=== PATIENT | male | born 1970 | race Hispanic/Latino ===

== ENCOUNTER 2016-07-06 19:36 | Emergency (ER) | payer MEDICAID ==
[2016-07-06 19:37] VITALS: BMI 26.6
== END 2016-07-07 01:35 | disposition left against medical advice (07) ==
LOC: ED 19:36
DX: Z02.89 Encounter for other administrative examinations (principal); F10.129 Alcohol abuse with intoxication, unspecified

== ENCOUNTER 2016-07-19 17:27 | Inpatient (IN) | payer MEDICAID ==
[2016-07-19] MEDS ORDERED: Sodium Chloride 0.9% 1,000 ML IV STA (18:03)
[2016-07-19] MEDS ORDERED: Folic Acid 1 MG, Thiamine 100 MG, Multivitamin (MVI) 10 ML in Dextrose 5%/0.45% NS 1,00... IV ONE (18:03)
[2016-07-19 18:08] LABS: ADD MANUAL DIFF? NO
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
[2016-07-19 18:12] LABS: BASO # 0.01 K/mm3 (0.0-2.0); BASO % 0.2 % (0.0-3.0); EOS % 0.4 % (1.5-5.0); GRAN # 3.79 (1.4-6.5); GRAN % 70.3 % (50.0-68.0); HEMATOCRIT 37.3 % (42.0-52.0); LYMPH # 1.2 (1.2-3.4); LYMPH % 21.7 % (22.0-35.0); MEAN CELL VOLUME 80.9 fL (80.0-105.0); MEAN CORPUSCULAR HEMOGLOBIN 29.3 pg (25.0-35.0); MEAN CORPUSCULAR HGB CONC 36.2 g/dl (31.0-37.0); MEAN PLATELET VOLUME 10.3 fl (7.0-11.0); MONO # 0.4 (0.1-0.6); MONO % 7.4 % (1.0-6.0); PLATELET COUNT 77 10^3/uL (120.0-450.0); RED CELL DISTRIBUTION WIDTH 14.4 % (11.5-14.5); WHITE BLOOD COUNT 5.4 10^3/ul (4.5-11.0)
[2016-07-19] MEDS ORDERED: Thiamine 100 mg/ml Inj ONE (18:14)
[2016-07-19 18:23] LABS: PARTIAL THROMBOPLASTIN TIME 27.1 Seconds (23.7-30.8)
[2016-07-19 18:32] LABS: ALB/GLOB RATIO 1.4 (1.1-1.8); ALKALINE PHOSPHATASE 82 U/L (38-133); ALT/SGPT 69 U/L (7-56); AMYLASE 100 U/L (35-125); AST/SGOT 78 U/L (15-59); BILIRUBIN,DIRECT 0.6 mg/dL (0.0-0.4); BILIRUBIN,TOTAL 1.4 mg/dL (0.2-1.3); BLOOD UREA NITROGEN 12 mg/dL (7-21); CALCIUM 8.8 mg/dL (8.4-10.5); CARBON DIOXIDE 21 mmol/L (21-33); CHLORIDE 92 mmol/L (98-107); GFR AFRICAN-AMERICAN > 60; GLUCOSE,RANDOM 135 mg/dL (70-110); LIPASE 234 U/L (23-300); POTASSIUM 3.1 mmol/L (3.6-5.0); SODIUM 127 mmol/L (132-148); TOTAL PROTEIN 6.9 g/dL (5.8-8.3)
[2016-07-19] MEDS ORDERED: Potassium Chloride 40 mEq/30 ml LIQ UD PO STA (18:34)
[2016-07-19] MEDS ORDERED: Folic Acid 1 MG, Thiamine 100 MG, Multivitamin (MVI) 10 ML, Potassium Chloride 20 MEQ i... IV ONE (18:35)
[2016-07-19] MEDS ORDERED: THIAMINE IV ONE (18:36)
[2016-07-19] MEDS ORDERED: [UNRECOGNIZED DRUG - OTHER] IV ONE (18:36)
[2016-07-19] MEDS ORDERED: FOLIC ACID IV ONE (18:36)
[2016-07-19] MEDS ORDERED: POTASSIUM CHLORIDE IV ONE (18:36)
[2016-07-19] MEDS ORDERED: MULTIVITAMIN IV ONE (18:36)
[2016-07-19 18:39] LABS: URINE BILIRUBIN SMALL (NEGATIVE); URINE BLOOD NEGATIVE (NEGATIVE); URINE GLUCOSE (UA) NEGATIVE (NEGATIVE); URINE KETONE 15 mg/dL (NEGATIVE); URINE LEUKOCYTE ESTERASE NEGATIVE Leu/uL (NEGATIVE); URINE PROTEIN NEGATIVE mg/dL (<30 mg/dL); URINE UROBILINOGEN 0.2 E.U./dL (<1 E.U./dL)
[2016-07-19 18:40] LABS: URINE APPEARANCE CLEAR (CLEAR); URINE COLOR LIGHT YELLOW (YELLOW)
[2016-07-19 18:42] LABS: TROPONIN I < 0.01 ng/mL
[2016-07-19] MEDS ORDERED: diaZEpam 10 mg/2 ml Inj IVP ONE (21:44)
[2016-07-19] MEDS ORDERED: diaZEpam 10 mg/2 ml Inj IVP PRN (21:44)
[2016-07-19] MEDS: Sodium Chloride 0.9% 1,000 ML IV SCH (21:45)
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
[2016-07-20] MEDS: Sodium Chloride 0.9% 1,000 ML IV SCH (05:15)
[2016-07-20 05:46] LABS: ADD MANUAL DIFF? NO
[2016-07-20 05:52] LABS: BASO # 0.01 K/mm3 (0.0-2.0); BASO % 0.2 % (0.0-3.0); EOS # 0.1 (0.0-0.7); EOS % 1.4 % (1.5-5.0); GRAN # 2.95 (1.4-6.5); GRAN % 59.1 % (50.0-68.0); HEMATOCRIT 36.7 % (42.0-52.0); LYMPH # 1.4 (1.2-3.4); LYMPH % 28.7 % (22.0-35.0); MEAN CELL VOLUME 83.6 fL (80.0-105.0); MEAN CORPUSCULAR HEMOGLOBIN 28.5 pg (25.0-35.0); MEAN CORPUSCULAR HGB CONC 34.1 g/dl (31.0-37.0); MEAN PLATELET VOLUME 10.9 fl (7.0-11.0); MONO # 0.5 (0.1-0.6); MONO % 10.6 % (1.0-6.0); PLATELET COUNT 65 10^3/uL (120.0-450.0); RED CELL DISTRIBUTION WIDTH 14.7 % (11.5-14.5)
[2016-07-20 06:39] LABS: ALB/GLOB RATIO 1.3 (1.1-1.8); ALKALINE PHOSPHATASE 58 U/L (38-133); ALT/SGPT 63 U/L (7-56); AST/SGOT 62 U/L (15-59); BLOOD UREA NITROGEN 6 mg/dL (7-21); CALCIUM 8.5 mg/dL (8.4-10.5); CARBON DIOXIDE 25 mmol/L (21-33); CHLORIDE 103 mmol/L (95-110); GFR AFRICAN-AMERICAN > 60; GLUCOSE,RANDOM 78 mg/dL (70-110); MAGNESIUM 2.2 mg/dL (1.7-2.2); PHOSPHOROUS 3.5 mg/dL (2.5-4.5); POTASSIUM 3.9 mmol/L (3.6-5.0); SODIUM 136 mmol/L (132-148); TOTAL PROTEIN 6.1 g/dL (5.8-8.3)
--- NOTE | 2016-07-20 07:38 | CP.CCUPN ---
<Rin Suarez - Last Filed: 07/20/16 12:34> CCU Subjective - Physician Review Events Since Last Encounter (Free Text): 07/20/16 11:27 Patient seen and examined bedside. On 1:1 for hallucinations and hyperactive delirium at admission. Patient has not had any further episodes of agitation, currently denies visual or auditory hallucinations, denies CP, SOB, abd pain, n/ v, fevers, chills, rashes, anxiety, visual changes, syncope, anxiety, tremors, diaphoresis. Tolerating regular diet. Has needed 2 doses of PRN ativan and 2 doses Valium since admission, none overnight. Critical Care Time Spent (in minutes): 40 CCU Objective - Vital Signs / Intake & Output Vital Signs (Last 4 hours): Vital Signs Temp Pulse Resp BP Pulse Ox 07/20/16 05:00 65 12 135/66 99 07/20/16 04:00 98.6 F 78 17 128/68 93 L Intake and Output (Last 8hrs): Intake & Output 07/19/16 07/20/16 07/20/16 22:59 06:59 14:59 Weight 5 lb 9 oz - Physical Exam Head: Positive for: Atraumatic, Normocephalic Pupils: Positive for: PERRL Conjunctiva: Positive for: Normal Mouth: Positive for: Moist Mucous Membranes Pharnyx: Positive for: Normal. Negative for: ERYTHEMA Respiratory/Chest: Positive for: Clear to Auscultation, Good Air Exchange. Negative for: Respiratory Distress, Accessory Muscle Use Cardiovascular: Positive for: Normal S1, S2, Tachycardic. Negative for: Murmurs Abdomen: Positive for: Normal Bowel Sounds. Negative for: Tenderness, Distention, Peritoneal Signs Upper Extremity: Positive for: Normal Inspection. Negative for: Cyanosis, Edema Lower Extremity: Positive for: Normal Inspection. Negative for: Edema Neurological: Positive for: GCS=15, CN II-XII Intact, Speech Normal Skin: Positive for: Warm, Normal Color, Diaphoretic. Negative for: Rashes Psychiatric: Positive for: Alert, Oriented x 3, Anxious, Other (patient seems to be seeing things intermittently) - Medications Active Medications: Active Medications Generic Name Dose Route Start Last Admin Trade Name Freq PRN Reason Stop Dose Admin Chlordiazepoxide 50 mg 07/19/16 20:00 07/19/16 21:50 Librium PO Not Given BID [facility] Protocol Diazepam 5 mg 07/19/16 21:44 07/20/16 02:30 Valium IVP 5 mg Q6H PRN Administration Agitation Protocol Enoxaparin Sodium 40 mg 07/20/16 10:00 Lovenox SC DAILY [facility] Protocol Folic Acid 1 mg 07/20/16 10:00 Folic Acid PO DAILY [facility] Sodium Chloride 1,000 mls @ 125 mls/hr 07/19/16 21:00 07/20/16 05:15 Sodium Chloride 0.9% IV 125 mls/hr .Q8H [facility] Administration Lorazepam 2 mg 07/19/16 19:39 07/20/16 02:00 Ativan IVP 2 mg Q3H PRN Administration Symptoms of alcohol withdrawl Protocol Multivitamins/Minerals 1 tab 07/20/16 10:00 Therapeutic-M Tab PO DAILY [facility] Ondansetron HCl 4 mg 07/19/16 19:39 Zofran Inj IVP Q4H PRN Nausea/Vomiting Pantoprazole Sodium 40 mg 07/20/16 10:00 Protonix Inj IVP DAILY [facility] Thiamine HCl 100 mg 07/20/16 10:00 Vitamin B1 Tab PO DAILY [facility] - Patient Studies Lab Studies: Lab Studies 07/20/16 Range/Units 05:30 WBC 5.0 (4.5-11.0) 10^3/ul RBC 4.39 (3.5-6.1) 10^6/uL Hgb 12.5 L (14.0-18.0) gm/dL Hct 36.7 L (42.0-52.0) % MCV 83.6 (80.0-105.0) fL MCH 28.5 (25.0-35.0) pg MCHC 34.1 (31.0-37.0) g/dl RDW 14.7 H (11.5-14.5) % Plt Count 65 L (120.0-450.0) 10^3/uL MPV 10.9 (7.0-11.0) fl Gran % 59.1 (50.0-68.0) % Lymph % (Auto) 28.7 (22.0-35.0) % [place] % (Auto) 10.6 H (1.0-6.0) % Eos % (Auto) 1.4 L (1.5-5.0) % Baso % (Auto) 0.2 (0.0-3.0) % Gran # 2.95 (1.4-6.5) Lymph # 1.4 (1.2-3.4) [place] # 0.5 (0.1-0.6) Eos # 0.1 (0.0-0.7) Baso # 0.01 (0.0-2.0) K/mm3 Sodium 136 (132-148) mmol/L Potassium 3.9 (3.6-5.0) mmol/L Chloride 103 (95-110) mmol/L Carbon Dioxide 25 (21-33) mmol/L Anion Gap 12 (10-20) BUN 6 L (7-21) mg/dL Creatinine 0.6 (0.5-1.4) mg/dL Est GFR ( Amer) > 60 Est GFR (Non-Af Amer) > 60 Random Glucose 78 (70-110) mg/dL Calcium 8.5 (8.4-10.5) mg/dL Phosphorus 3.5 (2.5-4.5) mg/dL Magnesium 2.2 (1.7-2.2) mg/dL Total Bilirubin 1.0 (0.2-1.3) mg/dL AST 62 H (15-59) U/L ALT 63 H (7-56) U/L Alkaline Phosphatase 58 (38-133) U/L Total Protein 6.1 (5.8-8.3) g/dL Albumin 3.4 (3.0-4.8) g/dL Globulin 2.6 gm/dL Albumin/Globulin Ratio 1.3 (1.1-1.8) Laboratory Results - last 24 hr 07/20/16 05:30 WBC 5.0 RBC 4.39 Hgb 12.5 L Hct 36.7 L MCV 83.6 MCH 28.5 MCHC 34.1 RDW 14.7 H Plt Count 65 L MPV 10.9 Gran % 59.1 Lymph % (Auto) 28.7 [place] % (Auto) 10.6 H Eos % (Auto) 1.4 L Baso % (Auto) 0.2 Gran # 2.95 Lymph # 1.4 [place] # 0.5 Eos # 0.1 Baso # 0.01 Sodium 136 Potassium 3.9 Chloride 103 Carbon Dioxide 25 Anion Gap 12 BUN 6 L Creatinine 0.6 Est GFR ( Amer) > 60 Est GFR (Non-Af Amer) > 60 Random Glucose 78 Calcium 8.5 Phosphorus 3.5 Magnesium 2.2 Total Bilirubin 1.0 AST 62 H ALT 63 H Alkaline Phosphatase 58 Total Protein 6.1 Albumin 3.4 Globulin 2.6 Albumin/Globulin Ratio 1.3 Review of Systems - Constitutional Constitutional: absent: Fever, Chills, Sweats - EENT Eyes: absent: Blurred Vision, Change in Vision Ears: absent: Dizziness - Cardiovascular Cardiovascular: absent: Chest Pain, Diaphoresis (resolved), Dyspnea - Respiratory Respiratory: absent: Cough, Dyspnea, Pain on Inspiration - Gastrointestinal Gastrointestinal: absent: Abdominal Pain, Diarrhea, Nausea, Vomiting - Genitourinary Genitourinary: absent: Dysuria, Flank Pain - Musculoskeletal Musculoskeletal: absent: Muscle Cramps, Numbness - Integumentary Integumentary: absent: New Lesions, Rash - Neurological Neurological: absent: Dizziness, Focal Weakness, Headaches, Paresthesias, Tingling - Psychiatric Psychiatric: absent: Anxiety, Confusion, Hallucinations, Homicidal Ideation, Suicidal Ideation, Visual Hallucinations Critical Care Progress Note - Ventilator Checklist PUD Prophalyxis: Yes DVT Prophylaxis: Yes - Prophylaxis GI Prophylaxis GI: PPI - Prophylaxis DVT Prophylaxis DVT: Lovenox - Nutrition Nutrition: Nutrition Category Date Time Status NPO Diet [DIET] Diets 07/19/16 Breakfast Ordered Assessment/Plan - Assessment and Plan (Free Text) Assessment: 46 yo M w h/o EtOH abuse (last drink 4 days ago), HTN, depression admitted to ICU in Alcohol withdrawal vs DTs Plan: Neuro: AAOx3, NAD, no tremors no asterixis on exam CIWA protocol DC PRN valium. Continue BID librium and PRN ativan. Monitor BP, heart rate, signs of withdrawal. Monitor amount of ativan needed Seizure precautions CV: HD stable. Continue to monitor Pulm: Comfortable on room air. Maintain spo2>90 Renal: No acute issues. Continue to monitor renal function, I&Os Hyponatremia, hypokalemia, hypomagnesemia resolved s/p replacement. Recheck AM labs GI: GI ppx Amylase and lipase within normal limits Total bilirubin now normal, 1.0 from 1.4. LFT's trending down. ID: Afebrile, no leukocytosis, no signs of infection Heme: Thrombocytopenia likely 2/2 bone marrow suppression due to chronic EtOH abuse. Continue to monitor DVT/GI ppx: SQL, protonix, regular diet - Date & Time Date: 07/20/16 Time: 11:38 <Garima ROBERTSON,Jatin H - Last Filed: 07/20/16 14:21> CCU Objective - Vital Signs / Intake & Output Vital Signs (Last 4 hours): Vital Signs Temp Pulse Resp BP Pulse Ox 07/20/16 13:00 65 18 125/78 98 07/20/16 12:22 73 15 98 07/20/16 12:00 98.7 F 67 15 131/75 98 07/20/16 11:20 73 16 97 07/20/16 11:00 77 16 133/83 95 Intake and Output (Last 8hrs): Intake & Output 07/19/16 07/20/16 07/20/16 22:59 06:59 14:59 Weight 5 lb 9 oz 171 lb 6.4 oz Other: Voiding Method Urinal - Medications Active Medications: Active Medications Generic Name Dose Route Start Last Admin Trade Name Freq PRN Reason Stop Dose Admin Chlordiazepoxide 50 mg 07/19/16 20:00 07/20/16 09:03 Librium PO Not Given BID [facility] Protocol Enoxaparin Sodium 40 mg 07/20/16 10:00 07/20/16 09:03 Lovenox SC Not Given DAILY [facility] Protocol Folic Acid 1 mg 07/20/16 10:00 07/20/16 09:02 Folic Acid PO Not Given DAILY [facility] Lorazepam 2 mg 07/19/16 19:39 07/20/16 02:00 Ativan IVP 2 mg Q3H PRN Administration Symptoms of alcohol withdrawl Protocol Multivitamins/Minerals 1 tab 07/20/16 10:00 07/20/16 10:06 Therapeutic-M Tab PO Not Given DAILY [facility] Ondansetron HCl 4 mg 07/19/16 19:39 Zofran Inj IVP Q4H PRN Nausea/Vomiting Pantoprazole Sodium 40 mg 07/20/16 10:00 07/20/16 09:04 Protonix Inj IVP Not Given DAILY [facility] Thiamine HCl 100 mg 07/20/16 10:00 07/20/16 09:04 Vitamin B1 Tab PO Not Given DAILY [facility] - Patient Studies Lab Studies: Lab Studies 07/20/16 Range/Units 05:30 WBC 5.0 (4.5-11.0) 10^3/ul RBC 4.39 (3.5-6.1) 10^6/uL Hgb 12.5 L (14.0-18.0) gm/dL Hct 36.7 L (42.0-52.0) % MCV 83.6 (80.0-105.0) fL MCH 28.5 (25.0-35.0) pg MCHC 34.1 (31.0-37.0) g/dl RDW 14.7 H (11.5-14.5) % Plt Count 65 L (120.0-450.0) 10^3/uL MPV 10.9 (7.0-11.0) fl Gran % 59.1 (50.0-68.0) % Lymph % (Auto) 28.7 (22.0-35.0) % [place] % (Auto) 10.6 H (1.0-6.0) % Eos % (Auto) 1.4 L (1.5-5.0) % Baso % (Auto) 0.2 (0.0-3.0) % Gran # 2.95 (1.4-6.5) Lymph # 1.4 (1.2-3.4) [place] # 0.5 (0.1-0.6) Eos # 0.1 (0.0-0.7) Baso # 0.01 (0.0-2.0) K/mm3 Sodium 136 (132-148) mmol/L Potassium 3.9 (3.6-5.0) mmol/L Chloride 103 (95-110) mmol/L Carbon Dioxide 25 (21-33) mmol/L Anion Gap 12 (10-20) BUN 6 L (7-21) mg/dL Creatinine 0.6 (0.5-1.4) mg/dL Est GFR ( Amer) > 60 Est GFR (Non-Af Amer) > 60 Random Glucose 78 (70-110) mg/dL Calcium 8.5 (8.4-10.5) mg/dL Phosphorus 3.5 (2.5-4.5) mg/dL Magnesium 2.2 (1.7-2.2) mg/dL Total Bilirubin 1.0 (0.2-1.3) mg/dL AST 62 H (15-59) U/L ALT 63 H (7-56) U/L Alkaline Phosphatase 58 (38-133) U/L Total Protein 6.1 (5.8-8.3) g/dL Albumin 3.4 (3.0-4.8) g/dL Globulin 2.6 gm/dL Albumin/Globulin Ratio 1.3 (1.1-1.8) Laboratory Results - last 24 hr 07/20/16 05:30 WBC 5.0 RBC 4.39 Hgb 12.5 L Hct 36.7 L MCV 83.6 MCH 28.5 MCHC 34.1 RDW 14.7 H Plt Count 65 L MPV 10.9 Gran % 59.1 Lymph % (Auto) 28.7 [place] % (Auto) 10.6 H Eos % (Auto) 1.4 L Baso % (Auto) 0.2 Gran # 2.95 Lymph # 1.4 [place] # 0.5 Eos # 0.1 Baso # 0.01 Sodium 136 Potassium 3.9 Chloride 103 Carbon Dioxide 25 Anion Gap 12 BUN 6 L Creatinine 0.6 Est GFR ( Amer) > 60 Est GFR (Non-Af Amer) > 60 Random Glucose 78 Calcium 8.5 Phosphorus 3.5 Magnesium 2.2 Total Bilirubin 1.0 AST 62 H ALT 63 H Alkaline Phosphatase 58 Total Protein 6.1 Albumin 3.4 Globulin 2.6 Albumin/Globulin Ratio 1.3 Critical Care Progress Note - Nutrition Nutrition: Nutrition Category Date Time Status Regular Diet [DIET] Diets 07/20/16 Breakfast Ordered Attending/Attestation - Attestation I have personally seen and examined this patient.: Yes I have fully participated in the care of the patient.: Yes I have reviewed all pertinent clinical information: Yes Notes (Text): 07/20/16 14:17 46 y/o M admitted to the ICU secondary to DT and difficulty in controlling symptoms and preventing harm to the patient. DT- pt is a known alcoholic for many years and has tried to quit just like this instance. He has been 36 hrs free of alcohol and had symptoms of DT. After valium and Librium was given the patient is currently asymptomatic with normal vital signs. Of to mention the patient has tried many AA groups and self help organizations but request more help once discharged. Will continue to hydrate with Normal saline, MV, thimaine folate. Librium BID and Ativan prn q 3hrs. If the patient in the next 12 hrs can show less use of ativan , then he maybe safe for transfer to the telemetry floor . No signs of seizure or respiratory depression. dvt p, ppi cc time 55 min
[2016-07-20] MEDS: Multivitamin With Minerals Tab PO SCH ×2 (08:45→10:06)
[2016-07-20] MEDS: Enoxaparin 40 mg Syringe SC SCH ×2 (08:46→09:03)
--- NOTE | 2016-07-20 09:16 | RAD ---
HISTORY: alcohol withdrawal COMPARISON: 05/25/2016 FINDINGS: LUNGS: No active pulmonary disease. PLEURA: No significant pleural effusion identified, no pneumothorax apparent. CARDIOVASCULAR: Normal. OSSEOUS STRUCTURES: No significant abnormalities. VISUALIZED UPPER ABDOMEN: Normal. OTHER FINDINGS: None. IMPRESSION: No active disease.
--- NOTE | 2016-07-20 10:31 | CP.PCM.PN ---
<Brent Crow - Last Filed: 07/20/16 18:35> Subjective - Date & Time of Evaluation Date of Evaluation: 07/20/16 Time of Evaluation: 08:00 - Subjective Subjective: 46yo male with past medical history of chronic ETOH abuse, hypertension and depression that presented c/o tremors, visual and auditory hallucations and nausea/vomiting. He stopped drinking 4 days prior and since then has been having symptoms of alcohol withdrawal. Today, he is feeling better, tolerating a normal diet, and only complains of slight dizziness. He denied headache, fever , chills, chest pain, palpitations, SOB, fever, chills, cough, nausea, vomiting , diarrhea, focal weakness, numbness, or tingling. Objective - Vital Signs/Intake and Output Vital Signs (last 24 hours): Temp Pulse Resp BP Pulse Ox 98.8 F 73 18 148/89 100 07/20/16 08:00 07/20/16 08:01 07/20/16 08:01 07/20/16 08:01 07/20/16 08:01 - Medications Medications: Current Medications Chlordiazepoxide (Librium) 50 mg PO BID [facility] PRN Reason: Protocol Last Admin: 07/20/16 09:03 Dose: Not Given Diazepam (Valium) 5 mg IVP Q6H PRN; Protocol PRN Reason: Agitation Last Admin: 07/20/16 02:30 Dose: 5 mg Enoxaparin Sodium (Lovenox) 40 mg SC DAILY [facility] PRN Reason: Protocol Last Admin: 07/20/16 09:03 Dose: Not Given Folic Acid (Folic Acid) 1 mg PO DAILY [facility] Last Admin: 07/20/16 09:02 Dose: Not Given Sodium Chloride (Sodium Chloride 0.9%) 1,000 mls @ 125 mls/hr IV .Q8H [facility] Last Admin: 07/20/16 05:15 Dose: 125 mls/hr Lorazepam (Ativan) 2 mg IVP Q3H PRN; Protocol PRN Reason: Symptoms of alcohol withdrawl Last Admin: 07/20/16 02:00 Dose: 2 mg Multivitamins/Minerals (Therapeutic-M Tab) 1 tab PO DAILY [facility] Last Admin: 07/20/16 10:06 Dose: Not Given Ondansetron HCl (Zofran Inj) 4 mg IVP Q4H PRN PRN Reason: Nausea/Vomiting Pantoprazole Sodium (Protonix Inj) 40 mg IVP DAILY [facility] Last Admin: 07/20/16 09:04 Dose: Not Given Thiamine HCl (Vitamin B1 Tab) 100 mg PO DAILY [facility] Last Admin: 07/20/16 09:04 Dose: Not Given - Labs Labs: 07/20/16 05:30 07/20/16 05:30 PT 10.8 Seconds (9.9-11.8) 07/19/16 17:45 INR 1.00 (0.93-1.08) 07/19/16 17:45 APTT 27.1 Seconds (23.7-30.8) 07/19/16 17:45 - Constitutional Appears: Non-toxic, No Acute Distress - Head Exam Head Exam: ATRAUMATIC, NORMOCEPHALIC - Eye Exam Eye Exam: EOMI - ENT Exam ENT Exam: Mucous Membranes Moist - Neck Exam Neck Exam: Full ROM, Normal Inspection. absent: Lymphadenopathy - Respiratory Exam Respiratory Exam: Clear to Ausculation Bilateral, NORMAL BREATHING PATTERN. absent: Rhonchi, Wheezes - Cardiovascular Exam Cardiovascular Exam: REGULAR RHYTHM, RRR, +S1, +S2. absent: JVD - GI/Abdominal Exam GI & Abdominal Exam: Soft, Normal Bowel Sounds. absent: Tenderness - Extremities Exam Extremities Exam: absent: Joint Swelling, Pedal Edema, Tenderness - Back Exam Back Exam: Full ROM. absent: CVA tenderness (L), CVA tenderness (R), paraspinal tenderness, rash noted - Neurological Exam Neurological Exam: Alert, Awake - Psychiatric Exam Psychiatric exam: Normal Affect, Normal Mood - Skin Skin Exam: Dry, Intact, Normal Color, Warm Assessment and Plan - Assessment and Plan (Free Text) Assessment: 46yo male with history of chronic ETOH abuse, HTN, depression presents c/o tremors, auditory and visual hallucations as well as mild abdominal pain, nausea and vomiting. Plan: ETOH withdrawal -Possible ACS -EKG revealed sinus tachycardia at 123bpm with no acute ST-T wave changes -CXR No Active Disease -Troponin negative x1 -Urine toxicology negative -Alcohol level less than 10 -Ativan 2q3 PRN last taken today at 2:00am -Librium 50mg BID [facility] - will taper tomorrow -Valium has been d/c -Zofran 4mg q4 prn -Normal saline @ 125/hr -Thiamine/Folic acid/Multivitamin -CIWA protocol -Aspiration/Seizure precautions -Continue to monitor and replete electrolytes as needed -Na and K+ normalized today GI/DVT prophylaxis -protonix 40mg daily -lovenix 40mg sc <Agustin Corea - Last Filed: 07/21/16 17:28> Objective - Vital Signs/Intake and Output Vital Signs (last 24 hours): Temp Pulse Resp BP Pulse Ox 98.3 F 69 20 153/84 H 95 07/21/16 04:00 07/21/16 08:00 07/21/16 07:41 07/21/16 07:00 07/21/16 07:41 Intake and Output: 07/21/16 07/21/16 06:59 18:59 Intake Total 340 Output Total 1800 Balance -1460 - Medications Medications: Current Medications Chlordiazepoxide (Librium) 25 mg PO BID [facility] PRN Reason: Protocol Last Admin: 07/21/16 10:05 Dose: Not Given Enoxaparin Sodium (Lovenox) 40 mg SC DAILY [facility] PRN Reason: Protocol Last Admin: 07/21/16 09:32 Dose: 40 mg Folic Acid (Folic Acid) 1 mg PO DAILY [facility] Last Admin: 07/21/16 09:31 Dose: 1 mg Lorazepam (Ativan) 2 mg IVP Q3H PRN; Protocol PRN Reason: Symptoms of alcohol withdrawl Last Admin: 07/20/16 02:00 Dose: 2 mg Multivitamins/Minerals (Therapeutic-M Tab) 1 tab PO DAILY [facility] Last Admin: 07/21/16 09:31 Dose: 1 tab Ondansetron HCl (Zofran Inj) 4 mg IVP Q4H PRN PRN Reason: Nausea/Vomiting Pantoprazole Sodium (Protonix Inj) 40 mg IVP DAILY [facility] Last Admin: 07/21/16 09:31 Dose: 40 mg Thiamine HCl (Vitamin B1 Tab) 100 mg PO DAILY [facility] Last Admin: 07/21/16 09:31 Dose: 100 mg - Labs Labs: 07/21/16 06:00 07/21/16 06:00 PT 10.8 Seconds (9.9-11.8) 07/19/16 17:45 INR 1.00 (0.93-1.08) 07/19/16 17:45 APTT 27.1 Seconds (23.7-30.8) 04 17:45 Assessment and Plan - Assessment and Plan (Free Text) Assessment: attending note; Patient is a 86-year-old male admitted with alcohol abuse. Patient is well known to our service. getting treated with IV multivitamin, thiamine, folic acid. Continue Ativan and Librium. Denies any depression. Continue metoprolol for hypertension. complete alcohol cessation is strongly advised. Follow-up with AA meetings/AA rehabilitation. Follow-up with PMD Dr. Baez upon discharge. Attending/Attestation - Attestation I have personally seen and examined this patient.: Yes I have fully participated in the care of the patient.: Yes I have reviewed all pertinent clinical information, including history, physical exam and plan: Yes
--- NOTE | 2016-07-20 11:59 | CARD ---
APPROVED REPORT EKG Measurement Heart [id number] <Conclusion> Sinus tachycardia Otherwise normal ECG
[2016-07-21 05:19] VITALS: TEMP 98.3
[2016-07-21 06:29] LABS: ADD MANUAL DIFF? NO
[2016-07-21 06:48] LABS: BASO # 0.01 K/mm3 (0.0-2.0); BASO % 0.2 % (0.0-3.0); EOS # 0.1 (0.0-0.7); EOS % 1.2 % (1.5-5.0); GRAN # 2.41 (1.4-6.5); GRAN % 57.2 % (50.0-68.0); HEMATOCRIT 36.6 % (42.0-52.0); LYMPH # 1.4 (1.2-3.4); LYMPH % 34.1 % (22.0-35.0); MEAN CELL VOLUME 83.2 fL (80.0-105.0); MEAN CORPUSCULAR HEMOGLOBIN 28.9 pg (25.0-35.0); MEAN CORPUSCULAR HGB CONC 34.7 g/dl (31.0-37.0); MEAN PLATELET VOLUME 11.2 fl (7.0-11.0); MONO # 0.3 (0.1-0.6); MONO % 7.3 % (1.0-6.0); PLATELET COUNT 79 10^3/uL (120.0-450.0); RED CELL DISTRIBUTION WIDTH 14.8 % (11.5-14.5); WHITE BLOOD COUNT 4.2 10^3/ul (4.5-11.0)
[2016-07-21 07:11] LABS: ALB/GLOB RATIO 1.2 (1.1-1.8); ALKALINE PHOSPHATASE 90 U/L (38-133); ALT/SGPT 48 U/L (7-56); AST/SGOT 44 U/L (15-59); BILIRUBIN,TOTAL 0.6 mg/dL (0.2-1.3); BLOOD UREA NITROGEN 6 mg/dL (7-21); CALCIUM 8.4 mg/dL (8.4-10.5); CARBON DIOXIDE 26 mmol/L (21-33); CHLORIDE 102 mmol/L (98-107); GFR AFRICAN-AMERICAN > 60; GLUCOSE,RANDOM 92 mg/dL (70-110); MAGNESIUM 1.8 mg/dL (1.7-2.2); PHOSPHOROUS 3.2 mg/dL (2.5-4.5); POTASSIUM 3.4 mmol/L (3.6-5.0); SODIUM 134 mmol/L (132-148); TOTAL PROTEIN 6.1 g/dL (5.8-8.3)
[2016-07-21 07:44] VITALS: BP 153/84
[2016-07-21 07:45] VITALS: PULSE 69; RESP 20; O2SAT 95
[2016-07-21] MEDS ORDERED: Potassium Chloride 20 mEq ER Tab PO ONE (09:27)
[2016-07-21] MEDS: Multivitamin With Minerals Tab PO SCH (09:31)
[2016-07-21] MEDS: Enoxaparin 40 mg Syringe SC SCH (09:32)
--- NOTE | 2016-07-21 22:24 | CP.PCM.DIS ---
Provider - Provider Date of Admission: 07/19/16 19:26 Attending physician: Agustin Corea MD Primary care physician: Patric Baez MD Time Spent in preparation of Discharge (in minutes): 35 Diagnosis - Discharge Diagnosis (1) Alcohol withdrawal Status: Acute Hospital Course - Lab Results Lab Results: Micro Results 07/19/16 20:30 Nose MRSA Culture (Admit) - Final MRSA NOT DETECTED Most Recent Lab Values WBC 4.2 10^3/ul (4.5-11.0) L 07/21/16 06:00 RBC 4.40 10^6/uL (3.5-6.1) 07/21/16 06:00 Hgb 12.7 gm/dL (14.0-18.0) L 07/21/16 06:00 Hct 36.6 % (42.0-52.0) L 07/21/16 06:00 MCV 83.2 fL (80.0-105.0) 07/21/16 06:00 MCH 28.9 pg (25.0-35.0) 07/21/16 06:00 MCHC 34.7 g/dl (31.0-37.0) 07/21/16 06:00 RDW 14.8 % (11.5-14.5) H 07/21/16 06:00 Plt Count 79 10^3/uL (120.0-450.0) L 07/21/16 06:00 MPV 11.2 fl (7.0-11.0) H 07/21/16 06:00 Gran % 57.2 % (50.0-68.0) 07/21/16 06:00 Lymph % (Auto) 34.1 % (22.0-35.0) 07/21/16 06:00 [place] % (Auto) 7.3 % (1.0-6.0) H 07/21/16 06:00 Eos % (Auto) 1.2 % (1.5-5.0) L 07/21/16 06:00 Baso % (Auto) 0.2 % (0.0-3.0) 07/21/16 06:00 Gran # 2.41 (1.4-6.5) 07/21/16 06:00 Lymph # 1.4 (1.2-3.4) 07/21/16 06:00 [place] # 0.3 (0.1-0.6) 07/21/16 06:00 Eos # 0.1 (0.0-0.7) 07/21/16 06:00 Baso # 0.01 K/mm3 (0.0-2.0) 07/21/16 06:00 PT 10.8 Seconds (9.9-11.8) 07/19/16 17:45 INR 1.00 (0.93-1.08) 07/19/16 17:45 APTT 27.1 Seconds (23.7-30.8) 07/19/16 17:45 Sodium 134 mmol/L (132-148) 07/21/16 06:00 Potassium 3.4 mmol/L (3.6-5.0) L 07/21/16 06:00 Chloride 102 mmol/L (98-107) 07/21/16 06:00 Carbon Dioxide 26 mmol/L (21-33) 07/21/16 06:00 Anion Gap 9 (10-20) L 07/21/16 06:00 BUN 6 mg/dL (7-21) L 07/21/16 06:00 Creatinine 0.7 mg/dL (0.5-1.4) 07/21/16 06:00 Est GFR ( Amer) > 60 07/21/16 06:00 Est GFR (Non-Af Amer) > 60 07/21/16 06:00 Random Glucose 92 mg/dL (70-110) 07/21/16 06:00 Calcium 8.4 mg/dL (8.4-10.5) 07/21/16 06:00 Phosphorus 3.2 mg/dL (2.5-4.5) 07/21/16 06:00 Magnesium 1.8 mg/dL (1.7-2.2) 07/21/16 06:00 Total Bilirubin 0.6 mg/dL (0.2-1.3) 07/21/16 06:00 Direct Bilirubin 0.6 mg/dL (0.0-0.4) H 07/19/16 17:45 AST 44 U/L (15-59) 07/21/16 06:00 ALT 48 U/L (7-56) 07/21/16 06:00 Alkaline Phosphatase 90 U/L (38-133) 07/21/16 06:00 Lactate Dehydrogenase 461 U/L (333-699) 07/19/16 17:45 Total Creatine Kinase 188 U/L (35-230) 07/19/16 17:45 Troponin I < 0.01 ng/mL 07/19/16 17:45 Total Protein 6.1 g/dL (5.8-8.3) 07/21/16 06:00 Albumin 3.3 g/dL (3.0-4.8) 07/21/16 06:00 Globulin 2.8 gm/dL 07/21/16 06:00 Albumin/Globulin Ratio 1.2 (1.1-1.8) 07/21/16 06:00 Amylase 100 U/L (35-125) 07/19/16 17:45 Lipase 234 U/L (23-300) 07/19/16 17:45 Urine Color Light yellow (YELLOW) 07/19/16 18:00 Urine Appearance Clear (CLEAR) 07/19/16 18:00 Urine pH 6.0 (4.7-8.0) 07/19/16 18:00 Ur Specific [place] 1.010 (1.005-1.035) 07/19/16 18:00 Urine Protein Negative mg/dL (<30 mg/dL) 07/19/16 18:00 Urine Glucose (UA) Negative mg/dL (NEGATIVE) 07/19/16 18:00 Urine Ketones 15 mg/dL (NEGATIVE) H 07/19/16 18:00 Urine Blood Negative (NEGATIVE) 07/19/16 18:00 Urine Nitrate Negative (NEGATIVE) 07/19/16 18:00 Urine Bilirubin Small (NEGATIVE) H 07/19/16 18:00 Urine Urobilinogen 0.2 E.U./dL (<1 E.U./dL) 07/19/16 18:00 Ur Leukocyte Esterase Negative Kristen/uL (NEGATIVE) 07/19/16 18:00 Urine Opiates Screen Negative (NEGATIVE) 07/19/16 18:00 Urine Methadone Screen Negative (NEGATIVE) 07/19/16 18:00 Ur Barbiturates Screen Negative (NEGATIVE) 07/19/16 18:00 Ur Phencyclidine Scrn Negative (NEGATIVE) 07/19/16 18:00 Ur Amphetamines Screen Negative (NEGATIVE) 07/19/16 18:00 U Benzodiazepines Scrn Negative (NEGATIVE) 07/19/16 18:00 U Oth Cocaine Metabols Negative (NEGATIVE) 07/19/16 18:00 U Cannabinoids Screen Negative (NEGATIVE) 07/19/16 18:00 Alcohol, Quantitative < 10 mg/dL (0-10) 07/19/16 17:45 - Hospital Course Hospital Course: 46yo male with past medical history of chronic ETOH abuse, hypertension and depression that presented c/o tremors, visual and auditory hallucations and nausea/vomiting. He stopped drinking 4 days prior and since then has been having symptoms of alcohol withdrawal. Workup for ACS including EKG, chest xray and troponin was negative. He was monitored using CIWA protocol, given IV fluids with vitamins and started on Valium, Librium and Ativan as needed. Over his stay, his symptoms resolved and on day of discharge, he no longer had tremors and was ambulating. He was medically stable to be discharged home and sent with a prescription for Librium. He was also instructed to follow up with his primary doctor, go to AA, and stop drinking. This is a brief account of his hospital course, for more details please review his chart. - Date & Time of H&P Date of H&P: 07/21/16 Time of H&P: 08:00 Discharge Exam - Head Exam Head Exam: ATRAUMATIC, NORMOCEPHALIC - Eye Exam Eye Exam: EOMI, Normal appearance - Respiratory Exam Respiratory Exam: Clear to PA & Lateral, NORMAL BREATHING PATTERN, UNREMARKABLE. absent: Rhonchi, Wheezes - Cardiovascular Exam Cardiovascular Exam: REGULAR RHYTHM, RRR, +S1, +S2. absent: JVD - GI/Abdominal Exam GI & Abdominal Exam: Normal Bowel Sounds, Unremarkable - Extremities Exam Extremities exam: full ROM Additional comments: no tremulousness - Neurological Exam Neurological exam: Alert, Oriented x3 - Psychiatric Exam Psychiatric exam: Normal Affect, Normal Mood - Skin Skin Exam: Dry, Intact, Normal Color, Warm Discharge Plan - Discharge Medications Prescriptions: chlordiazePOXIDE [Librium] 10 mg PO BID #4 cap - Follow Up Plan Condition: SERIOUS Disposition: HOME/ ROUTINE Instructions: Bipolar Disorder (DC), Depression (DC), Abuse of Alcohol (DC), Hypertension (DC), Hypertension (GEN) Additional Instructions: 1. Follow up with PMD Dr. baez in 3 days. 2. stop alcohol abuse. 3. Follow up with AA meetings. Referrals: Patric Baez MD [Primary Care Provider] -
== END 2016-07-21 17:45 | disposition home or self-care (01) | DRG 751 ==
LOC: ED 17:27 → ERH 19:26 → CCU 20:29
PROVIDERS: ADMIT Hospitalist; ATTEND Internal Medicine
DX: F10.239 Alcohol dependence with withdrawal, unspecified (principal); I10 Essential (primary) hypertension; F32.9 Major depressive disorder, single episode, unspecified

== ENCOUNTER 2016-09-24 23:25 | Inpatient (IN) | payer MEDICAID ==
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
[2016-09-24] MEDS ORDERED: Thiamine 100 mg/ml Inj IV STA (23:48)
[2016-09-25 00:29] LABS: ADD MANUAL DIFF? NO
[2016-09-25 00:33] LABS: BASO # 0.01 K/mm3 (0.0-2.0); BASO % 0.2 % (0.0-3.0); EOS % 0.2 % (1.5-5.0); GRAN # 3.99 (1.4-6.5); GRAN % 66.2 % (50.0-68.0); HEMATOCRIT 39.7 % (42.0-52.0); LYMPH # 1.3 (1.2-3.4); LYMPH % 21.6 % (22.0-35.0); MEAN CORPUSCULAR HEMOGLOBIN 29.5 pg (25.0-35.0); MEAN PLATELET VOLUME 10.8 fl (7.0-11.0); MONO # 0.7 (0.1-0.6); MONO % 11.8 % (1.0-6.0); PLATELET COUNT 103 10^3/uL (120.0-450.0); RED CELL DISTRIBUTION WIDTH 14.3 % (11.5-14.5); VENOUS BLOOD GAS BASE EXCESS -0.5 mmol/L (0.0-2.0); VENOUS BLOOD PH 7.44 (7.32-7.43)
[2016-09-25 00:44] LABS: ALB/GLOB RATIO 1.6 (1.1-1.8); ALKALINE PHOSPHATASE 84 U/L (38-133); ALT/SGPT 74 U/L (7-56); AST/SGOT 71 U/L (15-59); BILIRUBIN,TOTAL 1.7 mg/dL (0.2-1.3); BLOOD UREA NITROGEN 9 mg/dL (7-21); CALCIUM 9.6 mg/dL (8.4-10.5); CARBON DIOXIDE 23 mmol/L (21-33); CHLORIDE 95 mmol/L (95-110); GFR AFRICAN-AMERICAN > 60; GLUCOSE,RANDOM 112 mg/dL (70-110); POTASSIUM 3.2 mmol/L (3.6-5.0); SODIUM 129 mmol/L (132-148); TOTAL PROTEIN 7.3 g/dL (5.8-8.3)
[2016-09-25 00:46] LABS: ALCOHOL SERUM < 10 mg/dL (0-10)
[2016-09-25 01:35] LABS: OSMOLALITY,SERUM 271 mosm/kg (271-296)
[2016-09-25 01:54] LABS: TROPONIN I < 0.01 ng/mL
--- NOTE | 2016-09-25 02:42 | CT ---
EXAM: CT Head Without Intravenous Contrast CLINICAL HISTORY: 46 years old, male; Signs and symptoms; Altered mental status/memory loss; Additional info: AMS TECHNIQUE: Axial computed tomography images of the head/brain without intravenous contrast. This CT exam was performed using one or more of the following dose reduction techniques: automated exposure control, adjustment of the mA and/or kV according to patient size, and/or use of iterative reconstruction technique. COMPARISON: CT - HEAD W/O CONTRAST 10/14/2015 6:22:56 PM FINDINGS: Brain: Mild atrophy. No intracranial hemorrhage. No mass. No definite edema. Ventricles: No hydrocephalus. Bones/joints: No acute fracture. Postsurgical changes of nasal bones. Soft tissues: RIGHT parietal soft tissue swelling. Sinuses: No acute sinusitis. Mastoid air cells: No mastoid effusion. Orbits: Unremarkable as visualized. IMPRESSION: 1. No acute intracranial abnormality. 2. Incidental/non-acute findings are described above.
[2016-09-25 03:41] LABS: URINE BILIRUBIN NEGATIVE (NEGATIVE); URINE BLOOD TRACE-LYSED (NEGATIVE); URINE GLUCOSE (UA) NEGATIVE (NEGATIVE); URINE KETONE 15 mg/dL (NEGATIVE); URINE LEUKOCYTE ESTERASE NEGATIVE Leu/uL (NEGATIVE); URINE PROTEIN NEGATIVE mg/dL (<30 mg/dL); URINE UROBILINOGEN 0.2 E.U./dL (<1 E.U./dL)
[2016-09-25 03:44] LABS: URINE APPEARANCE CLEAR (CLEAR); URINE COLOR YELLOW (YELLOW)
[2016-09-25 04:04] LABS: URINE EPITHELIAL CELLS 0 - 2 /hpf (0-5); URINE RBC 0 - 2 /hpf (0-2); URINE WBC 0 - 2 /hpf (0-6)
[2016-09-25 06:11] VITALS: O2SAT 97
[2016-09-25] MEDS ORDERED: Potassium Chloride 20 mEq ER Tab PO STA (06:39)
--- NOTE | 2016-09-25 10:49 | CARD ---
APPROVED REPORT EKG Measurement Heart [id number] [id number] <Conclusion> Sinus tachycardia Minimal voltage criteria for LVH, may be normal variant Prolonged QTc No change
[2016-09-25] MEDS: Multivitamin Therapeutic Tab PO SCH (13:27)
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
[2016-09-26 07:39] VITALS: RESP 20
[2016-09-26] MEDS: Multivitamin Therapeutic Tab PO SCH (08:27)
[2016-09-26] MEDS: Multivitamin With Minerals Tab PO SCH (08:28)
[2016-09-26 10:37] LABS: ALB/GLOB RATIO 1.4 (1.1-1.8); ALKALINE PHOSPHATASE 75 U/L (38-133); ALT/SGPT 53 U/L (7-56); AST/SGOT 35 U/L (15-59); BILIRUBIN,TOTAL 0.7 mg/dL (0.2-1.3); BLOOD UREA NITROGEN 11 mg/dL (7-21); CALCIUM 9.1 mg/dL (8.4-10.5); CARBON DIOXIDE 27 mmol/L (21-33); CHLORIDE 102 mmol/L (98-107); GFR AFRICAN-AMERICAN > 60; GLUCOSE,RANDOM 75 mg/dL (70-110); POTASSIUM 3.7 mmol/L (3.6-5.0); SODIUM 136 mmol/L (132-148); TOTAL PROTEIN 6.1 g/dL (5.8-8.3)
[2016-09-26 10:53] LABS: FREE T4 1.11 ng/dL (0.78-2.19)
[2016-09-26 11:07] LABS: THYROID STIMULATING HORMONE 0.67 mIU/mL (0.46-4.68)
--- NOTE | 2016-09-26 14:07 | PCM.PYCHPN ---
Psychiatric Progress Note - Psychiatric Progress Note Patient seen today, length of contact: 30 minutes Patient Chief Complaint: "I feel much better, thank you " Problems Identified/Issues Discussed: Suicide/ homicide prevention, past psychiatric h/o, current psychiatric symptoms , medical problems, risk/benefits and alternatives of medications, medications compliance, coping strategies, substance abuse h/o, relapse prevention, importance of follow up with psychiatrist and therapist, discharge plan. Medical Problems: h/o seizures most likely due to alcohol withdrawals Diagnostic Results: 09/25/16 00:20 09/26/16 10:23 Lab Results 09/26/16 10:23: Free T4 1.11, TSH 3rd Generation 0.67 09/26/16 10:23: Sodium 136, Chloride 102, Potassium 3.7, Carbon Dioxide 27, Anion Gap 11, BUN 11, Creatinine 0.7, Est GFR ( Amer) > 60, Est GFR (Non- Af Amer) > 60, Random Glucose 75, Calcium 9.1, Total Bilirubin 0.7, AST 35, ALT 53, Alkaline Phosphatase 75, Total Protein 6.1, Albumin 3.5, Globulin 2.5, Albumin/Globulin Ratio 1.4 09/25/16 03:05: Urine Opiates Screen Negative, Urine Methadone Screen Negative, Ur Barbiturates Screen Negative, Ur Phencyclidine Scrn Negative, Ur Amphetamines Screen Negative, U Benzodiazepines Scrn Negative, U Oth Cocaine Metabols Negative, U Cannabinoids Screen Negative 09/25/16 03:05: Urine Color Yellow, Urine Appearance Clear, Urine pH 6.0, Ur Specific [place] <= 1.005, Urine Protein Negative, Urine Glucose (UA) Negative, Urine Ketones 15 H, Urine Blood Trace-lysed H, Urine Nitrate Negative, Urine Bilirubin Negative, Urine Urobilinogen 0.2, Ur Leukocyte Esterase Negative, Urine RBC 0 - 2, Urine WBC 0 - 2, Ur Epithelial Cells 0 - 2 09/25/16 00:20: Serum Osmolality 271, Alcohol, Quantitative < 10 09/25/16 00:20: Sodium 129 L, Chloride 95, Potassium 3.2 L, Carbon Dioxide 23, Anion Gap 14, BUN 9, Creatinine 0.6, Est GFR ( Amer) > 60, Est GFR (Non- Af Amer) > 60, Random Glucose 112 H, Calcium 9.6, Total Bilirubin 1.7 H, AST 71 H, ALT 74 H, Alkaline Phosphatase 84, Troponin I < 0.01, Total Protein 7.3, Albumin 4.5, Globulin 2.8, Albumin/Globulin Ratio 1.6 09/25/16 00:20: pO2 178 H, VBG pH 7.44 H, VBG pCO2 34.0 L, VBG HCO3 23.1, VBG Total CO2 24.1, VBG O2 Sat (Calc) 100.0 H, VBG Base Excess -0.5 L, VBG Potassium 3.2 L, Sodium 129.0 L, Chloride 95.0 L, Glucose 119 H, Lactate 0.9, FiO2 21.0, Venous Blood Potassium 3.2 L 09/25/16 00:20: WBC 6.0 D, RBC 4.84, Hgb 14.3, Hct 39.7 L, MCV 82.0, MCH 29.5, MCHC 36.0, RDW 14.3, Plt Count 103 L, MPV 10.8, Gran % 66.2, Lymph % (Auto) 21.6 L, [place] % (Auto) 11.8 H, Eos % (Auto) 0.2 L, Baso % (Auto) 0.2, Gran # 3.99 , Lymph # 1.3, [place] # 0.7 H, Eos # 0.0, Baso # 0.01 Vital Signs Temp Pulse Resp BP Pulse Ox 09/26/16 07:38 97.2 F L 65 20 111/75 09/25/16 21:53 80 152/91 H 09/25/16 16:21 93 H 134/88 09/25/16 06:07 73 18 151/90 H 97 09/25/16 02:53 98.9 F 89 20 148/96 H 98 09/24/16 23:26 99 F 113 H 19 150/111 H 97 DSM 5 Symptoms Update: Shortly pt is 46yo male with long h/o alcohol abuse and dependence, h/ o mental illness, bipolar spectrum disorder, anxiety disorder, was discharged from this unit in June 2016, pt came to the ED presented to be confused, paranoid, responding to internal stimuli. pt also presented to be psychotic, was not able to contract for safety. pt needs further evaluation and stabilization, medications initiation and titration. Pt also was noncompliant with medications. Pt was seen history, pt presented to have acceptable personal hygiene, fine upper extremity tremor, good ADLs, pt was sleeping, but easily aroused. pt reported to feel "much better", was minimizing his symptoms, pt said now he has no withdrawal symptoms, has good appetite and sleep. pt reported to feel less depressed and and more hopeful. Patient reported that he feels anxious, but patient impression is related to alcohol withdrawal symptoms. Patient tolerates medication well, no side effects observed or reported, aims 0 , no EPS. Patient was seen by medical team consultation appreciated. Impression: DSM 5 Diagnosis: r/o bipolar spectrum disorder (family h/o and hypomanic episodes in the past), most recent episode is depression alcohol withdrawals with delusions/hallucinaitons r/o EDITH alcohol use disorder r/o substance induced mood disorder h/o seizures Medication Change: Yes (Librium decreased) Medical Record Reviewed: Yes Consults ordered or reviewed: medical consultation appreciated Mental Status Examination - Cognitive Function Orientation: Person, Place, Situation Memory: Intact Attention: Poor Concentration: Poor Association: WNL Fund of Knowledge: WNL - Mood Mood: Depressed, Anxious - Affect Affect: Constricted (but more reactive mood congruent) - Speech Speech: Appropriate - Formal Thought Process Formal Thought Process: Paranoia (denied today) - Suicidal Ideation Suicidal Ideation: No - Homicidal Ideation Homicidal Ideation: No Goal/Treatment Plan - Goal/Treatment Plan Need for Continued Stay: Remain at risks for inpatient hospitalization, Severe depression anxiety, Discharge may exacerbated symptoms, Severe functional impairment Progress Toward Problem(s) and Goals/Treatment Plan: Milieu/structure/supportive therapy will resume home meds Folic Acid 1 mg PO DAILY Multivitamin PO DAILY Naltrexone will be considered librium 50mgpo 3 times a day scheduled for alcohol withdrawals Seroquel 50mg hs for psychosis Thiamine 100 mg PO DAILY Wellbutrin 75mg bid will be considered traZODone 50 mg PO HS PRN for insomnia will monitor vitals closely SW evaluation for rehab medical consult appreciated will monitor closely' Estimated Date of D/C: 10/01/16 (we'll monitor closely) - Smoking Cessation Smoking Cessation Initiated: No Reason for not providing: patient does not smoke
[2016-09-27] MEDS: Multivitamin With Minerals Tab PO SCH (08:35)
--- NOTE | 2016-09-27 12:42 | PCM.PYCHPN ---
Psychiatric Progress Note - Psychiatric Progress Note Patient seen today, length of contact: 30 minutes Patient Chief Complaint: "I feel much better, thank you " Problems Identified/Issues Discussed: Suicide/ homicide prevention, past psychiatric h/o, current psychiatric symptoms , medical problems, risk/benefits and alternatives of medications, medications compliance, coping strategies, substance abuse h/o, relapse prevention, importance of follow up with psychiatrist and therapist, discharge plan. Medical Problems: h/o seizures most likely due to alcohol withdrawals Diagnostic Results: 09/25/16 00:20 09/26/16 10:23 Lab Results 09/26/16 10:23: Free T4 1.11, TSH 3rd Generation 0.67 09/26/16 10:23: Sodium 136, Chloride 102, Potassium 3.7, Carbon Dioxide 27, Anion Gap 11, BUN 11, Creatinine 0.7, Est GFR ( Amer) > 60, Est GFR (Non- Af Amer) > 60, Random Glucose 75, Calcium 9.1, Total Bilirubin 0.7, AST 35, ALT 53, Alkaline Phosphatase 75, Total Protein 6.1, Albumin 3.5, Globulin 2.5, Albumin/Globulin Ratio 1.4 09/25/16 03:05: Urine Opiates Screen Negative, Urine Methadone Screen Negative, Ur Barbiturates Screen Negative, Ur Phencyclidine Scrn Negative, Ur Amphetamines Screen Negative, U Benzodiazepines Scrn Negative, U Oth Cocaine Metabols Negative, U Cannabinoids Screen Negative 09/25/16 03:05: Urine Color Yellow, Urine Appearance Clear, Urine pH 6.0, Ur Specific [place] <= 1.005, Urine Protein Negative, Urine Glucose (UA) Negative, Urine Ketones 15 H, Urine Blood Trace-lysed H, Urine Nitrate Negative, Urine Bilirubin Negative, Urine Urobilinogen 0.2, Ur Leukocyte Esterase Negative, Urine RBC 0 - 2, Urine WBC 0 - 2, Ur Epithelial Cells 0 - 2 09/25/16 00:20: Serum Osmolality 271, Alcohol, Quantitative < 10 09/25/16 00:20: Sodium 129 L, Chloride 95, Potassium 3.2 L, Carbon Dioxide 23, Anion Gap 14, BUN 9, Creatinine 0.6, Est GFR ( Amer) > 60, Est GFR (Non- Af Amer) > 60, Random Glucose 112 H, Calcium 9.6, Total Bilirubin 1.7 H, AST 71 H, ALT 74 H, Alkaline Phosphatase 84, Troponin I < 0.01, Total Protein 7.3, Albumin 4.5, Globulin 2.8, Albumin/Globulin Ratio 1.6 09/25/16 00:20: pO2 178 H, VBG pH 7.44 H, VBG pCO2 34.0 L, VBG HCO3 23.1, VBG Total CO2 24.1, VBG O2 Sat (Calc) 100.0 H, VBG Base Excess -0.5 L, VBG Potassium 3.2 L, Sodium 129.0 L, Chloride 95.0 L, Glucose 119 H, Lactate 0.9, FiO2 21.0, Venous Blood Potassium 3.2 L 09/25/16 00:20: WBC 6.0 D, RBC 4.84, Hgb 14.3, Hct 39.7 L, MCV 82.0, MCH 29.5, MCHC 36.0, RDW 14.3, Plt Count 103 L, MPV 10.8, Gran % 66.2, Lymph % (Auto) 21.6 L, [place] % (Auto) 11.8 H, Eos % (Auto) 0.2 L, Baso % (Auto) 0.2, Gran # 3.99 , Lymph # 1.3, [place] # 0.7 H, Eos # 0.0, Baso # 0.01 Vital Signs Temp Pulse Resp BP Pulse Ox 09/26/16 07:38 97.2 F L 65 20 111/75 09/25/16 21:53 80 152/91 H 09/25/16 16:21 93 H 134/88 09/25/16 06:07 73 18 151/90 H 97 09/25/16 02:53 98.9 F 89 20 148/96 H 98 09/24/16 23:26 99 F 113 H 19 150/111 H 97 Temp Pulse Resp BP Pulse Ox 97.2 F L 71 20 116/74 97 09/26/16 07:38 09/26/16 16:00 09/26/16 07:38 09/26/16 16:00 09/25/16 06:07 DSM 5 Symptoms Update: Shortly pt is 46yo male with long h/o alcohol abuse and dependence, h/ o mental illness, bipolar spectrum disorder, anxiety disorder, was discharged from this unit in June 2016, pt came to the ED presented to be confused, paranoid, responding to internal stimuli. pt also presented to be psychotic, was not able to contract for safety. pt needs further evaluation and stabilization, medications initiation and titration. Pt also was noncompliant with medications. Pt was seen history, pt presented to have acceptable personal hygiene, fine upper extremity tremor, good ADLs, pt was sleeping, but easily aroused. pt reported to feel "much better", was minimizing his symptoms, pt said now he has no withdrawal symptoms, has good appetite and sleep. pt reported to feel less depressed and and more hopeful. Patient reported that he feels anxious, but patient impression is related to alcohol withdrawal symptoms. Patient tolerates medication well, no side effects observed or reported, aims 0 , no EPS. Patient was seen by medical team consultation appreciated. Impression: DSM 5 Diagnosis: r/o bipolar spectrum disorder (family h/o and hypomanic episodes in the past), most recent episode is depression alcohol withdrawals with delusions/hallucinaitons r/o EDITH alcohol use disorder r/o substance induced mood disorder h/o seizures Medication Change: Yes (Librium decreased) Medical Record Reviewed: Yes Consults ordered or reviewed: medical consultation appreciated Mental Status Examination - Cognitive Function Orientation: Person, Place, Situation Memory: Intact Attention: Poor Concentration: Poor Association: WNL Fund of Knowledge: WNL - Mood Mood: Depressed, Anxious - Affect Affect: Constricted (but more reactive mood congruent) - Speech Speech: Appropriate - Formal Thought Process Formal Thought Process: Paranoia (denied today) - Suicidal Ideation Suicidal Ideation: No - Homicidal Ideation Homicidal Ideation: No Goal/Treatment Plan - Goal/Treatment Plan Need for Continued Stay: Remain at risks for inpatient hospitalization, Severe depression anxiety, Discharge may exacerbated symptoms, Severe functional impairment Progress Toward Problem(s) and Goals/Treatment Plan: Milieu/structure/supportive therapy will resume home meds Folic Acid 1 mg PO DAILY Multivitamin PO DAILY Naltrexone will be considered librium 50mgpo 2 times a day scheduled for alcohol withdrawals Seroquel 50mg hs for psychosis Thiamine 100 mg PO DAILY Wellbutrin 75mg bid will be considered traZODone 50 mg PO HS PRN for insomnia will monitor vitals closely SW evaluation for rehab medical consult appreciated will monitor closely' Estimated Date of D/C: 10/01/16 (we'll monitor closely)
[2016-09-28] MEDS: Multivitamin With Minerals Tab PO SCH (10:01)
--- NOTE | 2016-09-28 16:23 | PCM.PYCHPN ---
Psychiatric Progress Note - Psychiatric Progress Note Patient seen today, length of contact: 30 minutes Patient Chief Complaint: "I feel much better, thank you " Problems Identified/Issues Discussed: Suicide/ homicide prevention, past psychiatric h/o, current psychiatric symptoms , medical problems, risk/benefits and alternatives of medications, medications compliance, coping strategies, substance abuse h/o, relapse prevention, importance of follow up with psychiatrist and therapist, discharge plan. Medical Problems: h/o seizures most likely due to alcohol withdrawals Diagnostic Results: 09/25/16 00:20 09/26/16 10:23 Lab Results 09/26/16 10:23: Free T4 1.11, TSH 3rd Generation 0.67 09/26/16 10:23: Sodium 136, Chloride 102, Potassium 3.7, Carbon Dioxide 27, Anion Gap 11, BUN 11, Creatinine 0.7, Est GFR ( Amer) > 60, Est GFR (Non- Af Amer) > 60, Random Glucose 75, Calcium 9.1, Total Bilirubin 0.7, AST 35, ALT 53, Alkaline Phosphatase 75, Total Protein 6.1, Albumin 3.5, Globulin 2.5, Albumin/Globulin Ratio 1.4 09/25/16 03:05: Urine Opiates Screen Negative, Urine Methadone Screen Negative, Ur Barbiturates Screen Negative, Ur Phencyclidine Scrn Negative, Ur Amphetamines Screen Negative, U Benzodiazepines Scrn Negative, U Oth Cocaine Metabols Negative, U Cannabinoids Screen Negative 09/25/16 03:05: Urine Color Yellow, Urine Appearance Clear, Urine pH 6.0, Ur Specific [place] <= 1.005, Urine Protein Negative, Urine Glucose (UA) Negative, Urine Ketones 15 H, Urine Blood Trace-lysed H, Urine Nitrate Negative, Urine Bilirubin Negative, Urine Urobilinogen 0.2, Ur Leukocyte Esterase Negative, Urine RBC 0 - 2, Urine WBC 0 - 2, Ur Epithelial Cells 0 - 2 09/25/16 00:20: Serum Osmolality 271, Alcohol, Quantitative < 10 09/25/16 00:20: Sodium 129 L, Chloride 95, Potassium 3.2 L, Carbon Dioxide 23, Anion Gap 14, BUN 9, Creatinine 0.6, Est GFR ( Amer) > 60, Est GFR (Non- Af Amer) > 60, Random Glucose 112 H, Calcium 9.6, Total Bilirubin 1.7 H, AST 71 H, ALT 74 H, Alkaline Phosphatase 84, Troponin I < 0.01, Total Protein 7.3, Albumin 4.5, Globulin 2.8, Albumin/Globulin Ratio 1.6 09/25/16 00:20: pO2 178 H, VBG pH 7.44 H, VBG pCO2 34.0 L, VBG HCO3 23.1, VBG Total CO2 24.1, VBG O2 Sat (Calc) 100.0 H, VBG Base Excess -0.5 L, VBG Potassium 3.2 L, Sodium 129.0 L, Chloride 95.0 L, Glucose 119 H, Lactate 0.9, FiO2 21.0, Venous Blood Potassium 3.2 L 09/25/16 00:20: WBC 6.0 D, RBC 4.84, Hgb 14.3, Hct 39.7 L, MCV 82.0, MCH 29.5, MCHC 36.0, RDW 14.3, Plt Count 103 L, MPV 10.8, Gran % 66.2, Lymph % (Auto) 21.6 L, [place] % (Auto) 11.8 H, Eos % (Auto) 0.2 L, Baso % (Auto) 0.2, Gran # 3.99 , Lymph # 1.3, [place] # 0.7 H, Eos # 0.0, Baso # 0.01 Vital Signs Temp Pulse Resp BP Pulse Ox 09/26/16 07:38 97.2 F L 65 20 111/75 09/25/16 21:53 80 152/91 H 09/25/16 16:21 93 H 134/88 09/25/16 06:07 73 18 151/90 H 97 09/25/16 02:53 98.9 F 89 20 148/96 H 98 09/24/16 23:26 99 F 113 H 19 150/111 H 97 Temp Pulse Resp BP Pulse Ox 97.2 F L 71 20 116/74 97 09/26/16 07:38 09/26/16 16:00 09/26/16 07:38 09/26/16 16:00 09/25/16 06:07 DSM 5 Symptoms Update: Shortly pt is 46yo male with long h/o alcohol abuse and dependence, h/ o mental illness, bipolar spectrum disorder, anxiety disorder, was discharged from this unit in June 2016, pt came to the ED presented to be confused, paranoid, responding to internal stimuli. pt also presented to be psychotic, was not able to contract for safety. pt needs further evaluation and stabilization, medications initiation and titration. Pt also was noncompliant with medications. Pt was seen history, pt presented to have acceptable personal hygiene, fine upper extremity tremor, good ADLs, less sleepy, more visible at the unit. pt reported to feel "much better", was minimizing his symptoms, pt said now he has no withdrawal symptoms, has good appetite and sleep. pt reported to feel less depressed and and more hopeful. Patient reported that he feels anxious, but patient impression is related to alcohol withdrawal symptoms Patient tolerates medication well, no side effects observed or reported, aims 0 , no EPS. Patient was seen by medical team consultation appreciated. Impression: DSM 5 Diagnosis: r/o bipolar spectrum disorder (family h/o and hypomanic episodes in the past), most recent episode is depression alcohol withdrawals with delusions/hallucinaitons r/o EDITH alcohol use disorder r/o substance induced mood disorder h/o seizures Medication Change: Yes (Librium decreased) Medical Record Reviewed: Yes Consults ordered or reviewed: medical consultation appreciated Mental Status Examination - Cognitive Function Orientation: Person, Place, Situation Memory: Intact Attention: Poor (some improvement) Concentration: Poor (some improvemenet) Association: WNL Fund of Knowledge: WNL - Mood Mood: Depressed (some improvement), Anxious (some improvement) - Affect Affect: Constricted (but more reactive mood congruent) - Speech Speech: Appropriate - Suicidal Ideation Suicidal Ideation: No - Homicidal Ideation Homicidal Ideation: No Goal/Treatment Plan - Goal/Treatment Plan Need for Continued Stay: Remain at risks for inpatient hospitalization, Severe depression anxiety, Discharge may exacerbated symptoms, Severe functional impairment Progress Toward Problem(s) and Goals/Treatment Plan: Milieu/structure/supportive therapy will resume home meds Folic Acid 1 mg PO DAILY Multivitamin PO DAILY Naltrexone will be considered [id number] three times a day scheduled for alcohol withdrawals Seroquel 50mg hs for psychosis Thiamine 100 mg PO DAILY Wellbutrin 75mg bid started for depression traZODone 50 mg PO HS PRN for insomnia will monitor vitals closely SW evaluation for rehab medical consult appreciated will monitor closely' Estimated Date of D/C: 10/01/16 (we'll monitor closely)
[2016-09-29 07:23] VITALS: TEMP 98.1
[2016-09-29] MEDS: Multivitamin With Minerals Tab PO SCH (09:43)
--- NOTE | 2016-09-29 16:04 | PCM.PYCHPN ---
Psychiatric Progress Note - Psychiatric Progress Note Patient seen today, length of contact: 30 minutes Patient Chief Complaint: "I feel much better, thank you " Problems Identified/Issues Discussed: Suicide/ homicide prevention, past psychiatric h/o, current psychiatric symptoms , medical problems, risk/benefits and alternatives of medications, medications compliance, coping strategies, substance abuse h/o, relapse prevention, importance of follow up with psychiatrist and therapist, discharge plan. Medical Problems: h/o seizures most likely due to alcohol withdrawals Diagnostic Results: 09/25/16 00:20 09/26/16 10:23 Lab Results 09/26/16 10:23: Free T4 1.11, TSH 3rd Generation 0.67 09/26/16 10:23: Sodium 136, Chloride 102, Potassium 3.7, Carbon Dioxide 27, Anion Gap 11, BUN 11, Creatinine 0.7, Est GFR ( Amer) > 60, Est GFR (Non- Af Amer) > 60, Random Glucose 75, Calcium 9.1, Total Bilirubin 0.7, AST 35, ALT 53, Alkaline Phosphatase 75, Total Protein 6.1, Albumin 3.5, Globulin 2.5, Albumin/Globulin Ratio 1.4 09/25/16 03:05: Urine Opiates Screen Negative, Urine Methadone Screen Negative, Ur Barbiturates Screen Negative, Ur Phencyclidine Scrn Negative, Ur Amphetamines Screen Negative, U Benzodiazepines Scrn Negative, U Oth Cocaine Metabols Negative, U Cannabinoids Screen Negative 09/25/16 03:05: Urine Color Yellow, Urine Appearance Clear, Urine pH 6.0, Ur Specific [place] <= 1.005, Urine Protein Negative, Urine Glucose (UA) Negative, Urine Ketones 15 H, Urine Blood Trace-lysed H, Urine Nitrate Negative, Urine Bilirubin Negative, Urine Urobilinogen 0.2, Ur Leukocyte Esterase Negative, Urine RBC 0 - 2, Urine WBC 0 - 2, Ur Epithelial Cells 0 - 2 09/25/16 00:20: Serum Osmolality 271, Alcohol, Quantitative < 10 09/25/16 00:20: Sodium 129 L, Chloride 95, Potassium 3.2 L, Carbon Dioxide 23, Anion Gap 14, BUN 9, Creatinine 0.6, Est GFR ( Amer) > 60, Est GFR (Non- Af Amer) > 60, Random Glucose 112 H, Calcium 9.6, Total Bilirubin 1.7 H, AST 71 H, ALT 74 H, Alkaline Phosphatase 84, Troponin I < 0.01, Total Protein 7.3, Albumin 4.5, Globulin 2.8, Albumin/Globulin Ratio 1.6 09/25/16 00:20: pO2 178 H, VBG pH 7.44 H, VBG pCO2 34.0 L, VBG HCO3 23.1, VBG Total CO2 24.1, VBG O2 Sat (Calc) 100.0 H, VBG Base Excess -0.5 L, VBG Potassium 3.2 L, Sodium 129.0 L, Chloride 95.0 L, Glucose 119 H, Lactate 0.9, FiO2 21.0, Venous Blood Potassium 3.2 L 09/25/16 00:20: WBC 6.0 D, RBC 4.84, Hgb 14.3, Hct 39.7 L, MCV 82.0, MCH 29.5, MCHC 36.0, RDW 14.3, Plt Count 103 L, MPV 10.8, Gran % 66.2, Lymph % (Auto) 21.6 L, [place] % (Auto) 11.8 H, Eos % (Auto) 0.2 L, Baso % (Auto) 0.2, Gran # 3.99 , Lymph # 1.3, Edwards # 0.7 H, Eos # 0.0, Baso # 0.01 Vital Signs Temp Pulse Resp BP Pulse Ox 09/26/16 07:38 97.2 F L 65 20 111/75 09/25/16 21:53 80 152/91 H 09/25/16 16:21 93 H 134/88 09/25/16 06:07 73 18 151/90 H 97 09/25/16 02:53 98.9 F 89 20 148/96 H 98 09/24/16 23:26 99 F 113 H 19 150/111 H 97 Temp Pulse Resp BP Pulse Ox 97.2 F L 71 20 116/74 97 09/26/16 07:38 09/26/16 16:00 09/26/16 07:38 09/26/16 16:00 09/25/16 06:07 DSM 5 Symptoms Update: Shortly pt is 46yo male with long h/o alcohol abuse and dependence, h/ o mental illness, bipolar spectrum disorder, anxiety disorder, was discharged from this unit in June 2016, pt came to the ED presented to be confused, paranoid, responding to internal stimuli. pt also presented to be psychotic, was not able to contract for safety. pt needs further evaluation and stabilization, medications initiation and titration. Pt also was noncompliant with medications. Pt was seen history, pt presented to have acceptable personal hygiene, fine upper extremity tremor, good ADLs, less sleepy, more visible at the unit. pt reported to feel "much better", reported to have good appetite and sleep, looking forward to be d/c tomorrow. Patient tolerates medication well, no side effects observed or reported, aims 0 , no EPS. Patient was seen by medical team consultation appreciated. Impression: DSM 5 Diagnosis: r/o bipolar spectrum disorder (family h/o and hypomanic episodes in the past), most recent episode is depression alcohol withdrawals with delusions/hallucinaitons r/o EDITH alcohol use disorder r/o substance induced mood disorder h/o seizures Medication Change: Yes (Librium decreased) Medical Record Reviewed: Yes Consults ordered or reviewed: medical consultation appreciated Mental Status Examination - Cognitive Function Orientation: Person, Place, Situation Memory: Intact Attention: Poor (much better) Concentration: Poor (much better) Association: WNL Fund of Knowledge: WNL - Mood Mood: Depressed (much better) - Affect Affect: Constricted (but more reactive mood congruent) - Speech Speech: Appropriate - Formal Thought Process Formal Thought Process: No Impairment - Suicidal Ideation Suicidal Ideation: No - Homicidal Ideation Homicidal Ideation: No Goal/Treatment Plan - Goal/Treatment Plan Need for Continued Stay: Remain at risks for inpatient hospitalization, Severe depression anxiety, Discharge may exacerbated symptoms, Severe functional impairment Progress Toward Problem(s) and Goals/Treatment Plan: Milieu/structure/supportive therapy will resume home meds Folic Acid 1 mg PO DAILY Multivitamin PO DAILY Naltrexone will be considered libriumtapering dose Seroquel 50mg hs for psychosis Thiamine 100 mg PO DAILY Wellbutrin 75mg bid started for depression traZODone 50 mg PO HS PRN for insomnia will monitor vitals closely SW evaluation for rehab medical consult appreciated will monitor closely' Estimated Date of D/C: 09/30/16 (we'll monitor closely)
[2016-09-30 07:37] VITALS: BP 127/92; PULSE 60
[2016-09-30] MEDS: Multivitamin With Minerals Tab PO SCH (08:45)
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
== END 2016-09-30 14:49 | disposition home or self-care (01) | DRG 751 ==
LOC: ED 23:25 → ERH 09-25 04:55 → PSYC 09-25 07:18
PROVIDERS: ADMIT Psychiatry & Neurology Psychiatry; ATTEND Psychiatry & Neurology Psychiatry
DX: F10.239 Alcohol dependence with withdrawal, unspecified (principal); F31.81 Bipolar II disorder; G40.89 Other seizures; I10 Essential (primary) hypertension; F29 Unspecified psychosis not due to a substance or known physiological condition; G47.00 Insomnia, unspecified; Z95.5 Presence of coronary angioplasty implant and graft; Z91.14 Patient's other noncompliance with medication regimen; Z83.3 Family history of diabetes mellitus; Z82.49 Family history of ischemic heart disease and other diseases of the circulatory system; F12.90 Cannabis use, unspecified, uncomplicated; Z91.013 Allergy to seafood; F19.94 Other psychoactive substance use, unspecified with psychoactive substance-induced mood disorder; F41.1 Generalized anxiety disorder

== ENCOUNTER 2016-11-13 13:23 | Inpatient (IN) | payer MEDICAID, OTHER ==
[2016-11-13] MEDS ORDERED: Multivitamin (MVI) 10 ML, Thiamine 100 MG, Folic Acid 1 MG in Sodium Chloride 0.9% 1,00... IV ONE (14:06)
[2016-11-13 14:15] LABS: ADD MANUAL DIFF? NO
[2016-11-13 14:18] LABS: BASO # 0.01 K/mm3 (0.0-2.0); BASO % 0.2 % (0.0-3.0); EOS % 0.4 % (1.5-5.0); GRAN # 3.75 (1.4-6.5); GRAN % 67.5 % (50.0-68.0); HEMATOCRIT 38.2 % (42.0-52.0); LYMPH # 1.2 (1.2-3.4); LYMPH % 22.2 % (22.0-35.0); MEAN CELL VOLUME 81.8 fL (80.0-105.0); MEAN CORPUSCULAR HEMOGLOBIN 29.1 pg (25.0-35.0); MEAN CORPUSCULAR HGB CONC 35.6 g/dl (31.0-37.0); MEAN PLATELET VOLUME 11.4 fl (7.0-11.0); MONO # 0.5 (0.1-0.6); MONO % 9.7 % (1.0-6.0); PLATELET COUNT 79 10^3/uL (120.0-450.0); RED CELL DISTRIBUTION WIDTH 14.1 % (11.5-14.5); WHITE BLOOD COUNT 5.6 10^3/ul (4.5-11.0)
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
--- NOTE | 2016-11-13 14:22 | RAD ---
HISTORY: sob COMPARISON: Comparison made with prior chest 07/19/2026 FINDINGS: LUNGS: No active pulmonary disease. PLEURA: No significant pleural effusion identified, no pneumothorax apparent. CARDIOVASCULAR: Normal. OSSEOUS STRUCTURES: No significant abnormalities. VISUALIZED UPPER ABDOMEN: Normal. OTHER FINDINGS: None. IMPRESSION: No active disease.
[2016-11-13 14:30] LABS: ALB/GLOB RATIO 1.4 (1.1-1.8); ALKALINE PHOSPHATASE 80 U/L (38-133); ALT/SGPT 91 U/L (7-56); AST/SGOT 80 U/L (15-59); BILIRUBIN,TOTAL 1.6 mg/dL (0.2-1.3); BLOOD UREA NITROGEN 9 mg/dL (7-21); CALCIUM 9.3 mg/dL (8.4-10.5); CARBON DIOXIDE 25 mmol/L (21-33); CHLORIDE 93 mmol/L (98-107); GFR AFRICAN-AMERICAN > 60; GLUCOSE,RANDOM 99 mg/dL (70-110); POTASSIUM 3.2 mmol/L (3.6-5.0); SODIUM 128 mmol/L (132-148)
[2016-11-13 14:43] LABS: TROPONIN I < 0.01 ng/mL
[2016-11-13] MEDS ORDERED: Potassium Chloride 20 mEq ER Tab PO STA (14:45)
[2016-11-13 15:32] LABS: PH,URINE 6.5 (4.7-8.0); URINE BILIRUBIN NEGATIVE (NEGATIVE); URINE BLOOD NEGATIVE (NEGATIVE); URINE GLUCOSE (UA) NEGATIVE (NEGATIVE); URINE KETONE NEGATIVE (NEGATIVE); URINE LEUKOCYTE ESTERASE NEGATIVE Leu/uL (NEGATIVE); URINE PROTEIN NEGATIVE mg/dL (<30 mg/dL); URINE UROBILINOGEN 0.2 E.U./dL (<1 E.U./dL)
[2016-11-13 15:33] LABS: URINE APPEARANCE CLEAR (CLEAR); URINE COLOR YELLOW (YELLOW)
[2016-11-13] MEDS ORDERED: Sodium Chloride 0.9% 1,000 ML IV SCH (19:30)
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
--- NOTE | 2016-11-13 22:46 | CARD ---
APPROVED REPORT EKG Measurement Heart [id number] <Conclusion> Sinus tachycardia Cannot rule out Anterior infarct, age undetermined Abnormal ECG
[2016-11-13 23:07] VITALS: BMI 23.6
[2016-11-13] MEDS ORDERED: Pneumococcal 23-Valent Vaccine IM ONE (23:07)
[2016-11-14] MEDS ORDERED: Multivitamin (MVI) 10 ML, Thiamine 100 MG, Folic Acid 1 MG in Sodium Chloride 0.9% 1,00... IV ONE ×2 (02:00→14:45)
[2016-11-14 06:49] LABS: ADD MANUAL DIFF? NO
[2016-11-14 07:07] LABS: BASO # 0.02 K/mm3 (0.0-2.0); BASO % 0.5 % (0.0-3.0); GRAN # 1.96 (1.4-6.5); GRAN % 46.8 % (50.0-68.0); HEMATOCRIT 37.2 % (42.0-52.0); LYMPH # 1.7 (1.2-3.4); LYMPH % 40.9 % (22.0-35.0); MEAN CELL VOLUME 84.4 fL (80.0-105.0); MEAN CORPUSCULAR HEMOGLOBIN 28.8 pg (25.0-35.0); MEAN CORPUSCULAR HGB CONC 34.1 g/dl (31.0-37.0); MONO # 0.5 (0.1-0.6); MONO % 10.8 % (1.0-6.0); PLATELET COUNT 67 10^3/uL (120.0-450.0); RED CELL DISTRIBUTION WIDTH 14.3 % (11.5-14.5); WHITE BLOOD COUNT 4.2 10^3/ul (4.5-11.0)
[2016-11-14 07:18] LABS: ALB/GLOB RATIO 1.3 (1.1-1.8); ALKALINE PHOSPHATASE 63 U/L (38-133); ALT/SGPT 68 U/L (7-56); AST/SGOT 58 U/L (15-59); BILIRUBIN,TOTAL 1.1 mg/dL (0.2-1.3); BLOOD UREA NITROGEN 6 mg/dL (7-21); CALCIUM 8.7 mg/dL (8.4-10.5); CARBON DIOXIDE 25 mmol/L (21-33); CHLORIDE 103 mmol/L (98-107); GFR AFRICAN-AMERICAN > 60; GLUCOSE,RANDOM 80 mg/dL (70-110); MAGNESIUM 1.9 mg/dL (1.7-2.2); PHOSPHOROUS 3.8 mg/dL (2.5-4.5); POTASSIUM 3.6 mmol/L (3.6-5.0); SODIUM 136 mmol/L (132-148); TOTAL PROTEIN 6.1 g/dL (5.8-8.3)
--- NOTE | 2016-11-14 13:20 | CP.PCM.PN ---
<Jeffrey Carmona - Last Filed: 11/14/16 13:17> Subjective - Date & Time of Evaluation Date of Evaluation: 11/14/16 Time of Evaluation: 13:17 - Subjective Subjective: Pt seen and examined at bedside. Pt agitated overnight and had chris along with b/l arm restraints placed. Pt doing better in AM and will have hand restraints taken off. Admits to hallucinations. Denies CP, SOB, N/V/D. Objective - Vital Signs/Intake and Output Vital Signs (last 24 hours): Temp Pulse Resp BP Pulse Ox 98.6 F 69 18 136/86 97 11/14/16 06:00 11/14/16 12:21 11/14/16 12:21 11/14/16 12:21 11/14/16 06:00 Intake and Output: 11/14/16 11/14/16 06:59 18:59 Intake Total 0 Output Total 500 Balance -500 - Medications Medications: Current Medications Chlordiazepoxide (Librium) 25 mg PO BID [facility] PRN Reason: Protocol Last Admin: 11/14/16 11:08 Dose: 25 mg Folic Acid (Folic Acid) 1 mg PO DAILY [facility] Lorazepam (Ativan) 2 mg IVP Q4H PRN; Protocol PRN Reason: Symptoms of alcohol withdrawl Last Admin: 11/14/16 11:08 Dose: 2 mg Multivitamins (Thera Tab) 1 tab PO 0800 [facility] Ondansetron HCl (Zofran Inj) 4 mg IVP Q4H PRN PRN Reason: Nausea/Vomiting Pantoprazole Sodium (Protonix Inj) 40 mg IVP DAILY [facility] Last Admin: 11/14/16 11:07 Dose: 40 mg Thiamine HCl (Vitamin B1 Tab) 100 mg PO DAILY [facility] - Labs Labs: 11/14/16 06:30 11/14/16 06:30 - Constitutional Appears: Toxic, No Acute Distress - Head Exam Head Exam: ATRAUMATIC, NORMAL INSPECTION - ENT Exam ENT Exam: Mucous Membranes Moist, Normal Exam - Respiratory Exam Respiratory Exam: Clear to Ausculation Bilateral, NORMAL BREATHING PATTERN - Cardiovascular Exam Cardiovascular Exam: Tachycardia, REGULAR RHYTHM, +S1, +S2 - GI/Abdominal Exam GI & Abdominal Exam: Soft, Normal Bowel Sounds. absent: Tenderness - Extremities Exam Extremities Exam: absent: Calf Tenderness, Pedal Edema - Neurological Exam Neurological Exam: Alert, Awake. absent: Oriented x3 - Psychiatric Exam Psychiatric exam: Normal Affect, Normal Mood - Skin Skin Exam: Intact, Normal Color, Warm Assessment and Plan - Assessment and Plan (Free Text) Plan: 46yo male with history of chronic ETOH abuse, HTN, and depression presents alcohol withdrawal. Will continue current medical management for alcohol withdrawal. Pt agitated overnight, will consider increasing Ativan if patient continues to have severe withdrawals. Pt will remain on chris at this time. 1. ETOH withdrawal Continue ativan Continue librium, will watch LFTs for elevation Continue banana bag CIWA protocol Aspiration and seizure precautions 2. Hx of HTN Hold Lopressor as BP is stable 3. PPX Protonix SCDs Seen, reviewed, and discussed with attending Mathew PGY-2 <Sean Shelby - Last Filed: 11/14/16 20:53> Objective - Vital Signs/Intake and Output Vital Signs (last 24 hours): Temp Pulse Resp BP Pulse Ox 98 F 67 18 131/86 97 11/14/16 17:26 11/14/16 17:39 11/14/16 17:26 11/14/16 17:26 11/14/16 06:00 Intake and Output: 11/14/16 11/15/16 18:59 06:59 Intake Total 420 Output Total 800 Balance -380 - Medications Medications: Current Medications Chlordiazepoxide (Librium) 25 mg PO Q6H [facility] PRN Reason: Protocol Last Admin: 11/14/16 16:03 Dose: 25 mg Folic Acid (Folic Acid) 1 mg PO DAILY [facility] Multivitamins/Vitamin C 10 ml/Thiamine HCl 100 mg/ Folic Acid 1 mg/ Sodium Chloride 1,011.2 mls @ 100 mls/hr IV .Q10H7M ONE Stop: 11/15/16 00:51 Last Admin: 11/14/16 16:04 Dose: 100 mls/hr Lorazepam (Ativan) 2 mg IVP Q4H PRN; Protocol PRN Reason: Symptoms of alcohol withdrawl Last Admin: 11/14/16 11:08 Dose: 2 mg Ondansetron HCl (Zofran Inj) 4 mg IVP Q4H PRN PRN Reason: Nausea/Vomiting Pantoprazole Sodium (Protonix Inj) 40 mg IVP DAILY [facility] Last Admin: 11/14/16 11:07 Dose: 40 mg - Labs Labs: 11/14/16 06:30 11/14/16 06:30 Attending/Attestation - Attestation I have personally seen and examined this patient.: Yes I have fully participated in the care of the patient.: Yes I have reviewed all pertinent clinical information, including history, physical exam and plan: Yes Notes (Text): 11/14/16 20:50 Patient seen and examined at bedside. Vitals, labs, orders and overnight issues reviewed. He is awake, arousable and follows simple commands. Occasional confusion noted but easy to re-orient. Overnight he was agitated and was reported to have some hallucination. CIWA remains very low and wrist restraints were discontinued, possey continued with Avasys system initiated. BM suppression due to chronic ETOH abuse noted. Continue regimen of librium and ativan prn. maintain seizure, aspirations, fall precautions. Agree with the plan as outlined by the resident.
[2016-11-15 07:14] LABS: ADD MANUAL DIFF? NO
[2016-11-15 07:20] LABS: BASO # 0.01 K/mm3 (0.0-2.0); BASO % 0.3 % (0.0-3.0); EOS % 1.1 % (1.5-5.0); GRAN % 45.2 % (50.0-68.0); HEMATOCRIT 36.7 % (42.0-52.0); LYMPH # 1.5 (1.2-3.4); LYMPH % 41.8 % (22.0-35.0); MEAN CORPUSCULAR HEMOGLOBIN 28.6 pg (25.0-35.0); MEAN CORPUSCULAR HGB CONC 34.1 g/dl (31.0-37.0); MEAN PLATELET VOLUME 10.6 fl (7.0-11.0); MONO # 0.4 (0.1-0.6); MONO % 11.6 % (1.0-6.0); PLATELET COUNT 62 10^3/uL (120.0-450.0); RED CELL DISTRIBUTION WIDTH 14.3 % (11.5-14.5); WHITE BLOOD COUNT 3.5 10^3/ul (4.5-11.0)
[2016-11-15 07:36] LABS: ALB/GLOB RATIO 1.4 (1.1-1.8); ALKALINE PHOSPHATASE 71 U/L (38-133); ALT/SGPT 69 U/L (7-56); AST/SGOT 42 U/L (15-59); BILIRUBIN,TOTAL 0.5 mg/dL (0.2-1.3); BLOOD UREA NITROGEN 6 mg/dL (7-21); CALCIUM 8.6 mg/dL (8.4-10.5); CARBON DIOXIDE 23 mmol/L (21-33); CHLORIDE 103 mmol/L (95-110); GFR AFRICAN-AMERICAN > 60; GLUCOSE,RANDOM 83 mg/dL (70-110); MAGNESIUM 1.7 mg/dL (1.7-2.2); POTASSIUM 3.3 mmol/L (3.6-5.0); SODIUM 135 mmol/L (132-148); TOTAL PROTEIN 5.8 g/dL (5.8-8.3)
[2016-11-15] MEDS ORDERED: Multivitamin Therapeutic Tab PO SCH (08:00)
[2016-11-15] MEDS ORDERED: Potassium Chloride 20 mEq ER Tab PO STA (08:46)
--- NOTE | 2016-11-15 11:58 | CP.PCM.PN ---
<TAYLOR ELLIOTT - Last Filed: 11/15/16 11:52> Subjective - Date & Time of Evaluation Date of Evaluation: 11/15/16 Time of Evaluation: 09:45 - Subjective Subjective: pt seen and examined bedside. pt stated that he had been drinking vodka and beer for two weeks, but couldn't remember how much. states last drink was wednesday. states that he has had auditory hallucinations a/w his withdrawals in the past but denied any today. also denies n/v/d, fevers, cp, abdominal pain, shakes/tremors or visual changes. pt cannot recall why he was in the vest and is unsure of how he was behaving earlier. Objective - Vital Signs/Intake and Output Vital Signs (last 24 hours): Temp Pulse Resp BP Pulse Ox 98.3 F 65 20 124/78 98 11/15/16 06:00 11/15/16 06:00 11/15/16 06:00 11/15/16 06:00 11/15/16 06:00 Intake and Output: 11/15/16 11/15/16 06:59 18:59 Intake Total 1900 Output Total 1000 Balance 900 - Medications Medications: Current Medications Chlordiazepoxide (Librium) 25 mg PO Q8 [facility] PRN Reason: Protocol Folic Acid (Folic Acid) 1 mg PO DAILY [facility] Last Admin: 11/15/16 11:06 Dose: 1 mg Lorazepam (Ativan) 2 mg IVP Q4H PRN; Protocol PRN Reason: Symptoms of alcohol withdrawl Last Admin: 11/14/16 11:08 Dose: 2 mg Multivitamins (Thera Tab) 1 tab PO 0800 [facility] Ondansetron HCl (Zofran Inj) 4 mg IVP Q4H PRN PRN Reason: Nausea/Vomiting Pantoprazole Sodium (Protonix Inj) 40 mg IVP DAILY [facility] Last Admin: 11/15/16 11:06 Dose: 40 mg Thiamine HCl (Vitamin B1 Tab) 100 mg PO DAILY [facility] - Labs Labs: 11/15/16 07:11 11/15/16 07:11 - Constitutional Appears: Well, Non-toxic, No Acute Distress, Other (pt is not combative, agitated, confused or in acute distress) - Head Exam Head Exam: ATRAUMATIC, NORMAL INSPECTION, NORMOCEPHALIC - Eye Exam Eye Exam: EOMI, Normal appearance, PERRL. absent: Conjunctival injection, Nystagmus, Periorbital swelling, Periorbital tenderness, Scleral icterus Pupil Exam: NORMAL ACCOMODATION - ENT Exam ENT Exam: Mucous Membranes Moist, Normal Exam - Neck Exam Neck Exam: Normal Inspection - Respiratory Exam Respiratory Exam: Clear to Ausculation Bilateral, NORMAL BREATHING PATTERN. absent: Accessory Muscle Use, Rales, Rhonchi, Wheezes, Stridor - Cardiovascular Exam Cardiovascular Exam: RRR, +S1, +S2. absent: Gallop, JVD, Rubs, Murmur - GI/Abdominal Exam GI & Abdominal Exam: Soft, Normal Bowel Sounds. absent: Distended, Guarding, Tenderness - Neurological Exam Neurological Exam: Alert, Awake, Oriented x3. absent: Motor Sensory Deficit - Psychiatric Exam Psychiatric exam: Normal Affect, Normal Mood. absent: Agitated, Anxious, Manic - Skin Skin Exam: Normal Color, Warm - Additional Findings Additional findings: pt in chris vest Assessment and Plan - Assessment and Plan (Free Text) Assessment: 46yo male with history of chronic ETOH abuse with multiple admissions, HTN, and depression presents with alcohol withdrawal. EKG showed sinus tachy, trop neg x1 , UDS negative. Plan: 1. ETOH withdrawal, currently no withdrawal symptoms - Librium 25mg q8 titrated down due to improvement in symptoms - Ativan 2mg q4PRN if withdrawal - WA protocol - c/w Avasys system for monitoring of withdrawal - seizure, fall and aspirations precautions - MV, thiamine, and folic acid - D/C tele and transfer pt to med-surg floor with close nurse monitoring (place by nurse's station) 2. Agitation, pt not agitated or combative today - d/c chris vest 3. Hx of HTN - holding home meds 4. Depression - holding home meds PPX: PTX/SCDs Patient was seen, discussed and evaluated with attending, Dr. Heron Elliott PGY1 <Sean Shelby - Last Filed: 11/15/16 17:09> Objective - Vital Signs/Intake and Output Vital Signs (last 24 hours): Temp Pulse Resp BP Pulse Ox 97.9 F 88 18 139/87 98 11/15/16 12:00 11/15/16 12:00 11/15/16 12:00 11/15/16 12:00 11/15/16 06:00 Intake and Output: 11/15/16 11/15/16 06:59 18:59 Intake Total 1900 1900 Output Total 1000 1000 Balance 900 900 - Medications Medications: Current Medications Chlordiazepoxide (Librium) 25 mg PO Q8 [facility] PRN Reason: Protocol Last Admin: 11/15/16 15:03 Dose: 25 mg Folic Acid (Folic Acid) 1 mg PO DAILY [facility] Last Admin: 11/15/16 11:06 Dose: 1 mg Lorazepam (Ativan) 2 mg IVP Q4H PRN; Protocol PRN Reason: Symptoms of alcohol withdrawl Last Admin: 11/14/16 11:08 Dose: 2 mg Multivitamins (Thera Tab) 1 tab PO 0800 [facility] Ondansetron HCl (Zofran Inj) 4 mg IVP Q4H PRN PRN Reason: Nausea/Vomiting Pantoprazole Sodium (Protonix Inj) 40 mg IVP DAILY [facility] Last Admin: 11/15/16 11:06 Dose: 40 mg Thiamine HCl (Vitamin B1 Tab) 100 mg PO DAILY [facility] - Labs Labs: 11/15/16 07:11 11/15/16 07:11 Attending/Attestation - Attestation I have personally seen and examined this patient.: Yes I have fully participated in the care of the patient.: Yes I have reviewed all pertinent clinical information, including history, physical exam and plan: Yes Notes (Text): 11/15/16 17:06 Patient seen and examined at bedside. Labs, vitals, notes reviewed. No overnight issues. He is much more awake and alert and denies any new complaints. He feels much better and is aware of his surroundings and reason for admission. Continue tapering his librium and his ativan regimen. Possey vest discontinued. Discontinue telemetry and Avasys system today. OOB to chair with assistance today. PT evaluation in AM.
[2016-11-16] MEDS: Pantoprazole 40 mg EC Tab PO SCH (05:28)
[2016-11-16 08:32] LABS: ADD MANUAL DIFF? NO
[2016-11-16 08:36] LABS: BASO # 0.01 K/mm3 (0.0-2.0); BASO % 0.3 % (0.0-3.0); EOS % 1.1 % (1.5-5.0); GRAN % 42.6 % (50.0-68.0); HEMATOCRIT 37.8 % (42.0-52.0); LYMPH # 1.7 (1.2-3.4); LYMPH % 48.4 % (22.0-35.0); MEAN CELL VOLUME 83.3 fL (80.0-105.0); MEAN CORPUSCULAR HEMOGLOBIN 29.1 pg (25.0-35.0); MEAN CORPUSCULAR HGB CONC 34.9 g/dl (31.0-37.0); MEAN PLATELET VOLUME 11.2 fl (7.0-11.0); MONO # 0.3 (0.1-0.6); MONO % 7.6 % (1.0-6.0); PLATELET COUNT 94 10^3/uL (120.0-450.0); RED CELL DISTRIBUTION WIDTH 14.3 % (11.5-14.5); WHITE BLOOD COUNT 3.5 10^3/ul (4.5-11.0)
[2016-11-16 08:50] LABS: ALB/GLOB RATIO 1.5 (1.1-1.8); ALKALINE PHOSPHATASE 72 U/L (38-133); ALT/SGPT 59 U/L (7-56); AST/SGOT 37 U/L (15-59); BILIRUBIN,TOTAL 0.4 mg/dL (0.2-1.3); BLOOD UREA NITROGEN 7 mg/dL (7-21); CALCIUM 9.1 mg/dL (8.4-10.5); CARBON DIOXIDE 23 mmol/L (21-33); CHLORIDE 101 mmol/L (95-110); GFR AFRICAN-AMERICAN > 60; GLUCOSE,RANDOM 141 mg/dL (70-110); MAGNESIUM 1.6 mg/dL (1.7-2.2); PHOSPHOROUS 3.5 mg/dL (2.5-4.5); POTASSIUM 3.9 mmol/L (3.6-5.0); SODIUM 133 mmol/L (132-148); TOTAL PROTEIN 6.3 g/dL (5.8-8.3)
[2016-11-16] MEDS ORDERED: Magnesium Sulfate 2 GM in Sodium Chloride 0.9% 100 ML IVPB ONE (09:03)
[2016-11-16] MEDS: Multivitamin Therapeutic Tab PO SCH (09:18)
[2016-11-16 09:26] VITALS: RESP 20
--- NOTE | 2016-11-16 11:51 | CP.PCM.PN ---
<Hailee Hopkins - Last Filed: 11/16/16 12:36> Subjective - Date & Time of Evaluation Date of Evaluation: 11/16/16 Time of Evaluation: 07:30 - Subjective Subjective: Patient seen and examined at bedside. Per nursing no acute events overnight. Patient is doing well, no complaints at this time. Ambulating and Tolerating diet. Patient currently denying any withdrawal symptoms. Denies sweats, shakes/ tremors, visual/auditory hallucinations. Denies headaches, dizziness, CP, SOB, abd pain, urinary symptoms. Objective - Vital Signs/Intake and Output Vital Signs (last 24 hours): Temp Pulse Resp BP Pulse Ox 98.3 F 64 20 142/80 96 11/16/16 08:00 11/16/16 08:00 11/16/16 08:00 11/16/16 08:00 11/16/16 08:00 Intake and Output: 11/16/16 11/16/16 06:59 18:59 Intake Total 120 360 Balance 120 360 - Medications Medications: Current Medications Chlordiazepoxide (Librium) 25 mg PO Q8 [facility] PRN Reason: Protocol Last Admin: 11/16/16 05:36 Dose: 25 mg Chlordiazepoxide (Librium) 25 mg PO Q12 [facility] PRN Reason: Protocol Folic Acid (Folic Acid) 1 mg PO DAILY [facility] Last Admin: 11/16/16 09:18 Dose: 1 mg Lorazepam (Ativan) 2 mg IVP Q4H PRN; Protocol PRN Reason: Symptoms of alcohol withdrawl Last Admin: 11/14/16 11:08 Dose: 2 mg Multivitamins (Thera Tab) 1 tab PO 0800 [facility] Last Admin: 11/16/16 09:18 Dose: 1 tab Ondansetron HCl (Zofran Inj) 4 mg IVP Q4H PRN PRN Reason: Nausea/Vomiting Pantoprazole Sodium (Protonix Ec Tab) 40 mg PO 0600 [facility] Last Admin: 11/16/16 05:28 Dose: 40 mg Thiamine HCl (Vitamin B1 Tab) 100 mg PO DAILY [facility] Last Admin: 11/16/16 09:18 Dose: 100 mg - Labs Labs: 11/16/16 08:00 11/16/16 08:00 - Constitutional Appears: Well, Non-toxic - Head Exam Head Exam: ATRAUMATIC, NORMAL INSPECTION - Eye Exam Eye Exam: EOMI, Normal appearance Pupil Exam: NORMAL ACCOMODATION - ENT Exam ENT Exam: Mucous Membranes Moist - Neck Exam Neck Exam: Full ROM - Respiratory Exam Respiratory Exam: Clear to Ausculation Bilateral, NORMAL BREATHING PATTERN - Cardiovascular Exam Cardiovascular Exam: REGULAR RHYTHM, +S1, +S2 - GI/Abdominal Exam GI & Abdominal Exam: Soft, Normal Bowel Sounds. absent: Guarding, Tenderness, Rebound - Back Exam Back Exam: NORMAL INSPECTION - Neurological Exam Neurological Exam: Alert, Awake, Oriented x3 Additional comments: No resting tremor on physical exam - Psychiatric Exam Psychiatric exam: Normal Affect, Normal Mood - Skin Skin Exam: Dry, Normal Color, Warm Assessment and Plan - Assessment and Plan (Free Text) Assessment: 46 yo male with history of chronic ETOH abuse with multiple admissions, HTN, and depression presents with alcohol withdrawal. Plan: 1. ETOH withdrawal, currently no withdrawal symptoms - Will titrate Librium down to 25mg BID - Ativan 2mg q4PRN if withdrawal - Contiue CIWA protocoll - Seizure, fall and aspirations precautions - Contiue Multivitamins, thiamine, and folic acid - F/U PT recommendations 2. Agitation, pt not agitated or combative today - Vest discontinued yesterday - Continue to monitor 3. Hypomagnesemia - Mg 1.6 - Will replete with Mg 2gm/100ml NS - F/U labs tomorrow 3. Hx of HTN - Holding home meds 4. Depression - Holding home meds PPX: PTX/SCDs Hailee Hopkins PGY-1 <Elif Brower - Last Filed: 11/16/16 13:37> Objective - Vital Signs/Intake and Output Vital Signs (last 24 hours): Temp Pulse Resp BP Pulse Ox 98.3 F 64 20 142/80 96 11/16/16 08:00 11/16/16 08:00 11/16/16 08:00 11/16/16 08:00 11/16/16 08:00 Intake and Output: 11/16/16 11/16/16 06:59 18:59 Intake Total 120 360 Balance 120 360 - Medications Medications: Current Medications Chlordiazepoxide (Librium) 25 mg PO Q12 [facility] PRN Reason: Protocol Folic Acid (Folic Acid) 1 mg PO DAILY [facility] Last Admin: 11/16/16 09:18 Dose: 1 mg Lorazepam (Ativan) 2 mg IVP Q4H PRN; Protocol PRN Reason: Symptoms of alcohol withdrawl Last Admin: 11/14/16 11:08 Dose: 2 mg Multivitamins (Thera Tab) 1 tab PO 0800 [facility] Last Admin: 11/16/16 09:18 Dose: 1 tab Ondansetron HCl (Zofran Inj) 4 mg IVP Q4H PRN PRN Reason: Nausea/Vomiting Pantoprazole Sodium (Protonix Ec Tab) 40 mg PO 0600 [facility] Last Admin: 11/16/16 05:28 Dose: 40 mg Thiamine HCl (Vitamin B1 Tab) 100 mg PO DAILY [facility] Last Admin: 11/16/16 09:18 Dose: 100 mg - Labs Labs: 11/16/16 08:00 11/16/16 08:00 Attending/Attestation - Attestation I have personally seen and examined this patient.: Yes I have fully participated in the care of the patient.: Yes I have reviewed all pertinent clinical information, including history, physical exam and plan: Yes Notes (Text): 11/16/16 13:31 46 year old male with past medical history of depression and chronic ETOH abuse who presented with alcohol withdrawal and agitation. His withdrawal symptoms have improved. He is on ativan prn and tapering librium. He is on multivitamin , folic acid and thiamine. He was counselled on alcohol abstinence. He complains of gait unsteadiness for which he was seen by PT earlier this morning. Will follow up with PT recommendations. Will replete and repeat magnesium. Elevated LFTs are likely secondary to ETOH abuse which is trending down. Elif Brower MD Hospitalist.
[2016-11-17] MEDS: Pantoprazole 40 mg EC Tab PO SCH (05:26)
[2016-11-17 08:07] LABS: PHOSPHOROUS 3.8 mg/dL (2.5-4.5)
[2016-11-17 08:19] VITALS: BP 126/80; PULSE 57; TEMP 98; O2SAT 100
[2016-11-17 08:24] LABS: ADD MANUAL DIFF? NO
[2016-11-17 08:35] LABS: BASO # 0.01 K/mm3 (0.0-2.0); BASO % 0.3 % (0.0-3.0); EOS % 0.6 % (1.5-5.0); GRAN # 1.12 (1.4-6.5); GRAN % 34.5 % (50.0-68.0); HEMATOCRIT 37.9 % (42.0-52.0); LYMPH # 1.6 (1.2-3.4); LYMPH % 49.8 % (22.0-35.0); MEAN CELL VOLUME 84.4 fL (80.0-105.0); MEAN CORPUSCULAR HGB CONC 34.3 g/dl (31.0-37.0); MEAN PLATELET VOLUME 11.1 fl (7.0-11.0); MONO # 0.5 (0.1-0.6); MONO % 14.8 % (1.0-6.0); PLATELET COUNT 111 10^3/uL (120.0-450.0); RED CELL DISTRIBUTION WIDTH 14.7 % (11.5-14.5); WHITE BLOOD COUNT 3.3 10^3/ul (4.5-11.0)
[2016-11-17 08:52] LABS: ALB/GLOB RATIO 1.4 (1.1-1.8); ALKALINE PHOSPHATASE 72 U/L (38-133); ALT/SGPT 57 U/L (7-56); AST/SGOT 32 U/L (15-59); BILIRUBIN,TOTAL 0.4 mg/dL (0.2-1.3); BLOOD UREA NITROGEN 7 mg/dL (7-21); CALCIUM 8.9 mg/dL (8.4-10.5); CARBON DIOXIDE 24 mmol/L (21-33); CHLORIDE 103 mmol/L (95-110); GFR AFRICAN-AMERICAN > 60; GLUCOSE,RANDOM 86 mg/dL (70-110); POTASSIUM 3.9 mmol/L (3.6-5.0); SODIUM 135 mmol/L (132-148); TOTAL PROTEIN 6.1 g/dL (5.8-8.3)
[2016-11-17] MEDS: Multivitamin Therapeutic Tab PO SCH (09:00)
--- NOTE | 2016-11-17 16:35 | CP.PCM.DIS ---
<Hailee Hopkins - Last Filed: 11/17/16 16:50> Provider - Provider Date of Admission: 11/13/16 19:24 Attending physician: Elif Brower MD Primary care physician: Patric Baez MD Time Spent in preparation of Discharge (in minutes): 45 Diagnosis - Discharge Diagnosis (1) Alcohol abuse Status: Acute (2) Alcohol intoxication Status: Acute (3) Alcohol use disorder Status: Acute (4) Alcohol withdrawal delirium Status: Acute Hospital Course - Lab Results Lab Results: Most Recent Lab Values WBC 3.3 10^3/ul (4.5-11.0) L 11/17/16 08:00 RBC 4.49 10^6/uL (3.5-6.1) 11/17/16 08:00 Hgb 13.0 gm/dL (14.0-18.0) L 11/17/16 08:00 Hct 37.9 % (42.0-52.0) L 11/17/16 08:00 MCV 84.4 fL (80.0-105.0) 11/17/16 08:00 MCH 29.0 pg (25.0-35.0) 11/17/16 08:00 MCHC 34.3 g/dl (31.0-37.0) 11/17/16 08:00 RDW 14.7 % (11.5-14.5) H 11/17/16 08:00 Plt Count 111 10^3/uL (120.0-450.0) L 11/17/16 08:00 MPV 11.1 fl (7.0-11.0) H 11/17/16 08:00 Gran % 34.5 % (50.0-68.0) L 11/17/16 08:00 Lymph % (Auto) 49.8 % (22.0-35.0) H 11/17/16 08:00 [place] % (Auto) 14.8 % (1.0-6.0) H 11/17/16 08:00 Eos % (Auto) 0.6 % (1.5-5.0) L 11/17/16 08:00 Baso % (Auto) 0.3 % (0.0-3.0) 11/17/16 08:00 Gran # 1.12 (1.4-6.5) L 11/17/16 08:00 Lymph # 1.6 (1.2-3.4) 11/17/16 08:00 [place] # 0.5 (0.1-0.6) 11/17/16 08:00 Eos # 0.0 (0.0-0.7) 11/17/16 08:00 Baso # 0.01 K/mm3 (0.0-2.0) 11/17/16 08:00 Sodium 135 mmol/L (132-148) 11/17/16 08:00 Potassium 3.9 mmol/L (3.6-5.0) 11/17/16 08:00 Chloride 103 mmol/L (95-110) 11/17/16 08:00 Carbon Dioxide 24 mmol/L (21-33) 11/17/16 08:00 Anion Gap 12 (10-20) 11/17/16 08:00 BUN 7 mg/dL (7-21) 11/17/16 08:00 Creatinine 0.7 mg/dL (0.5-1.4) 11/17/16 08:00 Est GFR ( Amer) > 60 11/17/16 08:00 Est GFR (Non-Af Amer) > 60 11/17/16 08:00 POC Glucose (mg/dL) 154 mg/dL (65-110) H 11/14/16 11:01 Random Glucose 86 mg/dL (70-110) 11/17/16 08:00 Serum Osmolality 267 mosm/kg (271-296) L 11/13/16 13:57 Calcium 8.9 mg/dL (8.4-10.5) 11/17/16 08:00 Phosphorus 3.8 mg/dL (2.5-4.5) 11/17/16 07:10 Magnesium 2.0 mg/dL (1.7-2.2) 11/17/16 07:10 Total Bilirubin 0.4 mg/dL (0.2-1.3) 11/17/16 08:00 AST 32 U/L (15-59) 11/17/16 08:00 ALT 57 U/L (7-56) H 11/17/16 08:00 Alkaline Phosphatase 72 U/L (38-133) 11/17/16 08:00 Lactate Dehydrogenase 544 U/L (333-699) 11/13/16 13:57 Total Creatine Kinase 171 U/L (35-230) 11/13/16 13:57 Troponin I < 0.01 ng/mL 11/13/16 13:57 Total Protein 6.1 g/dL (5.8-8.3) 11/17/16 08:00 Albumin 3.6 g/dL (3.0-4.8) 11/17/16 08:00 Globulin 2.5 gm/dL 11/17/16 08:00 Albumin/Globulin Ratio 1.4 (1.1-1.8) 11/17/16 08:00 Urine Color Yellow (YELLOW) 11/13/16 14:55 Urine Appearance Clear (CLEAR) 11/13/16 14:55 Urine pH 6.5 (4.7-8.0) 11/13/16 14:55 Ur Specific Wallace <= 1.005 (1.005-1.035) 11/13/16 14:55 Urine Protein Negative mg/dL (<30 mg/dL) 11/13/16 14:55 Urine Glucose (UA) Negative mg/dL (NEGATIVE) 11/13/16 14:55 Urine Ketones Negative mg/dL (NEGATIVE) 11/13/16 14:55 Urine Blood Negative (NEGATIVE) 11/13/16 14:55 Urine Nitrate Negative (NEGATIVE) 11/13/16 14:55 Urine Bilirubin Negative (NEGATIVE) 11/13/16 14:55 Urine Urobilinogen 0.2 E.U./dL (<1 E.U./dL) 11/13/16 14:55 Ur Leukocyte Esterase Negative Kristen/uL (NEGATIVE) 11/13/16 14:55 Urine Osmolality 200 mosm/kg (50-645) 11/13/16 23:03 Ur Random Sodium 11 meq/L 11/13/16 23:03 Salicylates < 1 mg/dL (2.0-20.0) L 11/13/16 13:57 Urine Opiates Screen Negative (NEGATIVE) 11/13/16 15:45 Urine Methadone Screen Negative (NEGATIVE) 11/13/16 15:45 Acetaminophen < 10.0 ug/ml (10.0-20.0) L 11/13/16 13:57 Ur Barbiturates Screen Negative (NEGATIVE) 11/13/16 15:45 Ur Phencyclidine Scrn Negative (NEGATIVE) 11/13/16 15:45 Ur Amphetamines Screen Negative (NEGATIVE) 11/13/16 15:45 U Benzodiazepines Scrn Negative (NEGATIVE) 11/13/16 15:45 U Oth Cocaine Metabols Negative (NEGATIVE) 11/13/16 15:45 U Cannabinoids Screen Negative (NEGATIVE) 11/13/16 15:45 Alcohol, Quantitative < 10 mg/dL (0-10) 11/13/16 13:57 - Hospital Course Hospital Course: 46 yo M with pmhx of chronic ETOH abuse, HTN, and depression presented with symptoms of tremors, tachycardia, palpitations, and nausea/vomiting. Patient reported that he was drinking about 8 beers and 2 pints of vodka daily for about 3 weeks due to recently losing his job. He abruptly stopped 3 days prior and since then has been having symptoms of alcohol withdrawal. His UDS was negative and his serum alcohol was less that 10. Patient was admitted for alcohol withdrawal. During admission patient admitted to [facility] and was agitated. Had chris vest along with b/l arm restraints placed. Patient was started on Librium taper and was given Ativan prn for agitation. Patient was also started on banana bag, multivitamins, thiamine/folic acid and was monitored using [facility] protocol. Patient was monitored and electrolytes were repleted as needed. Diet was advanced as tolerated. Restraints were subsequently discontinued as patient was no longer agitated. PT was consulted and evaluated the patient during this admission. On day of discharge patient was stable and was not experiencing signs of withdrawal. Patient denied any tremors, auditory/visual hallucinations. Patient was counseled on the importance of alcohol cessation and he states that he understands and will not drink anymore. Patient was discharged on Librium 10mg Q12H x 1 day. Patient to continue home medications. Instructed to follow up with PMD within 1 week of discharge. All questions and concerns were addressed. Discharge Exam - Head Exam Head Exam: ATRAUMATIC, NORMAL INSPECTION Discharge Plan - Discharge Medications Prescriptions: chlordiazePOXIDE [Chlordiazepoxide HCl] 10 mg PO Q12 #2 cap Metoprolol Tartrate [Lopressor] 12.5 mg PO BID #14 - Follow Up Plan Condition: SERIOUS Disposition: HOME/ ROUTINE Instructions: Chlordiazepoxide (By mouth), Heart Healthy Diet (DC), Abuse of Alcohol (DC), Alcohol Withdrawal (DC) Additional Instructions: Patient is cleared for discharge home, Patient to continue librium 10mg PO BID x 1 day, to follow up with PMD within 1 week Referrals: Patric Baez MD [Primary Care Provider] - <Elif Brower - Last Filed: 11/17/16 18:00> Provider - Provider Date of Admission: 11/13/16 19:24 Attending physician: Elif Brower MD Primary care physician: Patric Baez MD Hospital Course - Lab Results Lab Results: Most Recent Lab Values WBC 3.3 10^3/ul (4.5-11.0) L 11/17/16 08:00 RBC 4.49 10^6/uL (3.5-6.1) 11/17/16 08:00 Hgb 13.0 gm/dL (14.0-18.0) L 11/17/16 08:00 Hct 37.9 % (42.0-52.0) L 11/17/16 08:00 MCV 84.4 fL (80.0-105.0) 11/17/16 08:00 MCH 29.0 pg (25.0-35.0) 11/17/16 08:00 MCHC 34.3 g/dl (31.0-37.0) 11/17/16 08:00 RDW 14.7 % (11.5-14.5) H 11/17/16 08:00 Plt Count 111 10^3/uL (120.0-450.0) L 11/17/16 08:00 MPV 11.1 fl (7.0-11.0) H 11/17/16 08:00 Gran % 34.5 % (50.0-68.0) L 11/17/16 08:00 Lymph % (Auto) 49.8 % (22.0-35.0) H 11/17/16 08:00 [place] % (Auto) 14.8 % (1.0-6.0) H 11/17/16 08:00 Eos % (Auto) 0.6 % (1.5-5.0) L 11/17/16 08:00 Baso % (Auto) 0.3 % (0.0-3.0) 11/17/16 08:00 Gran # 1.12 (1.4-6.5) L 11/17/16 08:00 Lymph # 1.6 (1.2-3.4) 11/17/16 08:00 [place] # 0.5 (0.1-0.6) 11/17/16 08:00 Eos # 0.0 (0.0-0.7) 11/17/16 08:00 Baso # 0.01 K/mm3 (0.0-2.0) 11/17/16 08:00 Sodium 135 mmol/L (132-148) 11/17/16 08:00 Potassium 3.9 mmol/L (3.6-5.0) 11/17/16 08:00 Chloride 103 mmol/L (95-110) 11/17/16 08:00 Carbon Dioxide 24 mmol/L (21-33) 11/17/16 08:00 Anion Gap 12 (10-20) 11/17/16 08:00 BUN 7 mg/dL (7-21) 11/17/16 08:00 Creatinine 0.7 mg/dL (0.5-1.4) 11/17/16 08:00 Est GFR ( Amer) > 60 11/17/16 08:00 Est GFR (Non-Af Amer) > 60 11/17/16 08:00 POC Glucose (mg/dL) 154 mg/dL (65-110) H 11/14/16 11:01 Random Glucose 86 mg/dL (70-110) 11/17/16 08:00 Serum Osmolality 267 mosm/kg (271-296) L 11/13/16 13:57 Calcium 8.9 mg/dL (8.4-10.5) 11/17/16 08:00 Phosphorus 3.8 mg/dL (2.5-4.5) 11/17/16 07:10 Magnesium 2.0 mg/dL (1.7-2.2) 11/17/16 07:10 Total Bilirubin 0.4 mg/dL (0.2-1.3) 11/17/16 08:00 AST 32 U/L (15-59) 11/17/16 08:00 ALT 57 U/L (7-56) H 11/17/16 08:00 Alkaline Phosphatase 72 U/L (38-133) 11/17/16 08:00 Lactate Dehydrogenase 544 U/L (333-699) 11/13/16 13:57 Total Creatine Kinase 171 U/L (35-230) 11/13/16 13:57 Troponin I < 0.01 ng/mL 11/13/16 13:57 Total Protein 6.1 g/dL (5.8-8.3) 11/17/16 08:00 Albumin 3.6 g/dL (3.0-4.8) 11/17/16 08:00 Globulin 2.5 gm/dL 11/17/16 08:00 Albumin/Globulin Ratio 1.4 (1.1-1.8) 11/17/16 08:00 Urine Color Yellow (YELLOW) 11/13/16 14:55 Urine Appearance Clear (CLEAR) 11/13/16 14:55 Urine pH 6.5 (4.7-8.0) 11/13/16 14:55 Ur Specific Wallace <= 1.005 (1.005-1.035) 11/13/16 14:55 Urine Protein Negative mg/dL (<30 mg/dL) 11/13/16 14:55 Urine Glucose (UA) Negative mg/dL (NEGATIVE) 11/13/16 14:55 Urine Ketones Negative mg/dL (NEGATIVE) 11/13/16 14:55 Urine Blood Negative (NEGATIVE) 11/13/16 14:55 Urine Nitrate Negative (NEGATIVE) 11/13/16 14:55 Urine Bilirubin Negative (NEGATIVE) 11/13/16 14:55 Urine Urobilinogen 0.2 E.U./dL (<1 E.U./dL) 11/13/16 14:55 Ur Leukocyte Esterase Negative Kristen/uL (NEGATIVE) 11/13/16 14:55 Urine Osmolality 200 mosm/kg (50-645) 11/13/16 23:03 Ur Random Sodium 11 meq/L 11/13/16 23:03 Salicylates < 1 mg/dL (2.0-20.0) L 11/13/16 13:57 Urine Opiates Screen Negative (NEGATIVE) 11/13/16 15:45 Urine Methadone Screen Negative (NEGATIVE) 11/13/16 15:45 Acetaminophen < 10.0 ug/ml (10.0-20.0) L 11/13/16 13:57 Ur Barbiturates Screen Negative (NEGATIVE) 11/13/16 15:45 Ur Phencyclidine Scrn Negative (NEGATIVE) 11/13/16 15:45 Ur Amphetamines Screen Negative (NEGATIVE) 11/13/16 15:45 U Benzodiazepines Scrn Negative (NEGATIVE) 11/13/16 15:45 U Oth Cocaine Metabols Negative (NEGATIVE) 11/13/16 15:45 U Cannabinoids Screen Negative (NEGATIVE) 11/13/16 15:45 Alcohol, Quantitative < 10 mg/dL (0-10) 11/13/16 13:57 Attending/Attestation - Attestation I have personally seen and examined this patient.: Yes I have fully participated in the care of the patient.: Yes I have reviewed all pertinent clinical information, including history, physical exam and plan: Yes Notes (Text): 11/17/16 17:57 46 year old male with past medical history of depression and chronic ETOH abuse who presented with alcohol withdrawal and agitation. His symptoms improved with ativan prn and librium which was tapered. He is on multivitamin, folic acid and thiamine. He was counselled on alcohol abstinence. Elevated LFTs were likely secondary to ETOH abuse which have trended down. Magnesium was repleted to normal. Overall his symptoms improved. He is discharged home to follow up with his pmd. Follow up with psychiatrist or with [facility]. Counselled on alcohol abstinence. Elif Brower MD Hospitalist.
== END 2016-11-17 16:29 | disposition home or self-care (01) | DRG 750 ==
LOC: ED 13:23 → ERH 19:24 → 2RSO 22:47 → 5RSO 11-15 23:37
PROVIDERS: ADMIT Internal Medicine; ATTEND Internal Medicine
DX: F10.231 Alcohol dependence with withdrawal delirium (principal); E87.1 Hypo-osmolality and hyponatremia; E83.42 Hypomagnesemia; I10 Essential (primary) hypertension; E87.6 Hypokalemia; F32.9 Major depressive disorder, single episode, unspecified; Z78.1 Physical restraint status; Z95.5 Presence of coronary angioplasty implant and graft

== ENCOUNTER 2016-11-29 01:22 | Emergency (ER) | payer MEDICAID ==
[2016-11-29 01:23] VITALS: BMI 23.6
== END 2016-11-29 02:45 | disposition left against medical advice (07) ==
LOC: ED 01:22
DX: Z02.89 Encounter for other administrative examinations (principal); F10.10 Alcohol abuse, uncomplicated

== ENCOUNTER 2017-01-18 17:36 | Inpatient (IN) | payer MEDICAID, OTHER ==
[2017-01-18 17:55] VITALS: BMI 25.1
[2017-01-18] MEDS ORDERED: Multivitamin (MVI) 10 ML, Thiamine 100 MG, Folic Acid 1 MG in Sodium Chloride 0.9% 1,00... IV ONE (18:45)
[2017-01-18 19:24] LABS: ALB/GLOB RATIO 1.8 (1.1-1.8); ALKALINE PHOSPHATASE 85 U/L (38-126); ALT/SGPT 81 U/L (7-56); AST/SGOT 96 U/L (17-59); BILIRUBIN,TOTAL 1.7 mg/dL (0.2-1.3); BLOOD UREA NITROGEN 14 mg/dL (7-21); CALCIUM 9.2 mg/dL (8.4-10.5); CARBON DIOXIDE 23 mmol/L (21-33); CHLORIDE 96 mmol/L (98-107); GFR AFRICAN-AMERICAN > 60; GLUCOSE,RANDOM 127 mg/dL (70-110); POTASSIUM 3.6 mmol/L (3.6-5.0); SODIUM 135 mmol/L (132-148); TOTAL PROTEIN 6.9 g/dL (5.8-8.3)
[2017-01-18 19:26] LABS: GRAN # 5.07 (1.4-6.5); GRAN % 84.9 % (50.0-68.0); HEMATOCRIT 39.2 % (42.0-52.0); LYMPH # 0.6 (1.2-3.4); LYMPH % 10.4 % (22.0-35.0); MEAN CELL VOLUME 84.3 fl (80.0-105.0); MEAN CORPUSCULAR HEMOGLOBIN 29.5 pg (25.0-35.0); MEAN CORPUSCULAR HGB CONC 34.9 g/dl (31.0-37.0); MEAN PLATELET VOLUME 10.6 fl (7.0-11.0); MONO # 0.3 (0.1-0.6); MONO % 4.7 % (1.0-6.0)
[2017-01-18 19:35] LABS: URINE BILIRUBIN MODERATE (NEGATIVE); URINE BLOOD TRACE-INTACT (NEGATIVE); URINE GLUCOSE (UA) NEGATIVE (NEGATIVE); URINE KETONE >=80 mg/dL (NEGATIVE); URINE LEUKOCYTE ESTERASE NEGATIVE Leu/uL (NEGATIVE); URINE PROTEIN 100 mg/dL (<30 mg/dL)
[2017-01-18 19:37] LABS: URINE APPEARANCE CLEAR (CLEAR)
[2017-01-18 19:38] LABS: URINE COLOR DARK YELLOW (YELLOW)
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
[2017-01-18 20:52] LABS: URINE BACTERIA MOD (NEG); URINE RBC 0 - 2 /hpf (0-2); URINE WBC 0 - 2 /hpf (0-6)
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
[2017-01-19 06:21] LABS: BASO # 0.01 K/mm3 (0.0-2.0); BASO % 0.2 % (0.0-3.0); EOS # 0.1 (0.0-0.7); EOS % 1.8 % (1.5-5.0); GRAN # 3.13 (1.4-6.5); GRAN % 64.1 % (50.0-68.0); HEMATOCRIT 36.8 % (42.0-52.0); LYMPH # 1.3 (1.2-3.4); LYMPH % 27.2 % (22.0-35.0); MEAN CORPUSCULAR HEMOGLOBIN 29.1 pg (25.0-35.0); MEAN CORPUSCULAR HGB CONC 34.2 g/dl (31.0-37.0); MONO # 0.3 (0.1-0.6); MONO % 6.7 % (1.0-6.0); RED CELL DISTRIBUTION WIDTH 15.1 % (11.5-14.5); WHITE BLOOD COUNT 4.9 10^3/ul (4.5-11.0)
[2017-01-19] MEDS: Sodium Chloride 0.9% 1,000 ML IV SCH ×2 (06:23→06:25)
[2017-01-19 06:37] LABS: INR 0.94 (0.93-1.08); PARTIAL THROMBOPLASTIN TIME 28.2 Seconds (23.7-30.8)
[2017-01-19] MEDS ORDERED: Multivitamin (MVI) 10 ML, Thiamine 100 MG, Folic Acid 1 MG in Sodium Chloride 0.9% 1,00... IV ONE (07:41)
[2017-01-19 07:43] LABS: ALB/GLOB RATIO 1.6 (1.1-1.8); ALKALINE PHOSPHATASE 77 U/L (38-126); ALT/SGPT 66 U/L (7-56); AMYLASE 67 U/L (35-125); AST/SGOT 78 U/L (17-59); BILIRUBIN,TOTAL 1.9 mg/dL (0.2-1.3); BLOOD UREA NITROGEN 12 mg/dL (7-21); CALCIUM 8.9 mg/dL (8.4-10.5); CARBON DIOXIDE 23 mmol/L (21-33); CHLORIDE 101 mmol/L (98-107); GFR AFRICAN-AMERICAN > 60; GLUCOSE,RANDOM 89 mg/dL (70-110); LIPASE 191 U/L (23-300); POTASSIUM 3.4 mmol/L (3.6-5.0); SODIUM 136 mmol/L (132-148); TOTAL PROTEIN 6.3 g/dL (5.8-8.3)
[2017-01-19] MEDS ORDERED: Potassium Chloride 20 mEq ER Tab PO ONE (08:01)
--- NOTE | 2017-01-19 08:07 | CP.PCM.PN ---
<Hailee Hopkins - Last Filed: 01/19/17 11:09> Subjective - Date & Time of Evaluation Date of Evaluation: 01/19/17 Time of Evaluation: 07:20 - Subjective Subjective: Hospitalist Service Progress Note: Patient seen and examined at bedside. Patient currently is confused, wanting to get out of bed. Currenlty in restraints. When asked why patient came to the hospital, patient was unable to answer. Denies any visual/auditory hallucinations. Denies SI/HI. Denies headaches, dizziness, cp, palpitations, sob , abdominal pain, N/V, urinary symptoms, diarrhea. Objective - Vital Signs/Intake and Output Vital Signs (last 24 hours): Temp Pulse Resp BP Pulse Ox 98.3 F 105 H 22 157/93 H 97 01/19/17 00:01 01/19/17 05:19 01/19/17 05:19 01/19/17 05:19 01/19/17 05:19 Intake and Output: 01/19/17 01/19/17 06:59 18:59 Intake Total 0 Output Total 0 Balance 0 - Medications Medications: Current Medications Chlordiazepoxide (Librium) 50 mg PO Q6 PRN; Protocol PRN Reason: Symptoms of alcohol withdrawl Last Admin: 01/19/17 02:32 Dose: 50 mg Famotidine (Pepcid) 20 mg IVP DAILY [facility] Multivitamins/Vitamin C 10 ml/Thiamine HCl 100 mg/ Folic Acid 1 mg/ Sodium Chloride 1,011.2 mls @ 100 mls/hr IV .Q10H7M ONE Stop: 01/19/17 17:47 Lorazepam (Ativan) 2 mg IVP Q4 LESLY PRN Reason: Protocol Last Admin: 01/19/17 07:14 Dose: 2 mg Lorazepam (Ativan) 1 mg IVP Q3 PRN; Protocol PRN Reason: Symptoms of alcohol withdrawl Metoprolol Tartrate (Lopressor) 12.5 mg PO BID [facility] - Labs Labs: 01/19/17 06:00 01/19/17 06:00 PT 10.1 Seconds (9.9-11.8) 01/19/17 06:00 INR 0.94 (0.93-1.08) 01/19/17 06:00 APTT 28.2 Seconds (23.7-30.8) 01/19/17 06:00 - Constitutional Appears: Non-toxic, No Acute Distress - Head Exam Head Exam: ATRAUMATIC, NORMAL INSPECTION - Eye Exam Eye Exam: EOMI, Normal appearance Pupil Exam: NORMAL ACCOMODATION - ENT Exam ENT Exam: Mucous Membranes Moist - Neck Exam Neck Exam: Full ROM - Respiratory Exam Respiratory Exam: Clear to Ausculation Bilateral, NORMAL BREATHING PATTERN. absent: Rales, Rhonchi, Wheezes - Cardiovascular Exam Cardiovascular Exam: REGULAR RHYTHM, +S1, +S2 - GI/Abdominal Exam GI & Abdominal Exam: Soft. absent: Guarding, Rigid, Tenderness - Extremities Exam Extremities Exam: Full ROM, Normal Inspection. absent: Calf Tenderness - Back Exam Back Exam: NORMAL INSPECTION - Neurological Exam Neurological Exam: Altered - Psychiatric Exam Psychiatric exam: Anxious, Normal Affect, Normal Mood - Skin Skin Exam: Dry, Normal Color, Warm Assessment and Plan - Assessment and Plan (Free Text) Assessment: 47 year old male with past medical history of alcohol abuse, HTN, and depression presenting with alcohol withdrawals Plan: 1. Alcohol withdrawal, Hx of alcohol abuse - Alcohol level <10 on admission - UTOX negative - Cotinue Banana bag - Continue Librium 50 mg q6 PRN - Continue Ativan 2 mg IVP q4 - Vest restraints - CIWA - Aspiration precuations - Seizure precuations - Vitals q4 - Diet NPO - Continue to monitor electrolytes - Psych consulted, f/u recommendations 2. HTN - Metoprolol tartrate 12.5 BID 3. Transaminitis - LFTs trending down - AST/ALT today 78/66; T bili up 1.7 --> 1.9 - Hep panel from 02/2016 negative - Continue to monitor DVT/GI prophylaxis - SCD/Pepcid <Agustin Corea - Last Filed: 01/19/17 13:59> Objective - Vital Signs/Intake and Output Vital Signs (last 24 hours): Temp Pulse Resp BP Pulse Ox 98.3 F 66 18 132/88 97 01/19/17 12:00 01/19/17 12:00 01/19/17 12:00 01/19/17 12:00 01/19/17 05:19 Intake and Output: 01/19/17 01/19/17 06:59 18:59 Intake Total 0 Output Total 0 Balance 0 - Medications Medications: Current Medications Famotidine (Pepcid) 20 mg IVP DAILY [facility] Last Admin: 01/19/17 10:55 Dose: 20 mg Multivitamins/Vitamin C 10 ml/Thiamine HCl 100 mg/ Folic Acid 1 mg/ Sodium Chloride 1,011.2 mls @ 100 mls/hr IV .Q10H7M ONE Stop: 01/19/17 17:47 Last Admin: 01/19/17 08:36 Dose: 100 mls/hr Lorazepam (Ativan) 2 mg IVP Q4 LESLY PRN Reason: Protocol Last Admin: 01/19/17 11:30 Dose: 2 mg Lorazepam (Ativan) 2 mg IVP Q4H PRN; Protocol PRN Reason: Symptoms of alcohol withdrawl Metoprolol Tartrate (Lopressor) 12.5 mg PO BID [facility] Last Admin: 01/19/17 10:54 Dose: 12.5 mg Quetiapine Fumarate (Seroquel) 50 mg PO BID [facility] PRN Reason: Protocol Last Admin: 01/19/17 10:53 Dose: 50 mg Quetiapine Fumarate (Seroquel) 50 mg PO HS [facility] PRN Reason: Protocol Ziprasidone (Geodon Inj) 20 mg IM Q12H PRN; Protocol PRN Reason: agitation/psychosis - Labs Labs: 01/19/17 06:00 01/19/17 06:00 PT 10.1 Seconds (9.9-11.8) 01/19/17 06:00 INR 0.94 (0.93-1.08) 01/19/17 06:00 APTT 28.2 Seconds (23.7-30.8) 01/19/17 06:00 Attending/Attestation - Attestation I have personally seen and examined this patient.: Yes I have fully participated in the care of the patient.: Yes I have reviewed all pertinent clinical information, including history, physical exam and plan: Yes Notes (Text): 01/19/17 13:55 attending note; Patient seen and examined with resident. patient is a 47-year-old male with a history of chronic alcohol abuse, depression is admitted with acute alcohol withdrawal. Patient is currently confused. On wrist restraints for safety. One-to-one observation ordered. Psychiatric evaluation Appreciated. Started on Seroquel. Elevated LFTs; secondary to alcohol abuse. Trending down slowly. Continue IV Ativan and banana bag. continue Geodon when necessary. monitor closely in telemetry. upon discharge the patient will follow-up with PMD . 01/19/17 13:59
--- NOTE | 2017-01-19 19:54 | CON ---
DATE: HISTORY OF PRESENT ILLNESS: The patient is a 47-year-old male with long and debilitating history of alcohol use disorder, history of multiple rehabs and detoxes in the past. The patient also has history of bipolar type 2. The patient also has history of delirium tremens, history of noncompliance with medication and followup appointments. At this time, the patient came to the hospital looking for help for his withdrawal symptoms. Psych consult was called for evaluation of mood symptoms as well as alcohol withdrawal symptoms and the patient has history of mental illness. The patient was seen and examined today. There is no option to have meaningful conversation. The patient got 9 mg of Ativan and finally fell asleep. As per nursing staff, the patient was agitated, pulling IV line, was very confused and hallucinating, presenting in danger to self waist Christian was started and medications were given to him. This blog writer reviewed previous history. The patient was doing well on Seroquel as well as Ativan. This is what this blog writer recommended as well as Geodon will be started in case of acute agitation and acute psychosis. PHYSICAL EXAMINATION: VITAL SIGNS: Needs to be checked every 4 hours and medical team was educated about that. Temperature 98.3, pulse is 90, before it was 103, blood pressure 148/94, respirations 22 and oxygen saturation is 97. MEDICATIONS: Reviewed. The patient is on Librium, Pepcid, Ativan scheduled as well as p.r.n., Lopressor and banana bag. LABORATORY DATA: Labs reviewed. Potassium 3.4. AST and ALT trending down 78 and 66. Urinalysis showed bilirubin moderate, blood trace, protein trace. Toxicology: Alcohol level was less than 10 at the time of admission and last alcohol consumption was 24 hours before coming to the hospital. MENTAL STATUS EXAMINATION: The patient presented to be sleepy. This blog writer was not able to assess mental status. As per report, the patient was agitated, hallucinating, restless. IMPRESSION: Most likely the patient has delirium tremens and alcohol withdrawal delirium, alcohol use disorder, history of bipolar type 2, electrolyte imbalance. PLAN: IV hydration, waist Serg was started. Seroquel 50 mg three times a day will be scheduled. Geodon will be given in case of agitation. This blog writer increased the dose of Ativan to Ativan 2 mg IV push q. 4 hours scheduled as well as 2 mg q. 6 hours p.r.n. in case of alcohol withdrawal symptoms. Multivitamin, thiamine, folic acid started by medical team. We will get back to advise accordingly. Thank you very much for letting me participate in the care of your patient. Bella Hussein MD
--- NOTE | 2017-01-20 01:21 | CARD ---
APPROVED REPORT EKG Measurement Heart [id number] <Conclusion> Sinus tachycardia Possible Left atrial enlargement Cannot rule out Anterior infarct, age undetermined Abnormal ECG
[2017-01-20 06:38] LABS: BASO # 0.01 K/mm3 (0.0-2.0); BASO % 0.3 % (0.0-3.0); EOS # 0.1 (0.0-0.7); EOS % 2.7 % (1.5-5.0); GRAN # 1.78 (1.4-6.5); GRAN % 53.7 % (50.0-68.0); HEMATOCRIT 36.7 % (42.0-52.0); LYMPH # 1.2 (1.2-3.4); MEAN CELL VOLUME 85.5 fl (80.0-105.0); MEAN CORPUSCULAR HEMOGLOBIN 29.1 pg (25.0-35.0); MEAN CORPUSCULAR HGB CONC 34.1 g/dl (31.0-37.0); MEAN PLATELET VOLUME 10.9 fl (7.0-11.0); MONO # 0.2 (0.1-0.6); MONO % 7.3 % (1.0-6.0); RED CELL DISTRIBUTION WIDTH 15.2 % (11.5-14.5); WHITE BLOOD COUNT 3.3 10^3/ul (4.5-11.0)
[2017-01-20 06:44] LABS: ALB/GLOB RATIO 1.4 (1.1-1.8); ALKALINE PHOSPHATASE 62 U/L (38-126); ALT/SGPT 72 U/L (7-56); AST/SGOT 62 U/L (17-59); BILIRUBIN,TOTAL 1.3 mg/dL (0.2-1.3); BLOOD UREA NITROGEN 9 mg/dL (7-21); CALCIUM 8.9 mg/dL (8.4-10.5); CARBON DIOXIDE 21 mmol/L (21-33); CHLORIDE 104 mmol/L (95-110); GFR AFRICAN-AMERICAN > 60; GLUCOSE,RANDOM 70 mg/dL (70-110); MAGNESIUM 1.8 mg/dL (1.7-2.2); PHOSPHOROUS 3.1 mg/dL (2.5-4.5); POTASSIUM 3.5 mmol/L (3.6-5.0); SODIUM 139 mmol/L (132-148); TOTAL PROTEIN 6.1 g/dL (5.8-8.3)
[2017-01-20] MEDS ORDERED: Potassium Chloride 20 mEq ER Tab PO ONE (07:22)
[2017-01-20] MEDS: Multivitamin With Minerals Tab PO SCH (07:57)
--- NOTE | 2017-01-20 08:35 | CP.PCM.PN ---
<Hailee Hopkins - Last Filed: 01/20/17 11:32> Subjective - Date & Time of Evaluation Date of Evaluation: 01/20/17 Time of Evaluation: 08:32 - Subjective Subjective: Hospitalist Service Progress Note: Patient seen and examined at bedside. Per nursing, no acute events overnight. Patient is more awake and alert this morning. Patient aware of why he came to the hospital. Offers no complaints at this time, states that he is hungry. Admits to feeling anxious/depressed, palpitations. Denies headaches, dizziness, cp, sob, abdominal pain, nausea, vomiting, diarrhea. Denies auditory/visual hallucinations, denies SI/HI. Objective - Vital Signs/Intake and Output Vital Signs (last 24 hours): Temp Pulse Resp BP Pulse Ox 98.8 F 71 20 164/106 H 96 01/20/17 06:00 01/20/17 06:00 01/20/17 06:00 01/20/17 06:00 01/20/17 06:00 Intake and Output: 01/20/17 01/20/17 06:59 18:59 Output Total 700 Balance -700 - Medications Medications: Current Medications Famotidine (Pepcid) 20 mg IVP DAILY [facility] Last Admin: 01/19/17 10:55 Dose: 20 mg Folic Acid (Folic Acid) 1 mg PO DAILY [facility] Lorazepam (Ativan) 2 mg IVP Q4 [facility] PRN Reason: Protocol Last Admin: 01/20/17 07:56 Dose: 2 mg Lorazepam (Ativan) 2 mg IVP Q4H PRN; Protocol PRN Reason: Symptoms of alcohol withdrawl Metoprolol Tartrate (Lopressor) 12.5 mg PO BID [facility] Last Admin: 01/19/17 17:13 Dose: 12.5 mg Multivitamins/Minerals (Therapeutic-M Tab) 1 tab PO 0800 [facility] Last Admin: 01/20/17 07:57 Dose: 1 tab Quetiapine Fumarate (Seroquel) 50 mg PO BID [facility] PRN Reason: Protocol Last Admin: 01/19/17 17:12 Dose: 50 mg Quetiapine Fumarate (Seroquel) 50 mg PO HS [facility] PRN Reason: Protocol Last Admin: 01/19/17 21:01 Dose: 50 mg Thiamine HCl (Vitamin B1 Tab) 100 mg PO DAILY [facility] Ziprasidone (Geodon Inj) 20 mg IM Q12H PRN; Protocol PRN Reason: agitation/psychosis Last Admin: 01/19/17 15:10 Dose: 20 mg - Labs Labs: 01/20/17 06:15 01/20/17 06:15 PT 10.1 Seconds (9.9-11.8) 01/19/17 06:00 INR 0.94 (0.93-1.08) 01/19/17 06:00 APTT 28.2 Seconds (23.7-30.8) 01/19/17 06:00 - Constitutional Appears: Non-toxic, No Acute Distress - Head Exam Head Exam: ATRAUMATIC, NORMAL INSPECTION - Eye Exam Eye Exam: EOMI, Normal appearance Pupil Exam: NORMAL ACCOMODATION - ENT Exam ENT Exam: Mucous Membranes Moist - Neck Exam Neck Exam: Full ROM - Respiratory Exam Respiratory Exam: Clear to Ausculation Bilateral, NORMAL BREATHING PATTERN. absent: Rales, Rhonchi, Wheezes - Cardiovascular Exam Cardiovascular Exam: REGULAR RHYTHM, +S1, +S2 - GI/Abdominal Exam GI & Abdominal Exam: Soft. absent: Guarding, Rigid, Tenderness, Rebound - Extremities Exam Extremities Exam: Full ROM, Normal Inspection. absent: Calf Tenderness - Back Exam Back Exam: NORMAL INSPECTION - Neurological Exam Neurological Exam: Alert, Awake. absent: Oriented x3 (Orientated to time and person) - Psychiatric Exam Psychiatric exam: Anxious, Depressed, Normal Affect - Skin Skin Exam: Dry, Normal Color, Warm Assessment and Plan - Assessment and Plan (Free Text) Assessment: 47 year old male with past medical history of alcohol abuse, HTN, and depression presenting with alcohol withdrawals Plan: 1. Alcohol withdrawal, Hx of alcohol abuse - Alcohol level <10 on admission, UTOX negative - Continue Ativan 2mg Q4H LESLY; Ativan 2mg Q4H prn - Continue Geodon prn and Seroquel TID per psych recommendations - Continue multivitamins, folic acid, thiamine daily - CIWA protocol, Aspiration precautions, Seizure precautions - Diet: Heart Healthy - Continue to monitor electrolytes - Psych consulted, f/u recommendations - PT evaluation ordered 2. Hypertension - Received Hydralazine 10mg IVP this am for elevated BPs - Metoprolol tartrate 12.5 BID - Continue to monitor 3. Alcoholic hepatitis/Transaminitis - LFTs trending down - AST/ALT today 62/72 - Hep panel from 02/2016 negative - Continue to monitor DVT/GI prophylaxis - SCD/Pepcid <Agustin Corea - Last Filed: 01/20/17 17:21> Objective - Vital Signs/Intake and Output Vital Signs (last 24 hours): Temp Pulse Resp BP Pulse Ox 98.5 F 93 H 20 145/99 H 96 01/20/17 16:56 01/20/17 16:56 01/20/17 16:56 01/20/17 16:56 01/20/17 08:00 Intake and Output: 01/20/17 01/20/17 06:59 18:59 Output Total 700 Balance -700 - Medications Medications: Current Medications Famotidine (Pepcid) 20 mg IVP DAILY [facility] Last Admin: 01/20/17 09:29 Dose: 20 mg Folic Acid (Folic Acid) 1 mg PO DAILY [facility] Last Admin: 01/20/17 09:29 Dose: 1 mg Lorazepam (Ativan) 2 mg IVP Q4H PRN; Protocol PRN Reason: Symptoms of alcohol withdrawl Metoprolol Tartrate (Lopressor) 12.5 mg PO BID [facility] Last Admin: 01/20/17 09:29 Dose: 12.5 mg Multivitamins/Minerals (Therapeutic-M Tab) 1 tab PO 0800 [facility] Last Admin: 01/20/17 07:57 Dose: 1 tab Quetiapine Fumarate (Seroquel) 50 mg PO BID [facility] PRN Reason: Protocol Last Admin: 01/20/17 09:28 Dose: 50 mg Quetiapine Fumarate (Seroquel) 50 mg PO HS [facility] PRN Reason: Protocol Last Admin: 01/19/17 21:01 Dose: 50 mg Thiamine HCl (Vitamin B1 Tab) 100 mg PO DAILY [facility] Last Admin: 01/20/17 09:29 Dose: 100 mg Ziprasidone (Geodon Inj) 20 mg IM Q12H PRN; Protocol PRN Reason: agitation/psychosis Last Admin: 01/19/17 15:10 Dose: 20 mg - Labs Labs: 01/20/17 06:15 01/20/17 06:15 PT 10.1 Seconds (9.9-11.8) 01/19/17 06:00 INR 0.94 (0.93-1.08) 01/19/17 06:00 APTT 28.2 Seconds (23.7-30.8) 01/19/17 06:00 Attending/Attestation - Attestation I have personally seen and examined this patient.: Yes I have fully participated in the care of the patient.: Yes I have reviewed all pertinent clinical information, including history, physical exam and plan: Yes Notes (Text): 01/20/17 17:19 attending note; Patient seen and examined with resident. patient is a 47-year-old male with a history of chronic alcohol abuse, depression is admitted with acute alcohol withdrawal. Patient is currently alert, awake and oriented. OFF restraint. Psychiatric evaluation Appreciated. Started on Seroquel. Elevated LFTs; secondary to alcohol abuse. Trending down slowly. tolerating diet well. monitor closely in telemetry. possible discharge home within 24-48 hours. upon discharge the patient will follow-up with PMD . 01/20/17 17:21
--- NOTE | 2017-01-20 11:22 | PN ---
DATE: SUBJECTIVE: The patient was followed up today. The patient presented with improved presentation. The patient off restraint. The patient is on 1:1. The patient was observed eating, seems to be in good appetite. The patient is more alert, remember this scientific technical writer by her name. The patient said after he was discharged from the hospital he relapsed on alcohol within 3 days. The patient said last alcohol consumption was on Wednesday. The patient stopped drinking and became "very sick." The patient said that he started to hallucinate. He was seeing devil. He was seeing heaven and how the patient was fighting with imaginary monsters. The patient reported that he feels depressed. The patient statement is "if I would be hit by car, I do not mind." The patient denied any intents or plan to kill himself, but reported that he feel ashamed and hopeless in regards to his situation. The patient said that he relapsed on alcohol and had been drinking for past 2 weeks. The patient reported that he was stressed out because he lost his job for 2 days of binge drinking. Obviously, alcohol is affecting the patient's functionality and the patient lost the job because of the alcohol addiction. The patient was in restraint yesterday, but today the patient seems to be little better. This scientific technical writer will discontinue 1:1. PHYSICAL EXAMINATION: VITAL SIGNS: Seems to be stable. Temperature 98.8, pulse is 71, blood pressure 164/106, respirations 20, oxygen saturation is 96. NEUROLOGIC: The patient has fine tremor in the upper extremity, still withdrawing from the alcohol, but with much improvement. LABORATORY DATA: Labs reviewed. The patient has WBC 3.3, hemoglobin and hematocrit 12.5 and 36.6, platelet count 46. Coagulation reviewed. Chemistry reviewed. Potassium 3.5. AST and ALT trending down 62 and 72 respectively. Urinalysis showed urine bilirubin moderate on toxicology. Alcohol less than 10. MENTAL STATUS EXAMINATION: The patient presents to be better, more alert, intermittent eye contact. The patient was under productive, yes or no answer. Mood described, I am not doing well. Affect was constricted. Mood congruent. Thought process tangential. At times the patient appears to be confused. Thought content, the patient denied visual, auditory or tactile hallucinations at the moment of the interview while the patient was hallucinating earlier, was fighting with monsters. The patient was on 1:1. The patient has hopelessness and expressed passive wish to be . The patient said, "if I would be hit by a car, I do not mind." Insight and judgment fair and limited. Impulses are better predictable. MEDICATIONS: Reviewed. Pepcid, Folic acid, Ativan 2 gm IV push q. 4 hours p.r.n., was not given to the patient. The patient still has Lopressor, multivitamin, Seroquel was started 50 mg 3 times a day, thiamine 100 mg daily, as well as Geodon as needed for agitation. The patient got 1 dose at 3:10 yesterday. IMPRESSION: As per history, the patient has alcohol use disorder. Rule out mood disorder. Substance induced mood disorder. Alcohol withdrawal symptoms. Alcohol withdrawal delirium. The patient also has history of bipolar type 2 most likely. The patient has multiple medical problems. Please see medical team notes for more detailed information. PLAN: Continue current management. Continue multivitamins, thiamine and folic acid. Ativan should be continued 2 mg 4 hours IV push scheduled or it can be switched to p.o. medication. The patient should be continued with Seroquel and Geodon as needed. The patient expressed his interest to go the psychiatric inpatient unit after medical stabilization, we will consider that. Decided to discontinue 1:1. Physical therapy evaluation is recommended in order to assess gait. Should you have any questions, give me a call back. Thank you very much for letting me to participate in care of your patient. Bella Hussein MD
[2017-01-21] MEDS: Multivitamin With Minerals Tab PO SCH (09:10)
--- NOTE | 2017-01-21 09:12 | CP.PCM.PN ---
<Hailee Hopkins - Last Filed: 01/21/17 10:20> Subjective - Date & Time of Evaluation Date of Evaluation: 01/21/17 Time of Evaluation: 09:09 - Subjective Subjective: Hospitalist Service Progress Note: Patient seen and examined at bedside. Per nursing no acute events overnight. Patient was evaluated by PT yesterday. Patient states that he is unsteady on his feet. Offers no other complaints at this time. Denies visual/auditory hallucinations, SI/HI ideation. Denies headaches, dizziness, cp, palpitations, sob, abdominal pain, urinary symptoms, changes in bowel habits. Objective - Vital Signs/Intake and Output Vital Signs (last 24 hours): Temp Pulse Resp BP Pulse Ox 98.5 F 69 20 138/87 98 01/21/17 06:00 01/21/17 06:00 01/21/17 06:00 01/21/17 06:00 01/21/17 06:00 Intake and Output: 01/21/17 01/21/17 06:59 18:59 Intake Total 360 Output Total 700 Balance -340 - Medications Medications: Current Medications Chlordiazepoxide (Librium) 25 mg PO Q8 PRN; Protocol PRN Reason: Anxiety Famotidine (Pepcid) 20 mg IVP DAILY [facility] Last Admin: 01/20/17 09:29 Dose: 20 mg Folic Acid (Folic Acid) 1 mg PO DAILY [facility] Last Admin: 01/20/17 09:29 Dose: 1 mg Lorazepam (Ativan) 2 mg IVP Q4H PRN; Protocol PRN Reason: Symptoms of alcohol withdrawl Metoprolol Tartrate (Lopressor) 12.5 mg PO BID [facility] Last Admin: 01/20/17 17:25 Dose: 12.5 mg Multivitamins/Minerals (Therapeutic-M Tab) 1 tab PO 0800 [facility] Last Admin: 01/20/17 07:57 Dose: 1 tab Quetiapine Fumarate (Seroquel) 50 mg PO BID [facility] PRN Reason: Protocol Last Admin: 01/20/17 17:25 Dose: 50 mg Quetiapine Fumarate (Seroquel) 50 mg PO HS [facility] PRN Reason: Protocol Last Admin: 01/20/17 21:59 Dose: 50 mg Thiamine HCl (Vitamin B1 Tab) 100 mg PO DAILY [facility] Last Admin: 01/20/17 09:29 Dose: 100 mg Ziprasidone (Geodon Inj) 20 mg IM Q12H PRN; Protocol PRN Reason: agitation/psychosis Last Admin: 01/19/17 15:10 Dose: 20 mg - Labs Labs: 01/20/17 06:15 01/20/17 06:15 PT 10.1 Seconds (9.9-11.8) 01/19/17 06:00 INR 0.94 (0.93-1.08) 01/19/17 06:00 APTT 28.2 Seconds (23.7-30.8) 01/19/17 06:00 - Constitutional Appears: Non-toxic, No Acute Distress - Head Exam Head Exam: ATRAUMATIC, NORMAL INSPECTION - Eye Exam Eye Exam: EOMI, Normal appearance Pupil Exam: NORMAL ACCOMODATION - ENT Exam ENT Exam: Mucous Membranes Moist - Neck Exam Neck Exam: Full ROM - Respiratory Exam Respiratory Exam: Clear to Ausculation Bilateral, NORMAL BREATHING PATTERN. absent: Rales, Rhonchi, Wheezes - Cardiovascular Exam Cardiovascular Exam: REGULAR RHYTHM, +S1, +S2 - GI/Abdominal Exam GI & Abdominal Exam: Soft, Normal Bowel Sounds. absent: Guarding, Rigid, Tenderness - Extremities Exam Extremities Exam: Full ROM, Normal Inspection. absent: Calf Tenderness - Back Exam Back Exam: NORMAL INSPECTION - Neurological Exam Neurological Exam: Alert, Awake, Oriented x3 - Psychiatric Exam Psychiatric exam: Anxious, Normal Affect, Normal Mood - Skin Skin Exam: Normal Color, Warm Assessment and Plan - Assessment and Plan (Free Text) Assessment: 47 year old male with past medical history of alcohol abuse, HTN, and depression presenting with alcohol withdrawals Plan: 1. Alcohol withdrawal, Hx of alcohol abuse - Stable, afebrile - Will discontinue telemetry - Continue Ativan 2mg Q4H LESLY; Ativan 2mg Q4H prn - Continue Geodon prn and Seroquel TID per psych recommendations - Continue multivitamins, folic acid, thiamine daily - CIWA protocol, Aspiration precautions, Seizure precautions - Diet: Heart Healthy - Continue to monitor electrolytes - Psych consulted, f/u recommendations 2. Hypertension - Currently normatensive - Metoprolol tartrate 12.5 BID - Continue to monitor 3. Thrombocytopenia (alcohol induced) -Platelet count improved -Will continue to monitor for bleeding -Fall precautions 4. Alcoholic hepatitis/Transaminitis - LFTs trending down - AST/ALT today 41/60 - Hep panel from 02/2016 negative - Continue to monitor 5. Hypokalemia - Kcl 20meq given - Will continue to monitor DVT/GI prophylaxis - SCD/Pepcid <Agustin Corea - Last Filed: 01/21/17 14:41> Objective - Vital Signs/Intake and Output Vital Signs (last 24 hours): Temp Pulse Resp BP Pulse Ox 98.4 F 71 20 130/79 98 01/21/17 11:48 01/21/17 11:48 01/21/17 11:48 01/21/17 11:48 01/21/17 06:00 Intake and Output: 01/21/17 01/21/17 06:59 18:59 Intake Total 360 Output Total 700 Balance -340 - Medications Medications: Current Medications Chlordiazepoxide (Librium) 25 mg PO Q8 PRN; Protocol PRN Reason: Anxiety Last Admin: 01/21/17 14:05 Dose: 25 mg Famotidine (Pepcid) 20 mg IVP DAILY [facility] Last Admin: 01/21/17 09:10 Dose: 20 mg Folic Acid (Folic Acid) 1 mg PO DAILY [facility] Last Admin: 01/21/17 09:12 Dose: 1 mg Magnesium Sulfate 2 gm/ Sodium (Chloride) 104 mls @ 102 mls/hr IVPB ONCE ONE Stop: 01/21/17 15:39 Lorazepam (Ativan) 2 mg IVP Q4H PRN; Protocol PRN Reason: Symptoms of alcohol withdrawl Metoprolol Tartrate (Lopressor) 12.5 mg PO BID [facility] Last Admin: 01/21/17 09:10 Dose: 12.5 mg Multivitamins/Minerals (Therapeutic-M Tab) 1 tab PO 0800 [facility] Last Admin: 01/21/17 09:10 Dose: 1 tab Potassium Chloride (K-Dur 20 Meq Er Tab) 40 meq PO STAT STA Stop: 01/21/17 14:39 Quetiapine Fumarate (Seroquel) 50 mg PO BID [facility] PRN Reason: Protocol Last Admin: 01/21/17 09:11 Dose: 50 mg Quetiapine Fumarate (Seroquel) 50 mg PO HS [facility] PRN Reason: Protocol Last Admin: 01/20/17 21:59 Dose: 50 mg Thiamine HCl (Vitamin B1 Tab) 100 mg PO DAILY [facility] Last Admin: 01/21/17 09:12 Dose: 100 mg Ziprasidone (Geodon Inj) 20 mg IM Q12H PRN; Protocol PRN Reason: agitation/psychosis Last Admin: 01/19/17 15:10 Dose: 20 mg - Labs Labs: 01/21/17 09:09 01/21/17 09:09 PT 10.1 Seconds (9.9-11.8) 01/19/17 06:00 INR 0.94 (0.93-1.08) 01/19/17 06:00 APTT 28.2 Seconds (23.7-30.8) 01/19/17 06:00 Attending/Attestation - Attestation I have personally seen and examined this patient.: Yes I have fully participated in the care of the patient.: Yes I have reviewed all pertinent clinical information, including history, physical exam and plan: Yes Notes (Text): 01/21/17 14:39 attending note; Patient seen and examined with resident. patient is a 47-year-old male with a history of chronic alcohol abuse, depression is admitted with acute alcohol withdrawal. Patient is currently alert, awake and oriented. Psychiatric evaluation Appreciated. on Seroquel. Elevated LFTs; secondary to alcohol abuse. Trending down slowly. Thrombocytopenia; secondary to alcohol -induced bone marrow suppression. Improving slowly. tolerating diet well. monitor closely in telemetry. possible discharge home tomorrow if stable. upon discharge the patient will follow-up with PMD .
[2017-01-21 09:26] LABS: BASO # 0.01 K/mm3 (0.0-2.0); BASO % 0.4 % (0.0-3.0); EOS # 0.1 (0.0-0.7); EOS % 2.5 % (1.5-5.0); GRAN # 1.47 (1.4-6.5); GRAN % 51.5 % (50.0-68.0); LYMPH % 34.7 % (22.0-35.0); MEAN CELL VOLUME 84.1 fl (80.0-105.0); MEAN CORPUSCULAR HEMOGLOBIN 29.3 pg (25.0-35.0); MEAN CORPUSCULAR HGB CONC 34.9 g/dl (31.0-37.0); MEAN PLATELET VOLUME 9.7 fl (7.0-11.0); MONO # 0.3 (0.1-0.6); MONO % 10.9 % (1.0-6.0); RED CELL DISTRIBUTION WIDTH 14.8 % (11.5-14.5)
[2017-01-21 09:31] LABS: WHITE BLOOD COUNT 2.9 10^3/ul (4.5-11.0)
[2017-01-21 09:39] LABS: ALB/GLOB RATIO 1.4 (1.1-1.8); ALKALINE PHOSPHATASE 91 U/L (38-126); ALT/SGPT 60 U/L (7-56); AST/SGOT 41 U/L (17-59); BILIRUBIN,TOTAL 0.7 mg/dL (0.2-1.3); BLOOD UREA NITROGEN 8 mg/dL (7-21); CALCIUM 9.1 mg/dL (8.4-10.5); CARBON DIOXIDE 24 mmol/L (21-33); CHLORIDE 103 mmol/L (95-110); GFR AFRICAN-AMERICAN > 60; GLUCOSE,RANDOM 125 mg/dL (70-110); MAGNESIUM 1.7 mg/dL (1.7-2.2); PHOSPHOROUS 4.3 mg/dL (2.5-4.5); POTASSIUM 3.5 mmol/L (3.6-5.0); SODIUM 136 mmol/L (132-148); TOTAL PROTEIN 5.8 g/dL (5.8-8.3)
[2017-01-21] MEDS ORDERED: Potassium Chloride 20 mEq ER Tab PO ONE (10:19)
[2017-01-21] MEDS ORDERED: Magnesium Sulfate 2 GM in Sodium Chloride 0.9% 100 ML IVPB ONE (14:38)
[2017-01-21] MEDS ORDERED: Potassium Chloride 20 mEq ER Tab PO STA (14:38)
--- NOTE | 2017-01-21 17:12 | PN ---
SUBJECTIVE: The patient is 47-year-old male, long history of alcohol use disorder. The patient has multiple medical issues and multiple medical and psychiatric admissions for alcohol withdrawal symptoms as well as bipolar disorder. The patient has chronic noncompliance with the medications and followup appointments. This time, the patient came to the hospital for the same reason for alcohol withdrawal delirium. The patient was followed up today. The patient presented better to compare with the initial evaluation where the patient was very psychotic and fighting with devil. The patient reported that he feels better. His withdrawal symptoms are under control, has fine tremor in upper extremities. The patient reported that he has no psychotic symptoms. Denied thoughts of harming himself or others. OBJECTIVE: VITAL SIGNS: Stable. Temperature 98.4, pulse 71, blood pressure 130/79, respiration 20 and oxygen saturation is 98%. MEDICATIONS: Reviewed. The patient is on Librium 25 mg q. 8 hours p.r.n., Pepcid, folic acid, Ativan, Lopressor, multivitamin, Seroquel 50 mg three times a day, vitamin D1 of 100 mg daily and Geodon 20 mg q. 12 hours as needed IM for agitation, last dose was on . LABORATORY DATA: Labs reviewed. WBC cells low at 2.9. Chemistry reviewed. AST and ALT are trending down. Urinalysis showed moderate bilirubin. Toxicology: Alcohol less than 10 was at the time of admission. MENTAL STATUS EXAMINATION: The patient presented to be alert and oriented, pleasant, cooperative, intermittent eye contact. Speech was tremulous. Withdrawal symptoms are much better. Mood described "I feel much better." Affect was reactive. Mood congruent. Thought process was more coherent and goal directed. Thought content, the patient denied visual, auditory or tactile hallucinations. Denied paranoid ideation. Last hallucinations were 2 days ago. The patient was seeing heaven and hell as well as was fighting with a devil. Insight and judgment limited. Impulses are well controlled. IMPRESSION: Alcohol use disorder, alcohol withdrawal delirium, which is improving. The patient has history of bipolar disorder, posttraumatic stress disorder. PLAN: Continue current management. Continue current medication. This sba underwriter will follow up on this patient in order to make decision about admission or discharge back home. Case was discussed with Dr. Corea today. Should you have any questions give me a call back. Thank you very much for letting me participate in care of your patient. Bella Hussein MD
[2017-01-22 07:13] LABS: BASO # 0.01 K/mm3 (0.0-2.0); BASO % 0.3 % (0.0-3.0); EOS # 0.1 (0.0-0.7); EOS % 1.9 % (1.5-5.0); GRAN # 1.29 (1.4-6.5); GRAN % 35.5 % (50.0-68.0); LYMPH # 1.8 (1.2-3.4); LYMPH % 49.6 % (22.0-35.0); MEAN CELL VOLUME 85.1 fl (80.0-105.0); MEAN CORPUSCULAR HGB CONC 34.1 g/dl (31.0-37.0); MEAN PLATELET VOLUME 10.2 fl (7.0-11.0); MONO # 0.5 (0.1-0.6); MONO % 12.7 % (1.0-6.0); RED CELL DISTRIBUTION WIDTH 15.1 % (11.5-14.5); WHITE BLOOD COUNT 3.6 10^3/ul (4.5-11.0)
[2017-01-22 07:29] LABS: ALB/GLOB RATIO 1.5 (1.1-1.8); ALKALINE PHOSPHATASE 76 U/L (38-126); ALT/SGPT 51 U/L (7-56); AST/SGOT 35 U/L (17-59); BILIRUBIN,TOTAL 0.4 mg/dL (0.2-1.3); BLOOD UREA NITROGEN 7 mg/dL (7-21); CALCIUM 8.9 mg/dL (8.4-10.5); CARBON DIOXIDE 26 mmol/L (21-33); CHLORIDE 104 mmol/L (98-107); GFR AFRICAN-AMERICAN > 60; GLUCOSE,RANDOM 94 mg/dL (70-110); MAGNESIUM 1.9 mg/dL (1.7-2.2); PHOSPHOROUS 4.2 mg/dL (2.5-4.5); POTASSIUM 3.9 mmol/L (3.6-5.0); SODIUM 137 mmol/L (132-148); TOTAL PROTEIN 5.9 g/dL (5.8-8.3)
[2017-01-22 08:17] VITALS: BP 138/93; RESP 18; TEMP 98; O2SAT 97
--- NOTE | 2017-01-22 08:51 | CP.PCM.DIS ---
<Hailee Hopkins - Last Filed: 01/22/17 11:20> Provider - Provider Date of Admission: 01/18/17 21:16 Attending physician: Agustin Corea MD Primary care physician: Patric Baez MD Consults: Psych: Dr Blanco Time Spent in preparation of Discharge (in minutes): 30 Hospital Course - Lab Results Lab Results: Most Recent Lab Values WBC 3.6 10^3/ul (4.5-11.0) L D 01/22/17 06:50 RBC 4.35 10^6/uL (3.5-6.1) 01/22/17 06:50 Hgb 12.6 g/dL (14.0-18.0) L 01/22/17 06:50 Hct 37.0 % (42.0-52.0) L 01/22/17 06:50 MCV 85.1 fl (80.0-105.0) 01/22/17 06:50 MCH 29.0 pg (25.0-35.0) 01/22/17 06:50 MCHC 34.1 g/dl (31.0-37.0) 01/22/17 06:50 RDW 15.1 % (11.5-14.5) H 01/22/17 06:50 Plt Count 83 10^3/uL (120.0-450.0) L 01/22/17 06:50 MPV 10.2 fl (7.0-11.0) 01/22/17 06:50 Gran % 35.5 % (50.0-68.0) L 01/22/17 06:50 Lymph % (Auto) 49.6 % (22.0-35.0) H 01/22/17 06:50 [place] % (Auto) 12.7 % (1.0-6.0) H 01/22/17 06:50 Eos % (Auto) 1.9 % (1.5-5.0) 01/22/17 06:50 Baso % (Auto) 0.3 % (0.0-3.0) 01/22/17 06:50 Gran # 1.29 (1.4-6.5) L 01/22/17 06:50 Lymph # 1.8 (1.2-3.4) 01/22/17 06:50 [place] # 0.5 (0.1-0.6) 01/22/17 06:50 Eos # 0.1 (0.0-0.7) 01/22/17 06:50 Baso # 0.01 K/mm3 (0.0-2.0) 01/22/17 06:50 PT 10.1 Seconds (9.9-11.8) 01/19/17 06:00 INR 0.94 (0.93-1.08) 01/19/17 06:00 APTT 28.2 Seconds (23.7-30.8) 01/19/17 06:00 Sodium 137 mmol/L (132-148) 01/22/17 06:50 Potassium 3.9 mmol/L (3.6-5.0) 01/22/17 06:50 Chloride 104 mmol/L (98-107) 01/22/17 06:50 Carbon Dioxide 26 mmol/L (21-33) 01/22/17 06:50 Anion Gap 11 (10-20) 01/22/17 06:50 BUN 7 mg/dL (7-21) 01/22/17 06:50 Creatinine 0.7 mg/dL (0.8-1.5) L 01/22/17 06:50 Est GFR ( Amer) > 60 01/22/17 06:50 Est GFR (Non-Af Amer) > 60 01/22/17 06:50 POC Glucose (mg/dL) 121 mg/dL (65-110) H 01/18/17 18:31 Random Glucose 94 mg/dL (70-110) 01/22/17 06:50 Calcium 8.9 mg/dL (8.4-10.5) 01/22/17 06:50 Phosphorus 4.2 mg/dL (2.5-4.5) 01/22/17 06:50 Magnesium 1.9 mg/dL (1.7-2.2) 01/22/17 06:50 Total Bilirubin 0.4 mg/dL (0.2-1.3) 01/22/17 06:50 AST 35 U/L (17-59) 01/22/17 06:50 ALT 51 U/L (7-56) 01/22/17 06:50 Alkaline Phosphatase 76 U/L (38-126) 01/22/17 06:50 Total Protein 5.9 g/dL (5.8-8.3) 01/22/17 06:50 Albumin 3.5 g/dL (3.0-4.8) 01/22/17 06:50 Globulin 2.4 gm/dL 01/22/17 06:50 Albumin/Globulin Ratio 1.5 (1.1-1.8) 01/22/17 06:50 Amylase 67 U/L (35-125) 01/19/17 06:00 Lipase 191 U/L (23-300) 01/19/17 06:00 Urine Color Dark yellow (YELLOW) 01/18/17 19:15 Urine Appearance Clear (CLEAR) 01/18/17 19:15 Urine pH 6.0 (4.7-8.0) 01/18/17 19:15 Ur Specific [place] >= 1.030 (1.005-1.035) 01/18/17 19:15 Urine Protein 100 mg/dL (<30 mg/dL) H 01/18/17 19:15 Urine Glucose (UA) Negative mg/dL (NEGATIVE) 01/18/17 19:15 Urine Ketones >=80 mg/dL (NEGATIVE) 01/18/17 19:15 Urine Blood Trace-intact (NEGATIVE) H 01/18/17 19:15 Urine Nitrate Negative (NEGATIVE) 01/18/17 19:15 Urine Bilirubin Moderate (NEGATIVE) H 01/18/17 19:15 Urine Urobilinogen 1.0 E.U./dL (<1 E.U./dL) H 01/18/17 19:15 Ur Leukocyte Esterase Negative Kristen/uL (NEGATIVE) 01/18/17 19:15 Urine RBC 0 - 2 /hpf (0-2) 01/18/17 19:15 Urine WBC 0 - 2 /hpf (0-6) 01/18/17 19:15 Ur Epithelial Cells 1 - 3 /hpf (0-5) 01/18/17 19:15 Urine Bacteria Mod (NEG) 01/18/17 19:15 Hyaline Casts 0 - 2 /hpf 01/18/17 19:15 Urine Opiates Screen Negative (NEGATIVE) 01/18/17 19:15 Urine Methadone Screen Negative (NEGATIVE) 01/18/17 19:15 Ur Barbiturates Screen Negative (NEGATIVE) 01/18/17 19:15 Ur Phencyclidine Scrn Negative (NEGATIVE) 01/18/17 19:15 Ur Amphetamines Screen Negative (NEGATIVE) 01/18/17 19:15 U Benzodiazepines Scrn Negative (NEGATIVE) 01/18/17 19:15 U Oth Cocaine Metabols Negative (NEGATIVE) 01/18/17 19:15 U Cannabinoids Screen Negative (NEGATIVE) 01/18/17 19:15 Alcohol, Quantitative < 10 mg/dL (0-10) 01/18/17 18:30 - Hospital Course Hospital Course: Patient is a 47 year old male with past medical history of alcohol abuse, depression who presents with complaints of withdrawals. Patient states he has not consumed alcohol since Wednesday. On Wednesday patient consumed 5 half pints of vodka and 16 beers. He states he normally drinks 10-12 beers per day and switches it with vodka from time to time. He states that an argument with his friend is what drove him to drink, but also states that his friends are trying to help him and he acknowledges their efforts. Patient was admitted for alcohol withdrawal. Patient was treated with IV banana bag, ativan. Made NPO, Fall/ seizure/aspiration precautions were in place. Patient was placed in restraints due to confusion and agitation. Psych was consulted and on the case. Psych medications were adjusted. Confusion resolved, patient because more awake and alert. Was able to answer questions appropriately. Restraints were discontinued. Patient was started on a diet and monitored for withdrawal symptoms. Patient continued to do well, PT was ordered to evaluate gait stability. Electrolytes were monitored and repleted as needed. Was started on folic acid, thiamine, and multivitamins. During admission, patient was thrombocytopenic likely 2/2 alcoholic induced bone marrow suppression. Thrombocytopenia is improving. For hypertension, patient was started on home medication, metoprolol. LFTs were elevated, however now normal. Hep panel last year was negative. Strongly Advised the patient on importance of alcohol cessation. Patient verbalized understanding. Desires to go back to AA meetings. Patient states that the meetings have helped him in the past. Patient also has gone to rehab in the past twice. Last rehab was ten years ago. Patient is interested in Rehab program in [facility]. Patient was medically stable and transferred to psych for further management. Medications were reconciled. All questions and concerns were addressed. Patient to follow up with Dr Baez. Discharge Exam - Head Exam Head Exam: ATRAUMATIC, NORMAL INSPECTION - Eye Exam Eye Exam: EOMI, Normal appearance Pupil Exam: NORMAL ACCOMODATION, PERRL - ENT Exam ENT Exam: Mucous Membranes Moist - Neck Exam Neck exam: Full Rom - Respiratory Exam Respiratory Exam: Clear to PA & Lateral, NORMAL BREATHING PATTERN, UNREMARKABLE. absent: Rales, Rhonchi, Wheezes - Cardiovascular Exam Cardiovascular Exam: REGULAR RHYTHM, +S1, +S2 - GI/Abdominal Exam GI & Abdominal Exam: Normal Bowel Sounds, Soft. absent: Firm, Rebound, Rigid, Tenderness - Extremities Exam Extremities exam: normal inspection, pedal pulses present - Back Exam Back exam: NORMAL INSPECTION - Neurological Exam Neurological exam: Alert, CN II-XII Intact, Oriented x3 - Psychiatric Exam Psychiatric exam: Normal Affect, Normal Mood - Skin Skin Exam: Dry, Normal Color, Warm Discharge Plan - Discharge Medications Prescriptions: Folic Acid 1 mg PO DAILY #14 tab Multimineral/Multivitamin [Therapeutic-M Tab] 1 tab PO 0800 #14 tab QUEtiapine [Seroquel] 50 mg PO HS #14 tab QUEtiapine [Seroquel] 50 mg PO BID #28 tab Thiamine [Vitamin B1 Tab] 100 mg PO DAILY #14 tab - Follow Up Plan Condition: STABLE Disposition: HOME/ ROUTINE Instructions: Alcohol Withdrawal (GEN), Suicide Prevention for Adults (DC), Fall Prevention (DC) Additional Instructions: 1. Follow up with Dr Baez within 1 week of discharge, 2. Will need repeat CBC to monitor platelets 3. Continue medications as prescribed 4. Alcohol cessation strongly advised 5. Encourage continuing AA meetings, possible rehab 6. Clear for discharge to Psych floor Referrals: Patric Baez MD [Primary Care Provider] - <Agustin Corea - Last Filed: 01/22/17 13:25> Provider - Provider Date of Admission: 01/18/17 21:16 Attending physician: Agustin Corea MD Primary care physician: Patric Baez MD Hospital Course - Lab Results Lab Results: Most Recent Lab Values WBC 3.6 10^3/ul (4.5-11.0) L D 01/22/17 06:50 RBC 4.35 10^6/uL (3.5-6.1) 01/22/17 06:50 Hgb 12.6 g/dL (14.0-18.0) L 01/22/17 06:50 Hct 37.0 % (42.0-52.0) L 01/22/17 06:50 MCV 85.1 fl (80.0-105.0) 01/22/17 06:50 MCH 29.0 pg (25.0-35.0) 01/22/17 06:50 MCHC 34.1 g/dl (31.0-37.0) 01/22/17 06:50 RDW 15.1 % (11.5-14.5) H 01/22/17 06:50 Plt Count 83 10^3/uL (120.0-450.0) L 01/22/17 06:50 MPV 10.2 fl (7.0-11.0) 01/22/17 06:50 Gran % 35.5 % (50.0-68.0) L 01/22/17 06:50 Lymph % (Auto) 49.6 % (22.0-35.0) H 01/22/17 06:50 [place] % (Auto) 12.7 % (1.0-6.0) H 01/22/17 06:50 Eos % (Auto) 1.9 % (1.5-5.0) 01/22/17 06:50 Baso % (Auto) 0.3 % (0.0-3.0) 01/22/17 06:50 Gran # 1.29 (1.4-6.5) L 01/22/17 06:50 Lymph # 1.8 (1.2-3.4) 01/22/17 06:50 [place] # 0.5 (0.1-0.6) 01/22/17 06:50 Eos # 0.1 (0.0-0.7) 01/22/17 06:50 Baso # 0.01 K/mm3 (0.0-2.0) 01/22/17 06:50 PT 10.1 Seconds (9.9-11.8) 01/19/17 06:00 INR 0.94 (0.93-1.08) 01/19/17 06:00 APTT 28.2 Seconds (23.7-30.8) 01/19/17 06:00 Sodium 137 mmol/L (132-148) 01/22/17 06:50 Potassium 3.9 mmol/L (3.6-5.0) 01/22/17 06:50 Chloride 104 mmol/L (98-107) 01/22/17 06:50 Carbon Dioxide 26 mmol/L (21-33) 01/22/17 06:50 Anion Gap 11 (10-20) 01/22/17 06:50 BUN 7 mg/dL (7-21) 01/22/17 06:50 Creatinine 0.7 mg/dL (0.8-1.5) L 01/22/17 06:50 Est GFR ( Amer) > 60 01/22/17 06:50 Est GFR (Non-Af Amer) > 60 01/22/17 06:50 POC Glucose (mg/dL) 121 mg/dL (65-110) H 01/18/17 18:31 Random Glucose 94 mg/dL (70-110) 01/22/17 06:50 Calcium 8.9 mg/dL (8.4-10.5) 01/22/17 06:50 Phosphorus 4.2 mg/dL (2.5-4.5) 01/22/17 06:50 Magnesium 1.9 mg/dL (1.7-2.2) 01/22/17 06:50 Total Bilirubin 0.4 mg/dL (0.2-1.3) 01/22/17 06:50 AST 35 U/L (17-59) 01/22/17 06:50 ALT 51 U/L (7-56) 01/22/17 06:50 Alkaline Phosphatase 76 U/L (38-126) 01/22/17 06:50 Total Protein 5.9 g/dL (5.8-8.3) 01/22/17 06:50 Albumin 3.5 g/dL (3.0-4.8) 01/22/17 06:50 Globulin 2.4 gm/dL 01/22/17 06:50 Albumin/Globulin Ratio 1.5 (1.1-1.8) 01/22/17 06:50 Amylase 67 U/L (35-125) 01/19/17 06:00 Lipase 191 U/L (23-300) 01/19/17 06:00 Urine Color Dark yellow (YELLOW) 01/18/17 19:15 Urine Appearance Clear (CLEAR) 01/18/17 19:15 Urine pH 6.0 (4.7-8.0) 01/18/17 19:15 Ur Specific [place] >= 1.030 (1.005-1.035) 01/18/17 19:15 Urine Protein 100 mg/dL (<30 mg/dL) H 01/18/17 19:15 Urine Glucose (UA) Negative mg/dL (NEGATIVE) 01/18/17 19:15 Urine Ketones >=80 mg/dL (NEGATIVE) 01/18/17 19:15 Urine Blood Trace-intact (NEGATIVE) H 01/18/17 19:15 Urine Nitrate Negative (NEGATIVE) 01/18/17 19:15 Urine Bilirubin Moderate (NEGATIVE) H 01/18/17 19:15 Urine Urobilinogen 1.0 E.U./dL (<1 E.U./dL) H 01/18/17 19:15 Ur Leukocyte Esterase Negative Kristen/uL (NEGATIVE) 01/18/17 19:15 Urine RBC 0 - 2 /hpf (0-2) 01/18/17 19:15 Urine WBC 0 - 2 /hpf (0-6) 01/18/17 19:15 Ur Epithelial Cells 1 - 3 /hpf (0-5) 01/18/17 19:15 Urine Bacteria Mod (NEG) 01/18/17 19:15 Hyaline Casts 0 - 2 /hpf 01/18/17 19:15 Urine Opiates Screen Negative (NEGATIVE) 01/18/17 19:15 Urine Methadone Screen Negative (NEGATIVE) 01/18/17 19:15 Ur Barbiturates Screen Negative (NEGATIVE) 01/18/17 19:15 Ur Phencyclidine Scrn Negative (NEGATIVE) 01/18/17 19:15 Ur Amphetamines Screen Negative (NEGATIVE) 01/18/17 19:15 U Benzodiazepines Scrn Negative (NEGATIVE) 01/18/17 19:15 U Oth Cocaine Metabols Negative (NEGATIVE) 01/18/17 19:15 U Cannabinoids Screen Negative (NEGATIVE) 01/18/17 19:15 Alcohol, Quantitative < 10 mg/dL (0-10) 01/18/17 18:30 Attending/Attestation - Attestation I have personally seen and examined this patient.: Yes I have fully participated in the care of the patient.: Yes I have reviewed all pertinent clinical information, including history, physical exam and plan: Yes Notes (Text): 01/22/17 13:23 attending note; Patient seen and examined with resident. patient is a 47-year-old male with a history of chronic alcohol abuse, depression is admitted with acute alcohol withdrawal. treated with IV Ativan and Librium. Continue multiitamin, thiamine, folic acid. advised to follow-up with AA meetings and AA rehabilitation. Psychiatric evaluation Appreciated. on Seroquel. Elevated LFTs; improved. secondary to alcohol abuse. Thrombocytopenia; secondary to alcohol -induced bone marrow suppression. Improving slowly. tolerating diet well. patient will be transferred to psychiatric floor today. upon discharge the patient will follow-up with PMD . diagnosis; Alcohol abuse Depression Thrombocytopenia Noncompliance with follow-up 01/22/17 13:25
[2017-01-22] MEDS: Multivitamin With Minerals Tab PO SCH (09:46)
[2017-01-22 09:52] VITALS: PULSE 72
--- NOTE | 2017-01-22 12:02 | PN ---
DATE: FOLLOWUP NOTE SUBJECTIVE: The patient is a 47-year-old male with long and debilitating history of alcohol use disorder, bipolar disorder. The patient was admitted on the medical side for alcohol withdrawal delirium. Psych consult was called for evaluation of psychotic symptoms, mood symptoms and medication management. Please see initial consultation note for more detailed information. The patient was followed up today. The patient presented better in regards of alcohol withdrawal symptoms, but mood symptoms are prominent at present moment. The patient is blaming himself for relapse. The patient reported that he feels hopeless and helpless. The patient wants to get better; at the same time, the patient said that "I don't care if I will be hit by a car. I don't mind to ." At the same time, the patient denied any intent or plan to kill himself. The patient asked for psychiatric admission in order to alter medication resumption as well as possible inpatient rehab for alcohol use disorder. OBJECTIVE: VITAL SIGNS: This play writer reviewed vital signs seems to be stable but blood pressure is elevated at 138/93, temperature 98, pulse is 68, oxygen saturation is 97. MEDICATIONS: Reviewed. The patient is on Librium 25 mg p.o. q. 8 hours p.r.n.; Pepcid; folic acid; Ativan IV push, but the patient did not need to have p.r.n. medication of Ativan; Lopressor 12.5 mg twice a day; multivitamin; Seroquel 50 mg twice a day; vitamin B1 and Geodon. Geodon last dose was on 01/19/2017. LABORATORY DATA: Reviewed. Patient's WBC was 3.6, hemoglobin and hematocrit 12.6/37.0. Coagulation reviewed. Chemistry reviewed. Urinalysis reviewed. Toxicology reviewed. MENTAL STATUS EXAMINATION: The patient presented to be alert and oriented, constricted affect, intermittent eye contact. Speech was under productive, low volume. Mood described as depressed and "I do not mind if I will be killed by a car." Mood congruent. Thought process concrete. Thought content, the patient denied visual, auditory or tactile hallucinations. Denied paranoid ideations. Last time hallucinations were 3 days ago. The patient had passive wish to be . Insight and judgment is limited. Impulses are unpredictable. IMPRESSION: The patient has history of bipolar disorder type 2, alcohol use disorder, alcohol withdrawal, delirium, which is improving. PLAN: The patient wants to stay into the psychiatric inpatient unit in order to adjust medication for depression as well as for anxiety. On top of that, the patient has history of severe alcohol withdrawal delirium with hallucinations as well as bipolar disorder depressed with psychotic symptoms. This play writer will transfer the patient to the psychiatric inpatient unit for further evaluation and stabilization. The patient was doing well on naltrexone. We will consider to resume that. Should you have any questions, give me a call back. Case was discussed with Dr. Corea. Thank you very much. Bella Hussein MD
== END 2017-01-22 13:58 | DRG 750 ==
LOC: ED 17:36 → ERH 21:16 → 2RSO 23:20 → 5RNO 01-21 13:09
PROVIDERS: ADMIT Internal Medicine; ATTEND Internal Medicine
DX: F10.231 Alcohol dependence with withdrawal delirium (principal); D69.59 Other secondary thrombocytopenia; K70.10 Alcoholic hepatitis without ascites; E87.6 Hypokalemia; F31.81 Bipolar II disorder; I10 Essential (primary) hypertension; R79.89 Other specified abnormal findings of blood chemistry; F43.10 Post-traumatic stress disorder, unspecified; Z91.14 Patient's other noncompliance with medication regimen; Z91.19 Patient's noncompliance with other medical treatment and regimen; Z78.1 Physical restraint status; Z95.5 Presence of coronary angioplasty implant and graft

== ENCOUNTER 2017-01-22 14:03 | Inpatient (IN) | payer MEDICAID ==
--- NOTE | 2017-01-22 19:09 | PCM.BM ---
<Sunil Tapia - Last Filed: 01/22/17 19:06> Treatment Plan Problems - Problems identified on initial assessmt depression Date Initiated: 01/22/17 Time Initiated: 15:00 Assessment reference: NA Status: Active Priority: 1 alcohol abuse Date Initiated: 01/22/17 Time Initiated: 15:00 Assessment reference: NA Status: Active Priority: 2 medication noncompliance Date Initiated: 01/22/17 Time Initiated: 15:00 Assessment reference: NA Status: Active Priority: 3 Treatment assets and liabiliti Patient Assests: cooperative, insightful, motivated, ADL independent, negotiates basic needs, good past tx response Patient Liabilities: live alone - Milieu Protocol Maintain good personal hygiene: daily Encourage regular showers, daily Assist patient to perform ADL's, every shift Remind patient to perform daily oral care Conduct patient checks and document Observation sheet: Q15 minutes Maintain personal safety: every shift Educate patient to report safety concerns to staff, every shift Monitor environment for contraband/sharps Medication safety: Monitor for expected outcome, potential side effects: every shift, Assess barriers to learning: every shift, Assess readiness for medication education: every shift Discharge/Continuing Care - Education Needs Education Needs: Patient Medication, Patient Diagnosis/Disease Process, Patient Coping Skills, Patient Placement options, Patient Community resources, Patient Activities of Daily Living, Patient Nutrition, Patient Health Practices/Safety, Patient Personal Hygiene/Grooming <Bella Hussein - Last Filed: 01/23/17 08:01> - Diagnosis (1) Alcohol use disorder Status: Acute Interventions: 01/23/17 08:01 Monitoring withdrawal symptoms Medical detoxification Pharmacotherapy for alcohol/benzos/opioid dependence Maintaining sobriety Relapse prevention Possible rehabilitation Motivational interviewing 12-step programs: AA meetings (2) Alcohol withdrawal delirium Status: Acute Interventions: 01/23/17 08:01 Monitoring withdrawal symptoms Medical detoxification Pharmacotherapy for alcohol/benzos/opioid dependence Maintaining sobriety Relapse prevention Possible rehabilitation Motivational interviewing 12-step programs: AA meetings pt will be seen by medical team delirium improving (3) Bipolar 2 disorder Status: Chronic Interventions: 01/23/17 08:02 Psychoeducation Psychopharmacology/adjustment of medications as needed/ monitoring possible side effects Monitor blood level of mood stabilizers Evaluate pt on daily basis Compliance with medications and follow up appointments Suicide and homicide risk assessment and prevention, coping strategies, safety plan Relapse prevention Reduction of symptoms Improve functional status Family involvement As outpatient: cognitive behavioral therapy <Cynthia Jackson - Last Filed: 01/26/17 17:07> Family Contact Family involvement: Famliy/SO not involved
[2017-01-22] MEDS ORDERED: Magnesium Hydroxide Susp 30 ml UD PO PRN (23:07)
[2017-01-22] MEDS ORDERED: Alum-Mag Hydrox-Simethicone Susp (30 mL) PO PRN (23:07)
[2017-01-23 07:07] LABS: CHOLESTEROL 138 mg/dL (130-200); GLUCOSE,FASTING 96 mg/dL (65-110)
[2017-01-23 07:23] LABS: FREE T4 0.84 ng/dL (0.78-2.19)
[2017-01-23 07:37] LABS: THYROID STIMULATING HORMONE 0.85 mIU/mL (0.46-4.68)
[2017-01-23] MEDS: Multivitamin Therapeutic Tab PO SCH (10:00)
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
[2017-01-23 10:48] LABS: HEMATOCRIT 37.7 % (42.0-52.0); MEAN CELL VOLUME 86.5 fl (80.0-105.0); MEAN CORPUSCULAR HEMOGLOBIN 29.6 pg (25.0-35.0); MEAN CORPUSCULAR HGB CONC 34.2 g/dl (31.0-37.0); MEAN PLATELET VOLUME 10.7 fl (7.0-11.0); RED CELL DISTRIBUTION WIDTH 15.3 % (11.5-14.5); WHITE BLOOD COUNT 5.2 10^3/ul (4.5-11.0)
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
--- NOTE | 2017-01-24 08:58 | PCM.PYCHPN ---
Psychiatric Progress Note - Psychiatric Progress Note Patient seen today, length of contact: 30min Patient Chief Complaint: "I'm doing little bit better, thank you" Medical Problems: alsohol withdrawal delirium is better h/o withdrawal seizures, now under control Diagnostic Results: 01/23/17 10:30 Lab Results 01/23/17 10:30: WBC 5.2 D, RBC 4.36, Hgb 12.9 L, Hct 37.7 L, MCV 86.5, MCH 29.6 , MCHC 34.2, RDW 15.3 H, Plt Count 98 L, MPV 10.7 01/23/17 06:00: RPR Nonreactive 01/23/17 06:00: Free T4 0.84, TSH 3rd Generation 0.85 01/23/17 06:00: Fasting Glucose 96, Triglycerides 66, Cholesterol 138, LDL Cholesterol Direct 55, HDL Cholesterol 69 H Vital Signs Temp Pulse Pulse Resp BP 01/24/17 06:52 97.6 F 59 L 18 86/66 L 01/23/17 17:58 80 130/84 01/23/17 16:31 60 116/72 01/23/17 10:00 60 115/72 01/23/17 07:02 98.3 F 56 L 20 115/72 01/22/17 17:24 77 130/85 01/22/17 16:52 76 130/90 01/22/17 14:39 74 18 DSM 5 Symptoms Update: shortly patient is 47 year old male long debilitating history of alcohol use disorder, history of bipolar type II, history of multiple psychiatric admissions for bipolar disorder and alcohol use disorder, patient currently lives in [place], initially was admitted on the medical side for evaluation of alcohol withdrawal delirium, psych consult was called for evaluation of mood symptoms, psychosis, possible medication management. Patient was noncompliant with the medications, follow-up appointments, patient also found to be psychotic and depressed, pt made statement "If I would be hit by a car, I would be careless". pt was seen today at the TV area, pt presented with improved personal hygiene, good ADLs. pt said that he feels "little better", pt still has UE tremor, VS are stable, will start tapering librium. pt was seen by medical team yesterday, discussed with . pt said that he feels "more hopeful", pt denied thoughts of harming self or others, pt reported his mood to be "depressed, just hanging in there", pt said that he feels better in regards of anxiety, pt denied v/a/t hallucinations (but on the medical floor, pt needed to be in restraint, pt was agitated, psychotic, was fighting with imaginary people and devil, pt also had visual hallucinations , was seeing "hell and heaven"). Review of Systems: see Medical consult. discussed with . 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 Pt looks stated age, good personal hygiene, good ADLs, there is no psychomotor agitation/ retardation, speech was: underproductive, eye contact: intermittent, mood described: "just hanging in there", affect: constricted, but more reactive, thought process: better organized, thought content: pt denied SI/ HI, pt denied v/a/t hallucinations, denied paranoid ideation, (pt was psychotic on the medical side) insight/judgment:poor, impulses better controlled. Impression: bipolar II (as per h/o) alcohol use disorder r/o substance induced mood disorder Treatment plan: Milieu/structure/supportive therapy Medical consult appreciated, see medical team note for more detailed info consultation for discharge plan and social issues Med management MVI, Folic acid and thiamine Librium 25 mg twice a day with a plan to taper down for alcohol withdrawal symptoms Seroquel will be given as 150 mg at the nighttime scheduled for psychotic symptoms and mood stabilization Wellbutrin was resumed 75 mg twice a day for depressive symptoms, patient was doing very well on that medication We'll consider to start naltrexone We'll monitor vital signs closely Family involvement Follow up on labs Will monitor closely SW evaluation for d/c planning and possible inpatient rehabilitation Pt was educated about risk/benefits and alternatives of medications, coping strategies (safety plan, suicide prevention), relapse prevention, importance of follow up with psychiatrist and therapist, stay away from drugs/alcohol/smoking Medication Change: Yes (librium decreased) Medical Record Reviewed: Yes Consults ordered or reviewed: medical consult appreciated
[2017-01-24] MEDS: Multivitamin Therapeutic Tab PO SCH (09:28)
[2017-01-25 06:52] VITALS: O2SAT 98
[2017-01-25] MEDS: Multivitamin Therapeutic Tab PO SCH (08:43)
--- NOTE | 2017-01-25 16:38 | PCM.PYCHPN ---
Psychiatric Progress Note - Psychiatric Progress Note Patient seen today, length of contact: 30min Patient Chief Complaint: "I'm doing little bit better, I want to stay positive" Medical Problems: alsohol withdrawal delirium is better h/o withdrawal seizures, now under control Diagnostic Results: 01/23/17 10:30 Lab Results 01/23/17 10:30: WBC 5.2 D, RBC 4.36, Hgb 12.9 L, Hct 37.7 L, MCV 86.5, MCH 29.6 , MCHC 34.2, RDW 15.3 H, Plt Count 98 L, MPV 10.7 01/23/17 06:00: RPR Nonreactive 01/23/17 06:00: Free T4 0.84, TSH 3rd Generation 0.85 01/23/17 06:00: Fasting Glucose 96, Triglycerides 66, Cholesterol 138, LDL Cholesterol Direct 55, HDL Cholesterol 69 H Vital Signs Temp Pulse Pulse Resp BP 01/24/17 06:52 97.6 F 59 L 18 86/66 L 01/23/17 17:58 80 130/84 01/23/17 16:31 60 116/72 01/23/17 10:00 60 115/72 01/23/17 07:02 98.3 F 56 L 20 115/72 01/22/17 17:24 77 130/85 01/22/17 16:52 76 130/90 01/22/17 14:39 74 18 Temp Pulse Resp BP Pulse Ox 98.3 F 51 L 16 125/80 98 01/25/17 06:51 01/25/17 06:51 01/25/17 06:51 01/25/17 06:51 01/25/17 06:51 DSM 5 Symptoms Update: shortly patient is 47 year old male long debilitating history of alcohol use disorder, history of bipolar type II, history of multiple psychiatric admissions for bipolar disorder and alcohol use disorder, patient currently lives in [place], initially was admitted on the medical side for evaluation of alcohol withdrawal delirium, psych consult was called for evaluation of mood symptoms, psychosis, possible medication management. Patient was noncompliant with the medications, follow-up appointments, patient also found to be psychotic and depressed, pt made statement "If I would be hit by a car, I would be careless". pt was seen today at the tx team meetign, pt presented with improved personal hygiene, good ADLs. pt said that he feels "more positive", UE tremor improving, VS are stable, tapering librium. pt said that he feels "more hopeful", pt denied thoughts of harming self or others, pt reported his mood to be "more positive", pt said that he feels better in regards of anxiety, pt denied v/a/t hallucinations (but on the medical floor, pt needed to be in restraint, pt was agitated, psychotic, was fighting with imaginary people and devil, pt also had visual hallucinations, was seeing "hell and heaven"). Review of Systems: see Medical consult. discussed with . 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 Pt looks stated age, good personal hygiene, good ADLs, there is no psychomotor agitation/ retardation, speech was: underproductive, eye contact: intermittent, mood described: "I feel positive", affect: constricted, but more reactive, thought process: better organized, thought content: pt denied SI/ HI, pt denied v/a/t hallucinations, denied paranoid ideation, (pt was psychotic on the medical side ) insight/judgment:poor, impulses better controlled. Impression: bipolar II (as per h/o) alcohol use disorder r/o substance induced mood disorder Treatment plan: Milieu/structure/supportive therapy Medical consult appreciated, see medical team note for more detailed info consultation for discharge plan and social issues Med management MVI, Folic acid and thiamine Librium 10mg twice a day with a plan to taper down for alcohol withdrawal symptoms Seroquel 150 mg at the nighttime scheduled for psychotic symptoms and mood stabilization Wellbutrin 75 mg twice a day for depressive symptoms, patient was doing very well on that medication will resume naltrexone 50mg po daily We'll monitor vital signs closely Family involvement Follow up on labs Will monitor closely evaluation for d/c planning and possible inpatient rehabilitation Pt was educated about risk/benefits and alternatives of medications, coping strategies (safety plan, suicide prevention), relapse prevention, importance of follow up with psychiatrist and therapist, stay away from drugs/alcohol/smoking Medication Change: Yes (librium decreased) Medical Record Reviewed: Yes Goal/Treatment Plan - Goal/Treatment Plan Need for Continued Stay: Remain at risks for inpatient hospitalization, Severe depression anxiety, Discharge may exacerbated symptoms, Severe functional impairment Estimated Date of D/C: 01/27/17
[2017-01-26 06:58] VITALS: PULSE 56; RESP 20; TEMP 98.2
[2017-01-26] MEDS: Multivitamin Therapeutic Tab PO SCH (09:16)
[2017-01-26 09:19] VITALS: BP 120/75
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
== END 2017-01-26 16:28 | disposition home or self-care (01) | DRG 430 ==
LOC: PSYC 14:03
PROVIDERS: ADMIT Psychiatry & Neurology Psychiatry; ATTEND Psychiatry & Neurology Psychiatry
PROC: GZ3ZZZZ Medication Management (ICD-10-PCS; principal; 2017-01-22)
PROC: HZ2ZZZZ Detoxification Services for Substance Abuse Treatment (ICD-10-PCS; 2017-01-22)
DX: F31.81 Bipolar II disorder (principal); F10.231 Alcohol dependence with withdrawal delirium; D69.59 Other secondary thrombocytopenia; F11.20 Opioid dependence, uncomplicated; Z91.14 Patient's other noncompliance with medication regimen; R56.9 Unspecified convulsions; I10 Essential (primary) hypertension; Z91.19 Patient's noncompliance with other medical treatment and regimen; Z95.5 Presence of coronary angioplasty implant and graft

== ENCOUNTER 2017-03-24 19:52 | Emergency (ER) | payer MEDICAID ==
[2017-03-24 20:00] VITALS: TEMP 98.6
[2017-03-24 20:06] VITALS: BMI 26.6
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
[2017-03-24 22:37] VITALS: O2SAT 98
[2017-03-25 05:34] VITALS: BP 130/85; PULSE 90; RESP 20
== END 2017-03-25 04:34 | disposition home or self-care (01) ==
LOC: ED 19:52
DX: F10.129 Alcohol abuse with intoxication, unspecified (principal); Y90.9 Presence of alcohol in blood, level not specified

== ENCOUNTER 2017-04-15 00:04 | Inpatient (IN) | payer MEDICAID ==
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
[2017-04-15 00:59] LABS: MEAN CELL VOLUME 84.8 fl (80.0-105.0); MEAN CORPUSCULAR HEMOGLOBIN 29.5 pg (25.0-35.0); MEAN CORPUSCULAR HGB CONC 34.8 g/dl (31.0-37.0); MEAN PLATELET VOLUME 10.8 fl (7.0-11.0); PLATELET COUNT 136 10^3/uL (120.0-450.0); RBC 5.19 10^6/uL (3.5-6.1); RED CELL DISTRIBUTION WIDTH 14.3 % (11.5-14.5); WHITE BLOOD COUNT 7.9 10^3/ul (4.5-11.0)
[2017-04-15 01:12] LABS: TROPONIN I < 0.01 ng/mL
[2017-04-15 01:14] LABS: INR 0.98 (0.93-1.08); PARTIAL THROMBOPLASTIN TIME 28.4 Seconds (25.1-36.5); PROTHROMBIN TIME 10.7 SECONDS (9.4-12.5)
[2017-04-15 01:15] LABS: HEMOGLOBIN 15.3 g/dL (14.0-18.0)
[2017-04-15] MEDS ORDERED: Folic Acid 1 MG, Thiamine 100 MG, Multivitamin (MVI) 10 ML in Dextrose 5% In Water 1,00... IV SCH (01:15)
[2017-04-15 01:24] LABS: BARBITURATES, UR NEGATIVE (NEGATIVE); BENZODIAZEPINES, UR NEGATIVE (NEGATIVE); OPIATES, UR NEGATIVE (NEGATIVE); PHENCYCLIDINE, UR NEGATIVE (NEGATIVE)
[2017-04-15 01:52] LABS: ALB/GLOB RATIO 1.4 (1.1-1.8); ALBUMIN 4.6 g/dL (3.0-4.8); ALT/SGPT 77 U/L (7-56); AST/SGOT 77 U/L (17-59); BLOOD UREA NITROGEN 12 mg/dL (7-21); CALCIUM 9.8 mg/dL (8.4-10.5); GFR AFRICAN-AMERICAN > 60; GFR NON-AFRICAN AMERICAN > 60
[2017-04-15 01:55] LABS: CK-MB 4.8 ng/mL (0.0-3.6)
[2017-04-15] MEDS ORDERED: Sodium Chloride 0.9% 1,000 ML IV STA (03:30)
[2017-04-15] MEDS ORDERED: Multivitamin (MVI) 10 ML, Thiamine 100 MG, Folic Acid 1 MG in Sodium Chloride 0.9% 1,00... IV ONE (03:30)
[2017-04-15 03:53] LABS: URINE BILIRUBIN MODERATE (NEGATIVE); URINE BLOOD NEGATIVE (NEGATIVE); URINE GLUCOSE (UA) NEGATIVE (NEGATIVE); URINE LEUKOCYTE ESTERASE NEGATIVE Leu/uL (NEGATIVE); URINE NITRATE NEGATIVE (NEGATIVE); URINE PROTEIN 100 mg/dL (<30 mg/dL)
[2017-04-15 04:00] LABS: URINE APPEARANCE CLEAR (CLEAR); URINE COLOR YELLOW (YELLOW)
[2017-04-15 04:05] LABS: MAGNESIUM 1.6 mg/dL (1.7-2.2)
[2017-04-15] MEDS ORDERED: Potassium Chloride 20 mEq ER Tab PO ONE (04:07)
[2017-04-15] MEDS ORDERED: Magnesium Sulfate 2 GM in Sodium Chloride 0.9% 100 ML IVPB ONE ×2 (04:07→09:04)
[2017-04-15 04:12] LABS: URINE EPITHELIAL CELLS 0 - 2 /hpf (0-5); URINE RBC 0 - 2 /hpf (0-2); URINE WBC 0 - 2 /hpf (0-6)
[2017-04-15 04:13] LABS: URINE BACTERIA RARE (NEG)
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
[2017-04-15 04:29] LABS: BAND 4 % (0-2); LYMPHOCYTE 23 % (22.0-35.0); MONOCYTE 5 % (1.0-6.0); NEUTROPHIL 68 % (50.0-70.0); PLATELET ESTIMATE NORMAL (NORMAL)
[2017-04-15 04:38] LABS: VENOUS BLOOD GAS BASE EXCESS -1.1 mmol/L (0.0-2.0); VENOUS BLOOD GAS PO2 155 mm/Hg (30-55); VENOUS BLOOD PH 7.44 (7.32-7.43)
[2017-04-15 04:48] VITALS: BMI 22.8
[2017-04-15 04:52] LABS: ALB/GLOB RATIO 1.4 (1.1-1.8); ALBUMIN 3.9 g/dL (3.0-4.8); ALT/SGPT 68 U/L (7-56); AST/SGOT 63 U/L (17-59); BLOOD UREA NITROGEN 11 mg/dL (7-21); CALCIUM 8.6 mg/dL (8.4-10.5); GFR AFRICAN-AMERICAN > 60; GFR NON-AFRICAN AMERICAN > 60; MAGNESIUM 1.6 mg/dL (1.7-2.2)
[2017-04-15 04:56] LABS: BASO # 0.02 K/mm3 (0.0-2.0); BASO % 0.3 % (0.0-3.0); EOS # 0.1 (0.0-0.7); EOS % 0.8 % (1.5-5.0); GRAN # 4.09 (1.4-6.5); GRAN % 62.1 % (50.0-68.0); LYMPH # 1.8 (1.2-3.4); LYMPH % 27.2 % (22.0-35.0); MEAN CELL VOLUME 84.3 fl (80.0-105.0); MEAN CORPUSCULAR HEMOGLOBIN 29.8 pg (25.0-35.0); MEAN CORPUSCULAR HGB CONC 35.4 g/dl (31.0-37.0); MEAN PLATELET VOLUME 10.5 fl (7.0-11.0); MONO # 0.6 (0.1-0.6); MONO % 9.6 % (1.0-6.0); RBC 4.7 10^6/uL (3.5-6.1); RED CELL DISTRIBUTION WIDTH 14.2 % (11.5-14.5); WHITE BLOOD COUNT 6.6 10^3/ul (4.5-11.0)
[2017-04-15] MEDS: Pantoprazole 40 mg EC Tab PO SCH (05:28)
--- NOTE | 2017-04-15 08:37 | RAD ---
HISTORY: medical clearance COMPARISON: Portable chest 02/16/2017. FINDINGS: LUNGS: No active pulmonary disease. PLEURA: No significant pleural effusion identified, no pneumothorax apparent. CARDIOVASCULAR: Normal. OSSEOUS STRUCTURES: No significant abnormalities. VISUALIZED UPPER ABDOMEN: Normal. OTHER FINDINGS: None. IMPRESSION: No acute cardiopulmonary disease appreciated.
[2017-04-15] MEDS ORDERED: Potassium Chloride 20 mEq ER Tab PO STA (09:07)
[2017-04-15 17:09] LABS: HEPATITIS B SURFACE AG NEGATIVE (NEGATIVE)
[2017-04-15 17:14] LABS: HEPATITIS A IGM NEGATIVE (NEGATIVE); HEPATITIS B CORE AB Negative (NEGATIVE)
[2017-04-15 17:26] LABS: HEPATITIS C ANTIBODY Negative (NEGATIVE)
--- NOTE | 2017-04-15 17:56 | CARD ---
APPROVED REPORT EKG Measurement Heart [id number] <Conclusion> Sinus tachycardia Possible Left atrial enlargement Borderline ECG
[2017-04-16] MEDS: Pantoprazole 40 mg EC Tab PO SCH (05:17)
[2017-04-16 06:22] LABS: BASO # 0.02 K/mm3 (0.0-2.0); BASO % 0.5 % (0.0-3.0); EOS # 0.1 (0.0-0.7); EOS % 1.4 % (1.5-5.0); GRAN # 2.04 (1.4-6.5); GRAN % 46.4 % (50.0-68.0); HEMOGLOBIN 12.6 g/dL (14.0-18.0); LYMPH # 1.9 (1.2-3.4); LYMPH % 43.7 % (22.0-35.0); MEAN CORPUSCULAR HEMOGLOBIN 29.3 pg (25.0-35.0); MEAN CORPUSCULAR HGB CONC 34.1 g/dl (31.0-37.0); MEAN PLATELET VOLUME 11.1 fl (7.0-11.0); MONO # 0.4 (0.1-0.6); RBC 4.3 10^6/uL (3.5-6.1); RED CELL DISTRIBUTION WIDTH 14.7 % (11.5-14.5); WHITE BLOOD COUNT 4.4 10^3/ul (4.5-11.0)
[2017-04-16 06:40] LABS: ALB/GLOB RATIO 1.3 (1.1-1.8); ALBUMIN 3.3 g/dL (3.0-4.8); ALT/SGPT 55 U/L (7-56); AST/SGOT 55 U/L (17-59); BLOOD UREA NITROGEN 11 mg/dL (7-21); CALCIUM 8.7 mg/dL (8.4-10.5); GFR AFRICAN-AMERICAN > 60; GFR NON-AFRICAN AMERICAN > 60; MAGNESIUM 1.7 mg/dL (1.7-2.2)
[2017-04-16] MEDS: Multivitamin With Minerals Tab PO SCH (08:43)
--- NOTE | 2017-04-16 12:25 | CP.PCM.PN ---
<Clarke Cifuentes - Last Filed: 04/16/17 12:18> Subjective - Date & Time of Evaluation Date of Evaluation: 04/16/17 Time of Evaluation: 12:19 - Subjective Subjective: Medicine Progress Note Pt seen and examined overnight. Pt states that felt somewhat anxious overnight, but overall feels better. Pt states he's been out of bed to restroom without difficulty. Pt denied CP, SOB, nausea, vomiting, diarrhea, abdominal pain, fever , chills, LAU, or dizziness. Objective - Vital Signs/Intake and Output Vital Signs (last 24 hours): Temp Pulse Resp BP Pulse Ox 98.2 F 72 20 131/93 H 98 04/16/17 12:00 04/16/17 12:00 04/16/17 12:00 04/16/17 12:00 04/16/17 06:00 Intake and Output: 04/16/17 04/16/17 06:59 18:59 Intake Total 1140 Output Total 2000 Balance -860 - Medications Medications: Current Medications Chlordiazepoxide (Librium) 10 mg PO Q8 [facility] Folic Acid (Folic Acid) 1 mg PO DAILY [facility] Last Admin: 04/16/17 10:39 Dose: 1 mg Heparin Sodium (Porcine) (Heparin) 5,000 units SC Q8 [facility] PRN Reason: Protocol Last Admin: 04/16/17 05:16 Dose: 5,000 units Lorazepam (Ativan) 2 mg IVP Q4H PRN; Protocol PRN Reason: Withdrawal Metoprolol Tartrate (Lopressor) 25 mg PO BRKDIN [facility] Last Admin: 04/16/17 08:42 Dose: 25 mg Multivitamins/Minerals (Therapeutic-M Tab) 1 tab PO 0800 [facility] Last Admin: 04/16/17 08:43 Dose: 1 tab Pantoprazole Sodium (Protonix Ec Tab) 40 mg PO 0600 [facility] Last Admin: 04/16/17 05:17 Dose: 40 mg Thiamine HCl (Vitamin B1 Tab) 50 mg PO DAILY [facility] Last Admin: 04/16/17 10:39 Dose: 50 mg - Labs Labs: 04/16/17 05:15 04/16/17 05:15 PT 10.7 SECONDS (9.4-12.5) 04/15/17 00:29 INR 0.98 (0.93-1.08) 04/15/17 00:29 APTT 28.4 Seconds (25.1-36.5) 04/15/17 00:29 - Constitutional Appears: No Acute Distress - Head Exam Head Exam: NORMAL INSPECTION - Eye Exam Eye Exam: Normal appearance Pupil Exam: NORMAL ACCOMODATION - ENT Exam ENT Exam: Normal Exam - Respiratory Exam Respiratory Exam: Clear to Ausculation Bilateral. absent: Accessory Muscle Use , Rales, Rhonchi, Wheezes, Respiratory Distress - Cardiovascular Exam Cardiovascular Exam: RRR, +S1, +S2. absent: Gallop, Rubs, Murmur - GI/Abdominal Exam GI & Abdominal Exam: Soft. absent: Distended, Guarding, Tenderness, Rebound - Extremities Exam Additional comments: no UE tremors - Neurological Exam Neurological Exam: Alert, Awake, Oriented x3 - Psychiatric Exam Psychiatric exam: Normal Affect, Normal Mood - Skin Skin Exam: Dry, Intact, Normal Color, Warm Assessment and Plan - Assessment and Plan (Free Text) Assessment: 47 yo M with PMH of HTN, alcohol abuse, bipolar disorder, and alcohol withdrawal delirium presents complaining of auditory and visual hallucinations for the past 4 days. Patient is being evaluated and treated for alcohol withdrawal. Plan: 1. Alcohol Withdrawal - CIWA 0 this AM - Tapered Librium 10 Q8 lorenzo - Tapered Ativan 2mg IV Q4 PRN for withdrawal - Folate, Thiamine, MV PO - Seizure precautions; Fall precautions - PT eval and treat - DC telemetry 2. Hallucinations, resolved - Likely 2/2 alcohol withdrawal psychosis/delirium - Psych consulted 3. Anion gap, resolved - AG 19 on admission, closed now - Will cont to monitor 4. Transaminitis, resolved - LFT WNL - Hep panel negative - Cont to monitor 5. HTN - Cont lopressor 25mg PO BID - Continue to monitor 6. Prolonged QT - On initial EKG, QTc 509; likely 2/2 alcohol withdrawal - Avoid medications that cause QT prolongation - Repeat EKG and reassess 7. Hypokalemia, resolved - Potassium WNL - Cont to monitor, replete as needed 8. Hypomagnesmia, resolved - Mag WNL - Cont to monitor, replete as needed GI/DVT PPx - Protonix - Heparin Pt seen and discussed in detail with Dr. Painting. Kaiden Cifuentes, PGY1 <Anna Painting - Last Filed: 04/16/17 14:45> Objective - Vital Signs/Intake and Output Vital Signs (last 24 hours): Temp Pulse Resp BP Pulse Ox 98.2 F 72 20 131/93 H 98 04/16/17 12:00 04/16/17 12:00 04/16/17 12:00 04/16/17 12:00 04/16/17 06:00 Intake and Output: 04/16/17 04/16/17 06:59 18:59 Intake Total 1140 Output Total 2000 Balance -860 - Medications Medications: Current Medications Chlordiazepoxide (Librium) 10 mg PO Q8 [facility] Folic Acid (Folic Acid) 1 mg PO DAILY [facility] Last Admin: 04/16/17 10:39 Dose: 1 mg Heparin Sodium (Porcine) (Heparin) 5,000 units SC Q8 [facility] PRN Reason: Protocol Last Admin: 04/16/17 05:16 Dose: 5,000 units Lorazepam (Ativan) 2 mg IVP Q4H PRN; Protocol PRN Reason: Withdrawal Metoprolol Tartrate (Lopressor) 25 mg PO BRKDIN [facility] Last Admin: 04/16/17 08:42 Dose: 25 mg Multivitamins/Minerals (Therapeutic-M Tab) 1 tab PO 0800 [facility] Last Admin: 04/16/17 08:43 Dose: 1 tab Pantoprazole Sodium (Protonix Ec Tab) 40 mg PO 0600 [facility] Last Admin: 04/16/17 05:17 Dose: 40 mg Thiamine HCl (Vitamin B1 Tab) 50 mg PO DAILY [facility] Last Admin: 04/16/17 10:39 Dose: 50 mg - Labs Labs: 04/16/17 05:15 04/16/17 05:15 PT 10.7 SECONDS (9.4-12.5) 04/15/17 00:29 INR 0.98 (0.93-1.08) 04/15/17 00:29 APTT 28.4 Seconds (25.1-36.5) 04/15/17 00:29 Attending/Attestation - Attestation I have personally seen and examined this patient.: Yes I have fully participated in the care of the patient.: Yes I have reviewed all pertinent clinical information, including history, physical exam and plan: Yes Notes (Text): I have seen and examined the patient at bedside. Agree with the above note with the following additions/ exceptions: Briefly this is 47 year old male with history of HTN, alcohol abuse/ alcohol withdrawal, bipolar disorder, who was admitted for evaluation of bizzre behavior. He has been having auditory and visual hallucinations for the past 4 days. Today he is alert, oriented to time, place and person. Last night he was depressed and agitated and required extra doses of ativan. This morning he denies headache, diaphoresis, nausea, vomiting , abdominal pain or any other complaints. Will taper his librium. Awaiting psych consult. DC telemetry. PT eval pending. Upon discharge patient will follow up with Dr Baez. Dr Anna Painting
--- NOTE | 2017-04-16 18:16 | CARD ---
APPROVED REPORT EKG Measurement Heart [id number] <Conclusion> Sinus rhythm with occasional premature ventricular complexes Prolonged QT Abnormal ECG
[2017-04-17] MEDS: Pantoprazole 40 mg EC Tab PO SCH (06:05)
[2017-04-17 07:23] LABS: BASO # 0.01 K/mm3 (0.0-2.0); BASO % 0.3 % (0.0-3.0); GRAN # 1.77 (1.4-6.5); HEMOGLOBIN 12.6 g/dL (14.0-18.0); LYMPH # 1.6 (1.2-3.4); LYMPH % 40.5 % (22.0-35.0); MEAN CORPUSCULAR HEMOGLOBIN 29.1 pg (25.0-35.0); MEAN CORPUSCULAR HGB CONC 34.2 g/dl (31.0-37.0); MEAN PLATELET VOLUME 11.5 fl (7.0-11.0); MONO # 0.5 (0.1-0.6); MONO % 12.2 % (1.0-6.0); RBC 4.33 10^6/uL (3.5-6.1); RED CELL DISTRIBUTION WIDTH 14.5 % (11.5-14.5); WHITE BLOOD COUNT 3.9 10^3/ul (4.5-11.0)
[2017-04-17 07:45] LABS: ALB/GLOB RATIO 1.3 (1.1-1.8); ALBUMIN 3.3 g/dL (3.0-4.8); ALT/SGPT 64 U/L (7-56); AST/SGOT 50 U/L (17-59); BLOOD UREA NITROGEN 6 mg/dL (7-21); CALCIUM 8.9 mg/dL (8.4-10.5); GFR AFRICAN-AMERICAN > 60; GFR NON-AFRICAN AMERICAN > 60; MAGNESIUM 1.6 mg/dL (1.7-2.2)
--- NOTE | 2017-04-17 08:10 | CON ---
DATE: 04/16/2017 He is being seen today for a consultation. HISTORY OF PRESENT ILLNESS: The patient is a 47-year-old white male seen at his bedside. Consult was ordered for psychosis secondary to alcohol intoxication. The patient was admitted to the medical unit. The patient came to the Emergency Room complaining of auditory and visual hallucinations, was admitted medically because he continued to have hallucinations during his hospital stay. He indicates that he thought there had been some sort of shoot out and [employer] land [employer] had , he thought that may be his mother was , he thought possibly he had sold the house without telling his family, and he really believed these things up until today. Today, he is clear and feeling like he has again a hold on reality. He indicates that he was drinking very heavily before admission and he also had not eaten for three days. The patient has a long history of alcohol abuse. He has been on the Psychiatric Unit in the past and also carries a diagnosis of bipolar disorder. He gets his medications from [facility]. His current medications are trazodone, Wellbutrin, and Seroquel, he was unsure of the dosages, but he has been off of these for at least 10 days of his binge, they have not been resumed yet while in the hospital or wait until his detox to resume. Currently while in hospital, he is on Librium 10 mg q.8 hours, folic acid, heparin, and lorazepam 2 mg IV push as needed, which he has not been using, Lopressor for hypertension, multivitamin, Protonix, and thiamine. The patient indicates that alcoholism has been a long-term problem for him that he has been drinking since he was a teenager. He has always drank in excess. He has been a blackout drinker and a binge drinker as well. He indicates he is not , has no children, and lives alone. He is involved with his nieces and nephews. His father is and his mother is still alive and she is starting to need his help. He has not been working regularly, so he had some financial issues. Medically, he has hypotension. He grew up in [place]. His parents stay together for his lifetime. He has one brother and one sister both older than he is. 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 He get jobs. He does not drink on the job, but he lose his jobs due to last days from drinking. FAMILY HISTORY: Positive for his father being a heavy drinker or a functional alcoholic. He is in dilemma in regards to whether or not he wants to get treatment for his alcoholism, he does not, but he has been rather frightened by the withdrawal and hallucinations that he had upon admission. The patient is not at this time experiencing overt symptoms of withdrawal in terms of tremors; however, he is sweating. He does not feel as clear as he normally does. He does not feel fully detox at this point in time. He has been discontinued from telemetry and being transferred to the fifth floor. PHYSICAL EXAMINATION: VITAL SIGNS: His current vital signs are 98.2 temperature, pulse rate of 72, blood pressure of 131/93, and respiratory rate of 20. MENTAL STATUS EXAMINATION: The patient is alert and oriented x3. His eye contact is good. His behavior is cooperative. Speech rate and volume are within normal limits. Mood is euthymic. Thoughts are goal directed. He denies being suicidal or homicidal. Denies the presence of hallucinations, delusions or paranoia. His concentration and his focus he reports are returning to normal. His memory both short term and senior living is good. His appetite is normal and he is sleeping well at night, this is the first night he slept well in many nights. DIAGNOSTIC IMPRESSION: Alcohol dependence, history of bipolar disorder, hypertension, alcohol withdrawal, and delirium resolving. PLAN: The patient is agreeable to inpatient admission on voluntary Psychiatric Unit when medically cleared. He would like to at this time going to some sort of a rehabilitation program for the alcohol. He is feeling like he cannot continue to go on the way he has with his alcoholism and he does feel that he cannot control it on his own. He has gone to AA in the past and it has not been helpful to him. He will be followed by Dr. Nunn. Ester Penny APN Doyle Martinez MD ABELARDO
[2017-04-17] MEDS ORDERED: Potassium Chloride 20 mEq ER Tab PO ONE (08:20)
[2017-04-17] MEDS ORDERED: Magnesium Sulfate 2 GM in Sodium Chloride 0.9% 100 ML IVPB ONE (08:20)
[2017-04-17] MEDS: Multivitamin With Minerals Tab PO SCH (10:51)
--- NOTE | 2017-04-17 12:10 | CP.PCM.PN ---
<Clarke Cifuentes - Last Filed: 04/17/17 12:02> Subjective - Date & Time of Evaluation Date of Evaluation: 04/17/17 Time of Evaluation: 12:03 - Subjective Subjective: Medicine Progress Note Pt seen and examined at bedside. No acute overnight events. Pt states he's feeling better and has been out of bed to bathroom without difficulty. Pt denied CP, SOB, nausea, vomiting, diarrhea, abdominal pain, fever, chills, LAU, tremors, or dizziness. Objective - Vital Signs/Intake and Output Vital Signs (last 24 hours): Temp Pulse Resp BP Pulse Ox 98.5 F 67 18 146/90 97 04/17/17 08:16 04/17/17 10:51 04/17/17 08:16 04/17/17 10:51 04/17/17 08:16 Intake and Output: 04/17/17 04/17/17 06:59 18:59 Intake Total 600 Output Total 1200 Balance -600 - Medications Medications: Current Medications Chlordiazepoxide (Librium) 5 mg PO Q8 [facility] Folic Acid (Folic Acid) 1 mg PO DAILY [facility] Last Admin: 04/17/17 10:51 Dose: 1 mg Heparin Sodium (Porcine) (Heparin) 5,000 units SC Q8 LORENZO PRN Reason: Protocol Last Admin: 04/17/17 06:04 Dose: 5,000 units Lorazepam (Ativan) 2 mg IVP Q4H PRN; Protocol PRN Reason: Withdrawal Metoprolol Tartrate (Lopressor) 25 mg PO BRKDIN [facility] Last Admin: 04/17/17 10:51 Dose: 25 mg Multivitamins/Minerals (Therapeutic-M Tab) 1 tab PO 0800 [facility] Last Admin: 04/17/17 10:51 Dose: 1 tab Pantoprazole Sodium (Protonix Ec Tab) 40 mg PO 0600 [facility] Last Admin: 04/17/17 06:05 Dose: 40 mg Quetiapine Fumarate (Seroquel) 25 mg PO HS LORENZO PRN Reason: Protocol Thiamine HCl (Vitamin B1 Tab) 100 mg PO DAILY LORENZO Trazodone HCl (Desyrel) 50 mg PO HS PRN PRN Reason: Insomnia - Labs Labs: 04/17/17 06:45 04/17/17 06:45 PT 10.7 SECONDS (9.4-12.5) 04/15/17 00:29 INR 0.98 (0.93-1.08) 04/15/17 00:29 APTT 28.4 Seconds (25.1-36.5) 04/15/17 00:29 - Constitutional Appears: No Acute Distress - Head Exam Head Exam: NORMAL INSPECTION - Eye Exam Eye Exam: Normal appearance - ENT Exam ENT Exam: Normal Exam - Neck Exam Neck Exam: Normal Inspection - Respiratory Exam Respiratory Exam: Clear to Ausculation Bilateral. absent: Accessory Muscle Use , Rales, Rhonchi, Wheezes, Respiratory Distress - Cardiovascular Exam Cardiovascular Exam: RRR, +S1, +S2. absent: Diastolic murmur, Gallop, Rubs, Murmur - GI/Abdominal Exam GI & Abdominal Exam: Soft. absent: Distended, Guarding, Tenderness, Rebound - Extremities Exam Extremities Exam: Normal Inspection - Neurological Exam Neurological Exam: Alert, Awake, Oriented x3 - Psychiatric Exam Psychiatric exam: Normal Affect, Normal Mood - Skin Skin Exam: Dry, Intact, Normal Color, Warm Assessment and Plan - Assessment and Plan (Free Text) Assessment: 47 yo M with PMH of HTN, alcohol abuse, bipolar disorder, and alcohol withdrawal delirium presents complaining of auditory and visual hallucinations for 4 days prior to admission. Patient is being evaluated and treated for alcohol withdrawal. Plan: 1. Alcohol Withdrawal - CIWA 0 this AM - Tapered Librium 5 Q8 lorenzo - Did not require prn Ativan over last 24 hrs - Folate, Thiamine, MV PO - Seizure precautions; Fall precautions - PT eval and treat DC home when medically cleared 2. Hallucinations, resolved - Likely 2/2 alcohol withdrawal psychosis/delirium - Psych consulted No psych admission at this time Wellbutrin discontinued as it lowers seizure threshold Seroquel 25 mg PO HS Trazodone 50 mg PO HS prn for insomnia 3. Anion gap, resolved - AG 19 on admission, closed now - Will cont to monitor 4. Transaminitis, resolved - LFT WNL - Hep panel negative - Cont to monitor 5. HTN - Cont lopressor 25mg PO BID - Continue to monitor 6. Prolonged QT - Prolonged QTc on EKG x2 - Avoid medications that cause QT prolongation 7. Hypokalemia - K 3.5 - Repleted - Cont to monitor, replete as needed 8. Hypomagnesmia, resolved - Mag 1.6 - Repleted - Cont to monitor, replete as needed GI/DVT PPx - Protonix - Heparin Pt seen and discussed in detail with Dr. Painting. Kaiden Cifuentes, PGY1 <Anna Painting - Last Filed: 04/18/17 12:52> Objective - Vital Signs/Intake and Output Vital Signs (last 24 hours): Temp Pulse Resp BP Pulse Ox 98.3 F 72 20 131/84 98 04/18/17 07:40 04/18/17 09:37 04/18/17 07:40 04/18/17 09:37 04/18/17 07:40 Intake and Output: 04/18/17 04/18/17 06:59 18:59 Intake Total 1140 1000 Output Total 1300 850 Balance -160 150 - Labs Labs: 04/18/17 07:50 04/18/17 07:50 PT 10.7 SECONDS (9.4-12.5) 04/15/17 00:29 INR 0.98 (0.93-1.08) 04/15/17 00:29 APTT 28.4 Seconds (25.1-36.5) 04/15/17 00:29 Attending/Attestation - Attestation I have personally seen and examined this patient.: Yes I have fully participated in the care of the patient.: Yes I have reviewed all pertinent clinical information, including history, physical exam and plan: Yes Notes (Text): I have seen and examined the patient at bedside. Agree with the above note with the following additions/ exceptions: Briefly this is 47 year old male with history of HTN, alcohol abuse/ alcohol withdrawal, bipolar disorder, who was admitted for evaluation of bizarre behavior. Today he is alert, oriented to time , place and person. This morning he denies headache, diaphoresis, nausea, vomiting, abdominal pain or any other complaints. Will continue to taper his librium. Psych consult appreciated. His medications were adjusted. Psych advised to observe the patient overnight in the hospital. PT miguel angelal cleared the patient. Upon discharge patient will follow up with Dr Baez. Dr Anna Painting
--- NOTE | 2017-04-17 12:14 | CON ---
DATE: HISTORY OF PRESENT ILLNESS: The patient is a 47-year-old male with a psychiatric history of bipolar disorder as well as severe alcohol use disorder, multiple psychiatric hospitalizations, most recently in [facility] in 01/2017, who is being followed on the medical floor due to presentation of alcohol withdrawal delirium. I reviewed recent notes and met with the patient at bedside and the patient is well known to me from prior admissions. The patient is well related and oriented to month, year, location, and circumstances. He is not actively hallucinating and reports that hallucinations have remitted today, though did have some yesterday and most of the hallucinations that he had occurred over the period of this week from Wednesday to , as he had stopped drinking earlier this week. The patient reports that he is feeling okay. He is not hopeless. He is not suicidal. He has not been taking his medications of Wellbutrin, Seroquel, and trazodone for the last 10 days. He indicates that he never takes the psychiatric medications when he relapses. He is coherent and he is logical. Regarding the appropriateness of psychiatric inpatient stabilization, the patient is more interested in transit to an Alcohol Rehab. He indicates his main interest in transferring to Psychiatric Unit for help with ultimate transfer to [facility]. It is unclear if Inpatient Psychiatric Unit is appropriate in terms of these social regards. The patient would benefit from additional time on the medical floor as he was hallucinating just yesterday and would also benefit from social work evaluation for transfer for rehab services. OBJECTIVE: Vitals and labs reviewed by this provider. MEDICATIONS: Include Librium 10 mg q. 8 hours. and Ativan 2 mg IV q. 4 hours. p.r.n. IMPRESSION: Severe alcohol use disorder, alcohol withdrawal delirium, bipolar disorder by history as well as contribution of substance induced mood disorder. RECOMMENDATIONS: Ultimately, the most appropriate treatment for the patient at this time is rehab and he is quite willing to follow up on this type of transfer. The patient has self reported that was his ultimate goal regarding transfer to the psychiatric unit and in this regard, this is not an appropriate psychiatric admission. The patient has had suicidal thoughts in the past, hopelessness in the past in which case he was transferred to the Psychiatric Unit, however, at this time he is well related, reactive, hopeful, has no suicidal thoughts, and hallucinations have resolved. There are no acute severe psychiatric issues that need to be addressed. Of course the patient would benefit from restarting his psychiatric medications, however, he does not need a psychiatric admission for this. I will restart Seroquel at 50 mg at bedtime and trazodone 50 mg at bedtime p.r.n. I will not restart Wellbutrin as the patient has already had an additional risk for seizures and Wellbutrin lower the seizures threshold. The patient should follow up with rehab services or be referred for outpatient psychiatric services for medication adjustment. However, the potential benefit of psychiatric medication adjustment for depressive symptoms remains unclear, if he continues to drink on a regular basis. All of this was explained to the patient. At this time, Psychiatric will sign off on the patient and he is psychiatrically cleared. Gely Nunn MD
[2017-04-17 21:15] VITALS: RESP 20; O2SAT 98
[2017-04-18] MEDS: Pantoprazole 40 mg EC Tab PO SCH (05:54)
[2017-04-18 07:41] VITALS: BP 131/84; PULSE 72; TEMP 98.3
[2017-04-18 08:09] LABS: BASO # 0.02 K/mm3 (0.0-2.0); BASO % 0.4 % (0.0-3.0); EOS % 0.8 % (1.5-5.0); GRAN # 2.73 (1.4-6.5); GRAN % 54.5 % (50.0-68.0); HEMOGLOBIN 12.9 g/dL (14.0-18.0); LYMPH # 1.8 (1.2-3.4); LYMPH % 35.3 % (22.0-35.0); MEAN CELL VOLUME 86.3 fl (80.0-105.0); MEAN CORPUSCULAR HEMOGLOBIN 29.5 pg (25.0-35.0); MEAN CORPUSCULAR HGB CONC 34.2 g/dl (31.0-37.0); MEAN PLATELET VOLUME 11.1 fl (7.0-11.0); MONO # 0.5 (0.1-0.6); RBC 4.37 10^6/uL (3.5-6.1); RED CELL DISTRIBUTION WIDTH 14.9 % (11.5-14.5)
[2017-04-18 08:14] LABS: ALB/GLOB RATIO 1.3 (1.1-1.8); ALBUMIN 3.4 g/dL (3.0-4.8); ALT/SGPT 63 U/L (7-56); AST/SGOT 44 U/L (17-59); BLOOD UREA NITROGEN 8 mg/dL (7-21); CALCIUM 8.7 mg/dL (8.4-10.5); GFR AFRICAN-AMERICAN > 60; GFR NON-AFRICAN AMERICAN > 60; MAGNESIUM 1.8 mg/dL (1.7-2.2)
[2017-04-18] MEDS: Multivitamin With Minerals Tab PO SCH (09:37)
--- NOTE | 2017-04-18 12:11 | CP.PCM.DIS ---
<Clarke Cifuentes - Last Filed: 04/18/17 12:01> Provider - Provider Date of Admission: 04/15/17 02:35 Attending physician: Anna Painting MD Consults: Psych: Nunn Time Spent in preparation of Discharge (in minutes): 45 Hospital Course - Lab Results Lab Results: Most Recent Lab Values WBC 5.0 10^3/ul (4.5-11.0) D 04/18/17 07:50 RBC 4.37 10^6/uL (3.5-6.1) 04/18/17 07:50 Hgb 12.9 g/dL (14.0-18.0) L 04/18/17 07:50 Hct 37.7 % (42.0-52.0) L 04/18/17 07:50 MCV 86.3 fl (80.0-105.0) 04/18/17 07:50 MCH 29.5 pg (25.0-35.0) 04/18/17 07:50 MCHC 34.2 g/dl (31.0-37.0) 04/18/17 07:50 RDW 14.9 % (11.5-14.5) H 04/18/17 07:50 Plt Count 86 10^3/uL (120.0-450.0) L 04/18/17 07:50 MPV 11.1 fl (7.0-11.0) H 04/18/17 07:50 Gran % 54.5 % (50.0-68.0) 04/18/17 07:50 Lymph % (Auto) 35.3 % (22.0-35.0) H 04/18/17 07:50 Fulton % (Auto) 9.0 % (1.0-6.0) H 04/18/17 07:50 Eos % (Auto) 0.8 % (1.5-5.0) L 04/18/17 07:50 Baso % (Auto) 0.4 % (0.0-3.0) 04/18/17 07:50 Gran # 2.73 (1.4-6.5) 04/18/17 07:50 Lymph # 1.8 (1.2-3.4) 04/18/17 07:50 Fulton # 0.5 (0.1-0.6) 04/18/17 07:50 Eos # 0.0 (0.0-0.7) 04/18/17 07:50 Baso # 0.02 K/mm3 (0.0-2.0) 04/18/17 07:50 Neutrophils % (Manual) 68 % (50.0-70.0) 04/15/17 00:29 Band Neutrophils % 4 % (0-2) H 04/15/17 00:29 Lymphocytes % (Manual) 23 % (22.0-35.0) 04/15/17 00:29 Monocytes % (Manual) 5 % (1.0-6.0) 04/15/17 00:29 Platelet Evaluation Normal (NORMAL) 04/15/17 00:29 PT 10.7 SECONDS (9.4-12.5) 04/15/17 00:29 INR 0.98 (0.93-1.08) 04/15/17 00:29 APTT 28.4 Seconds (25.1-36.5) 04/15/17 00:29 pO2 155 mm/Hg (30-55) H 04/15/17 04:25 VBG pH 7.44 (7.32-7.43) H 04/15/17 04:25 VBG pCO2 33.0 (40-60) L 04/15/17 04:25 VBG HCO3 22.4 mmol/l (21-28) 04/15/17 04:25 VBG Total CO2 23.4 mmol.L (22-28) 04/15/17 04:25 VBG O2 Sat (Calc) 99.6 % (40-65) H 04/15/17 04:25 VBG Base Excess -1.1 mmol/L (0.0-2.0) L 04/15/17 04:25 VBG Potassium 3.1 mmol/L (3.6-5.2) L 04/15/17 04:25 Sodium 131.0 mmol/L (132-148) L 04/15/17 04:25 Chloride 99.0 mmol/L (98-107) 04/15/17 04:25 Glucose 104 mg/dl (75-110) 04/15/17 04:25 Lactate 0.9 mmol/L (0.7-2.1) 04/15/17 04:25 FiO2 21.0 % 04/15/17 04:25 Sodium 136 mmol/L (132-148) 04/18/17 07:50 Potassium 3.6 mmol/L (3.6-5.0) 04/18/17 07:50 Chloride 106 mmol/L (98-107) 04/18/17 07:50 Carbon Dioxide 25 mmol/L (21-33) 04/18/17 07:50 Anion Gap 9 (10-20) L 04/18/17 07:50 BUN 8 mg/dL (7-21) 04/18/17 07:50 Creatinine 0.7 mg/dl (0.8-1.5) L 04/18/17 07:50 Est GFR ( Amer) > 60 04/18/17 07:50 Est GFR (Non-Af Amer) > 60 04/18/17 07:50 Random Glucose 95 mg/dL (70-110) 04/18/17 07:50 Calcium 8.7 mg/dL (8.4-10.5) 04/18/17 07:50 Phosphorus 3.1 mg/dL (2.5-4.5) 04/16/17 05:15 Magnesium 1.8 mg/dL (1.7-2.2) 04/18/17 07:50 Total Bilirubin 0.3 mg/dL (0.2-1.3) 04/18/17 07:50 AST 44 U/L (17-59) 04/18/17 07:50 ALT 63 U/L (7-56) H 04/18/17 07:50 Alkaline Phosphatase 81 U/L (38-126) 04/18/17 07:50 Lactate Dehydrogenase 549 U/L (333-699) 04/15/17 00:29 Total Creatine Kinase 511 U/L (35-230) H 04/15/17 00:29 CK-MB (CK-2) 4.8 ng/mL (0.0-3.6) H 04/15/17 00:29 CK-MB (CK-2) % Cancelled 04/15/17 00:29 Troponin I < 0.01 ng/mL 04/15/17 00:29 Total Protein 5.9 g/dL (5.8-8.3) 04/18/17 07:50 Albumin 3.4 g/dL (3.0-4.8) 04/18/17 07:50 Globulin 2.5 gm/dL 04/18/17 07:50 Albumin/Globulin Ratio 1.3 (1.1-1.8) 04/18/17 07:50 Venous Blood Potassium 3.1 mmol/L (3.6-5.2) L 04/15/17 04:25 Urine Color Yellow (YELLOW) 04/15/17 00:55 Urine Appearance Clear (CLEAR) 04/15/17 00:55 Urine pH 6.0 (4.7-8.0) 04/15/17 00:55 Ur Specific Silt >= 1.030 (1.005-1.035) 04/15/17 00:55 Urine Protein 100 mg/dL (<30 mg/dL) H 04/15/17 00:55 Urine Glucose (UA) Negative mg/dL (NEGATIVE) 04/15/17 00:55 Urine Ketones >=80 mg/dL (NEGATIVE) 04/15/17 00:55 Urine Blood Negative (NEGATIVE) 04/15/17 00:55 Urine Nitrate Negative (NEGATIVE) 04/15/17 00:55 Urine Bilirubin Moderate (NEGATIVE) H 04/15/17 00:55 Urine Urobilinogen 1.0 E.U./dL (<1 E.U./dL) H 04/15/17 00:55 Ur Leukocyte Esterase Negative Kristen/uL (NEGATIVE) 04/15/17 00:55 Urine RBC 0 - 2 /hpf (0-2) 04/15/17 00:55 Urine WBC 0 - 2 /hpf (0-6) 04/15/17 00:55 Ur Epithelial Cells 0 - 2 /hpf (0-5) 04/15/17 00:55 Urine Bacteria Rare (NEG) 04/15/17 00:55 Urine Opiates Screen Negative (NEGATIVE) 04/15/17 00:55 Urine Methadone Screen Negative (NEGATIVE) 04/15/17 00:55 Ur Barbiturates Screen Negative (NEGATIVE) 04/15/17 00:55 Ur Phencyclidine Scrn Negative (NEGATIVE) 04/15/17 00:55 Ur Amphetamines Screen Negative (NEGATIVE) 04/15/17 00:55 U Benzodiazepines Scrn Negative (NEGATIVE) 04/15/17 00:55 U Oth Cocaine Metabols Negative (NEGATIVE) 04/15/17 00:55 U Cannabinoids Screen Negative (NEGATIVE) 04/15/17 00:55 Alcohol, Quantitative < 10 mg/dL (0-10) 04/15/17 00:29 Hepatitis A IgM Ab Negative (NEGATIVE) 04/15/17 05:00 Hep Bs Antigen Negative (NEGATIVE) 04/15/17 05:00 Hep B Core IgM Ab Negative (NEGATIVE) 04/15/17 05:00 Hepatitis C Antibody Negative (NEGATIVE) 04/15/17 05:00 - Hospital Course Hospital Course: 47 yo M with PMH of chronic etoh abuse, hypertension, bipolar disorder, alcohol withdrawal delirium who presented to the ER complaining of auditory and visual hallucination. Symptoms started approximately 4 days prior to admission. He also reported regular alcohol abuse. Initially, patient presented in a psychotic state, in which he frequently looked past the interviewer at things that others cannot see; he could not provide answers to questions that were not yes/no. When asked about what he was seeing he said "everything". Patient was admitted for evaluation and treatment for possible alcohol withdrawal and hallucinations likely 2/2 to alcohol abuse. During hospital course, patient was placed on CIWA protocol with tapering doses of Librium and Ativan as needed. Patient tolerated treatment well with no signs of withdrawal. Pt co-morbidities were managed. Electrolytes were monitored and repleted as needed. LFT's were mildy elevated. Hep panel was ordered and was negative. Psych was consulted, who recommended outpatient follow up, but inpatient psychiatric admission was not necessary. Psych medications were adjusted. Today, patient was seen and examined at bedside. Pt denied any acute overnight events. As the patient was medically stable, he was discharged. Pt was counselled on the risks of alcohol use and cessation was strongly recommended. Pt was advised to call social work on 04/20/17 for alcohol rehabilitation referrals. Pt was also advised to stop Wellbutrin as it can lower his seizure threshold and to continue Seroquel and Trazodone. Pt was given prescriptions for folate, thiamine, and multivitamin. Discharge Diagnosis 1. Alcohol Abuse/Withdrawal 2. Hallucinations likely 2/2 alcohol abuse 3. Anion gap, resolved 4. Transaminitis, resolved 5. H/o HTN 6. Prolonged QT Discharge Medications - Folate once daily - Thiamine once daily - Multivitamin once daily Discharge Exam - Head Exam Head Exam: NORMAL INSPECTION - Eye Exam Eye Exam: Normal appearance - ENT Exam ENT Exam: Normal Exam - Neck Exam Neck exam: Normal Inspection - Respiratory Exam Respiratory Exam: Clear to PA & Lateral. absent: Accessory Muscle Use, Rales, Rhonchi, Wheezes, Respiratory Distress - GI/Abdominal Exam GI & Abdominal Exam: Soft. absent: Distended, Guarding, Rebound, Tenderness - Extremities Exam Extremities exam: normal inspection - Neurological Exam Neurological exam: Alert, Oriented x3 - Psychiatric Exam Psychiatric exam: Normal Affect, Normal Mood - Skin Skin Exam: Dry, Intact, Normal Color, Warm Discharge Plan - Discharge Medications Prescriptions: Folic Acid 1 mg PO DAILY #30 tab Multimineral/Multivitamin [Therapeutic-M Tab] 1 tab PO 0800 #30 tab Thiamine [Vitamin B1 Tab] 100 mg PO DAILY #30 tab - Follow Up Plan Condition: STABLE Disposition: HOME/ ROUTINE Instructions: Alcohol Withdrawal (DC), Suicide Prevention for Adults (DC), Hallucinations (DC) Additional Instructions: 1. Please follow up with your primary care physician in one week 2. Follow up with psych as outpatient 3. Call [facility] main line at [phone] and ask for social work. Speak to social work regarding alcohol rehab placement and facilities. 4. Discontinue Wellbutrin due to risk of seizures 5. Cont Trazodone and Seroquel as prescribed 6. Take daily Thiamine, Folate, and multivitamin 7. Resume other home medications as prescribed 8. If your symptoms worsen, please return to the Emergency Room. Referrals: Gely Nunn MD [Staff Provider] - <Anna Painting - Last Filed: 04/18/17 12:57> Provider - Provider Date of Admission: 04/15/17 02:35 Attending physician: Anna Painting MD Hospital Course - Lab Results Lab Results: Most Recent Lab Values WBC 5.0 10^3/ul (4.5-11.0) D 04/18/17 07:50 RBC 4.37 10^6/uL (3.5-6.1) 04/18/17 07:50 Hgb 12.9 g/dL (14.0-18.0) L 04/18/17 07:50 Hct 37.7 % (42.0-52.0) L 04/18/17 07:50 MCV 86.3 fl (80.0-105.0) 04/18/17 07:50 MCH 29.5 pg (25.0-35.0) 04/18/17 07:50 MCHC 34.2 g/dl (31.0-37.0) 04/18/17 07:50 RDW 14.9 % (11.5-14.5) H 04/18/17 07:50 Plt Count 86 10^3/uL (120.0-450.0) L 04/18/17 07:50 MPV 11.1 fl (7.0-11.0) H 04/18/17 07:50 Gran % 54.5 % (50.0-68.0) 04/18/17 07:50 Lymph % (Auto) 35.3 % (22.0-35.0) H 04/18/17 07:50 Fulton % (Auto) 9.0 % (1.0-6.0) H 04/18/17 07:50 Eos % (Auto) 0.8 % (1.5-5.0) L 04/18/17 07:50 Baso % (Auto) 0.4 % (0.0-3.0) 04/18/17 07:50 Gran # 2.73 (1.4-6.5) 04/18/17 07:50 Lymph # 1.8 (1.2-3.4) 04/18/17 07:50 Fulton # 0.5 (0.1-0.6) 04/18/17 07:50 Eos # 0.0 (0.0-0.7) 04/18/17 07:50 Baso # 0.02 K/mm3 (0.0-2.0) 04/18/17 07:50 Neutrophils % (Manual) 68 % (50.0-70.0) 04/15/17 00:29 Band Neutrophils % 4 % (0-2) H 04/15/17 00:29 Lymphocytes % (Manual) 23 % (22.0-35.0) 04/15/17 00:29 Monocytes % (Manual) 5 % (1.0-6.0) 04/15/17 00:29 Platelet Evaluation Normal (NORMAL) 04/15/17 00:29 PT 10.7 SECONDS (9.4-12.5) 04/15/17 00:29 INR 0.98 (0.93-1.08) 04/15/17 00:29 APTT 28.4 Seconds (25.1-36.5) 04/15/17 00:29 pO2 155 mm/Hg (30-55) H 04/15/17 04:25 VBG pH 7.44 (7.32-7.43) H 04/15/17 04:25 VBG pCO2 33.0 (40-60) L 04/15/17 04:25 VBG HCO3 22.4 mmol/l (21-28) 04/15/17 04:25 VBG Total CO2 23.4 mmol.L (22-28) 04/15/17 04:25 VBG O2 Sat (Calc) 99.6 % (40-65) H 04/15/17 04:25 VBG Base Excess -1.1 mmol/L (0.0-2.0) L 04/15/17 04:25 VBG Potassium 3.1 mmol/L (3.6-5.2) L 04/15/17 04:25 Sodium 131.0 mmol/L (132-148) L 04/15/17 04:25 Chloride 99.0 mmol/L (98-107) 04/15/17 04:25 Glucose 104 mg/dl (75-110) 04/15/17 04:25 Lactate 0.9 mmol/L (0.7-2.1) 04/15/17 04:25 FiO2 21.0 % 04/15/17 04:25 Sodium 136 mmol/L (132-148) 04/18/17 07:50 Potassium 3.6 mmol/L (3.6-5.0) 04/18/17 07:50 Chloride 106 mmol/L (98-107) 04/18/17 07:50 Carbon Dioxide 25 mmol/L (21-33) 04/18/17 07:50 Anion Gap 9 (10-20) L 04/18/17 07:50 BUN 8 mg/dL (7-21) 04/18/17 07:50 Creatinine 0.7 mg/dl (0.8-1.5) L 04/18/17 07:50 Est GFR ( Amer) > 60 04/18/17 07:50 Est GFR (Non-Af Amer) > 60 04/18/17 07:50 Random Glucose 95 mg/dL (70-110) 04/18/17 07:50 Calcium 8.7 mg/dL (8.4-10.5) 04/18/17 07:50 Phosphorus 3.1 mg/dL (2.5-4.5) 04/16/17 05:15 Magnesium 1.8 mg/dL (1.7-2.2) 04/18/17 07:50 Total Bilirubin 0.3 mg/dL (0.2-1.3) 04/18/17 07:50 AST 44 U/L (17-59) 04/18/17 07:50 ALT 63 U/L (7-56) H 04/18/17 07:50 Alkaline Phosphatase 81 U/L (38-126) 04/18/17 07:50 Lactate Dehydrogenase 549 U/L (333-699) 04/15/17 00:29 Total Creatine Kinase 511 U/L (35-230) H 04/15/17 00:29 CK-MB (CK-2) 4.8 ng/mL (0.0-3.6) H 04/15/17 00:29 CK-MB (CK-2) % Cancelled 04/15/17 00:29 Troponin I < 0.01 ng/mL 04/15/17 00:29 Total Protein 5.9 g/dL (5.8-8.3) 04/18/17 07:50 Albumin 3.4 g/dL (3.0-4.8) 04/18/17 07:50 Globulin 2.5 gm/dL 04/18/17 07:50 Albumin/Globulin Ratio 1.3 (1.1-1.8) 04/18/17 07:50 Venous Blood Potassium 3.1 mmol/L (3.6-5.2) L 04/15/17 04:25 Urine Color Yellow (YELLOW) 04/15/17 00:55 Urine Appearance Clear (CLEAR) 04/15/17 00:55 Urine pH 6.0 (4.7-8.0) 04/15/17 00:55 Ur Specific Silt >= 1.030 (1.005-1.035) 04/15/17 00:55 Urine Protein 100 mg/dL (<30 mg/dL) H 04/15/17 00:55 Urine Glucose (UA) Negative mg/dL (NEGATIVE) 04/15/17 00:55 Urine Ketones >=80 mg/dL (NEGATIVE) 04/15/17 00:55 Urine Blood Negative (NEGATIVE) 04/15/17 00:55 Urine Nitrate Negative (NEGATIVE) 04/15/17 00:55 Urine Bilirubin Moderate (NEGATIVE) H 04/15/17 00:55 Urine Urobilinogen 1.0 E.U./dL (<1 E.U./dL) H 04/15/17 00:55 Ur Leukocyte Esterase Negative Kristen/uL (NEGATIVE) 04/15/17 00:55 Urine RBC 0 - 2 /hpf (0-2) 04/15/17 00:55 Urine WBC 0 - 2 /hpf (0-6) 04/15/17 00:55 Ur Epithelial Cells 0 - 2 /hpf (0-5) 04/15/17 00:55 Urine Bacteria Rare (NEG) 04/15/17 00:55 Urine Opiates Screen Negative (NEGATIVE) 04/15/17 00:55 Urine Methadone Screen Negative (NEGATIVE) 04/15/17 00:55 Ur Barbiturates Screen Negative (NEGATIVE) 04/15/17 00:55 Ur Phencyclidine Scrn Negative (NEGATIVE) 04/15/17 00:55 Ur Amphetamines Screen Negative (NEGATIVE) 04/15/17 00:55 U Benzodiazepines Scrn Negative (NEGATIVE) 04/15/17 00:55 U Oth Cocaine Metabols Negative (NEGATIVE) 04/15/17 00:55 U Cannabinoids Screen Negative (NEGATIVE) 04/15/17 00:55 Alcohol, Quantitative < 10 mg/dL (0-10) 04/15/17 00:29 Hepatitis A IgM Ab Negative (NEGATIVE) 04/15/17 05:00 Hep Bs Antigen Negative (NEGATIVE) 04/15/17 05:00 Hep B Core IgM Ab Negative (NEGATIVE) 04/15/17 05:00 Hepatitis C Antibody Negative (NEGATIVE) 04/15/17 05:00 Attending/Attestation - Attestation I have personally seen and examined this patient.: Yes I have fully participated in the care of the patient.: Yes I have reviewed all pertinent clinical information, including history, physical exam and plan: Yes Notes (Text): I have seen and examined the patient at bedside. Agree with the above note with the following additions/ exceptions: Briefly this is 47 year old male with history of HTN, alcohol abuse/ alcohol withdrawal, bipolar disorder, who was admitted for evaluation of bizarre behavior. Today he is alert, oriented to time , place and person. This morning he denies headache, diaphoresis, nausea, vomiting, abdominal pain or any other complaints. His librium was tapered slowly. His medications were adjusted by psychiatrist. Counselling provided regarding alcohol abuse. Patient reports that he stops taking his medications whenever he relapses. Patient already has information for however he would like to receive more information about [facility]. Patient states that he has a business card of director social service who works in [facility] and he is planning to call him/ her on after long weekend. We also gave hospital number and advised to call director social service on Wednesday. Psych consult appreciated. His medications were adjusted. PT cleared the patient. Upon discharge patient will follow up with Dr Baez. Dr Anna Painting
== END 2017-04-18 12:20 | disposition home or self-care (01) | DRG 750 ==
LOC: ED 00:04 → ERH 02:35 → 2RSO 04:11 → 5RNO 04-16 16:37
PROVIDERS: ADMIT Internal Medicine; ATTEND Hospitalist
DX: F10.231 Alcohol dependence with withdrawal delirium (principal); E86.0 Dehydration; F10.251 Alcohol dependence with alcohol-induced psychotic disorder with hallucinations; E87.6 Hypokalemia; F31.9 Bipolar disorder, unspecified; I10 Essential (primary) hypertension; Y90.0 Blood alcohol level of less than 20 mg/100 ml; I45.81 Long QT syndrome; R74.0 Nonspecific elevation of levels of transaminase and lactic acid dehydrogenase [LDH]

== ENCOUNTER 2017-05-12 18:00 | Inpatient (IN) | payer MEDICAID ==
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
[2017-05-12 19:34] LABS: BASO # 0.01 K/mm3 (0.0-2.0); BASO % 0.2 % (0.0-3.0); EOS % 0.3 % (1.5-5.0); GRAN # 4.56 (1.4-6.5); GRAN % 74.8 % (50.0-68.0); HEMOGLOBIN 13.6 g/dL (14.0-18.0); LYMPH % 15.7 % (22.0-35.0); MEAN CELL VOLUME 84.6 fl (80.0-105.0); MEAN CORPUSCULAR HGB CONC 34.3 g/dl (31.0-37.0); MEAN PLATELET VOLUME 11.3 fl (7.0-11.0); MONO # 0.6 (0.1-0.6); RBC 4.69 10^6/uL (3.5-6.1); RED CELL DISTRIBUTION WIDTH 14.3 % (11.5-14.5); WHITE BLOOD COUNT 6.1 10^3/ul (4.5-11.0)
[2017-05-12 19:44] LABS: ACETAMINOPHEN < 10.0 ug/ml (10.0-20.0); SALICYLATE < 1 mg/dL (2.0-20.0)
[2017-05-12 19:51] LABS: ALB/GLOB RATIO 1.4 (1.1-1.8); ALBUMIN 3.9 g/dL (3.0-4.8); ALT/SGPT 70 U/L (7-56); AST/SGOT 59 U/L (17-59); BLOOD UREA NITROGEN 8 mg/dL (7-21); CALCIUM 9.4 mg/dL (8.4-10.5); GFR AFRICAN-AMERICAN > 60; GFR NON-AFRICAN AMERICAN > 60
[2017-05-12] MEDS ORDERED: Pedialyte 1000 ml PO ONE (20:10)
[2017-05-12 20:19] LABS: PH,URINE 6.5 (4.7-8.0); URINE BILIRUBIN NEGATIVE (NEGATIVE); URINE BLOOD NEGATIVE (NEGATIVE); URINE GLUCOSE (UA) NEGATIVE (NEGATIVE); URINE LEUKOCYTE ESTERASE NEGATIVE Leu/uL (NEGATIVE); URINE NITRATE NEGATIVE (NEGATIVE); URINE PROTEIN NEGATIVE mg/dL (<30 mg/dL); URINE UROBILINOGEN 0.2 E.U./dL (<1 E.U./dL)
[2017-05-12 20:21] LABS: URINE APPEARANCE CLEAR (CLEAR); URINE COLOR YELLOW (YELLOW)
[2017-05-12 20:37] LABS: BARBITURATES, UR NEGATIVE (NEGATIVE); BENZODIAZEPINES, UR NEGATIVE (NEGATIVE); OPIATES, UR NEGATIVE (NEGATIVE); PHENCYCLIDINE, UR NEGATIVE (NEGATIVE)
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
[2017-05-12] MEDS ORDERED: Multivitamin (MVI) 10 ML, Thiamine 100 MG, Folic Acid 1 MG in Sodium Chloride 0.9% 1,00... IV ONE (22:37)
[2017-05-12] MEDS: Lactated Ringer's 1,000 ML IV SCH (23:11)
[2017-05-13 00:55] VITALS: BMI 25.7
[2017-05-13 07:10] LABS: BASO # 0.01 K/mm3 (0.0-2.0); BASO % 0.2 % (0.0-3.0); EOS # 0.1 (0.0-0.7); EOS % 1.2 % (1.5-5.0); GRAN # 2.39 (1.4-6.5); GRAN % 58.8 % (50.0-68.0); HEMOGLOBIN 12.5 g/dL (14.0-18.0); LYMPH # 1.2 (1.2-3.4); MEAN CELL VOLUME 85.9 fl (80.0-105.0); MEAN CORPUSCULAR HEMOGLOBIN 28.9 pg (25.0-35.0); MEAN CORPUSCULAR HGB CONC 33.7 g/dl (31.0-37.0); MEAN PLATELET VOLUME 11.5 fl (7.0-11.0); MONO # 0.4 (0.1-0.6); MONO % 10.8 % (1.0-6.0); RBC 4.32 10^6/uL (3.5-6.1); RED CELL DISTRIBUTION WIDTH 14.6 % (11.5-14.5); WHITE BLOOD COUNT 4.1 10^3/ul (4.5-11.0)
[2017-05-13 07:35] LABS: ALB/GLOB RATIO 1.3 (1.1-1.8); ALBUMIN 3.5 g/dL (3.0-4.8); ALT/SGPT 64 U/L (7-56); AST/SGOT 48 U/L (17-59); BLOOD UREA NITROGEN 7 mg/dL (7-21); CALCIUM 9.3 mg/dL (8.4-10.5); GFR AFRICAN-AMERICAN > 60; GFR NON-AFRICAN AMERICAN > 60; MAGNESIUM 1.6 mg/dL (1.7-2.2)
[2017-05-13] MEDS: Multivitamin Therapeutic Tab PO SCH (09:12)
[2017-05-13] MEDS ORDERED: Potassium Chloride 20 mEq ER Tab PO ONE (09:33)
[2017-05-13] MEDS ORDERED: Magnesium Sulfate 2 GM in Sodium Chloride 0.9% 100 ML IVPB ONE (09:34)
--- NOTE | 2017-05-13 09:38 | RAD ---
HISTORY: PES eval COMPARISON: 04/15/2017. FINDINGS: LUNGS: The lungs are well inflated and clear. PLEURA: No significant pleural effusion identified, no pneumothorax apparent. CARDIOVASCULAR: Normal. OSSEOUS STRUCTURES: No significant abnormalities. VISUALIZED UPPER ABDOMEN: Normal. OTHER FINDINGS: None. IMPRESSION: No active pulmonary disease.
--- NOTE | 2017-05-13 11:00 | CP.PCM.PN ---
<Trixie Singletary - Last Filed: 05/13/17 10:56> Subjective - Date & Time of Evaluation Date of Evaluation: 05/13/17 Time of Evaluation: 07:30 - Subjective Subjective: Trixie Singletary DO PGY1 - IM Progress Note patient seen and examined at bedside. Nurse reports that patient has been very agitated, though is adequately sedated with current ativan regimen. Nurse also reports that patient did eat and drink a small amount of his breakfast. Patient is very confused, and ROS is limited by his current mental status, as patient is awake and alert, but not oriented to person, place, or time. Despite this, he has no particular complaints, and denies any chest pain, shortness of breath , or headache. Objective - Vital Signs/Intake and Output Vital Signs (last 24 hours): Temp Pulse Resp BP Pulse Ox 98.4 F 120 H 22 154/92 H 99 05/13/17 06:00 05/13/17 06:00 05/13/17 06:00 05/13/17 06:00 05/13/17 06:00 Intake and Output: 05/13/17 05/13/17 06:59 18:59 Intake Total 1230 Balance 1230 - Medications Medications: Current Medications Famotidine (Pepcid) 40 mg PO HS [facility] Folic Acid (Folic Acid) 1 mg PO DAILY [facility] Last Admin: 05/13/17 09:12 Dose: 1 mg Lactated Ringer's (Lactated Ringer's) 1,000 mls @ 75 mls/hr IV .[id number] [facility] Last Admin: 05/12/17 23:11 Dose: 75 mls/hr Lorazepam (Ativan) 2 mg IVP Q6H [facility] PRN Reason: Protocol Last Admin: 05/13/17 04:48 Dose: 2 mg Lorazepam (Ativan) 1 mg IVP Q2H PRN; Protocol PRN Reason: Symptoms of alcohol withdrawl Last Admin: 05/13/17 09:12 Dose: 1 mg Multivitamins (Thera Tab) 1 tab PO 0800 [facility] Last Admin: 05/13/17 09:12 Dose: 1 tab Thiamine HCl (Vitamin B1 Tab) 100 mg PO DAILY [facility] Last Admin: 05/13/17 09:12 Dose: 100 mg - Labs Labs: 05/13/17 06:00 05/13/17 06:00 - Constitutional Appears: No Acute Distress, Combative, Agitated, Confused - Head Exam Head Exam: ATRAUMATIC, NORMOCEPHALIC - Eye Exam Eye Exam: EOMI, Normal appearance, PERRL - ENT Exam ENT Exam: Mucous Membranes Moist - Neck Exam Neck Exam: Normal Inspection - Respiratory Exam Respiratory Exam: Clear to Ausculation Bilateral, NORMAL BREATHING PATTERN - Cardiovascular Exam Cardiovascular Exam: RRR, +S1, +S2 - GI/Abdominal Exam GI & Abdominal Exam: Soft, Normal Bowel Sounds. absent: Tenderness - Extremities Exam Extremities Exam: Full ROM, Normal Inspection. absent: Calf Tenderness, Pedal Edema - Neurological Exam Neurological Exam: Alert, Awake. absent: Oriented x3 Additional comments: Patient is restrained, but actively trying to break restraints. Moving all four extremities spontaneously. Opening eyes and speaking spontaneously. Answering questions, but inappropriately. - Psychiatric Exam Psychiatric exam: Agitated, Manic - Skin Skin Exam: Dry, Intact, Normal Color Assessment and Plan - Assessment and Plan (Free Text) Assessment: Patient is a 47 year old male with past medical history of HTN, Chronic ETOH abuse, bipolar disorder who was admitted for evaluation and treatment of auditory and visual hallucinations. Ethanol Abuse, Potential Withdrawal - CIWA - high risk fall precautions - seizure precautions - ativan 2mg q6 scheduled - ativan 1mg q2 prn withdrawl symptoms - consider adding librium or geodon if sxs are not controlled - Continue multivitamin, thiamine, and folate supplement Auditory and Visual Hallucinations; Hx of Bipolar Disorder - confirm home dosage of wellbutrin and seroquel prior to starting and pending psych recs - patient unable to provide any answers regarding home medications or pharmacy where he gets his medications - psychiatry consulted- appreciate recommendations - safe tray Elevated LFTs - Downtrending - hepatits panel pending - HIV rapid screen pending Anemia - Chronic; on admission, patient was likely slightly hemoconcentrated; after IVF , H&H now at baseline - Continue to monitor Hyponatremia - Resolved - Urine studies pending Abnormal EKG - Repeat EKG again shows sinus rhythm with PVCs and prolonged QT - Possibly 2/2 hypokalemia; corrected - Avoid QT prolonging medications - Continue to monitor on telemetry Hx of Htn - confirm home dosage of lopressor prior to starting - hydralazine 5mg IV q6 prn SBP > 180, holding parameters- do not administer if HR is > 100 bpm - PRN lopressor added for tachycardia >120 - hold if SBP<110 Prophylaxis - DVT ppx- scds - GI ppx- famotidine Patient case discussed with and plan approved by attending Dr. Corea. <Agustin Corea - Last Filed: 05/13/17 15:32> Objective - Vital Signs/Intake and Output Vital Signs (last 24 hours): Temp Pulse Resp BP Pulse Ox 97.9 F 60 20 147/91 H 99 05/13/17 12:00 05/13/17 12:00 05/13/17 12:00 05/13/17 12:00 05/13/17 06:00 Intake and Output: 05/13/17 05/13/17 06:59 18:59 Intake Total 1230 Balance 1230 - Medications Medications: Current Medications Famotidine (Pepcid) 40 mg PO HS [facility] Folic Acid (Folic Acid) 1 mg PO DAILY [facility] Last Admin: 05/13/17 09:12 Dose: 1 mg Hydralazine HCl (Apresoline) 5 mg IVP Q6 PRN PRN Reason: SBP>180, hold if HR>100 Folic Acid 1 mg/ Thiamine HCl 100 mg/ Multivitamins/Vitamin C 10 ml/ Potassium Chloride 40 meq/ Magnesium Sulfate 1 gm/Dextrose 1,033.2 mls @ 100 mls/hr IV .[id number] [facility] Lorazepam (Ativan) 2 mg IVP Q6H [facility] PRN Reason: Protocol Last Admin: 05/13/17 11:18 Dose: 2 mg Lorazepam (Ativan) 1 mg IVP Q2H PRN; Protocol PRN Reason: Symptoms of alcohol withdrawl Last Admin: 05/13/17 09:12 Dose: 1 mg Metoprolol Tartrate (Lopressor) 5 mg IVP Q6H PRN PRN Reason: HR>120, hold if SBP<110 Multivitamins (Thera Tab) 1 tab PO 0800 [facility] Last Admin: 05/13/17 09:12 Dose: 1 tab Thiamine HCl (Vitamin B1 Tab) 100 mg PO DAILY [facility] Last Admin: 05/13/17 09:12 Dose: 100 mg - Labs Labs: 05/13/17 06:00 05/13/17 06:00 Attending/Attestation - Attestation I have personally seen and examined this patient.: Yes I have fully participated in the care of the patient.: Yes I have reviewed all pertinent clinical information, including history, physical exam and plan: Yes Notes (Text): 05/13/17 15:27 Attending note; Patient seen and examined with resident. Patient is currently sedated with Ativan. One-to-one by the bedside. Patient was apparently alert and ate breakfast. Patient is a 47-year-old male well-known to our service secondary to chronic alcohol abuse and depression is admitted with alcohol withdrawal symptoms. Patient was given IV Ativan. Continue seizure protocol. Continue Ativan. Continue CIWA protocol. Hallucinations; secondary to alcohol withdrawal. Psychiatric evaluation requested. Hypokalemia/hypomagnesemia; continue IV fluids with IV magnesium and IV potassium.thrombocytopenia; secondary to alcohol-induced bone marrow suppression. Continue to monitor closely. History of depression; psychiatric evaluation requested. Prognosis is poor secondary to continuous alcohol use and noncompliance with follow-up.
[2017-05-13] MEDS ORDERED: Metoprolol 1 mg/ml Inj IVP PRN (11:08)
[2017-05-13] MEDS: Lactated Ringer's 1,000 ML IV SCH (12:05)
[2017-05-13] MEDS: POTASSIUM CHLORIDE IV SCH (17:41)
[2017-05-13] MEDS: [UNRECOGNIZED DRUG - OTHER] IV SCH (17:41)
[2017-05-13] MEDS: MULTIVITAMIN IV SCH (17:41)
[2017-05-13] MEDS: THIAMINE IV SCH (17:41)
[2017-05-13] MEDS: FOLIC ACID IV SCH (17:41)
--- NOTE | 2017-05-13 18:05 | CARD ---
APPROVED REPORT EKG Measurement Heart [id number] <Conclusion> Sinus rhythm with occasional premature ventricular complexes Prolonged QT Abnormal ECG
--- NOTE | 2017-05-13 18:15 | CARD ---
APPROVED REPORT EKG Measurement Heart [id number] [place] [id number] <Conclusion> Sinus rhythm with fusion complexes Prolonged QT Abnormal ECG
--- NOTE | 2017-05-13 18:16 | CARD ---
APPROVED REPORT EKG Measurement Heart [id number] <Conclusion> Sinus rhythm with frequent premature ventricular complexes Prolonged QT Abnormal ECG
[2017-05-14] MEDS: MULTIVITAMIN IV SCH (03:59)
[2017-05-14] MEDS: THIAMINE IV SCH (03:59)
[2017-05-14] MEDS: POTASSIUM CHLORIDE IV SCH (03:59)
[2017-05-14] MEDS: [UNRECOGNIZED DRUG - OTHER] IV SCH (03:59)
[2017-05-14] MEDS: FOLIC ACID IV SCH (03:59)
[2017-05-14 06:25] LABS: BASO # 0.01 K/mm3 (0.0-2.0); BASO % 0.2 % (0.0-3.0); EOS # 0.1 (0.0-0.7); GRAN # 2.5 (1.4-6.5); GRAN % 55.8 % (50.0-68.0); HEMOGLOBIN 12.5 g/dL (14.0-18.0); LYMPH # 1.4 (1.2-3.4); LYMPH % 31.5 % (22.0-35.0); MEAN CELL VOLUME 88.1 fl (80.0-105.0); MEAN CORPUSCULAR HEMOGLOBIN 29.2 pg (25.0-35.0); MEAN CORPUSCULAR HGB CONC 33.2 g/dl (31.0-37.0); MEAN PLATELET VOLUME 11.5 fl (7.0-11.0); MONO # 0.5 (0.1-0.6); MONO % 10.5 % (1.0-6.0); RBC 4.28 10^6/uL (3.5-6.1); RED CELL DISTRIBUTION WIDTH 14.8 % (11.5-14.5); WHITE BLOOD COUNT 4.5 10^3/ul (4.5-11.0)
[2017-05-14 07:04] LABS: ALB/GLOB RATIO 1.3 (1.1-1.8); ALBUMIN 3.3 g/dL (3.0-4.8); ALT/SGPT 63 U/L (7-56); AST/SGOT 47 U/L (17-59); BLOOD UREA NITROGEN 5 mg/dL (7-21); CALCIUM 8.7 mg/dL (8.4-10.5); GFR AFRICAN-AMERICAN > 60; GFR NON-AFRICAN AMERICAN > 60
[2017-05-14] MEDS: Multivitamin Therapeutic Tab PO SCH (08:04)
[2017-05-14 14:09] VITALS: RESP 18; TEMP 97.5; O2SAT 98
[2017-05-14 17:41] VITALS: BP 131/95; PULSE 61
--- NOTE | 2017-05-14 17:41 | CP.PCM.DIS ---
<Trixie Singletary - Last Filed: 05/14/17 17:37> Provider - Provider Date of Admission: 05/12/17 22:09 Attending physician: Agustin Corea MD Consults: Psych: Bella Time Spent in preparation of Discharge (in minutes): 45 Diagnosis - Discharge Diagnosis (1) Alcohol withdrawal Status: Acute (2) Auditory hallucination Status: Acute (3) Visual hallucinations Status: Acute Hospital Course - Lab Results Lab Results: Most Recent Lab Values WBC 4.5 10^3/ul (4.5-11.0) 05/14/17 05:20 RBC 4.28 10^6/uL (3.5-6.1) 05/14/17 05:20 Hgb 12.5 g/dL (14.0-18.0) L 05/14/17 05:20 Hct 37.7 % (42.0-52.0) L 05/14/17 05:20 MCV 88.1 fl (80.0-105.0) 05/14/17 05:20 MCH 29.2 pg (25.0-35.0) 05/14/17 05:20 MCHC 33.2 g/dl (31.0-37.0) 05/14/17 05:20 RDW 14.8 % (11.5-14.5) H 05/14/17 05:20 Plt Count 73 10^3/uL (120.0-450.0) L 05/14/17 05:20 MPV 11.5 fl (7.0-11.0) H 05/14/17 05:20 Gran % 55.8 % (50.0-68.0) 05/14/17 05:20 Lymph % (Auto) 31.5 % (22.0-35.0) 05/14/17 05:20 [place] % (Auto) 10.5 % (1.0-6.0) H 05/14/17 05:20 Eos % (Auto) 2.0 % (1.5-5.0) 05/14/17 05:20 Baso % (Auto) 0.2 % (0.0-3.0) 05/14/17 05:20 Gran # 2.50 (1.4-6.5) 05/14/17 05:20 Lymph # 1.4 (1.2-3.4) 05/14/17 05:20 [place] # 0.5 (0.1-0.6) 05/14/17 05:20 Eos # 0.1 (0.0-0.7) 05/14/17 05:20 Baso # 0.01 K/mm3 (0.0-2.0) 05/14/17 05:20 Sodium 136 mmol/L (132-148) 05/14/17 05:20 Potassium 3.9 mmol/L (3.6-5.0) 05/14/17 05:20 Chloride 104 mmol/L (98-107) 05/14/17 05:20 Carbon Dioxide 25 mmol/L (21-33) 05/14/17 05:20 Anion Gap 11 (10-20) 05/14/17 05:20 BUN 5 mg/dL (7-21) L 05/14/17 05:20 Creatinine 0.7 mg/dl (0.8-1.5) L 05/14/17 05:20 Est GFR ( Amer) > 60 05/14/17 05:20 Est GFR (Non-Af Amer) > 60 05/14/17 05:20 Random Glucose 94 mg/dL (70-110) 05/14/17 05:20 Serum Osmolality 281 mosm/kg (272-300) 05/12/17 23:10 Calcium 8.7 mg/dL (8.4-10.5) 05/14/17 05:20 Phosphorus 2.5 mg/dL (2.5-4.5) 05/13/17 06:00 Magnesium 1.6 mg/dL (1.7-2.2) L 05/13/17 06:00 Total Bilirubin 0.6 mg/dL (0.2-1.3) 05/14/17 05:20 AST 47 U/L (17-59) 05/14/17 05:20 ALT 63 U/L (7-56) H 05/14/17 05:20 Alkaline Phosphatase 76 U/L (38-126) 05/14/17 05:20 Total Protein 5.8 g/dL (5.8-8.3) 05/14/17 05:20 Albumin 3.3 g/dL (3.0-4.8) 05/14/17 05:20 Globulin 2.5 gm/dL 05/14/17 05:20 Albumin/Globulin Ratio 1.3 (1.1-1.8) 05/14/17 05:20 Urine Color Yellow (YELLOW) 05/12/17 20:00 Urine Appearance Clear (CLEAR) 05/12/17 20:00 Urine pH 6.5 (4.7-8.0) 05/12/17 20:00 Ur Specific [place] <= 1.005 (1.005-1.035) 05/12/17 20:00 Urine Protein Negative mg/dL (<30 mg/dL) 05/12/17 20:00 Urine Glucose (UA) Negative mg/dL (NEGATIVE) 05/12/17 20:00 Urine Ketones Trace mg/dL (NEGATIVE) H 05/12/17 20:00 Urine Blood Negative (NEGATIVE) 05/12/17 20:00 Urine Nitrate Negative (NEGATIVE) 05/12/17 20:00 Urine Bilirubin Negative (NEGATIVE) 05/12/17 20:00 Urine Urobilinogen 0.2 E.U./dL (<1 E.U./dL) 05/12/17 20:00 Ur Leukocyte Esterase Negative Kristen/uL (NEGATIVE) 05/12/17 20:00 Salicylates < 1 mg/dL (2.0-20.0) L 05/12/17 19:27 Urine Opiates Screen Negative (NEGATIVE) 05/12/17 20:00 Urine Methadone Screen Negative (NEGATIVE) 05/12/17 20:00 Acetaminophen < 10.0 ug/ml (10.0-20.0) L 05/12/17 19:27 Ur Barbiturates Screen Negative (NEGATIVE) 05/12/17 20:00 Ur Phencyclidine Scrn Negative (NEGATIVE) 05/12/17 20:00 Ur Amphetamines Screen Negative (NEGATIVE) 05/12/17 20:00 U Benzodiazepines Scrn Negative (NEGATIVE) 05/12/17 20:00 U Oth Cocaine Metabols Negative (NEGATIVE) 05/12/17 20:00 U Cannabinoids Screen Negative (NEGATIVE) 05/12/17 20:00 Alcohol, Quantitative < 10 mg/dL (0-10) 05/12/17 19:27 - Hospital Course Hospital Course: Patient is a 47 year old male with past medical history of HTN, Chronic ETOH abuse, bipolar disorder who was admitted for evaluation and treatment of auditory and visual hallucinations. Patient was noted to be in alcohol withdrawal with very high CIWA scores, and was treated with benzodiazepines and supportive care. patient was also hypertensive, secondary to medication noncompliance and alcohol withdrawal. Today, patient was much more coherent, awake, and alert; no longer confused. CIWA scores had improved significantly and patient was no longer requiring the as-needed benzodiazepines. Blood pressure also improved with resumption of his home medications, though still somewhat elevated secondary to alcohol withdrawal. Patient was seen by the psychiatrist and will be discharged to their service. Patient agrees with the transfer. Discussed abstinence from alcohol at length, and patient verbalized understanding and agreement. Patient was then discharged from the medical service to the psychiatric floor. Discharge Exam - Head Exam Head Exam: ATRAUMATIC, NORMOCEPHALIC - Eye Exam Eye Exam: EOMI, Normal appearance, PERRL Pupil Exam: absent: Miosis, Mydriatic - ENT Exam ENT Exam: Mucous Membranes Moist - Neck Exam Neck exam: Normal Inspection - Respiratory Exam Respiratory Exam: Clear to PA & Lateral, NORMAL BREATHING PATTERN - Cardiovascular Exam Cardiovascular Exam: RRR, +S1, +S2 - GI/Abdominal Exam GI & Abdominal Exam: Normal Bowel Sounds, Soft. absent: Tenderness - Extremities Exam Extremities exam: normal inspection - Neurological Exam Neurological exam: Alert, CN II-XII Intact, Oriented x3 Additional comments: No tremor, no asterixis - Psychiatric Exam Psychiatric exam: Normal Affect, Normal Mood - Skin Skin Exam: Dry, Intact, Normal Color Discharge Plan - Follow Up Plan Condition: GOOD Disposition: DISCHARGE TO PSYCH HOSPITAL Instructions: Metoprolol (By mouth), Clonidine (By mouth), Heart Healthy Diet ( GEN), Abuse of Alcohol (GEN), At-Risk Alcohol Use (GEN), Alcohol Dependence (GEN ) Additional Instructions: Transfer to psych. Continue all medications as currently prescribed Patient instructed to please call for assistance while on 5B, Psych unit. After being d/c from 5B, please follow up with primary physician and outpatient substance abuse rehabilitation to prevent the Substance abuse/Alcohol withdrawal. Heart Healthy diet, 2g sodium due to elevated blood pressure. <Agustin Corea - Last Filed: 05/15/17 13:43> Provider - Provider Date of Admission: 05/12/17 22:09 Attending physician: Agustin Corea MD Hospital Course - Lab Results Lab Results: Most Recent Lab Values WBC 4.5 10^3/ul (4.5-11.0) 05/14/17 05:20 RBC 4.28 10^6/uL (3.5-6.1) 05/14/17 05:20 Hgb 12.5 g/dL (14.0-18.0) L 05/14/17 05:20 Hct 37.7 % (42.0-52.0) L 05/14/17 05:20 MCV 88.1 fl (80.0-105.0) 05/14/17 05:20 MCH 29.2 pg (25.0-35.0) 05/14/17 05:20 MCHC 33.2 g/dl (31.0-37.0) 05/14/17 05:20 RDW 14.8 % (11.5-14.5) H 05/14/17 05:20 Plt Count 73 10^3/uL (120.0-450.0) L 05/14/17 05:20 MPV 11.5 fl (7.0-11.0) H 05/14/17 05:20 Gran % 55.8 % (50.0-68.0) 05/14/17 05:20 Lymph % (Auto) 31.5 % (22.0-35.0) 05/14/17 05:20 [place] % (Auto) 10.5 % (1.0-6.0) H 05/14/17 05:20 Eos % (Auto) 2.0 % (1.5-5.0) 05/14/17 05:20 Baso % (Auto) 0.2 % (0.0-3.0) 05/14/17 05:20 Gran # 2.50 (1.4-6.5) 05/14/17 05:20 Lymph # 1.4 (1.2-3.4) 05/14/17 05:20 [place] # 0.5 (0.1-0.6) 05/14/17 05:20 Eos # 0.1 (0.0-0.7) 05/14/17 05:20 Baso # 0.01 K/mm3 (0.0-2.0) 05/14/17 05:20 Sodium 136 mmol/L (132-148) 05/14/17 05:20 Potassium 3.9 mmol/L (3.6-5.0) 05/14/17 05:20 Chloride 104 mmol/L (98-107) 05/14/17 05:20 Carbon Dioxide 25 mmol/L (21-33) 05/14/17 05:20 Anion Gap 11 (10-20) 05/14/17 05:20 BUN 5 mg/dL (7-21) L 05/14/17 05:20 Creatinine 0.7 mg/dl (0.8-1.5) L 05/14/17 05:20 Est GFR ( Amer) > 60 05/14/17 05:20 Est GFR (Non-Af Amer) > 60 05/14/17 05:20 Random Glucose 94 mg/dL (70-110) 05/14/17 05:20 Serum Osmolality 281 mosm/kg (272-300) 05/12/17 23:10 Calcium 8.7 mg/dL (8.4-10.5) 05/14/17 05:20 Phosphorus 2.5 mg/dL (2.5-4.5) 05/13/17 06:00 Magnesium 1.6 mg/dL (1.7-2.2) L 05/13/17 06:00 Total Bilirubin 0.6 mg/dL (0.2-1.3) 05/14/17 05:20 AST 47 U/L (17-59) 05/14/17 05:20 ALT 63 U/L (7-56) H 05/14/17 05:20 Alkaline Phosphatase 76 U/L (38-126) 05/14/17 05:20 Total Protein 5.8 g/dL (5.8-8.3) 05/14/17 05:20 Albumin 3.3 g/dL (3.0-4.8) 05/14/17 05:20 Globulin 2.5 gm/dL 05/14/17 05:20 Albumin/Globulin Ratio 1.3 (1.1-1.8) 05/14/17 05:20 Urine Color Yellow (YELLOW) 05/12/17 20:00 Urine Appearance Clear (CLEAR) 05/12/17 20:00 Urine pH 6.5 (4.7-8.0) 05/12/17 20:00 Ur Specific [place] <= 1.005 (1.005-1.035) 05/12/17 20:00 Urine Protein Negative mg/dL (<30 mg/dL) 05/12/17 20:00 Urine Glucose (UA) Negative mg/dL (NEGATIVE) 05/12/17 20:00 Urine Ketones Trace mg/dL (NEGATIVE) H 05/12/17 20:00 Urine Blood Negative (NEGATIVE) 05/12/17 20:00 Urine Nitrate Negative (NEGATIVE) 05/12/17 20:00 Urine Bilirubin Negative (NEGATIVE) 05/12/17 20:00 Urine Urobilinogen 0.2 E.U./dL (<1 E.U./dL) 05/12/17 20:00 Ur Leukocyte Esterase Negative Kristen/uL (NEGATIVE) 05/12/17 20:00 Salicylates < 1 mg/dL (2.0-20.0) L 05/12/17 19:27 Urine Opiates Screen Negative (NEGATIVE) 05/12/17 20:00 Urine Methadone Screen Negative (NEGATIVE) 05/12/17 20:00 Acetaminophen < 10.0 ug/ml (10.0-20.0) L 05/12/17 19:27 Ur Barbiturates Screen Negative (NEGATIVE) 05/12/17 20:00 Ur Phencyclidine Scrn Negative (NEGATIVE) 05/12/17 20:00 Ur Amphetamines Screen Negative (NEGATIVE) 05/12/17 20:00 U Benzodiazepines Scrn Negative (NEGATIVE) 05/12/17 20:00 U Oth Cocaine Metabols Negative (NEGATIVE) 05/12/17 20:00 U Cannabinoids Screen Negative (NEGATIVE) 05/12/17 20:00 Alcohol, Quantitative < 10 mg/dL (0-10) 05/12/17 19:27 Attending/Attestation - Attestation I have personally seen and examined this patient.: Yes I have fully participated in the care of the patient.: Yes I have reviewed all pertinent clinical information, including history, physical exam and plan: Yes Notes (Text): 05/15/17 13:42 Attending note; Patient seen and examined with resident. patient is completely alert, awake and oriented. Denies any hallucinations. Patient is a 47-year-old male well-known to our service secondary to chronic alcohol abuse and depression is admitted with alcohol withdrawal symptoms. Currently stable. Psychiatric evaluation appreciated. Transfer to psychiatric floor today. continue antidepressant per psychiatrist. Follow-up with PMD Dr. toribio upon discharge. Prognosis is poor secondary to continuous alcohol use and noncompliance with follow-up.
--- NOTE | 2017-05-15 22:27 | CON ---
DATE: 05/15/2017 HISTORY OF PRESENT ILLNESS: The patient is a 47-year-old male admitted for hallucinations. The patient is a chronic alcoholic. The patient has no previous cardiac history. No chest pain, no shortness of breath. PAST MEDICAL HISTORY: He denies chest pain, denies shortness of breath. REVIEW OF SYSTEMS: A 14-point review of systems was reviewed in detail. No cardiac symptomatology noted. PHYSICAL EXAMINATION: VITAL SIGNS: Stable. NECK: Negative JVD. LUNGS: Without rales. HEART: S1, S2. EXTREMITIES: Without edema. DIAGNOSTIC DATA: EKG is unremarkable. LABORATORY DATA: Hemoglobin is 12.5. Chemistries revealed a troponin that is negative. IMPRESSION: 1. Hypertension. 2. Alcoholism. 3. Alcoholic withdrawal. 4. Auditory hallucinations. 5. No evidence for acute cardiac issues at this time. Given these findings, would need to watch for the patient's alcohol withdrawal symptoms. We will transfer the care back to Dr. Rizo in the morning. Toan Salas MD
--- NOTE | 2017-05-17 08:47 | CON ---
DATE: 05/14/2017 He is being seen today for a consultation. HISTORY OF PRESENT ILLNESS: The patient is a 47-year-old male, seen at bedside. Consult was called due to concerns about the patient's hallucinations. The patient was admitted from the emergency room. On 05/12/2017, he told the emergency room staff that he was hearing voices from people who came from a wall. He was telling voices were telling someone to . He had stopped drinking alcohol three or four days prior and was in withdrawal. He was admitted medically to the unit, and when I saw him today, he was willing to sign into the psychiatric unit and be transferred there so we are awaiting medical clearance. This patient is known to me. I have seen him in the past on the floor on the medical side, the patient's sensorium has cleared. His thought is sluggish, but he is feeling more normal, and he is not having any delusional or hallucinatory experiences that he had been having for the last few days. He has been on the psychiatric unit in the past and has a past diagnosis of bipolar disorder. He gets his [facility] from [facility]. He has not taken them on a while. Whenever he starts drinking, he stops taking his psychiatric medications; they are trazodone, Wellbutrin, and Seroquel, but he is unable to tell me the dosages. The patient has a long history of alcoholism. It started when he was a teenager, and he has always been a blackout drinker, drinking to excess whenever he drinks. He has never , has no children, and he lives alone. He is very involved with his family, but has a feeling that they are little fed up with him and keeping their distance because they are facing with the fact that he has not gotten sober. 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 He grew up in [place], and he is number three of three siblings. His parents stays together, and he has contact with both his brother and sister. 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 VITAL SIGNS: Current vital signs include a pulse rate of 61 and a blood pressure of 131/95, prior it has been running high. He now has been on clonidine p.r.n. which is bringing it back down. LABORATORY DATA: His blood work is normalizing. MEDICATIONS: His current medications are Librium 10 mg p.o. t.i.d. p.r.n., Clonidine 0.1 mg p.o. b.i.d. scheduled, Pepcid, folic acid, Ativan 2 mg p.o. q.6 hours p.r.n., on alcohol withdrawal and Ativan 2 mg 1 p.o. t.i.d scheduled. He is also on Lopressor, , Seroquel 50 mg at bedtime, and thiamine 100 mg p.o. daily. MENTAL STATUS EXAM: The patient is alert and oriented x3. His eye contact is good. His behavior is cooperative. His speech, rate, and volume are within normal limits. Mood is euthymic. Affect is full. Thoughts are goal directed. He denies being suicidal or homicidal. Denies the presence of hallucinations, delusions, or paranoia. His concentration and his focus have still not fully normalized, and he feels very sluggish. His memory both short and penitentiary had been deficits, always does because of his blackout drinking. His appetite and his sleep are normalizing. DIAGNOSTIC IMPRESSION: Alcohol use disorder, severe chronic ongoing alcohol withdrawal, schizoaffective disorder. PLAN: The patient is not suicidal or homicidal at this time and appears in no imminent danger of hurting himself or others. Once medically clear, he is willing to sign into this psychiatric unit, and work on discharge plan in terms of rehab or in terms of outpatient for his alcoholism and depression. We will await medical clearance, there is a bed available for him, so he can be transferred as soon as he has cleared. We will follow the patient on Psychiatry. Thank you for the consult. Sabra Penny APN
== END 2017-05-14 18:55 | DRG 750 ==
LOC: ED 18:00 → ERH 22:09 → 3RSO 05-13 00:21
PROVIDERS: ADMIT Internal Medicine; ATTEND Internal Medicine
DX: F10.239 Alcohol dependence with withdrawal, unspecified (principal); E87.1 Hypo-osmolality and hyponatremia; D69.59 Other secondary thrombocytopenia; F25.9 Schizoaffective disorder, unspecified; E87.6 Hypokalemia; E83.42 Hypomagnesemia; D64.9 Anemia, unspecified; I10 Essential (primary) hypertension; Z91.19 Patient's noncompliance with other medical treatment and regimen; Z91.14 Patient's other noncompliance with medication regimen

== ENCOUNTER 2017-08-12 09:26 | Inpatient (IN) | payer MEDICAID ==
[2017-08-12] MEDS ORDERED: Multivitamin (MVI) 10 ML, Thiamine 100 MG, Folic Acid 1 MG in Sodium Chloride 0.9% 1,00... IV ONE (09:40)
[2017-08-12 09:49] VITALS: BMI 25.8
[2017-08-12 09:56] LABS: BASO # 0.01 K/mm3 (0.0-2.0); BASO % 0.1 % (0.0-3.0); EOS % 0.3 % (1.5-5.0); GRAN # 5.01 (1.4-6.5); GRAN % 72.6 % (50.0-68.0); HEMOGLOBIN 14.3 g/dL (14.0-18.0); LYMPH # 1.4 (1.2-3.4); LYMPH % 20.3 % (22.0-35.0); MEAN CELL VOLUME 82.8 fl (80.0-105.0); MEAN CORPUSCULAR HEMOGLOBIN 29.2 pg (25.0-35.0); MEAN CORPUSCULAR HGB CONC 35.3 g/dl (31.0-37.0); MEAN PLATELET VOLUME 10.4 fl (7.0-11.0); MONO # 0.5 (0.1-0.6); MONO % 6.7 % (1.0-6.0); RBC 4.89 10^6/uL (3.5-6.1); RED CELL DISTRIBUTION WIDTH 13.6 % (11.5-14.5); WHITE BLOOD COUNT 6.9 10^3/ul (4.5-11.0)
[2017-08-12 10:04] LABS: BLOOD UREA NITROGEN 6 mg/dL (7-21); GFR AFRICAN-AMERICAN > 60; GFR NON-AFRICAN AMERICAN > 60; INR 0.99 (0.93-1.08); PARTIAL THROMBOPLASTIN TIME 27.8 Seconds (25.1-36.5); PROTHROMBIN TIME 11.4 SECONDS (9.4-12.5)
[2017-08-12 10:05] LABS: ACETAMINOPHEN < 10.0 ug/ml (10.0-20.0); ALB/GLOB RATIO 1.8 (1.1-1.8); ALBUMIN 4.7 g/dL (3.0-4.8); ALT/SGPT 72 U/L (7-56); AST/SGOT 68 U/L (17-59); CALCIUM 9.5 mg/dL (8.4-10.5); SALICYLATE < 1 mg/dL (2.0-20.0)
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
--- NOTE | 2017-08-12 10:12 | RAD ---
HISTORY: admission COMPARISON: Comparison made with prior study 05/12/2017 FINDINGS: LUNGS: There appears to be some mild localized irregular nodular scarring changes in the left lower lung field. Lung dumont are otherwise clear. No focal consolidation. PLEURA: No significant pleural effusion identified, no pneumothorax apparent. CARDIOVASCULAR: Heart size within range of normal. OSSEOUS STRUCTURES: No significant abnormalities. VISUALIZED UPPER ABDOMEN: Normal. OTHER FINDINGS: None. IMPRESSION: No acute infiltrates. Probable nodular scarring left left lower lung field.
[2017-08-12 10:15] LABS: TROPONIN I < 0.01 ng/mL
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
[2017-08-12] MEDS: Multivitamin Therapeutic Tab PO SCH (14:19)
[2017-08-12] MEDS ORDERED: Pneumococcal 23-Valent Vaccine IM ONE (16:32)
[2017-08-13 06:31] LABS: BASO # 0.01 K/mm3 (0.0-2.0); BASO % 0.3 % (0.0-3.0); EOS # 0.1 (0.0-0.7); EOS % 1.8 % (1.5-5.0); GRAN # 2.03 (1.4-6.5); GRAN % 53.4 % (50.0-68.0); HEMOGLOBIN 12.4 g/dL (14.0-18.0); LYMPH # 1.4 (1.2-3.4); LYMPH % 37.9 % (22.0-35.0); MEAN CELL VOLUME 84.3 fl (80.0-105.0); MEAN CORPUSCULAR HEMOGLOBIN 28.6 pg (25.0-35.0); MEAN CORPUSCULAR HGB CONC 33.9 g/dl (31.0-37.0); MEAN PLATELET VOLUME 10.5 fl (7.0-11.0); MONO # 0.3 (0.1-0.6); MONO % 6.6 % (1.0-6.0); RBC 4.34 10^6/uL (3.5-6.1); RED CELL DISTRIBUTION WIDTH 13.8 % (11.5-14.5); WHITE BLOOD COUNT 3.8 10^3/ul (4.5-11.0)
--- NOTE | 2017-08-13 07:00 | CP.PCM.PN ---
<Carlos A Perez - Last Filed: 08/13/17 11:41> Subjective - Date & Time of Evaluation Date of Evaluation: 08/13/17 Time of Evaluation: 07:45 - Subjective Subjective: Subjective: Patient seen and examined. No acute events overnight. More awake, alert. Now orientated x 3. States he recalls binge drinking over the weekend and stopping ETOH intake on 08/11/2017. Denies SI and HI. Denies auditory and visual hallucinations. Denies fever, chills, chest pain, shortness of breath, abdominal pain, nausea, vomiting, diarrhea, constipation, and urinary symptoms. 12-point review of systems negative except as indicated in the HPI Physical Examination: - Constitutional Appears: Non-toxic, No Acute Distress - Head Exam Head Exam: atraumatic, normocephalic - Eye Exam Eye Exam: Normal appearance - ENT Exam ENT Exam: Mucous Membranes Moist - Neck Exam Neck exam: Normal Inspection - Respiratory Exam Respiratory Exam: Normal Breathing Pattern - Cardiovascular Exam Cardiovascular Exam: +S1, +S2. absent: Gallop, JVD - GI/Abdominal Exam GI & Abdominal Exam: Normal Bowel Sounds, absent: Distended, Guarding, Pulsatile Mass, Rebound, Rigid - Extremities Exam Extremities exam: Negative for: calf tenderness - Neurological Exam Neurological exam: Patient is awake, alert, AAO x3, responds to verbal stimuli, answer questions appropriately, follows commands, moves extremities past midline - Skin Skin Exam: warm and dry Assessment and Plan: Patient is a 47 year old male with past medical history of HTN, Chronic ETOH abuse, bipolar disorder who was admitted for evaluation and treatment of auditory hallucinations and paranoia. Ethanol Abuse, Potential Withdrawal - CIWA - high risk fall precautions - seizure precautions - ativan 2mg q6 scheduled - ativan 1mg q2 prn withdrawl symptoms - consider adding geodon if sxs are not controlled - multivitamin, thiamine, and folate supplement Hx of Auditory and Visual Hallucinations; Hx of Bipolar Disorder - psychiatry consult once patient is medically optimized- appreciate recommendations - safe tray - continue seroquel and citalopram Elevated LFTs, Total Bilirubin Elevated - resolved - monitor closely via CMP Hx of Htn - continue home clonidine and lopressor Prophylaxis - DVT ppx- scds - GI ppx- famotidine Patient seen, case discussed with, and plan approved by attending physician, Dr. Painting. Objective - Vital Signs/Intake and Output Vital Signs (last 24 hours): Temp Pulse Resp BP Pulse Ox 98.6 F 55 L 18 122/79 97 08/12/17 14:20 08/13/17 06:00 08/12/17 16:00 08/12/17 17:42 08/12/17 14:22 Intake and Output: 08/13/17 08/13/17 06:59 18:59 Output Total 1400 Balance -1400 - Medications Medications: Current Medications Citalopram Hydrobromide (Celexa) 10 mg PO DAILY [facility] Clonidine HCl (Catapres) 0.1 mg PO BID [facility] Last Admin: 08/12/17 17:42 Dose: 0.1 mg Folic Acid (Folic Acid) 1 mg PO DAILY [facility] Last Admin: 08/12/17 14:45 Dose: 1 mg Lorazepam (Ativan) 2 mg IVP Q6H [facility] PRN Reason: Protocol Last Admin: 08/13/17 01:35 Dose: 2 mg Lorazepam (Ativan) 1 mg IVP Q1 PRN; Protocol PRN Reason: Symptoms of alcohol withdrawl Metoprolol Tartrate (Lopressor) 50 mg PO BID [facility] Last Admin: 08/12/17 17:42 Dose: 50 mg Multivitamins (Thera Tab) 1 tab PO 0800 [facility] Last Admin: 08/12/17 14:19 Dose: 1 tab Quetiapine Fumarate (Seroquel) 50 mg PO HS [facility] PRN Reason: Protocol Thiamine HCl (Vitamin B1 Tab) 100 mg PO DAILY [facility] Last Admin: 08/12/17 14:45 Dose: 100 mg - Labs Labs: PT 11.4 SECONDS (9.4-12.5) 08/12/17 09:49 INR 0.99 (0.93-1.08) 08/12/17 09:49 APTT 27.8 Seconds (25.1-36.5) 08/12/17 09:49 <Anna Painting - Last Filed: 08/13/17 16:32> Objective - Vital Signs/Intake and Output Vital Signs (last 24 hours): Temp Pulse Resp BP Pulse Ox 97.9 F 58 L 20 148/95 H 90 L 08/13/17 08:49 08/13/17 08:49 08/13/17 08:49 08/13/17 08:49 08/13/17 08:49 Intake and Output: 08/13/17 08/13/17 06:59 18:59 Intake Total 960 Output Total 1400 300 Balance -1400 660 - Medications Medications: Current Medications Citalopram Hydrobromide (Celexa) 10 mg PO DAILY [facility] Last Admin: 08/13/17 10:26 Dose: 10 mg Clonidine HCl (Catapres) 0.1 mg PO BID [facility] Last Admin: 08/13/17 10:26 Dose: 0.1 mg Folic Acid (Folic Acid) 1 mg PO DAILY [facility] Last Admin: 08/13/17 09:18 Dose: 1 mg Lorazepam (Ativan) 2 mg IVP Q6H [facility] PRN Reason: Protocol Last Admin: 08/13/17 15:06 Dose: 2 mg Lorazepam (Ativan) 1 mg IVP Q1 PRN; Protocol PRN Reason: Symptoms of alcohol withdrawl Metoprolol Tartrate (Lopressor) 50 mg PO BID [facility] Last Admin: 08/13/17 09:18 Dose: 50 mg Multivitamins (Thera Tab) 1 tab PO 0800 [facility] Last Admin: 08/13/17 08:23 Dose: 1 tab Quetiapine Fumarate (Seroquel) 50 mg PO HS [facility] PRN Reason: Protocol Thiamine HCl (Vitamin B1 Tab) 100 mg PO DAILY [facility] Last Admin: 08/13/17 10:26 Dose: 100 mg - Labs Labs: 08/13/17 05:30 08/13/17 05:30 PT 11.4 SECONDS (9.4-12.5) 08/12/17 09:49 INR 0.99 (0.93-1.08) 08/12/17 09:49 APTT 27.8 Seconds (25.1-36.5) 08/12/17 09:49 Attending/Attestation - Attestation I have personally seen and examined this patient.: Yes I have fully participated in the care of the patient.: Yes I have reviewed all pertinent clinical information, including history, physical exam and plan: Yes Notes (Text): I have seen and examined the patient at bedside. Agree with the above note with the following additions/ exceptions: Briefly this is 47 year old male with history of HTN, alcohol abuse/ alcohol withdrawal, bipolar disorder, who was admitted for evaluation of bizarre behavior, confusion, delerium secondary to alcohol withdrawal syndrome. Today he is alert, oriented to time, place and person. This morning he denies headache, diaphoresis, nausea, vomiting, abdominal pain or any other complaints. Will continue ativan. Will consult psych once medically optimized. PT eval pending. Upon discharge patient will follow up with Dr Baez. Dr Anna Painting
[2017-08-13 07:14] LABS: ALB/GLOB RATIO 1.4 (1.1-1.8); ALBUMIN 3.3 g/dL (3.0-4.8); ALT/SGPT 56 U/L (7-56); AST/SGOT 49 U/L (17-59); BLOOD UREA NITROGEN 6 mg/dL (7-21); CALCIUM 8.7 mg/dL (8.4-10.5); GFR AFRICAN-AMERICAN > 60; GFR NON-AFRICAN AMERICAN > 60
[2017-08-13] MEDS: Multivitamin Therapeutic Tab PO SCH (08:23)
--- NOTE | 2017-08-13 08:45 | CARD ---
APPROVED REPORT EKG Measurement Heart [id number] <Conclusion> Sinus tachycardia Otherwise normal ECG
[2017-08-14] MEDS: Multivitamin Therapeutic Tab PO SCH (08:15)
[2017-08-14 08:56] LABS: ALB/GLOB RATIO 1.5 (1.1-1.8); ALBUMIN 3.8 g/dL (3.0-4.8); ALT/SGPT 62 U/L (7-56); AST/SGOT 47 U/L (17-59); BLOOD UREA NITROGEN 8 mg/dL (7-21); GFR AFRICAN-AMERICAN > 60; GFR NON-AFRICAN AMERICAN > 60
[2017-08-14 08:59] LABS: BASO # 0.01 K/mm3 (0.0-2.0); BASO % 0.2 % (0.0-3.0); EOS # 0.1 (0.0-0.7); EOS % 1.4 % (1.5-5.0); GRAN # 2.33 (1.4-6.5); GRAN % 54.5 % (50.0-68.0); HEMOGLOBIN 13.4 g/dL (14.0-18.0); LYMPH # 1.6 (1.2-3.4); LYMPH % 37.4 % (22.0-35.0); MEAN CELL VOLUME 84.2 fl (80.0-105.0); MEAN CORPUSCULAR HEMOGLOBIN 28.6 pg (25.0-35.0); MEAN PLATELET VOLUME 10.9 fl (7.0-11.0); MONO # 0.3 (0.1-0.6); MONO % 6.5 % (1.0-6.0); RBC 4.68 10^6/uL (3.5-6.1); RED CELL DISTRIBUTION WIDTH 13.9 % (11.5-14.5); WHITE BLOOD COUNT 4.3 10^3/ul (4.5-11.0)
--- NOTE | 2017-08-14 11:45 | CP.PCM.PN ---
<Carlos A Perez - Last Filed: 08/14/17 11:42> Subjective - Date & Time of Evaluation Date of Evaluation: 08/14/17 Time of Evaluation: 08:55 - Subjective Subjective: Subjective: Patient seen and examined. No acute events overnight. States tremor is better controlled compared to baseline. Denies SI and HI. Denies auditory and visual hallucinations. Denies fever, chills, chest pain, shortness of breath, abdominal pain, nausea, vomiting, diarrhea, constipation, and urinary symptoms. 12-point review of systems negative except as indicated in the HPI Physical Examination: - Constitutional Appears: Non-toxic, No Acute Distress - Head Exam Head Exam: atraumatic, normocephalic - Eye Exam Eye Exam: Normal appearance - ENT Exam ENT Exam: Mucous Membranes Moist - Neck Exam Neck exam: Normal Inspection - Respiratory Exam Respiratory Exam: Normal Breathing Pattern - Cardiovascular Exam Cardiovascular Exam: +S1, +S2. absent: Gallop, JVD - GI/Abdominal Exam GI & Abdominal Exam: Normal Bowel Sounds, absent: Distended, Guarding, Pulsatile Mass, Rebound, Rigid - Extremities Exam Extremities exam: Negative for: calf tenderness - Neurological Exam Neurological exam: Patient is awake, alert, AAO x3, responds to verbal stimuli, answer questions appropriately, follows commands, moves extremities past midline - Skin Skin Exam: warm and dry Assessment and Plan: Patient is a 47 year old male with past medical history of HTN, Chronic ETOH abuse, bipolar disorder who was admitted for evaluation and treatment of auditory hallucinations and paranoia. Ethanol Abuse, Potential Withdrawal - CIWA - high risk fall precautions - seizure precautions - ativan 2mg q6 scheduled changed to ativan 1mg PO lorenzo - ativan 1mg q2 prn withdrawl symptoms - consider adding geodon if sxs are not controlled - multivitamin, thiamine, and folate supplement Hx of Auditory and Visual Hallucinations; Hx of Bipolar Disorder - psychiatry consult once patient is medically optimized- appreciate recommendations - safe tray - continue seroquel and citalopram Elevated LFTs, Total Bilirubin Elevated - resolved - monitor closely via CMP Hx of Htn - continue home clonidine and lopressor Prophylaxis - DVT ppx- scds - GI ppx- famotidine Patient seen, case discussed with, and plan approved by attending physician. Objective - Vital Signs/Intake and Output Vital Signs (last 24 hours): Temp Pulse Resp BP Pulse Ox 98 F 65 20 125/73 97 08/13/17 16:00 08/14/17 10:21 08/13/17 16:00 08/14/17 10:21 08/13/17 16:00 Intake and Output: 08/14/17 08/14/17 06:59 18:59 Intake Total 200 Output Total 3950 Balance -3750 - Medications Medications: Current Medications Citalopram Hydrobromide (Celexa) 10 mg PO DAILY [facility] Last Admin: 08/14/17 10:21 Dose: 10 mg Clonidine HCl (Catapres) 0.1 mg PO BID [facility] Last Admin: 08/14/17 10:21 Dose: 0.1 mg Folic Acid (Folic Acid) 1 mg PO DAILY [facility] Last Admin: 08/14/17 10:21 Dose: 1 mg Lorazepam (Ativan) 1 mg IVP Q1 PRN; Protocol PRN Reason: Symptoms of alcohol withdrawl Lorazepam (Ativan) 1 mg PO Q6H LORENZO PRN Reason: Protocol Last Admin: 08/14/17 10:13 Dose: Not Given Metoprolol Tartrate (Lopressor) 50 mg PO BID [facility] Last Admin: 08/14/17 10:20 Dose: 50 mg Multivitamins (Thera Tab) 1 tab PO 0800 [facility] Last Admin: 08/14/17 08:15 Dose: 1 tab Quetiapine Fumarate (Seroquel) 50 mg PO HS [facility] PRN Reason: Protocol Last Admin: 08/13/17 23:24 Dose: 50 mg Thiamine HCl (Vitamin B1 Tab) 100 mg PO DAILY [facility] Last Admin: 08/14/17 10:20 Dose: 100 mg - Labs Labs: 08/14/17 08:00 08/14/17 08:00 PT 11.4 SECONDS (9.4-12.5) 08/12/17 09:49 INR 0.99 (0.93-1.08) 08/12/17 09:49 APTT 27.8 Seconds (25.1-36.5) 08/12/17 09:49 <Agustin Corea - Last Filed: 08/14/17 13:02> Objective - Vital Signs/Intake and Output Vital Signs (last 24 hours): Temp Pulse Resp BP Pulse Ox 98 F 65 20 125/73 97 08/13/17 16:00 08/14/17 10:21 08/13/17 16:00 08/14/17 10:21 08/13/17 16:00 Intake and Output: 08/14/17 08/14/17 06:59 18:59 Intake Total 200 Output Total 3950 Balance -3750 - Medications Medications: Current Medications Citalopram Hydrobromide (Celexa) 10 mg PO DAILY [facility] Last Admin: 08/14/17 10:21 Dose: 10 mg Clonidine HCl (Catapres) 0.1 mg PO BID [facility] Last Admin: 08/14/17 10:21 Dose: 0.1 mg Folic Acid (Folic Acid) 1 mg PO DAILY [facility] Last Admin: 08/14/17 10:21 Dose: 1 mg Lorazepam (Ativan) 1 mg IVP Q1 PRN; Protocol PRN Reason: Symptoms of alcohol withdrawl Lorazepam (Ativan) 1 mg PO Q6H LORENZO PRN Reason: Protocol Last Admin: 08/14/17 10:13 Dose: Not Given Metoprolol Tartrate (Lopressor) 50 mg PO BID [facility] Last Admin: 08/14/17 10:20 Dose: 50 mg Multivitamins (Thera Tab) 1 tab PO 0800 [facility] Last Admin: 08/14/17 08:15 Dose: 1 tab Quetiapine Fumarate (Seroquel) 50 mg PO HS [facility] PRN Reason: Protocol Last Admin: 08/13/17 23:24 Dose: 50 mg Thiamine HCl (Vitamin B1 Tab) 100 mg PO DAILY [facility] Last Admin: 08/14/17 10:20 Dose: 100 mg - Labs Labs: 08/14/17 08:00 08/14/17 08:00 PT 11.4 SECONDS (9.4-12.5) 08/12/17 09:49 INR 0.99 (0.93-1.08) 08/12/17 09:49 APTT 27.8 Seconds (25.1-36.5) 08/12/17 09:49 Attending/Attestation - Attestation I have personally seen and examined this patient.: Yes I have fully participated in the care of the patient.: Yes I have reviewed all pertinent clinical information, including history, physical exam and plan: Yes Notes (Text): 08/14/17 12:57 Attending note; Patient seen and examined with resident. Patient is a 47 year old male with history of hypertension, alcohol abuse/ alcohol withdrawal, bipolar disorder, who was admitted with confusion, delerium secondary to alcohol withdrawal syndrome. Today he is alert, oriented to time, place and person. This morning he denies headache, diaphoresis, nausea , vomiting, abdominal pain or any other complaints. Patient is tolerating diet . Mild tremors .but ambulating with assistance . On tapering dose of Ativan . Possible discharge home tomorrow. Will continue ativan. PT evaluation appreciated. Patient is stable. Psychiatric evaluation requested. Possible transfer to psych floor on discharge home tomorrow. Upon discharge patient will follow up with Dr Baez.
[2017-08-15] MEDS: Multivitamin Therapeutic Tab PO SCH (07:59)
[2017-08-15 08:13] LABS: BASO # 0.02 K/mm3 (0.0-2.0); BASO % 0.5 % (0.0-3.0); EOS # 0.1 (0.0-0.7); EOS % 1.6 % (1.5-5.0); GRAN # 1.93 (1.4-6.5); GRAN % 44.6 % (50.0-68.0); HEMOGLOBIN 13.8 g/dL (14.0-18.0); LYMPH # 1.9 (1.2-3.4); LYMPH % 43.4 % (22.0-35.0); MEAN CELL VOLUME 84.1 fl (80.0-105.0); MEAN CORPUSCULAR HEMOGLOBIN 29.2 pg (25.0-35.0); MEAN CORPUSCULAR HGB CONC 34.8 g/dl (31.0-37.0); MEAN PLATELET VOLUME 11.2 fl (7.0-11.0); MONO # 0.4 (0.1-0.6); MONO % 9.9 % (1.0-6.0); RBC 4.72 10^6/uL (3.5-6.1); RED CELL DISTRIBUTION WIDTH 13.9 % (11.5-14.5); WHITE BLOOD COUNT 4.3 10^3/ul (4.5-11.0)
[2017-08-15 08:43] LABS: ALB/GLOB RATIO 1.5 (1.1-1.8); ALBUMIN 3.7 g/dL (3.0-4.8); ALT/SGPT 62 U/L (7-56); AST/SGOT 39 U/L (17-59); BLOOD UREA NITROGEN 11 mg/dL (7-21); CALCIUM 9.1 mg/dL (8.4-10.5); GFR AFRICAN-AMERICAN > 60; GFR NON-AFRICAN AMERICAN > 60
[2017-08-15 08:55] VITALS: RESP 20; TEMP 98; O2SAT 98
[2017-08-15 09:10] VITALS: BP 115/75; PULSE 73
--- NOTE | 2017-08-15 11:34 | CP.PCM.DIS ---
<Carlos A Perez - Last Filed: 08/15/17 11:35> Provider - Provider Date of Admission: 08/12/17 10:52 Attending physician: Anna Painting MD Time Spent in preparation of Discharge (in minutes): 45 Diagnosis - Discharge Diagnosis (1) Alcohol withdrawal Status: Resolved Priority: Medium (2) Bipolar disorder Status: Chronic Priority: Medium (3) Alcohol abuse Status: Chronic Priority: High (4) HTN (hypertension) Status: Chronic Priority: Medium Hospital Course - Lab Results Lab Results: Most Recent Lab Values WBC 4.3 10^3/ul (4.5-11.0) L 08/15/17 07:30 RBC 4.72 10^6/uL (3.5-6.1) 08/15/17 07:30 Hgb 13.8 g/dL (14.0-18.0) L 08/15/17 07:30 Hct 39.7 % (42.0-52.0) L 08/15/17 07:30 MCV 84.1 fl (80.0-105.0) 08/15/17 07:30 MCH 29.2 pg (25.0-35.0) 08/15/17 07:30 MCHC 34.8 g/dl (31.0-37.0) 08/15/17 07:30 RDW 13.9 % (11.5-14.5) 08/15/17 07:30 Plt Count 94 10^3/uL (120.0-450.0) L 08/15/17 07:30 MPV 11.2 fl (7.0-11.0) H 08/15/17 07:30 Gran % 44.6 % (50.0-68.0) L 08/15/17 07:30 Lymph % (Auto) 43.4 % (22.0-35.0) H 08/15/17 07:30 Reynolds % (Auto) 9.9 % (1.0-6.0) H 08/15/17 07:30 Eos % (Auto) 1.6 % (1.5-5.0) 08/15/17 07:30 Baso % (Auto) 0.5 % (0.0-3.0) 08/15/17 07:30 Gran # 1.93 (1.4-6.5) 08/15/17 07:30 Lymph # (Auto) 1.9 (1.2-3.4) 08/15/17 07:30 Reynolds # (Auto) 0.4 (0.1-0.6) 08/15/17 07:30 Eos # (Auto) 0.1 (0.0-0.7) 08/15/17 07:30 Baso # (Auto) 0.02 K/mm3 (0.0-2.0) 08/15/17 07:30 PT 11.4 SECONDS (9.4-12.5) 08/12/17 09:49 INR 0.99 (0.93-1.08) 08/12/17 09:49 APTT 27.8 Seconds (25.1-36.5) 08/12/17 09:49 Sodium 139 mmol/L (132-148) 08/15/17 07:30 Potassium 3.7 mmol/L (3.6-5.0) 08/15/17 07:30 Chloride 103 mmol/L (98-107) 08/15/17 07:30 Carbon Dioxide 25 mmol/L (21-33) 08/15/17 07:30 Anion Gap 14 (10-20) 08/15/17 07:30 BUN 11 mg/dL (7-21) 08/15/17 07:30 Creatinine 0.7 mg/dl (0.8-1.5) L 08/15/17 07:30 Est GFR ( Amer) > 60 08/15/17 07:30 Est GFR (Non-Af Amer) > 60 08/15/17 07:30 POC Glucose (mg/dL) 133 mg/dL (65-110) H 08/12/17 09:54 Random Glucose 91 mg/dL (70-110) 08/15/17 07:30 Calcium 9.1 mg/dL (8.4-10.5) 08/15/17 07:30 Total Bilirubin 0.3 mg/dL (0.2-1.3) 08/15/17 07:30 AST 39 U/L (17-59) 08/15/17 07:30 ALT 62 U/L (7-56) H 08/15/17 07:30 Alkaline Phosphatase 63 U/L (38-126) 08/15/17 07:30 Lactate Dehydrogenase 499 U/L (333-699) 08/12/17 09:49 Total Creatine Kinase 145 U/L (35-230) 08/12/17 09:49 Troponin I < 0.01 ng/mL 08/12/17 09:49 Total Protein 6.2 g/dL (5.8-8.3) 08/15/17 07:30 Albumin 3.7 g/dL (3.0-4.8) 08/15/17 07:30 Globulin 2.5 gm/dL 08/15/17 07:30 Albumin/Globulin Ratio 1.5 (1.1-1.8) 08/15/17 07:30 Salicylates < 1 mg/dL (2.0-20.0) L 08/12/17 09:49 Acetaminophen < 10.0 ug/ml (10.0-20.0) L 08/12/17 09:49 Alcohol, Quantitative < 10 mg/dL (0-10) 08/12/17 09:49 - Hospital Course Hospital Course: Patient is a 47 year old male with past medical history of HTN, Chronic ETOH abuse, bipolar disorder who was admitted for evaluation and treatment of auditory hallucinations and paranoia. With the use of physical examinations, lab work, and imaging the patient was diagnosed with and treated for ETOH withdrawal along with the patients chronic medical conditions. During their hospital stay the patient was seen by psychiatry and their recommendations were both appreciated and utilized in the care for this patient. Inpatient psychiatry was deemed not mandatory during this hospital stay. During their hospital stay the patient underwent a chest xray and ekg which were reviewed, appreciated, and utilized in the management of the patients clinical course. The chest xray revealed no acute infiltrates and probable nodular scarring left left lower lung field. EKG revealed sinus tachycardia HR 102, QTc 485, no definitive ST[facility] changes. Patient was treated with ativan, citalopram, seroquel, antihypertensive medications amongst other empiric/therapeutic medications. At this time the patient is medically stable for discharge. Patient understands and appreciates discharge plan. Patient instructed to follow up with primary care physicians and referrals within three to five days from discharge. Furthermore, the patient is instructed to take medications as prescribed and to return to emergency room for evaluation of intractable headache, fever, chills, dizziness , chest pain, shortness of breath, abdominal pain, nausea, vomiting, diarrhea, constipation, and urinary symptoms. This is a brief summary of the patients hospital course. Please see patient chart for full details. Discharge Exam - Additional Findings Additional findings: - Constitutional Appears: Non-toxic, No Acute Distress - Head Exam Head Exam: atraumatic, normocephalic - Eye Exam Eye Exam: Normal appearance - ENT Exam ENT Exam: Mucous Membranes Moist - Neck Exam Neck exam: Normal Inspection - Respiratory Exam Respiratory Exam: Normal Breathing Pattern - Cardiovascular Exam Cardiovascular Exam: +S1, +S2. absent: Gallop, JVD - GI/Abdominal Exam GI & Abdominal Exam: Normal Bowel Sounds, absent: Distended, Guarding, Pulsatile Mass, Rebound, Rigid - Extremities Exam Extremities exam: Negative for: calf tenderness - Neurological Exam Neurological exam: Patient is awake, alert, AAO x3, responds to verbal stimuli, answer questions appropriately, follows commands, moves extremities past midline - Skin Skin Exam: warm and dry Discharge Plan - Discharge Medications Prescriptions: Citalopram [celeXA] 20 mg PO DAILY 12 Days tab cloNIDine [Catapres] 0.1 mg PO BID 12 Days tab Folic Acid 1 mg PO DAILY 7 Days tab Metoprolol Tartrate [Lopressor] 50 mg PO BID #24 tab Multivitamin Therapeutic Tab [Thera Tab] 1 tab PO 0800 #7 tab QUEtiapine [Seroquel] 50 mg PO HS 12 Days tab Thiamine [Vitamin B1 Tab] 100 mg PO DAILY #7 tab - Follow Up Plan Condition: GOOD Disposition: HOME/ ROUTINE Patient education suggested?: Yes Instructions: Alcohol Abuse and Alcoholism (DC) Additional Instructions: Patient Instructions: Take medications as prescribed. Follow up with PMD and referrals within three to five days from discharge. Return to the emergency room for evaluation of intractable headache, fever, chills, dizziness, chest pain, shortness of breath, abdominal pain, nausea, vomiting, diarrhea, constipation, and urinary symptoms. Referrals: Shan Collazo MD [Staff Provider] - <Anna Painting - Last Filed: 08/15/17 12:15> Provider - Provider Date of Admission: 08/12/17 10:52 Attending physician: Anna Painting MD Hospital Course - Lab Results Lab Results: Most Recent Lab Values WBC 4.3 10^3/ul (4.5-11.0) L 08/15/17 07:30 RBC 4.72 10^6/uL (3.5-6.1) 08/15/17 07:30 Hgb 13.8 g/dL (14.0-18.0) L 08/15/17 07:30 Hct 39.7 % (42.0-52.0) L 08/15/17 07:30 MCV 84.1 fl (80.0-105.0) 08/15/17 07: MCH 29.2 pg (25.0-35.0) 08/15/17 07: MCHC 34.8 g/dl (31.0-37.0) 08/15/17 07: RDW 13.9 % (11.5-14.5) 08/15/17 07: Plt Count 94 10^3/uL (120.0-450.0) L 08/15/17 07:30 MPV 11.2 fl (7.0-11.0) H 08/15/17 07: Gran % 44.6 % (50.0-68.0) L 08/15/17 07: Lymph % (Auto) 43.4 % (22.0-35.0) H 08/15/17 07:30 Reynolds % (Auto) 9.9 % (1.0-6.0) H 08/15/17 07:30 Eos % (Auto) 1.6 % (1.5-5.0) 08/15/17 07:30 Baso % (Auto) 0.5 % (0.0-3.0) 08/15/17 07: Gran # 1.93 (1.4-6.5) 08/15/17 07:30 Lymph # (Auto) 1.9 (1.2-3.4) 08/15/17 07:30 Reynolds # (Auto) 0.4 (0.1-0.6) 08/15/17 07:30 Eos # (Auto) 0.1 (0.0-0.7) 08/15/17 07:30 Baso # (Auto) 0.02 K/mm3 (0.0-2.0) 08/15/17 07: PT 11.4 SECONDS (9.4-12.5) 08/12/17 09:49 INR 0.99 (0.93-1.08) 08/12/17 09:49 APTT 27.8 Seconds (25.1-36.5) 08/12/17 09:49 Sodium 139 mmol/L (132-148) 08/15/17 07:30 Potassium 3.7 mmol/L (3.6-5.0) 08/15/17 07:30 Chloride 103 mmol/L (98-107) 08/15/17 07:30 Carbon Dioxide 25 mmol/L (21-33) 08/15/17 07:30 Anion Gap 14 (10-20) 08/15/17 07:30 BUN 11 mg/dL (7-21) 08/15/17 07:30 Creatinine 0.7 mg/dl (0.8-1.5) L 08/15/17 07:30 Est GFR ( Amer) > 60 08/15/17 07:30 Est GFR (Non-Af Amer) > 60 08/15/17 07:30 POC Glucose (mg/dL) 133 mg/dL (65-110) H 08/12/17 09:54 Random Glucose 91 mg/dL (70-110) 08/15/17 07:30 Calcium 9.1 mg/dL (8.4-10.5) 08/15/17 07:30 Total Bilirubin 0.3 mg/dL (0.2-1.3) 08/15/17 07:30 AST 39 U/L (17-59) 08/15/17 07:30 ALT 62 U/L (7-56) H 08/15/17 07:30 Alkaline Phosphatase 63 U/L (38-126) 08/15/17 07:30 Lactate Dehydrogenase 499 U/L (333-699) 08/12/17 09:49 Total Creatine Kinase 145 U/L (35-230) 08/12/17 09:49 Troponin I < 0.01 ng/mL 08/12/17 09:49 Total Protein 6.2 g/dL (5.8-8.3) 08/15/17 07:30 Albumin 3.7 g/dL (3.0-4.8) 08/15/17 07:30 Globulin 2.5 gm/dL 08/15/17 07:30 Albumin/Globulin Ratio 1.5 (1.1-1.8) 08/15/17 07:30 Salicylates < 1 mg/dL (2.0-20.0) L 08/12/17 09:49 Acetaminophen < 10.0 ug/ml (10.0-20.0) L 08/12/17 09:49 Alcohol, Quantitative < 10 mg/dL (0-10) 08/12/17 09:49 Attending/Attestation - Attestation I have personally seen and examined this patient.: Yes I have fully participated in the care of the patient.: Yes I have reviewed all pertinent clinical information, including history, physical exam and plan: Yes Notes (Text): I have seen and examined the patient at bedside. Agree with the above note with the following additions/ exceptions: Briefly this is 47 year old male with history of HTN, alcohol abuse/ alcohol withdrawal, bipolar disorder, who was admitted for evaluation of bizarre behavior, confusion, delerium secondary to alcohol withdrawal syndrome. Today he is alert, oriented to time, place and person. This morning he denies headache, diaphoresis, nausea, vomiting, abdominal pain or any other complaints. Psych consult appreciated. Patient is not a candidate for inpatient psych admission. PT cleared the patient to go home. Upon discharge patient will follow up with Dr Baez. Dr Anna Painting
--- NOTE | 2017-08-16 08:37 | CON ---
DATE: 08/15/2017 HISTORY OF PRESENT ILLNESS: Patient is a single 47-year-old white male who has a long history of severe alcohol use disorder associated with numerous medical admissions for withdrawal DTs, history of bipolar type 2, and multiple psychiatric admissions for bipolar and alcohol use disorder, inconsistent adherence to the outpatient treatment medications, who was admitted to the medical floor after he presented complaining about hallucinations and paranoia, likely in the context of alcohol withdrawal delirium. Psychiatry was consulted because patient has history of bipolar disorder. I met the patient at the bedside and patient is from multiple prior admissions and patient is quite friendly, coherent, and well oriented to month and year, and circumstances. Patient having hallucination and paranoia prior to admission, however, reports that they have limited at this time. Tremors have also improved. He admits to drinking prior to admission and admits that he has been drinking about 2 to 6 packs daily, about half a pint of liquor. He indicates that he relapsed about 9 days ago and he has been drinking 6 days straight prior to admission. Patient generally feels comfortable at this time. He is depressed and feels that this is mostly secondary to alcohol withdrawal and continued alcohol use. Nonetheless, he is open to increase his any improvement in his functioning and mood. He is not suicidal. He is not homicidal. He is hopeful about future. Affect is well related and mildly anxious, demonstrating good range and reactivity. Delusions were not elicited from patient during the course of my interview and he was not responding to internal stimuli and has been in control on the unit. PSYCHIATRIC HISTORY: The patient with multiple psychiatric admissions, most recently in [facility] after he is medically stabilized for alcohol withdrawal from 05/12 to 05/13. He was admitted to psychiatric unit from 05/14/2017 to 05/21/2017. He was discharged on Celexa 10 mg and Seroquel 50. Patient reports that he follows up with outpatient provider at [facility] approximately a month ago and was compliant with aforementioned medications, until he relapsed 9 days ago. Patient felt like the medications were beneficial prior to relapse. SOCIAL HISTORY: Patient currently lives with his mother. He has long history of alcoholic disorder. He states he is binge drinking . He has history of detox [facility] rehabs. Most recently, as noted above, patient has been drinking about half pint of vodka and 2 to 6 packs of beer daily. Patient's longest period of sobriety is 9 months . Patient denies any drug use and he denies any legal issues. Vital signs and labs were reviewed by this provider. MEDICATIONS: Relevant psychiatric medications include Celexa 10 mg daily, Seroquel 50 mg at bedtime, and Ativan 1 mg IV every 1 p.r.n. and 1 mg p.o. every 12 scheduled. IMPRESSION: Severe alcohol use disorder,substance-induced mood disorder, rule out major depressive disorder. Resolving alcohol withdrawal associated with hallucination. RECOMMENDATIONS: We will continue with Seroquel 50 mg at bedtime and increase Celexa to 20 mg daily to target patient's continued depression. Medical team should continue with alcohol withdrawal precautions and treatment with Ativan. Ativan should be tapered as tolerated as patient recovers from alcohol withdrawal. Recommend vitamins obviously. Presently patient is not suicidal, homicidal or acutely disorganized, has been in control. Does not require psychiatric hospital stabilization and Psychiatry will sign off at this time. Please reconsult as necessary if there are any acute changes in the patient's symptoms. Gely Nunn MD
== END 2017-08-15 13:44 | disposition home or self-care (01) | DRG 751 ==
LOC: ED 09:26 → ERH 10:52 → 3RSO 16:03
PROVIDERS: ADMIT Hospitalist; ATTEND Hospitalist
DX: F10.231 Alcohol dependence with withdrawal delirium (principal); F31.81 Bipolar II disorder; F19.94 Other psychoactive substance use, unspecified with psychoactive substance-induced mood disorder; F22 Delusional disorders; I10 Essential (primary) hypertension; I49.3 Ventricular premature depolarization; Z95.5 Presence of coronary angioplasty implant and graft; S40.022A Contusion of left upper arm, initial encounter; Z91.013 Allergy to seafood; R40.2412 Glasgow coma scale score 13-15, at arrival to emergency department

== ENCOUNTER 2017-09-18 00:12 | Observation (INO) | payer MEDICAID ==
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
[2017-09-18 01:42] LABS: BASO # 0.01 K/mm3 (0.0-2.0); BASO % 0.2 % (0.0-3.0); EOS # 0.1 (0.0-0.7); EOS % 0.9 % (1.5-5.0); GRAN # 3.05 (1.4-6.5); GRAN % 56.9 % (50.0-68.0); HEMOGLOBIN 14.8 g/dL (14.0-18.0); LYMPH # 1.6 (1.2-3.4); LYMPH % 29.9 % (22.0-35.0); MEAN CELL VOLUME 83.4 fl (80.0-105.0); MEAN PLATELET VOLUME 10.9 fl (7.0-11.0); MONO # 0.7 (0.1-0.6); MONO % 12.1 % (1.0-6.0); RBC 4.93 10^6/uL (3.5-6.1); RED CELL DISTRIBUTION WIDTH 13.9 % (11.5-14.5); WHITE BLOOD COUNT 5.4 10^3/ul (4.5-11.0)
[2017-09-18 01:56] LABS: ALB/GLOB RATIO 1.7 (1.1-1.8); ALBUMIN 4.6 g/dL (3.0-4.8); ALT/SGPT 100 U/L (7-56); AST/SGOT 94 U/L (17-59); BLOOD UREA NITROGEN 5 mg/dL (7-21); CALCIUM 9.2 mg/dL (8.4-10.5); GFR AFRICAN-AMERICAN > 60; GFR NON-AFRICAN AMERICAN > 60; PH,URINE 6.5 (4.7-8.0); URINE BILIRUBIN NEGATIVE (NEGATIVE); URINE BLOOD NEGATIVE (NEGATIVE); URINE GLUCOSE (UA) NEGATIVE (NEGATIVE); URINE LEUKOCYTE ESTERASE NEGATIVE Leu/uL (NEGATIVE); URINE PROTEIN NEGATIVE mg/dL (<30 mg/dL); URINE UROBILINOGEN 0.2 E.U./dL (<1 E.U./dL)
[2017-09-18 01:57] LABS: ACETAMINOPHEN < 10.0 ug/ml (10.0-20.0); SALICYLATE < 1 mg/dL (2.0-20.0)
[2017-09-18 02:01] LABS: URINE APPEARANCE CLEAR (CLEAR); URINE COLOR STRAW (YELLOW)
[2017-09-18 02:03] LABS: OPIATES, UR NEGATIVE (NEGATIVE)
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
[2017-09-18 02:09] LABS: BARBITURATES, UR NEGATIVE (NEGATIVE); BENZODIAZEPINES, UR NEGATIVE (NEGATIVE); PHENCYCLIDINE, UR NEGATIVE (NEGATIVE)
[2017-09-18] MEDS ORDERED: Sodium Chloride 0.9% 1,000 ML IV STA (03:00)
[2017-09-18] MEDS ORDERED: Multivitamin (MVI) 10 ML, Thiamine 100 MG, Folic Acid 1 MG in Sodium Chloride 0.9% 1,00... IV ONE (03:31)
[2017-09-18 05:17] VITALS: BMI 25.1
[2017-09-18] MEDS: Multivitamin Therapeutic Tab PO SCH (08:20)
--- NOTE | 2017-09-18 17:01 | CARD ---
APPROVED REPORT EKG Measurement Heart [id number] <Conclusion> Normal sinus rhythm Early repolarization pattern Normal ECG
[2017-09-19 06:48] LABS: BASO # 0.01 K/mm3 (0.0-2.0); BASO % 0.2 % (0.0-3.0); EOS # 0.1 (0.0-0.7); EOS % 1.1 % (1.5-5.0); GRAN # 2.42 (1.4-6.5); GRAN % 54.1 % (50.0-68.0); HEMOGLOBIN 14.1 g/dL (14.0-18.0); LYMPH # 1.5 (1.2-3.4); LYMPH % 33.9 % (22.0-35.0); MEAN CELL VOLUME 85.5 fl (80.0-105.0); MEAN CORPUSCULAR HEMOGLOBIN 29.2 pg (25.0-35.0); MEAN CORPUSCULAR HGB CONC 34.1 g/dl (31.0-37.0); MEAN PLATELET VOLUME 11.2 fl (7.0-11.0); MONO # 0.5 (0.1-0.6); MONO % 10.7 % (1.0-6.0); RBC 4.83 10^6/uL (3.5-6.1); RED CELL DISTRIBUTION WIDTH 14.4 % (11.5-14.5); WHITE BLOOD COUNT 4.5 10^3/ul (4.5-11.0)
[2017-09-19 07:33] LABS: ALB/GLOB RATIO 1.4 (1.1-1.8); ALBUMIN 3.9 g/dL (3.0-4.8); ALT/SGPT 76 U/L (7-56); AST/SGOT 72 U/L (17-59); BLOOD UREA NITROGEN 9 mg/dL (7-21); CALCIUM 8.9 mg/dL (8.4-10.5); GFR AFRICAN-AMERICAN > 60; GFR NON-AFRICAN AMERICAN > 60
[2017-09-19 07:45] VITALS: RESP 19
[2017-09-19] MEDS: Multivitamin Therapeutic Tab PO SCH (09:40)
--- NOTE | 2017-09-19 13:35 | CP.PCM.PN ---
<Casey Tavarez - Last Filed: 09/19/17 13:32> Subjective - Date & Time of Evaluation Date of Evaluation: 09/19/17 Time of Evaluation: 13:32 - Subjective Subjective: PGY1 Medicine Note for Dr. Corea Patient seen and examined at bedside this afternoon. No acute events overnight. Patient is resting comfortably in his bed watching TV. He is feeling well reporting that his tremors have improved. He says he was able to walk to the bathroom on his own today without incident. Patient has no pain, is tolerating his diet and has no complaints at this time. Denies fevers, chills, nausea, vomiting, diarrhea, constipation, chest pain, shortness of breath, palpitations , abdominal pain, headaches, numbness or tingling. Objective - Vital Signs/Intake and Output Vital Signs (last 24 hours): Temp Pulse Resp BP Pulse Ox 98.2 F 62 19 132/93 H 96 09/19/17 07:44 09/19/17 09:40 09/19/17 07:44 09/19/17 09:40 09/19/17 07:44 Intake and Output: 09/19/17 09/19/17 06:59 18:59 Intake Total 60 Output Total 3175 Balance -3115 - Medications Medications: Current Medications Citalopram Hydrobromide (Celexa) 20 mg PO DAILY [facility] Last Admin: 09/19/17 09:41 Dose: 20 mg Clonidine HCl (Catapres) 0.1 mg PO BID [facility] Last Admin: 09/19/17 09:40 Dose: 0.1 mg Famotidine (Pepcid) 40 mg PO HS [facility] Last Admin: 09/18/17 21:46 Dose: 40 mg Folic Acid (Folic Acid) 1 mg PO DAILY [facility] Last Admin: 09/19/17 09:40 Dose: 1 mg Lorazepam (Ativan) 2 mg IVP Q1H PRN; Protocol PRN Reason: Symptoms of alcohol withdrawl Lorazepam (Ativan) 1 mg PO Q8H [facility] PRN Reason: Protocol Last Admin: 09/19/17 09:42 Dose: 1 mg Metoprolol Tartrate (Lopressor) 50 mg PO BID [facility] Last Admin: 09/19/17 09:40 Dose: 50 mg Multivitamins (Thera Tab) 1 tab PO 0800 [facility] Last Admin: 09/19/17 09:40 Dose: 1 tab Quetiapine Fumarate (Seroquel) 50 mg PO HS [facility] PRN Reason: Protocol Last Admin: 09/18/17 21:45 Dose: 50 mg Thiamine HCl (Vitamin B1 Tab) 100 mg PO DAILY [facility] Last Admin: 09/19/17 09:40 Dose: 100 mg Ziprasidone (Geodon Inj) 20 mg IM Q12H PRN; Protocol PRN Reason: Agitation - Labs Labs: 09/19/17 06:30 09/19/17 06:30 - Constitutional Appears: Non-toxic, No Acute Distress - Head Exam Head Exam: NORMAL INSPECTION - Eye Exam Eye Exam: Normal appearance - ENT Exam ENT Exam: Mucous Membranes Moist - Respiratory Exam Respiratory Exam: Clear to Ausculation Bilateral, NORMAL BREATHING PATTERN. absent: Accessory Muscle Use, Rales, Rhonchi, Wheezes, Respiratory Distress - Cardiovascular Exam Cardiovascular Exam: REGULAR RHYTHM, +S1, +S2 - GI/Abdominal Exam GI & Abdominal Exam: Soft, Normal Bowel Sounds. absent: Distended, Firm, Guarding, Rigid, Tenderness - Extremities Exam Extremities Exam: absent: Calf Tenderness, Pedal Edema - Neurological Exam Neurological Exam: Alert, Awake, CN II-XII Intact, Oriented x3. absent: Normal Gait Additional comments: improving mild hand tremors noted. Patient walked with Resident Corby. The patient stated that he felt "off kilter" and stumbled a couple of times during his walk. He was able to walk without assistance and did not fall, but did not appear completely steady throughout walk. - Psychiatric Exam Psychiatric exam: Normal Affect, Normal Mood - Skin Skin Exam: Dry, Warm Assessment and Plan - Assessment and Plan (Free Text) Assessment: 47 year old male with past medical history of hypertension, Chronic ETOH abuse, bipolar disorder who was admitted for evaluation and treatment of alcohol withdrawal. Plan: 1) Alcohol Withdrawal - CIWA protocol - moderate risk fall precautions - seizure precautions - ativan 1 mg q8h PO scheduled - ativan 2 mg q1H prn withdrawl symptoms - geodon 20 mg IM q12h PRN - multivitamin, thiamine, and folate supplement 2) Affective disorder, unspecified - continue seroquel and citalopram 3) Elevated LFTs - avoid hepatotoxins - monitor closely via CMP 4) Hypertension - continue home clonidine and lopressor 5) Prophylaxis - DVT ppx- scds - GI ppx- famotidine DISPO: Patient still has mild hand tremors and is not completely stable on his feet. Will continue to monitor and re-evaluate tomorrow for possible discharge. Case discussed with Dr. Anmol Padronn PGY1 <Agustin Corea - Last Filed: 09/19/17 15:15> Objective - Vital Signs/Intake and Output Vital Signs (last 24 hours): Temp Pulse Resp BP Pulse Ox 98.2 F 55 L 19 132/93 H 96 09/19/17 07:44 09/19/17 10:00 09/19/17 07:44 09/19/17 09:40 09/19/17 07:44 Intake and Output: 09/19/17 09/19/17 06:59 18:59 Intake Total 60 840 Output Total 3175 600 Balance -3115 240 - Medications Medications: Current Medications Citalopram Hydrobromide (Celexa) 20 mg PO DAILY [facility] Last Admin: 09/19/17 09:41 Dose: 20 mg Clonidine HCl (Catapres) 0.1 mg PO BID [facility] Last Admin: 09/19/17 09:40 Dose: 0.1 mg Famotidine (Pepcid) 40 mg PO HS [facility] Last Admin: 09/18/17 21:46 Dose: 40 mg Folic Acid (Folic Acid) 1 mg PO DAILY [facility] Last Admin: 09/19/17 09:40 Dose: 1 mg Lorazepam (Ativan) 2 mg IVP Q1H PRN; Protocol PRN Reason: Symptoms of alcohol withdrawl Lorazepam (Ativan) 1 mg PO Q8H [facility] PRN Reason: Protocol Last Admin: 09/19/17 09:42 Dose: 1 mg Metoprolol Tartrate (Lopressor) 50 mg PO BID [facility] Last Admin: 09/19/17 09:40 Dose: 50 mg Multivitamins (Thera Tab) 1 tab PO 0800 [facility] Last Admin: 09/19/17 09:40 Dose: 1 tab Quetiapine Fumarate (Seroquel) 50 mg PO HS [facility] PRN Reason: Protocol Last Admin: 09/18/17 21:45 Dose: 50 mg Thiamine HCl (Vitamin B1 Tab) 100 mg PO DAILY [facility] Last Admin: 09/19/17 09:40 Dose: 100 mg Ziprasidone (Geodon Inj) 20 mg IM Q12H PRN; Protocol PRN Reason: Agitation - Labs Labs: 09/19/17 06:30 09/19/17 06:30 Attending/Attestation - Attestation I have personally seen and examined this patient.: Yes I have fully participated in the care of the patient.: Yes I have reviewed all pertinent clinical information, including history, physical exam and plan: Yes Notes (Text): 09/19/17 15:13 Attending note; Patient seen and examined with resident. Patient is a 47-year-old male with a history of alcohol abuse, depression, hypertension is admitted with alcohol withdrawal. Currently on IV Ativan. Continue multivitamin, thiamine, folic acid. Withdrawal symptoms are improving. Monitor closely. PT evaluation requested. Possible discharge home tomorrow. Elevated LFTs; secondary to alcohol abuse. Improving slowly. Complete alcohol cessation is strongly advised. Patient follows up with AA meetings sometimes. Upon discharge the patient will follow-up with PMD . 09/19/17 15:15
[2017-09-20 06:33] LABS: BASO # 0.01 K/mm3 (0.0-2.0); BASO % 0.3 % (0.0-3.0); GRAN # 1.85 (1.4-6.5); GRAN % 46.2 % (50.0-68.0); HEMOGLOBIN 14.3 g/dL (14.0-18.0); LYMPH # 1.6 (1.2-3.4); LYMPH % 39.5 % (22.0-35.0); MEAN CELL VOLUME 85.8 fl (80.0-105.0); MEAN CORPUSCULAR HEMOGLOBIN 29.4 pg (25.0-35.0); MEAN CORPUSCULAR HGB CONC 34.3 g/dl (31.0-37.0); MEAN PLATELET VOLUME 11.3 fl (7.0-11.0); MONO # 0.5 (0.1-0.6); RBC 4.86 10^6/uL (3.5-6.1); RED CELL DISTRIBUTION WIDTH 14.4 % (11.5-14.5)
[2017-09-20 07:37] LABS: ALB/GLOB RATIO 1.5 (1.1-1.8); ALBUMIN 3.9 g/dL (3.0-4.8); ALT/SGPT 71 U/L (7-56); AST/SGOT 46 U/L (17-59); BLOOD UREA NITROGEN 8 mg/dL (7-21); CALCIUM 8.9 mg/dL (8.4-10.5); GFR AFRICAN-AMERICAN > 60; GFR NON-AFRICAN AMERICAN > 60
[2017-09-20 07:51] VITALS: BP 139/88; TEMP 98.1; O2SAT 98
[2017-09-20] MEDS: Multivitamin Therapeutic Tab PO SCH (08:30)
[2017-09-20 12:09] VITALS: PULSE 66
--- NOTE | 2017-09-20 12:19 | CP.PCM.DIS ---
<Brenda Montano - Last Filed: 09/20/17 15:02> Provider - Provider Date of Admission: 09/18/17 02:07 Attending physician: Agustin Corea MD Primary care physician: Patric Baez MD Time Spent in preparation of Discharge (in minutes): 35 Diagnosis - Discharge Diagnosis (1) Elevated LFTs Status: Chronic (2) Alcohol withdrawal syndrome Status: Acute Hospital Course - Lab Results Lab Results: Most Recent Lab Values WBC 4.0 10^3/ul (4.5-11.0) L 09/20/17 05:30 RBC 4.86 10^6/uL (3.5-6.1) 09/20/17 05:30 Hgb 14.3 g/dL (14.0-18.0) 09/20/17 05:30 Hct 41.7 % (42.0-52.0) L 09/20/17 05:30 MCV 85.8 fl (80.0-105.0) 09/20/17 05:30 MCH 29.4 pg (25.0-35.0) 09/20/17 05:30 MCHC 34.3 g/dl (31.0-37.0) 09/20/17 05:30 RDW 14.4 % (11.5-14.5) 09/20/17 05:30 Plt Count 100 10^3/uL (120.0-450.0) L 09/20/17 05:30 MPV 11.3 fl (7.0-11.0) H 09/20/17 05:30 Gran % 46.2 % (50.0-68.0) L 09/20/17 05:30 Lymph % (Auto) 39.5 % (22.0-35.0) H 09/20/17 05:30 [place] % (Auto) 13.0 % (1.0-6.0) H 09/20/17 05:30 Eos % (Auto) 1.0 % (1.5-5.0) L 09/20/17 05:30 Baso % (Auto) 0.3 % (0.0-3.0) 09/20/17 05:30 Gran # 1.85 (1.4-6.5) 09/20/17 05:30 Lymph # (Auto) 1.6 (1.2-3.4) 09/20/17 05:30 [place] # (Auto) 0.5 (0.1-0.6) 09/20/17 05:30 Eos # (Auto) 0.0 (0.0-0.7) 09/20/17 05:30 Baso # (Auto) 0.01 K/mm3 (0.0-2.0) 09/20/17 05:30 Sodium 138 mmol/L (132-148) 09/20/17 05:30 Potassium 4.2 mmol/L (3.6-5.0) 09/20/17 05:30 Chloride 103 mmol/L (98-107) 09/20/17 05:30 Carbon Dioxide 26 mmol/L (21-33) 09/20/17 05:30 Anion Gap 13 (10-20) 09/20/17 05:30 BUN 8 mg/dL (7-21) 09/20/17 05:30 Creatinine 0.7 mg/dl (0.8-1.5) L 09/20/17 05:30 Est GFR ( Amer) > 60 09/20/17 05:30 Est GFR (Non-Af Amer) > 60 09/20/17 05:30 Random Glucose 87 mg/dL (70-110) 09/20/17 05:30 Calcium 8.9 mg/dL (8.4-10.5) 09/20/17 05:30 Phosphorus 4.0 mg/dL (2.5-4.5) 09/20/17 05:30 Magnesium 1.9 mg/dL (1.7-2.2) 09/20/17 05:30 Total Bilirubin 0.4 mg/dL (0.2-1.3) 09/20/17 05:30 AST 46 U/L (17-59) 09/20/17 05:30 ALT 71 U/L (7-56) H 09/20/17 05:30 Alkaline Phosphatase 66 U/L (38-126) 09/20/17 05:30 Total Protein 6.5 g/dL (5.8-8.3) 09/20/17 05:30 Albumin 3.9 g/dL (3.0-4.8) 09/20/17 05:30 Globulin 2.6 gm/dL 09/20/17 05:30 Albumin/Globulin Ratio 1.5 (1.1-1.8) 09/20/17 05:30 Urine Color Straw (YELLOW) 09/18/17 01:31 Urine Appearance Clear (CLEAR) 09/18/17 01:31 Urine pH 6.5 (4.7-8.0) 09/18/17 01:31 Ur Specific [place] <= 1.005 (1.005-1.035) 09/18/17 01:31 Urine Protein Negative mg/dL (<30 mg/dL) 09/18/17 01:31 Urine Glucose (UA) Negative mg/dL (NEGATIVE) 09/18/17 01:31 Urine Ketones Negative mg/dL (NEGATIVE) 09/18/17 01:31 Urine Blood Negative (NEGATIVE) 09/18/17 01:31 Urine Nitrate Negative (NEGATIVE) 09/18/17 01:31 Urine Bilirubin Negative (NEGATIVE) 09/18/17 01:31 Urine Urobilinogen 0.2 E.U./dL (<1 E.U./dL) 09/18/17 01:31 Ur Leukocyte Esterase Negative Kristen/uL (NEGATIVE) 09/18/17 01:31 Salicylates < 1 mg/dL (2.0-20.0) L 09/18/17 01:31 Urine Opiates Screen Negative (NEGATIVE) 09/18/17 01:31 Urine Methadone Screen Negative (NEGATIVE) 09/18/17 01:31 Acetaminophen < 10.0 ug/ml (10.0-20.0) L 09/18/17 01:31 Ur Barbiturates Screen Negative (NEGATIVE) 09/18/17 01:31 Ur Phencyclidine Scrn Negative (NEGATIVE) 09/18/17 01:31 Ur Amphetamines Screen Negative (NEGATIVE) 09/18/17 01:31 U Benzodiazepines Scrn Negative (NEGATIVE) 09/18/17 01:31 U Oth Cocaine Metabols Negative (NEGATIVE) 09/18/17 01:31 U Cannabinoids Screen Negative (NEGATIVE) 09/18/17 01:31 Alcohol, Quantitative 106 mg/dL (0-10) H 09/18/17 01:31 - Hospital Course Hospital Course: 47 year old male, with past medical history includes hypertension, Chronic alcohol abuse, and bipolar disorder presents to the emergency department complaining of hearing voices after admitting to alcohol withdrawal that began yesterday. Patient reports he was drinking for 14 days straight, 15 alcohol drinks each day, and suddenly stopped for 2.5 days. Pt was then put on CIWA protocol, started on IV ativan prn and scheduled. Also given MVT, thiamine, folate. Pt's LFTs were also found to be elevated, likely 2/2 alcohol, which downtrended during hospital course. Today, pt's CIWA score is 0, pt requiring minimal PO ativan. States that he feels well and would like to go home. Pt discharged home on his home meds, MVT, thiamine, folic acid. Pt to go AA meetings, f/u with PMD in 1 week. Case discussed with Dr Corea. Discharge Exam - Head Exam Head Exam: NORMAL INSPECTION - Eye Exam Eye Exam: EOMI, PERRL. absent: Conjunctival injection, Nystagmus, Scleral icterus Pupil Exam: NORMAL ACCOMODATION, PERRL. absent: Fixed, Irregular, Miosis, Unequal - ENT Exam ENT Exam: Mucous Membranes Moist - Neck Exam Neck exam: Full Rom - Respiratory Exam Respiratory Exam: Clear to PA & Lateral, NORMAL BREATHING PATTERN. absent: Chest Wall Tenderness, Rales, Rhonchi, Respiratory Distress, Stridor - Cardiovascular Exam Cardiovascular Exam: RRR, +S1, +S2. absent: Systolic Murmur - GI/Abdominal Exam GI & Abdominal Exam: Normal Bowel Sounds, Soft. absent: Distended, Firm, Guarding, Mass, Organomegaly, Rebound, Rigid, Tenderness - Extremities Exam Extremities exam: normal inspection - Back Exam Back exam: NORMAL INSPECTION - Neurological Exam Neurological exam: Alert, Oriented x3 - Psychiatric Exam Psychiatric exam: Normal Affect, Normal Mood - Skin Skin Exam: Dry, Normal Color, Warm Discharge Plan - Discharge Medications Prescriptions: cloNIDine [Catapres] 0.1 mg PO BID 7 Days tab Citalopram [celeXA] 20 mg PO DAILY 12 Days tab Folic Acid 1 mg PO DAILY 7 Days tab Metoprolol Tartrate [Lopressor] 50 mg PO BID #24 tab QUEtiapine [Seroquel] 50 mg PO HS 12 Days tab Multivitamin Therapeutic Tab [Thera Tab] 1 tab PO 0800 #7 tab Thiamine [Vitamin B1 Tab] 100 mg PO DAILY #7 tab - Follow Up Plan Condition: STABLE Disposition: HOME/ ROUTINE Instructions: Alcohol Withdrawal (DC), Effects of Alcohol on Your Health Additional Instructions: FOLLOW UP WITH PRIMARY PHYSICIAN NEXT WEEK. CONTINUE TO GO TO AA MEETINGS. NO ALCOHOL DRINKING. Referrals: Patric Baez MD [Primary Care Provider] - <Agustin Corea - Last Filed: 09/20/17 16:13> Provider - Provider Date of Admission: 09/18/17 02:07 Attending physician: Agustin Corea MD Primary care physician: Patric Baez MD Hospital Course - Lab Results Lab Results: Most Recent Lab Values WBC 4.0 10^3/ul (4.5-11.0) L 09/20/17 05:30 RBC 4.86 10^6/uL (3.5-6.1) 09/20/17 05:30 Hgb 14.3 g/dL (14.0-18.0) 09/20/17 05:30 Hct 41.7 % (42.0-52.0) L 09/20/17 05:30 MCV 85.8 fl (80.0-105.0) 09/20/17 05:30 MCH 29.4 pg (25.0-35.0) 09/20/17 05:30 MCHC 34.3 g/dl (31.0-37.0) 09/20/17 05:30 RDW 14.4 % (11.5-14.5) 09/20/17 05:30 Plt Count 100 10^3/uL (120.0-450.0) L 09/20/17 05:30 MPV 11.3 fl (7.0-11.0) H 09/20/17 05:30 Gran % 46.2 % (50.0-68.0) L 09/20/17 05:30 Lymph % (Auto) 39.5 % (22.0-35.0) H 09/20/17 05:30 [place] % (Auto) 13.0 % (1.0-6.0) H 09/20/17 05:30 Eos % (Auto) 1.0 % (1.5-5.0) L 09/20/17 05:30 Baso % (Auto) 0.3 % (0.0-3.0) 09/20/17 05:30 Gran # 1.85 (1.4-6.5) 09/20/17 05:30 Lymph # (Auto) 1.6 (1.2-3.4) 09/20/17 05:30 [place] # (Auto) 0.5 (0.1-0.6) 09/20/17 05:30 Eos # (Auto) 0.0 (0.0-0.7) 09/20/17 05:30 Baso # (Auto) 0.01 K/mm3 (0.0-2.0) 09/20/17 05:30 Sodium 138 mmol/L (132-148) 09/20/17 05:30 Potassium 4.2 mmol/L (3.6-5.0) 09/20/17 05:30 Chloride 103 mmol/L (98-107) 09/20/17 05:30 Carbon Dioxide 26 mmol/L (21-33) 09/20/17 05:30 Anion Gap 13 (10-20) 09/20/17 05:30 BUN 8 mg/dL (7-21) 09/20/17 05:30 Creatinine 0.7 mg/dl (0.8-1.5) L 09/20/17 05:30 Est GFR ( Amer) > 60 09/20/17 05:30 Est GFR (Non-Af Amer) > 60 09/20/17 05:30 Random Glucose 87 mg/dL (70-110) 09/20/17 05:30 Calcium 8.9 mg/dL (8.4-10.5) 09/20/17 05:30 Phosphorus 4.0 mg/dL (2.5-4.5) 09/20/17 05:30 Magnesium 1.9 mg/dL (1.7-2.2) 09/20/17 05:30 Total Bilirubin 0.4 mg/dL (0.2-1.3) 09/20/17 05:30 AST 46 U/L (17-59) 09/20/17 05:30 ALT 71 U/L (7-56) H 09/20/17 05:30 Alkaline Phosphatase 66 U/L (38-126) 09/20/17 05:30 Total Protein 6.5 g/dL (5.8-8.3) 09/20/17 05:30 Albumin 3.9 g/dL (3.0-4.8) 09/20/17 05:30 Globulin 2.6 gm/dL 09/20/17 05:30 Albumin/Globulin Ratio 1.5 (1.1-1.8) 09/20/17 05:30 Urine Color Straw (YELLOW) 09/18/17 01:31 Urine Appearance Clear (CLEAR) 09/18/17 01:31 Urine pH 6.5 (4.7-8.0) 09/18/17 01:31 Ur Specific [place] <= 1.005 (1.005-1.035) 09/18/17 01:31 Urine Protein Negative mg/dL (<30 mg/dL) 09/18/17 01:31 Urine Glucose (UA) Negative mg/dL (NEGATIVE) 09/18/17 01:31 Urine Ketones Negative mg/dL (NEGATIVE) 09/18/17 01:31 Urine Blood Negative (NEGATIVE) 09/18/17 01:31 Urine Nitrate Negative (NEGATIVE) 09/18/17 01:31 Urine Bilirubin Negative (NEGATIVE) 09/18/17 01:31 Urine Urobilinogen 0.2 E.U./dL (<1 E.U./dL) 09/18/17 01:31 Ur Leukocyte Esterase Negative Kristen/uL (NEGATIVE) 09/18/17 01:31 Salicylates < 1 mg/dL (2.0-20.0) L 09/18/17 01:31 Urine Opiates Screen Negative (NEGATIVE) 09/18/17 01:31 Urine Methadone Screen Negative (NEGATIVE) 09/18/17 01:31 Acetaminophen < 10.0 ug/ml (10.0-20.0) L 09/18/17 01:31 Ur Barbiturates Screen Negative (NEGATIVE) 09/18/17 01:31 Ur Phencyclidine Scrn Negative (NEGATIVE) 09/18/17 01:31 Ur Amphetamines Screen Negative (NEGATIVE) 09/18/17 01:31 U Benzodiazepines Scrn Negative (NEGATIVE) 09/18/17 01:31 U Oth Cocaine Metabols Negative (NEGATIVE) 09/18/17 01:31 U Cannabinoids Screen Negative (NEGATIVE) 09/18/17 01:31 Alcohol, Quantitative 106 mg/dL (0-10) H 09/18/17 01:31 Attending/Attestation - Attestation I have personally seen and examined this patient.: Yes I have fully participated in the care of the patient.: Yes I have reviewed all pertinent clinical information, including history, physical exam and plan: Yes Notes (Text): 09/20/17 16:12 Attending note; Patient seen and examined with resident. Patient is a 47-year-old male with a history of alcohol abuse, depression, hypertension is admitted with alcohol withdrawal. Treated with IV Ativan. Continue multivitamin, thiamine, folic acid. Withdrawal symptoms resolved. Patient is tolerating diet. Ambulating fine. Elevated LFTs; secondary to alcohol abuse. Improving slowly. Complete alcohol cessation is strongly advised. Patient follows up with AA meetings sometimes. Discharge home today. Upon discharge the patient will follow-up with PMD .
== END 2017-09-20 12:39 | disposition home or self-care (01) ==
LOC: ED 00:12 → ERH 02:07 → 3RNO 03:43
PROVIDERS: ADMIT Internal Medicine; ATTEND Internal Medicine
DX: F10.239 Alcohol dependence with withdrawal, unspecified (principal); F31.9 Bipolar disorder, unspecified; I10 Essential (primary) hypertension; Y90.5 Blood alcohol level of 100-119 mg/100 ml
CPT/HCPCS: 36415; 80053; 80320; 80324; 80329; 80345; 80346; 80349; 80353; 80358; 80361; 81003; 83735; 83992; 84100; 85025; 93005; 96360; 96374; 99285; G0378; J2060; J7030

== ENCOUNTER 2017-10-02 12:14 | Emergency (ER) | payer MEDICAID ==
[2017-10-02 12:17] VITALS: BMI 25.1
== END 2017-10-02 12:19 | disposition left against medical advice (07) ==
LOC: ED 12:14
DX: Z02.89 Encounter for other administrative examinations (principal); F10.129 Alcohol abuse with intoxication, unspecified

== ENCOUNTER 2017-12-02 08:11 | Inpatient (IN) | payer MEDICAID ==
[2017-12-02 08:14] VITALS: BMI 25.1
[2017-12-02] MEDS ORDERED: Multivitamin (MVI) 10 ML, Thiamine 100 MG, Folic Acid 1 MG in Sodium Chloride 0.9% 1,00... IV ONE (08:39)
[2017-12-02] MEDS: Sodium Chloride 0.9% 1,000 ML IV SCH ×2 (08:45→18:33)
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
[2017-12-02 09:31] LABS: BASO # 0.01 K/mm3 (0.0-2.0); BASO % 0.2 % (0.0-3.0); EOS % 0.2 % (1.5-5.0); GRAN # 4.48 (1.4-6.5); GRAN % 75.6 % (50.0-68.0); HEMOGLOBIN 14.2 g/dL (14.0-18.0); LYMPH # 0.9 (1.2-3.4); LYMPH % 14.7 % (22.0-35.0); MEAN CELL VOLUME 83.4 fl (80.0-105.0); MEAN CORPUSCULAR HEMOGLOBIN 29.1 pg (25.0-35.0); MEAN CORPUSCULAR HGB CONC 34.9 g/dl (31.0-37.0); MEAN PLATELET VOLUME 11.7 fl (7.0-11.0); MONO # 0.6 (0.1-0.6); MONO % 9.3 % (1.0-6.0); RBC 4.88 10^6/uL (3.5-6.1); RED CELL DISTRIBUTION WIDTH 14.4 % (11.5-14.5); WHITE BLOOD COUNT 5.9 10^3/ul (4.5-11.0)
[2017-12-02 09:44] LABS: ALB/GLOB RATIO 1.6 (1.1-1.8); ALBUMIN 4.6 g/dL (3.0-4.8); ALT/SGPT 106 U/L (7-56); AST/SGOT 88 U/L (17-59); BLOOD UREA NITROGEN 7 mg/dL (7-21); CALCIUM 9.4 mg/dL (8.4-10.5); GFR AFRICAN-AMERICAN > 60; GFR NON-AFRICAN AMERICAN > 60; LIPASE 187 U/L (23-300)
[2017-12-02 09:47] LABS: ACETAMINOPHEN < 10.0 ug/ml (10.0-20.0); SALICYLATE < 1 mg/dL (2.0-20.0)
[2017-12-02] MEDS ORDERED: Magnesium Oxide 400 mg Tab UD PO STA (09:48)
[2017-12-02] MEDS ORDERED: Potassium Chloride 20 mEq ER Tab PO STA (09:48)
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
--- NOTE | 2017-12-02 12:09 | CT ---
Date of service: 12/02/2017 PROCEDURE: CT HEAD WITHOUT CONTRAST. HISTORY: ams, alcohol withdrawal COMPARISON: 09/25/2016 TECHNIQUE: Axial computed tomography images were obtained through the head/brain without intravenous contrast. Radiation dose: Total exam DLP = 867.65 mGy-cm. This CT exam was performed using one or more of the following dose reduction techniques: Automated exposure control, adjustment of the mA and/or kV according to patient size, and/or use of iterative reconstruction technique. FINDINGS: HEMORRHAGE: No intracranial hemorrhage. BRAIN: No mass effect or edema. No atrophy or chronic microvascular ischemic changes. VENTRICLES: Unremarkable. No hydrocephalus. CALVARIUM: No calvarial fracture. High right parietal small scalp contusion/ hematoma. PARANASAL SINUSES: Unremarkable as visualized. No significant inflammatory changes. MASTOID AIR CELLS: Unremarkable as visualized. No inflammatory changes. OTHER FINDINGS: None. IMPRESSION: No intracranial mass, hemorrhage or evidence of acute infarct. Small high right parietal scalp contusion/ hematoma. Otherwise unremarkable examination.
--- NOTE | 2017-12-02 13:22 | CARD ---
APPROVED REPORT Date of service: 12/02/2017 EKG Measurement Heart [id number] <Conclusion> Sinus tachycardia Otherwise normal ECG
[2017-12-02 18:49] LABS: PH,URINE 7.5 (4.7-8.0); URINE BILIRUBIN NEGATIVE (NEGATIVE); URINE BLOOD NEGATIVE (NEGATIVE); URINE GLUCOSE (UA) NEGATIVE (NEGATIVE); URINE LEUKOCYTE ESTERASE NEGATIVE Leu/uL (NEGATIVE); URINE PROTEIN NEGATIVE mg/dL (<30 mg/dL)
[2017-12-02 18:51] LABS: URINE APPEARANCE CLEAR (CLEAR); URINE COLOR YELLOW (YELLOW)
[2017-12-02 19:14] LABS: BARBITURATES, UR NEGATIVE (NEGATIVE); BENZODIAZEPINES, UR NEGATIVE (NEGATIVE); OPIATES, UR NEGATIVE (NEGATIVE); PHENCYCLIDINE, UR NEGATIVE (NEGATIVE)
[2017-12-03 06:24] LABS: BASO # 0.01 K/mm3 (0.0-2.0); BASO % 0.2 % (0.0-3.0); EOS # 0.1 (0.0-0.7); EOS % 2.1 % (1.5-5.0); GRAN # 2.15 (1.4-6.5); GRAN % 51.2 % (50.0-68.0); HEMOGLOBIN 13.1 g/dL (14.0-18.0); LYMPH # 1.6 (1.2-3.4); LYMPH % 36.8 % (22.0-35.0); MEAN CELL VOLUME 84.9 fl (80.0-105.0); MEAN CORPUSCULAR HEMOGLOBIN 29.4 pg (25.0-35.0); MEAN CORPUSCULAR HGB CONC 34.7 g/dl (31.0-37.0); MEAN PLATELET VOLUME 11.1 fl (7.0-11.0); MONO # 0.4 (0.1-0.6); MONO % 9.7 % (1.0-6.0); RBC 4.45 10^6/uL (3.5-6.1); RED CELL DISTRIBUTION WIDTH 14.8 % (11.5-14.5); WHITE BLOOD COUNT 4.2 10^3/ul (4.5-11.0)
[2017-12-03 07:00] LABS: ALB/GLOB RATIO 1.6 (1.1-1.8); ALBUMIN 3.6 g/dL (3.0-4.8); ALT/SGPT 84 U/L (7-56); AST/SGOT 59 U/L (17-59); BLOOD UREA NITROGEN 9 mg/dL (7-21); CALCIUM 8.7 mg/dL (8.4-10.5); GFR AFRICAN-AMERICAN > 60; GFR NON-AFRICAN AMERICAN > 60
--- NOTE | 2017-12-03 16:46 | CP.PCM.PN ---
<AlesiaAngel - Last Filed: 12/03/17 16:42> Subjective - Date & Time of Evaluation Date of Evaluation: 12/03/17 Time of Evaluation: 16:43 - Subjective Subjective: Angel Dumas Progress Note for Dr. Miesha Perez Mr. Glass was examined at bedside this morning. He reported some confusion overnight, but improved from yesterday. He also reported hearing some voices overnight, talking to him about his family. He denied any suicidal/homicidal ideations. He was able to recall his last drink on Wednesday, and reported trying to quit. He reported resolution of palpitations, sweating, and nausea. He denied any dizziness, trembling, shortness of breath, chest pain, vomiting, diarrhea, or dysuria. Objective - Vital Signs/Intake and Output Vital Signs (last 24 hours): Temp Pulse Resp BP Pulse Ox 98.4 F 79 18 146/95 H 97 12/03/17 12:00 12/03/17 14:00 12/03/17 12:00 12/03/17 12:00 12/03/17 00:01 Intake and Output: 12/03/17 12/03/17 06:59 18:59 Intake Total 240 Balance 240 - Medications Medications: Current Medications Folic Acid (Folic Acid) 1 mg PO DAILY [facility] Last Admin: 12/03/17 09:43 Dose: 1 mg Hydralazine HCl (Apresoline) 5 mg IVP Q6 PRN PRN Reason: Systolic Blood Pressure Lorazepam (Ativan) 1 mg IVP Q4H PRN; Protocol PRN Reason: Agitation Quetiapine Fumarate (Seroquel) 25 mg PO [facility] PRN Reason: Protocol Thiamine HCl (Vitamin B1 Tab) 100 mg PO DAILY [facility] Last Admin: 12/03/17 09:43 Dose: 100 mg - Labs Labs: 12/03/17 05:20 12/03/17 05:20 - Constitutional Appears: Non-toxic, No Acute Distress - Head Exam Head Exam: ATRAUMATIC, NORMOCEPHALIC - Eye Exam Eye Exam: EOMI, PERRL - ENT Exam ENT Exam: Mucous Membranes Moist - Respiratory Exam Respiratory Exam: Clear to Ausculation Bilateral, NORMAL BREATHING PATTERN. absent: Rales, Rhonchi, Wheezes - Cardiovascular Exam Cardiovascular Exam: REGULAR RHYTHM, +S1, +S2 - GI/Abdominal Exam GI & Abdominal Exam: Soft, Normal Bowel Sounds. absent: Distended, Tenderness - Extremities Exam Extremities Exam: Normal Inspection. absent: Pedal Edema - Neurological Exam Neurological Exam: Alert, Awake, Oriented x3 Neuro motor strength exam: Left Upper Extremity: 5, Right Upper Extremity: 5, Left Lower Extremity: 5, Right Lower Extremity: 5 - Psychiatric Exam Psychiatric exam: absent: Homicidal Ideation, Suicidal Ideation Additional comments: Auditory hallucinations. - Skin Skin Exam: Normal Color Assessment and Plan - Assessment and Plan (Free Text) Assessment: 47 year old male with past medical history including hypertension, chronic alcohol abuse, bipolar disorder who walked into [facility] ED by himself with complaints of hearing voices and having confusion. Patient admitted to telemetry for further observation. Plan: Alcohol withdrawal - CIWA protocol: 1 overnight and 0 since overnight - pt reports improvement of cognition - Ativan 1mg IV Q4H PRN - continue Multivitamin, Thiamine, Folate - Fall precaution - Seizure precaution - ICU consult - Dr. Wen, recs appreciated Auditory hallucinations in setting of bipolar disorder - Seroquel 25mg qhs - Psych consult, Dr. Nunn - recs appreciated Transaminitis - Likely secondary to ETOH abuse, chronic in nature - Previous admission showing negative hepatitis panel - Maintain MAP >65 - improved, AST 59 from 88, ALT 84 from 106 - continue to monitor Hypokalemia, resolved - Potassium of 3.3 on admission, now 4.2 - Repleted in ED - Continue to monitor Hypertension - Likely chronic - 146/95 today, continue to monitor - Hydralazine 5mg IV Q6 PRN SBP >180, holding parameters are as follows: Do not administe if HR >100bpm GI/DVT ppx - Pepcid - SCDs Case and plan be discussed with attending, Dr. Perez <Miesha Perez R - Last Filed: 12/04/17 13:18> Objective - Vital Signs/Intake and Output Vital Signs (last 24 hours): Temp Pulse Resp BP Pulse Ox 97.8 F 74 18 136/99 H 99 12/04/17 12:00 12/04/17 12:00 12/04/17 12:00 12/04/17 12:00 12/04/17 06:00 Intake and Output: 12/04/17 12/04/17 06:59 18:59 Intake Total 960 Output Total 1950 Balance -990 - Medications Medications: Current Medications Folic Acid (Folic Acid) 1 mg PO DAILY [facility] Last Admin: 12/04/17 09:08 Dose: 1 mg Hydralazine HCl (Apresoline) 5 mg IVP Q6 PRN PRN Reason: Systolic Blood Pressure Lorazepam (Ativan) 1 mg IVP Q4H PRN; Protocol PRN Reason: Agitation Last Admin: 12/04/17 00:14 Dose: 1 mg Multivitamins/Minerals (Therapeutic-M Tab) 1 tab PO 0800 [facility] Quetiapine Fumarate (Seroquel) 50 mg PO HS [facility] PRN Reason: Protocol Thiamine HCl (Vitamin B1 Tab) 100 mg PO DAILY [facility] Last Admin: 12/04/17 09:08 Dose: 100 mg - Labs Labs: 12/04/17 06:00 12/04/17 06:00 Attending/Attestation - Attestation I have personally seen and examined this patient.: Yes I have fully participated in the care of the patient.: Yes I have reviewed all pertinent clinical information, including history, physical exam and plan: Yes Notes (Text): Patient seen and examined by me at 9:45AM with resident 12/03/17. Case including HPI, physical exam, and assessment and plan discussed with resident. Agree with above with following additions/corrections. Patient states that he is feeling better today. Feels less confused. States he was hearing some voices last night. States he has been trying to quit alcohol and this happens when he does not sleep for a few days. He denies any chest pain pain or shortness of breath. No headaches or dizziness. No fevers or chills. No nausea, vomiting, or abdominal pain. No dysuria. Physical exam: General: Awake and alert sitting up in bed in no acute distress HEENT: Normocephalic atraumatic. Pupils equal reactive. No scleral icterus. Oropharynx is pink and moist. No pharyngeal erythema or exudate appreciated. Neck is supple. Cardiovascular: Normal rhythm. Normal S1, S2. No murmurs, rubs, or gallops appreciated Pulmonary: Normal respiratory effort. No rhonchi, rales or wheezing appreciated. Gastrointestinal: Soft, nontender, nondistended, positive bowel sounds all 4 quadrants, no guarding. Musculoskeletal: Normal range of motion all extremities, no calf tenderness, no edema appreciated Central nervous system: AAOx3 Dermatologic: Skin warm and dry Assessment and plan: Patient is a 47 year old male with past medical history significant for hypertension, chronic alcohol abuse, and bipolar disorder that presented to the Emergency room complaining of hearing voices and feeling confused. 1. Alcohol withdrawal/abuse. Continue CIWA protocol. Continue Ativan prn. Continue multivitamin, folic acid, and thiamine. Continue fall precautions and seizure precautions. Patient improving. Continue to monitor for withdrawal symptoms 2. Confusion. Secondary to #1. Improving. Continue CIWA protocol and supportive care 3. Auditory Hallucinations. Bipolar disorder. Continue Seroquel. Psych consulted , follow up recommendations. 4. Transaminits. Secondary to ETOH abuse. Improving. Continue to monitor. 5. Hypokalemia. Resolved. Continue to monitor 6. Hypertension. Patient has not filled medications at pharmacy since July. Patient has not been taking any medications. Continue to monitor and add PO medications if needed. Case was discussed in detail with the patient regarding current diagnosis and treatment plan.
[2017-12-04 07:12] LABS: BASO # 0.01 K/mm3 (0.0-2.0); BASO % 0.3 % (0.0-3.0); EOS # 0.1 (0.0-0.7); EOS % 1.8 % (1.5-5.0); GRAN # 1.98 (1.4-6.5); GRAN % 50.3 % (50.0-68.0); HEMOGLOBIN 13.6 g/dL (14.0-18.0); LYMPH # 1.5 (1.2-3.4); LYMPH % 36.9 % (22.0-35.0); MEAN CELL VOLUME 84.7 fl (80.0-105.0); MEAN CORPUSCULAR HEMOGLOBIN 29.4 pg (25.0-35.0); MEAN CORPUSCULAR HGB CONC 34.7 g/dl (31.0-37.0); MEAN PLATELET VOLUME 11.4 fl (7.0-11.0); MONO # 0.4 (0.1-0.6); MONO % 10.7 % (1.0-6.0); RBC 4.63 10^6/uL (3.5-6.1); RED CELL DISTRIBUTION WIDTH 14.9 % (11.5-14.5); WHITE BLOOD COUNT 3.9 10^3/ul (4.5-11.0)
[2017-12-04 07:27] LABS: ALB/GLOB RATIO 1.5 (1.1-1.8); ALBUMIN 3.7 g/dL (3.0-4.8); ALT/SGPT 80 U/L (7-56); AST/SGOT 55 U/L (17-59); BLOOD UREA NITROGEN 7 mg/dL (7-21); CALCIUM 9.2 mg/dL (8.4-10.5); GFR AFRICAN-AMERICAN > 60; GFR NON-AFRICAN AMERICAN > 60
[2017-12-04] MEDS ORDERED: Potassium Chloride 20 mEq ER Tab PO STA (08:10)
--- NOTE | 2017-12-04 13:47 | CP.PCM.PN ---
<Yefri Grijalva - Last Filed: 12/04/17 20:37> Subjective - Date & Time of Evaluation Date of Evaluation: 12/04/17 Time of Evaluation: 09:05 - Subjective Subjective: Yefri Grijalva D.O PGY1 Internal Medicine Progress Note for Dr. Corea Patient seen and examined at bedside. Patient reported being confused, agitated last night, was given ativan. He had regular bowel movement. He is able to ambulate. He denies tremors, diaphoresis, fever, chills, chest pain, palpitations, or urinary symptoms, N/V, SOB. Objective - Vital Signs/Intake and Output Vital Signs (last 24 hours): Temp Pulse Resp BP Pulse Ox 97.8 F 74 18 136/99 H 99 12/04/17 12:00 12/04/17 12:00 12/04/17 12:00 12/04/17 12:00 12/04/17 06:00 Intake and Output: 12/04/17 12/04/17 06:59 18:59 Intake Total 960 Output Total 1950 Balance -990 - Medications Medications: Current Medications Folic Acid (Folic Acid) 1 mg PO DAILY [facility] Last Admin: 12/04/17 09:08 Dose: 1 mg Hydralazine HCl (Apresoline) 5 mg IVP Q6 PRN PRN Reason: Systolic Blood Pressure Lorazepam (Ativan) 1 mg IVP Q4H PRN; Protocol PRN Reason: Agitation Last Admin: 12/04/17 00:14 Dose: 1 mg Multivitamins/Minerals (Therapeutic-M Tab) 1 tab PO 0800 [facility] Quetiapine Fumarate (Seroquel) 50 mg PO HS [facility] PRN Reason: Protocol Thiamine HCl (Vitamin B1 Tab) 100 mg PO DAILY [facility] Last Admin: 12/04/17 09:08 Dose: 100 mg - Labs Labs: 12/04/17 06:00 12/04/17 06:00 - Constitutional Appears: Well - Head Exam Head Exam: ATRAUMATIC, NORMAL INSPECTION, NORMOCEPHALIC - Eye Exam Eye Exam: EOMI, Normal appearance, PERRL Pupil Exam: NORMAL ACCOMODATION, PERRL - ENT Exam ENT Exam: Mucous Membranes Moist, Normal Exam - Neck Exam Neck Exam: Full ROM, Normal Inspection. absent: Lymphadenopathy - Respiratory Exam Respiratory Exam: Clear to Ausculation Bilateral, NORMAL BREATHING PATTERN - Cardiovascular Exam Cardiovascular Exam: REGULAR RHYTHM, +S1, +S2. absent: Murmur - GI/Abdominal Exam GI & Abdominal Exam: Soft, Normal Bowel Sounds. absent: Tenderness - Extremities Exam Extremities Exam: Full ROM, Normal Capillary Refill, Normal Inspection. absent : Joint Swelling, Pedal Edema - Back Exam Back Exam: NORMAL INSPECTION - Neurological Exam Neurological Exam: Alert, Awake, CN II-XII Intact, Normal Gait, Oriented x3 - Psychiatric Exam Psychiatric exam: Normal Affect, Normal Mood - Skin Skin Exam: Dry, Intact, Normal Color, Warm Assessment and Plan - Assessment and Plan (Free Text) Assessment: 47 year old male with past medical history including hypertension, chronic alcohol abuse, bipolar disorder who walked into [facility] by himself with complaints of hearing voices and having confusion. Patient admitted to telemetry for further observation. Plan: Alcohol withdrawal - Continue CIWA protocol - pt reports improvement of cognition - Ativan 1mg IV Q4H PRN - continue Multivitamin, Thiamine, Folate - Fall precaution - Seizure precaution - ICU consult, Dr. Wen: MICU management is not necessary at this time. Banana Bag for hydration X 1; after, start patient on Thiamine, Folic acid, MVi PO Auditory hallucinations in setting of bipolar disorder - Seroquel 25mg qhs - Psych consult, Dr. Nunn - [facility] appreciated Transaminitis - Likely secondary to ETOH abuse, chronic in nature - Previous admission showing negative hepatitis panel - continue to monitor Hypertension - Likely chronic - 148/92 today, continue to monitor - Hydralazine 5mg IV Q6 PRN SBP >180, holding parameters are as follows: Do not administe if HR >100bpm - Monitor P,K, Mg. replete if low GI/DVT ppx - Pepcid - SCDs Case and plan be discussed with attending, Dr. Corea <Agustin Corea - Last Filed: 12/05/17 07:37> Objective - Vital Signs/Intake and Output Vital Signs (last 24 hours): Temp Pulse Resp BP Pulse Ox 98.0 F 91 H 20 121/81 96 12/05/17 06:00 12/05/17 06:00 12/05/17 06:00 12/05/17 06:00 12/05/17 06:00 Intake and Output: 12/05/17 12/05/17 06:59 18:59 Intake Total 800 Output Total 5550 Balance -4750 - Medications Medications: Current Medications Folic Acid (Folic Acid) 1 mg PO DAILY [facility] Last Admin: 12/04/17 09:08 Dose: 1 mg Hydralazine HCl (Apresoline) 5 mg IVP Q6 PRN PRN Reason: Systolic Blood Pressure Lorazepam (Ativan) 1 mg IVP Q4H PRN; Protocol PRN Reason: Agitation Last Admin: 12/04/17 23:59 Dose: 1 mg Multivitamins/Minerals (Therapeutic-M Tab) 1 tab PO 0800 [facility] Quetiapine Fumarate (Seroquel) 50 mg PO HS [facility] PRN Reason: Protocol Last Admin: 12/04/17 21:49 Dose: 50 mg Thiamine HCl (Vitamin B1 Tab) 100 mg PO DAILY [facility] Last Admin: 12/04/17 09:08 Dose: 100 mg - Labs Labs: 12/04/17 06:00 12/04/17 06:00 Attending/Attestation - Attestation I have personally seen and examined this patient.: Yes I have fully participated in the care of the patient.: Yes I have reviewed all pertinent clinical information, including history, physical exam and plan: Yes Notes (Text): 12/05/17 07:31 Attending note; Patient seen and examined with resident. Patient is alert and awake. Denies any chest pain, shortness of breath. Tolerating diet. Denies any nausea, vomiting. Complaining of depression. Currently not taking any medications. Patient is a 47 year old male with past medical history significant for hypertension not on meds , chronic alcohol abuse, and bipolar disorder that presented to the Emergency room complaining of hearing voices and feeling confused. Alcohol withdrawal/abuse. Currently in mild t alcohol withdrawal . Continue CIWA protocol. Continue Ativan prn. Continue multivitamin, folic acid, and thiamine. Continue fall precautions and seizure precautions. Patient improving. Continue to monitor for withdrawal symptoms. Complete alcohol cessation is strongly advised. Patient follows up with AA meetings on and off. Transaminits. Secondary to ETOH abuse. Resolving. Pancytopenia; secondary to alcohol-induced bone marrow suppression. Hypokalemia: continue po supplementation. Bipolar disorder; psychiatric evaluation requested. Will adjust medications. History of hypertension; currently not on any medication. elevated blood pressure is Mostly secondary to alcohol withdrawal. Case was discussed in detail with the patient regarding current diagnosis and treatment plan. Possible discharge home tomorrow. Upon discharge the patient will follow-up with PMD .
[2017-12-05 02:12] VITALS: RESP 20
[2017-12-05 06:56] VITALS: BP 121/81; PULSE 91; TEMP 98; O2SAT 96
[2017-12-05 07:32] LABS: BASO # 0.02 K/mm3 (0.0-2.0); BASO % 0.4 % (0.0-3.0); EOS # 0.1 (0.0-0.7); EOS % 1.5 % (1.5-5.0); GRAN # 2.12 (1.4-6.5); GRAN % 45.9 % (50.0-68.0); LYMPH # 1.8 (1.2-3.4); LYMPH % 38.3 % (22.0-35.0); MEAN CELL VOLUME 85.2 fl (80.0-105.0); MEAN CORPUSCULAR HEMOGLOBIN 29.2 pg (25.0-35.0); MEAN CORPUSCULAR HGB CONC 34.3 g/dl (31.0-37.0); MEAN PLATELET VOLUME 11.4 fl (7.0-11.0); MONO # 0.6 (0.1-0.6); MONO % 13.9 % (1.0-6.0); RBC 4.79 10^6/uL (3.5-6.1); WHITE BLOOD COUNT 4.6 10^3/ul (4.5-11.0)
[2017-12-05 07:58] LABS: ALB/GLOB RATIO 1.5 (1.1-1.8); ALBUMIN 3.9 g/dL (3.0-4.8); ALT/SGPT 81 U/L (7-56); AST/SGOT 48 U/L (17-59); BLOOD UREA NITROGEN 6 mg/dL (7-21); CALCIUM 9.1 mg/dL (8.4-10.5); GFR AFRICAN-AMERICAN > 60; GFR NON-AFRICAN AMERICAN > 60
[2017-12-05] MEDS ORDERED: Multivitamin With Minerals Tab PO SCH (08:00)
--- NOTE | 2017-12-05 09:59 | CP.PCM.DIS ---
<Yefri Grijalva - Last Filed: 12/05/17 10:37> Provider - Provider Date of Admission: 12/02/17 10:58 Attending physician: Agustin Corea MD Primary care physician: Dr Baez Consults: psych Dr Nunn Time Spent in preparation of Discharge (in minutes): 45 Hospital Course - Lab Results Lab Results: Most Recent Lab Values WBC 4.6 10^3/ul (4.5-11.0) 12/05/17 06:00 RBC 4.79 10^6/uL (3.5-6.1) 12/05/17 06:00 Hgb 14.0 g/dL (14.0-18.0) 12/05/17 06:00 Hct 40.8 % (42.0-52.0) L 12/05/17 06:00 MCV 85.2 fl (80.0-105.0) 12/05/17 06:00 MCH 29.2 pg (25.0-35.0) 12/05/17 06:00 MCHC 34.3 g/dl (31.0-37.0) 12/05/17 06:00 RDW 15.0 % (11.5-14.5) H 12/05/17 06:00 Plt Count 94 10^3/uL (120.0-450.0) L 12/05/17 06:00 MPV 11.4 fl (7.0-11.0) H 12/05/17 06:00 Gran % 45.9 % (50.0-68.0) L 12/05/17 06:00 Lymph % (Auto) 38.3 % (22.0-35.0) H 12/05/17 06:00 Baxter % (Auto) 13.9 % (1.0-6.0) H 12/05/17 06:00 Eos % (Auto) 1.5 % (1.5-5.0) 12/05/17 06:00 Baso % (Auto) 0.4 % (0.0-3.0) 12/05/17 06:00 Gran # 2.12 (1.4-6.5) 12/05/17 06:00 Lymph # (Auto) 1.8 (1.2-3.4) 12/05/17 06:00 Baxter # (Auto) 0.6 (0.1-0.6) 12/05/17 06:00 Eos # (Auto) 0.1 (0.0-0.7) 12/05/17 06:00 Baso # (Auto) 0.02 K/mm3 (0.0-2.0) 12/05/17 06:00 Sodium 139 mmol/L (132-148) 12/05/17 06:00 Potassium 3.7 mmol/L (3.6-5.0) 12/05/17 06:00 Chloride 104 mmol/L (98-107) 12/05/17 06:00 Carbon Dioxide 24 mmol/L (21-33) 12/05/17 06:00 Anion Gap 15 (10-20) 12/05/17 06:00 BUN 6 mg/dL (7-21) L 12/05/17 06:00 Creatinine 0.8 mg/dl (0.8-1.5) 12/05/17 06:00 Est GFR ( Amer) > 60 12/05/17 06:00 Est GFR (Non-Af Amer) > 60 12/05/17 06:00 POC Glucose (mg/dL) 125 mg/dL (65-110) H 12/02/17 08:40 Random Glucose 87 mg/dL (70-110) 12/05/17 06:00 Calcium 9.1 mg/dL (8.4-10.5) 12/05/17 06:00 Phosphorus 2.9 mg/dL (2.5-4.5) 12/02/17 09:20 Magnesium 1.9 mg/dL (1.7-2.2) 12/04/17 06:00 Total Bilirubin 0.5 mg/dL (0.2-1.3) 12/05/17 06:00 AST 48 U/L (17-59) 12/05/17 06:00 ALT 81 U/L (7-56) H 12/05/17 06:00 Alkaline Phosphatase 75 U/L (38-126) 12/05/17 06:00 Total Protein 6.6 g/dL (5.8-8.3) 12/05/17 06:00 Albumin 3.9 g/dL (3.0-4.8) 08/19/18 06:00 Globulin 2.7 gm/dL 12/05/17 06:00 Albumin/Globulin Ratio 1.5 (1.1-1.8) 12/05/17 06:00 Lipase 187 U/L (23-300) 12/02/17 09:20 Urine Color Yellow (YELLOW) 12/02/17 18:17 Urine Appearance Clear (CLEAR) 12/02/17 18:17 Urine pH 7.5 (4.7-8.0) 12/02/17 18:17 Ur Specific Edmond 1.010 (1.005-1.035) 12/02/17 18:17 Urine Protein Negative mg/dL (<30 mg/dL) 12/02/17 18:17 Urine Glucose (UA) Negative mg/dL (NEGATIVE) 12/02/17 18:17 Urine Ketones Trace mg/dL (NEGATIVE) H 12/02/17 18:17 Urine Blood Negative (NEGATIVE) 12/02/17 18:17 Urine Nitrate Negative (NEGATIVE) 12/02/17 18:17 Urine Bilirubin Negative (NEGATIVE) 12/02/17 18:17 Urine Urobilinogen 1.0 E.U./dL (<1 E.U./dL) H 12/02/17 18:17 Ur Leukocyte Esterase Negative Kristen/uL (NEGATIVE) 12/02/17 18:17 Salicylates < 1 mg/dL (2.0-20.0) L 12/02/17 09:20 Urine Opiates Screen Negative (NEGATIVE) 12/02/17 18:17 Urine Methadone Screen Negative (NEGATIVE) 12/02/17 18:17 Acetaminophen < 10.0 ug/ml (10.0-20.0) L 12/02/17 09:20 Ur Barbiturates Screen Negative (NEGATIVE) 12/02/17 18:17 Ur Phencyclidine Scrn Negative (NEGATIVE) 12/02/17 18:17 Ur Amphetamines Screen Negative (NEGATIVE) 12/02/17 18:17 U Benzodiazepines Scrn Negative (NEGATIVE) 12/02/17 18:17 U Oth Cocaine Metabols Negative (NEGATIVE) 12/02/17 18:17 U Cannabinoids Screen Negative (NEGATIVE) 12/02/17 18:17 Alcohol, Quantitative < 10 mg/dL (0-10) 12/02/17 09:20 - Hospital Course Hospital Course: On admission: 47 year old male with past medical history significant for hypertension, chronic alcohol abuse, and bipolar disorder that presented to the Emergency room complaining of hearing voices and feeling confused. Patient was oriented to time and place but not self. Patient is unable to provide a history and incoherent. History taken from patient's chart and ED notes. Patient's last drink was 11/29/17. Patient complained of having auditory hallucinations, feeling confused, and feeling like he is in alcohol withdrawal at time of arrival. Patient was in hospital 09/18/17 with similar episode. Patient is denying any chest pain or shortness of breath. He denies any nausea, vomiting, or abdominal pain. Unable to obtain any other review of systems from patient secondary to confusion and being incoherent. Hospital course: Patient was admitted to medical floor for alcohol withdrawal and auditory hallucination in the setting of bipolar disorder. Patient was on CIWA protocol, ativan, folic acid , thiamine, multivitamins. He was seen by psychiatrist Dr Nunn who adjusted psych med seroquel dose. Patient's hypertension was uncontrolled for which hydralazine was given prn. Hypokalemia was corrected. Patient has transaminitis which is chronic dur to alcohol abuse. LFT was monitored. Patient symptoms of hallucinations and confusion got better today. His CIWA score was zero. Normal physical exam, normal gait, no hand tremors, no tongue fasciculations. Patient was cleared by Dr Nunn for discharge today. On discharge Please take new medications as prescribed Please contact to make an appointment with Dr. Nunn for follow up Please return to emergency room if symptoms reoccur PLease follow up with your PMD Dr. Baez within 3 to 5 days If symptoms reoccur, return to nearest emergency department Discharge planning was conducted with patient including outpatient follow up, medication reconciliation, and signs and symptoms to be aware of for return to emergency department. Patient was in understanding and able to recall instructions back to primary team. Patient was deemed to be medically optimized for discharge by consultants involved in her care as well as her primary medical team. For further details regarding hospital stay please refer to full chart. - Date & Time of H&P Date of H&P: 12/05/17 Time of H&P: 09:40 Discharge Exam - Head Exam Head Exam: ATRAUMATIC, NORMAL INSPECTION, NORMOCEPHALIC - Eye Exam Eye Exam: EOMI, Normal appearance, PERRL Pupil Exam: NORMAL ACCOMODATION, PERRL - ENT Exam ENT Exam: Mucous Membranes Moist, Normal Exam - Neck Exam Neck exam: Full Rom, Normal Inspection - Respiratory Exam Respiratory Exam: Clear to PA & Lateral, NORMAL BREATHING PATTERN - Cardiovascular Exam Cardiovascular Exam: REGULAR RHYTHM, +S1, +S2 - GI/Abdominal Exam GI & Abdominal Exam: Normal Bowel Sounds, Soft - Rectal Exam Rectal Exam: Deferred - Extremities Exam Extremities exam: full ROM, normal capillary refill - Back Exam Back exam: FULL ROM - Neurological Exam Neurological exam: Alert, CN II-XII Intact, Normal Gait, Oriented x3 - Psychiatric Exam Psychiatric exam: Normal Affect, Normal Mood - Skin Skin Exam: Dry, Intact, Normal Color, Warm Discharge Plan - Discharge Medications Prescriptions: Folic Acid 1 mg PO DAILY #30 tab Lorazepam [Ativan] 0.5 mg PO TID #3 tab Lorazepam [Ativan] 0.5 mg PO BID #2 tab Lorazepam [Ativan] 0.5 mg PO ONCE #1 tab Multimineral/Multivitamin [Therapeutic-M Tab] 1 tab PO 0800 #30 tab QUEtiapine [Seroquel] 50 mg PO HS #30 tab Thiamine HCl [B-1] 100 mg PO DAILY #30 tablet - Follow Up Plan Condition: FAIR Disposition: HOME/ ROUTINE Instructions: Alcohol Withdrawal (DC), Alcohol Abuse and Alcoholism (DC), Effects of Alcohol on Your Health, Alcohol Poisoning (DC), Altered Mental Status (GEN) Additional Instructions: Please take new medications as prescribed. Please contact to make an appointment with Dr. Nunn for follow up. Please return to emergency room if symptoms reoccur. PLease follow up with your PMD Dr. Baez within 3 to 5 days. <Agustin Corea - Last Filed: 12/05/17 18:35> Provider - Provider Date of Admission: 12/02/17 10:58 Attending physician: Agustin Corea MD Hospital Course - Lab Results Lab Results: Most Recent Lab Values WBC 4.6 10^3/ul (4.5-11.0) 12/05/17 06:00 RBC 4.79 10^6/uL (3.5-6.1) 12/05/17 06:00 Hgb 14.0 g/dL (14.0-18.0) 12/05/17 06:00 Hct 40.8 % (42.0-52.0) L 12/05/17 06:00 MCV 85.2 fl (80.0-105.0) 12/05/17 06:00 MCH 29.2 pg (25.0-35.0) 12/05/17 06:00 MCHC 34.3 g/dl (31.0-37.0) 12/05/17 06:00 RDW 15.0 % (11.5-14.5) H 12/05/17 06:00 Plt Count 94 10^3/uL (120.0-450.0) L 12/05/17 06:00 MPV 11.4 fl (7.0-11.0) H 12/05/17 06:00 Gran % 45.9 % (50.0-68.0) L 12/05/17 06:00 Lymph % (Auto) 38.3 % (22.0-35.0) H 12/05/17 06:00 Baxter % (Auto) 13.9 % (1.0-6.0) H 12/05/17 06:00 Eos % (Auto) 1.5 % (1.5-5.0) 12/05/17 06:00 Baso % (Auto) 0.4 % (0.0-3.0) 12/05/17 06:00 Gran # 2.12 (1.4-6.5) 12/05/17 06:00 Lymph # (Auto) 1.8 (1.2-3.4) 12/05/17 06:00 Baxter # (Auto) 0.6 (0.1-0.6) 12/05/17 06:00 Eos # (Auto) 0.1 (0.0-0.7) 12/05/17 06:00 Baso # (Auto) 0.02 K/mm3 (0.0-2.0) 12/05/17 06:00 Sodium 139 mmol/L (132-148) 12/05/17 06:00 Potassium 3.7 mmol/L (3.6-5.0) 12/05/17 06:00 Chloride 104 mmol/L (98-107) 12/05/17 06:00 Carbon Dioxide 24 mmol/L (21-33) 12/05/17 06:00 Anion Gap 15 (10-20) 12/05/17 06:00 BUN 6 mg/dL (7-21) L 12/05/17 06:00 Creatinine 0.8 mg/dl (0.8-1.5) 12/05/17 06:00 Est GFR ( Amer) > 60 12/05/17 06:00 Est GFR (Non-Af Amer) > 60 12/05/17 06:00 POC Glucose (mg/dL) 125 mg/dL (65-110) H 12/02/17 08:40 Random Glucose 87 mg/dL (70-110) 12/05/17 06:00 Calcium 9.1 mg/dL (8.4-10.5) 12/05/17 06:00 Phosphorus 2.9 mg/dL (2.5-4.5) 12/02/17 09:20 Magnesium 1.9 mg/dL (1.7-2.2) 12/04/17 06:00 Total Bilirubin 0.5 mg/dL (0.2-1.3) 12/05/17 06:00 AST 48 U/L (17-59) 12/05/17 06:00 ALT 81 U/L (7-56) H 12/05/17 06:00 Alkaline Phosphatase 75 U/L (38-126) 12/05/17 06:00 Total Protein 6.6 g/dL (5.8-8.3) 12/05/17 06:00 Albumin 3.9 g/dL (3.0-4.8) 12/05/17 06:00 Globulin 2.7 gm/dL 12/05/17 06:00 Albumin/Globulin Ratio 1.5 (1.1-1.8) 12/05/17 06:00 Lipase 187 U/L (23-300) 12/02/17 09:20 Urine Color Yellow (YELLOW) 12/02/17 18:17 Urine Appearance Clear (CLEAR) 12/02/17 18:17 Urine pH 7.5 (4.7-8.0) 12/02/17 18:17 Ur Specific Edmond 1.010 (1.005-1.035) 12/02/17 18:17 Urine Protein Negative mg/dL (<30 mg/dL) 12/02/17 18:17 Urine Glucose (UA) Negative mg/dL (NEGATIVE) 12/02/17 18:17 Urine Ketones Trace mg/dL (NEGATIVE) H 12/02/17 18:17 Urine Blood Negative (NEGATIVE) 12/02/17 18:17 Urine Nitrate Negative (NEGATIVE) 12/02/17 18:17 Urine Bilirubin Negative (NEGATIVE) 12/02/17 18:17 Urine Urobilinogen 1.0 E.U./dL (<1 E.U./dL) H 12/02/17 18:17 Ur Leukocyte Esterase Negative Kristen/uL (NEGATIVE) 12/02/17 18:17 Salicylates < 1 mg/dL (2.0-20.0) L 12/02/17 09:20 Urine Opiates Screen Negative (NEGATIVE) 12/02/17 18:17 Urine Methadone Screen Negative (NEGATIVE) 12/02/17 18:17 Acetaminophen < 10.0 ug/ml (10.0-20.0) L 12/02/17 09:20 Ur Barbiturates Screen Negative (NEGATIVE) 12/02/17 18:17 Ur Phencyclidine Scrn Negative (NEGATIVE) 12/02/17 18:17 Ur Amphetamines Screen Negative (NEGATIVE) 12/02/17 18:17 U Benzodiazepines Scrn Negative (NEGATIVE) 12/02/17 18:17 U Oth Cocaine Metabols Negative (NEGATIVE) 12/02/17 18:17 U Cannabinoids Screen Negative (NEGATIVE) 12/02/17 18:17 Alcohol, Quantitative < 10 mg/dL (0-10) 12/02/17 09:20 Attending/Attestation - Attestation I have personally seen and examined this patient.: Yes I have fully participated in the care of the patient.: Yes I have reviewed all pertinent clinical information, including history, physical exam and plan: Yes Notes (Text): 12/05/17 18:34 Attending note; Patient seen and examined with resident. Patient is alert and awake. Denies any chest pain, shortness of breath. Tolerating diet. Denies any nausea, vomiting. Ambulating fine without difficulty. Patient is a 47 year old male with past medical history significant for hypertension not on meds , chronic alcohol abuse, and bipolar disorder that presented to the Emergency room complaining of hearing voices and feeling confused. Alcohol withdrawal/abuse. Currently in mild t alcohol withdrawal . Continue CIWA protocol. Continue Ativan prn. Continue multivitamin, folic acid, and thiamine. Continue fall precautions and seizure precautions. Patient improving. Continue to monitor for withdrawal symptoms. Complete alcohol cessation is strongly advised. Patient follows up with AA meetings on and off. Transaminits. Secondary to ETOH abuse. Resolving. Pancytopenia; secondary to alcohol-induced bone marrow suppression. Bipolar disorder; psychiatric evaluation appreciated. Started on Seroquel. Patient [place] [facility] [place] was cleared by psychiatrist for discharge home. History of hypertension; currently not on any medication. elevated blood pressure is Mostly secondary to alcohol withdrawal. Patient is advised to follow-up with PMD as outpatient for the need for antihypertensives. Case was discussed in detail with the patient regarding current diagnosis and treatment plan. Discharge home today. Upon discharge the patient will follow-up with PMD .
--- NOTE | 2017-12-06 05:06 | CON ---
Copied To: Gely Nunn MD Attending MD: Gely Nunn MD DATE: 12/04/2017 HISTORY OF PRESENT ILLNESS: The patient is a 47-year-old white male who has a long and debilitating history of severe alcohol use disorder associated with numerous medical admissions for withdrawal DT, history of bipolar type 2, and multiple psychiatric admissions for bipolar and alcohol use disorder, inconsistent adherence to outpatient treatment medications who was admitted to the medical floor after he presented complaining about auditory hallucinations in the context of alcohol withdrawal. Psychiatry was consulted because of the patient's reported hallucinations. I am very familiar with the patient on multiple prior medical consultations as well as he was seen on the psychiatric unit. The patient also remembers me from prior treatment. The patient reports that he has been drinking again and he has been drinking a lot of alcohol and vodka on a daily basis for over a week prior to stopping earlier this week. The patient indicates that he stopped drinking earlier about a week ago and then a few days later started experiencing auditory hallucinations which just keep whispering. The patient continues to have these hallucinations; however, denies having them at the present moment. Indicated they improved while he was on the unit and he has been tolerating Ativan medication very well thus far for his alcohol withdrawal. He does have a history of depression; however, he denies having any current symptoms at this time. He denies any suicidal thoughts or homicidal thoughts. Reports that he is hopeful. He denies any drug use at this time. He has been in good control and his affect is generally well related, mildly anxious, and demonstrating good range and reactivity. Delusions were not elicited and he was not noted to be responding to internal stimuli. His insight and judgement consider to be poor. PSYCHIATRIC HISTORY: The patient with multiple psychiatric admissions. He is generally treated with Celexa and Seroquel. He is generally not compliant with his outpatient treatment medications and he denies being in any current mental health treatments. SOCIAL HISTORY: The patient lives with his mother. He has a long history of alcohol use disorder. He is currently unemployed. He denies any drug issues. Longest period of sobriety is 9 months. He denies any legal issues. Vital signs and labs were reviewed by this provider. RELEVANT PSYCHIATRIC MEDICATIONS: Include Ativan 1 mg IV every 4 hours p.r.n. and Seroquel 25 mg at bedtime. IMPRESSION: Alcohol withdrawal delirium tremens, major depression by history as this appears to be noncontributory at this time. RECOMMENDATIONS: We will continue with Ativan 1 mg IV every 4 hours p.r.n., taper as need. Monitor vitals carefully. Continue with multivitamins, folic acid, and thiamine. I will increase Seroquel to 50 mg at bedtime to help with hallucinations last night. The patient is psychiatrically stable delirium. Psychiatry will sign off at this time. Gely Nunn MD
== END 2017-12-05 10:09 | disposition home or self-care (01) | DRG 750 ==
LOC: ED 08:11 → ERH 10:58 → 2RNO 12:31
PROVIDERS: ADMIT Hospitalist; ATTEND Internal Medicine
DX: F10.239 Alcohol dependence with withdrawal, unspecified (principal); I11.0 Hypertensive heart disease with heart failure; I50.9 Heart failure, unspecified; E87.6 Hypokalemia; D61.818 Other pancytopenia; F31.81 Bipolar II disorder; F22 Delusional disorders; R74.0 Nonspecific elevation of levels of transaminase and lactic acid dehydrogenase [LDH]; Z82.49 Family history of ischemic heart disease and other diseases of the circulatory system

== ENCOUNTER 2017-12-31 19:52 | Emergency (ER) | payer MEDICAID ==
[2017-12-31 19:53] VITALS: BMI 25.1
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
[2017-12-31 21:42] LABS: BASO # 0.02 K/mm3 (0.0-2.0); BASO % 0.4 % (0.0-3.0); EOS % 0.6 % (1.5-5.0); GRAN # 2.06 (1.4-6.5); GRAN % 43.7 % (50.0-68.0); HEMOGLOBIN 13.5 g/dL (14.0-18.0); LYMPH # 2.3 (1.2-3.4); LYMPH % 48.7 % (22.0-35.0); MEAN CELL VOLUME 85.4 fl (80.0-105.0); MEAN CORPUSCULAR HEMOGLOBIN 29.9 pg (25.0-35.0); MEAN CORPUSCULAR HGB CONC 35.1 g/dl (31.0-37.0); MEAN PLATELET VOLUME 9.6 fl (7.0-11.0); MONO # 0.3 (0.1-0.6); MONO % 6.6 % (1.0-6.0); RBC 4.51 10^6/uL (3.5-6.1); RED CELL DISTRIBUTION WIDTH 14.8 % (11.5-14.5); WHITE BLOOD COUNT 4.7 10^3/ul (4.5-11.0)
[2017-12-31 21:56] LABS: ALB/GLOB RATIO 1.6 (1.1-1.8); ALBUMIN 4.1 g/dL (3.0-4.8); ALT/SGPT 27 U/L (7-56); AST/SGOT 28 U/L (17-59); BLOOD UREA NITROGEN 10 mg/dL (7-21); CALCIUM 8.2 mg/dL (8.4-10.5); GFR NON-AFRICAN AMERICAN > 60
[2018-01-01 06:00] LABS: URINE BILIRUBIN NEGATIVE (NEGATIVE); URINE BLOOD NEGATIVE (NEGATIVE); URINE GLUCOSE (UA) NEGATIVE (NEGATIVE); URINE LEUKOCYTE ESTERASE NEGATIVE Leu/uL (NEGATIVE); URINE PROTEIN NEGATIVE mg/dL (<30 mg/dL); URINE UROBILINOGEN 0.2 E.U./dL (<1 E.U./dL)
[2018-01-01 06:26] LABS: URINE APPEARANCE CLEAR (CLEAR); URINE COLOR LIGHT YELLOW (YELLOW)
[2018-01-01 07:42] LABS: BARBITURATES, UR NEGATIVE (NEGATIVE); BENZODIAZEPINES, UR NEGATIVE (NEGATIVE); OPIATES, UR NEGATIVE (NEGATIVE); PHENCYCLIDINE, UR NEGATIVE (NEGATIVE)
[2018-01-01 08:15] VITALS: TEMP 98
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
--- NOTE | 2018-01-01 09:35 | CARD ---
APPROVED REPORT Date of service: 12/31/2017 EKG Measurement Heart [id number] <Conclusion> Normal sinus rhythm Normal ECG
[2018-01-01 10:11] VITALS: BP 122/70; PULSE 70; RESP 16; O2SAT 98
--- NOTE | 2018-01-01 10:42 | RAD ---
Date of service: 12/31/2017 HISTORY: psych eval COMPARISON: 08/12/2017 FINDINGS: LUNGS: No active pulmonary disease. PLEURA: No significant pleural effusion identified, no pneumothorax apparent. CARDIOVASCULAR: Normal. OSSEOUS STRUCTURES: No significant abnormalities. VISUALIZED UPPER ABDOMEN: Normal. OTHER FINDINGS: None. IMPRESSION: No active disease.
== END 2018-01-01 10:21 | disposition home or self-care (01) ==
LOC: ED 19:52
DX: F32.9 Major depressive disorder, single episode, unspecified (principal); F10.10 Alcohol abuse, uncomplicated; Y90.8 Blood alcohol level of 240 mg/100 ml or more; I50.9 Heart failure, unspecified

== ENCOUNTER 2018-01-03 11:56 | Emergency (ER) | payer MEDICAID ==
[2018-01-03 11:56] VITALS: BMI 25.1
[2018-01-03 12:11] VITALS: RESP 18
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
[2018-01-03 20:09] VITALS: BP 153/78; PULSE 88; TEMP 97.2; O2SAT 95
== END 2018-01-03 15:50 | disposition home or self-care (01) ==
LOC: ED 11:56
DX: F10.129 Alcohol abuse with intoxication, unspecified (principal)

== ENCOUNTER 2018-01-12 02:45 | Observation (INO) | payer MEDICAID ==
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
[2018-01-12] MEDS ORDERED: Folic Acid 1 MG, Thiamine 100 MG, Multivitamin (MVI) 10 ML in Dextrose 5% In Water 1,00... IV ONE (03:37)
[2018-01-12 04:01] LABS: EOS % 0.6 % (1.5-5.0); GRAN # 3.6 (1.4-6.5); GRAN % 67.7 % (50.0-68.0); HEMOGLOBIN 14.1 g/dL (14.0-18.0); LYMPH # 1.4 (1.2-3.4); LYMPH % 26.4 % (22.0-35.0); MEAN CELL VOLUME 85.1 fl (80.0-105.0); MEAN CORPUSCULAR HGB CONC 35.3 g/dl (31.0-37.0); MEAN PLATELET VOLUME 10.5 fl (7.0-11.0); MONO # 0.3 (0.1-0.6); MONO % 5.3 % (1.0-6.0); RBC 4.7 10^6/uL (3.5-6.1); RED CELL DISTRIBUTION WIDTH 14.2 % (11.5-14.5); WHITE BLOOD COUNT 5.3 10^3/ul (4.5-11.0)
[2018-01-12 04:11] LABS: ACETAMINOPHEN < 10.0 ug/ml (10.0-20.0); SALICYLATE < 1 mg/dL (2.0-20.0)
[2018-01-12 04:13] LABS: PH,URINE 6.5 (4.7-8.0); URINE BILIRUBIN NEGATIVE (NEGATIVE); URINE BLOOD NEGATIVE (NEGATIVE); URINE GLUCOSE (UA) NEGATIVE (NEGATIVE); URINE LEUKOCYTE ESTERASE NEGATIVE Leu/uL (NEGATIVE); URINE PROTEIN NEGATIVE mg/dL (<30 mg/dL); URINE UROBILINOGEN 0.2 E.U./dL (<1 E.U./dL)
[2018-01-12 04:15] LABS: URINE APPEARANCE CLEAR (CLEAR); URINE COLOR YELLOW (YELLOW)
[2018-01-12 04:27] LABS: ALB/GLOB RATIO 1.6 (1.1-1.8); ALBUMIN 4.3 g/dL (3.0-4.8); ALT/SGPT 65 U/L (7-56); AST/SGOT 65 U/L (17-59); BLOOD UREA NITROGEN 5 mg/dL (7-21); CALCIUM 9.6 mg/dL (8.4-10.5); GFR NON-AFRICAN AMERICAN > 60
[2018-01-12] MEDS ORDERED: Potassium Chloride 20 mEq ER Tab PO STA (04:29)
[2018-01-12 04:43] LABS: OPIATES, UR NEGATIVE (NEGATIVE)
[2018-01-12 05:27] LABS: BARBITURATES, UR NEGATIVE (NEGATIVE); BENZODIAZEPINES, UR NEGATIVE (NEGATIVE); PHENCYCLIDINE, UR NEGATIVE (NEGATIVE)
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
[2018-01-12] MEDS ORDERED: Magnesium Sulfate 1 gm in D5W 1 GM/100 ML BAG IVPB ONE (07:16)
[2018-01-12] MEDS ORDERED: Dextrose 5%/0.45% NS 1,000 ML IV SCH (07:45)
[2018-01-12] MEDS ORDERED: Multivitamin With Minerals Tab PO SCH (08:00)
--- NOTE | 2018-01-12 08:50 | RAD ---
Date of service: 01/12/2018 HISTORY: pes COMPARISON: Chest radiograph 12/31/2017. FINDINGS: LUNGS: No active pulmonary disease. PLEURA: No significant pleural effusion identified, no pneumothorax apparent. CARDIOVASCULAR: Normal. OSSEOUS STRUCTURES: No significant abnormalities. VISUALIZED UPPER ABDOMEN: Normal. OTHER FINDINGS: None. IMPRESSION: No interval acute cardiopulmonary disease appreciated.
--- NOTE | 2018-01-12 09:05 | CARD ---
APPROVED REPORT Date of service: 01/12/2018 EKG Measurement Heart [id number] <Conclusion> Normal sinus rhythm LVH by voltage Prolonged QT
[2018-01-12 12:53] VITALS: BMI 25.1
[2018-01-12] MEDS ORDERED: Multivitamin (MVI) 10 ML, Thiamine 100 MG, Folic Acid 1 MG in Sodium Chloride 0.9% 1,00... IV ONE (14:00)
--- NOTE | 2018-01-13 04:38 | CON ---
DATE: 01/12/2018 HISTORY OF PRESENT ILLNESS: Short, the patient is a 47-year-old male with reported history of bipolar disorder. The patient also has alcohol use disorder, multiple admissions to the medical site, history of alcohol withdrawal delirium, history of delirium tremens. The patient also has history of psychiatric admissions for depression as well as anxiety, inability to function. The patient was admitted on the medical site for alcohol withdrawal delirium. Psych consult was called for medication management and the patient has history of mental illness. The patient was seen and examined. The patient presented well. The patient was able to hold conversation, but it was loose. When this copy writer left the floor, the patient became very confused, tried to climb off the bed, was seeing things and fighting with devil. This copy writer reviewed previous history. MEDICATIONS: Reviewed. The patient is on multivitamins, thiamine, and folic acid. This copy writer will suggest to increase the dose of Ativan to 2 mg IV push every 6 hours schedule and every 2 hours as needed for alcohol withdrawal delirium. The patient also will be started on Seroquel 50 mg at the nighttime which the patient tolerated well before and Geodon in case of agitation. PHYSICAL EXAMINATION: VITAL SIGNS: Reviewed. Temperature 97.7, blood pressure 133/77, respirations 20. LABORATORY DATA: Reviewed. AST and ALT are 65, which is mildly elevated. Toxicology was negative. As per the patient, he stopped drinking on Wednesday and he started to feel sick on Wednesday, that is why he came to the hospital yesterday. MENTAL STATUS EXAMINATION: The patient presented to be alert at the moment of the interview, but the patient has waxing and waning presentation. Intermittent eye contact. Mood described as fine. Affect was constricted, but reactive. Thought process: Coherent, goal directed, but the patient has episodes of confusion and the patient is in delirium stage. Insight and judgment seem to be limited. Impulses are unpredictable. IMPRESSION: The patient is currently in alcohol withdrawal delirium. The patient has history of bipolar disorder in the past and alcohol use disorder. PLAN: Medications reviewed and resumed. BuSpar will be discontinued. The patient reported that he sees Dr. Baez for a medication management. The patient denied that he is seeing psychiatrist in the community. The patient will benefit from Seroquel 50 mg at the nighttime, also Ativan was increased in dose and frequency. We will follow up and advise accordingly. Most likely, the patient would require psych admissions after medical stabilization. Thank you very much for letting me participate in care of your patient. We will follow up and advise accordingly. Bella Hussein MD
[2018-01-13 04:56] VITALS: O2SAT 98
[2018-01-13 07:25] LABS: BASO # 0.02 K/mm3 (0.0-2.0); BASO % 0.5 % (0.0-3.0); EOS % 1.1 % (1.5-5.0); GRAN # 1.83 (1.4-6.5); GRAN % 49.6 % (50.0-68.0); HEMOGLOBIN 13.2 g/dL (14.0-18.0); LYMPH # 1.5 (1.2-3.4); LYMPH % 40.9 % (22.0-35.0); MEAN CELL VOLUME 86.1 fl (80.0-105.0); MEAN CORPUSCULAR HEMOGLOBIN 29.2 pg (25.0-35.0); MEAN CORPUSCULAR HGB CONC 33.9 g/dl (31.0-37.0); MEAN PLATELET VOLUME 10.8 fl (7.0-11.0); MONO # 0.3 (0.1-0.6); MONO % 7.9 % (1.0-6.0); RBC 4.52 10^6/uL (3.5-6.1); RED CELL DISTRIBUTION WIDTH 14.6 % (11.5-14.5); WHITE BLOOD COUNT 3.7 10^3/ul (4.5-11.0)
--- NOTE | 2018-01-13 07:31 | CP.PCM.DIS ---
Provider - Provider Date of Admission: 01/12/18 04:45 Attending physician: Miesha Perez DO Primary care physician: Patric Baez MD Consults: psychiatry Time Spent in preparation of Discharge (in minutes): 45 Diagnosis - Discharge Diagnosis (1) Alcohol withdrawal syndrome Status: Acute Priority: High Hospital Course - Lab Results Lab Results: Most Recent Lab Values WBC 3.7 10^3/ul (4.5-11.0) L D 01/13/18 06:30 RBC 4.52 10^6/uL (3.5-6.1) 01/13/18 06:30 Hgb 13.2 g/dL (14.0-18.0) L 01/13/18 06:30 Hct 38.9 % (42.0-52.0) L 01/13/18 06:30 MCV 86.1 fl (80.0-105.0) 01/13/18 06:30 MCH 29.2 pg (25.0-35.0) 01/13/18 06:30 MCHC 33.9 g/dl (31.0-37.0) 01/13/18 06:30 RDW 14.6 % (11.5-14.5) H 01/13/18 06:30 Plt Count 95 10^3/uL (120.0-450.0) L 01/13/18 06:30 MPV 10.8 fl (7.0-11.0) 01/13/18 06:30 Gran % 49.6 % (50.0-68.0) L 01/13/18 06:30 Lymph % (Auto) 40.9 % (22.0-35.0) H 01/13/18 06:30 [place] % (Auto) 7.9 % (1.0-6.0) H 01/13/18 06:30 Eos % (Auto) 1.1 % (1.5-5.0) L 01/13/18 06:30 Baso % (Auto) 0.5 % (0.0-3.0) 01/13/18 06:30 Gran # 1.83 (1.4-6.5) 01/13/18 06:30 Lymph # (Auto) 1.5 (1.2-3.4) 01/13/18 06:30 [place] # (Auto) 0.3 (0.1-0.6) 01/13/18 06:30 Eos # (Auto) 0.0 (0.0-0.7) 01/13/18 06:30 Baso # (Auto) 0.02 K/mm3 (0.0-2.0) 01/13/18 06:30 Sodium 135 mmol/L (132-148) 01/12/18 03:53 Potassium 3.3 mmol/L (3.6-5.0) L 01/12/18 03:53 Chloride 98 mmol/L (98-107) 01/12/18 03:53 Carbon Dioxide 28 mmol/L (21-33) 01/12/18 03:53 Anion Gap 12 (10-20) 01/12/18 03:53 BUN 5 mg/dL (7-21) L 01/12/18 03:53 Creatinine 0.7 mg/dl (0.8-1.5) L 01/12/18 03:53 Est GFR ( Amer) > 60 01/12/18 03:53 Est GFR (Non-Af Amer) > 60 01/12/18 03:53 Random Glucose 110 mg/dL (70-110) 01/12/18 03:53 Calcium 9.6 mg/dL (8.4-10.5) 01/12/18 03:53 Phosphorus 2.9 mg/dL (2.5-4.5) 01/12/18 03:53 Magnesium 1.7 mg/dL (1.7-2.2) 01/12/18 03:53 Total Bilirubin 0.9 mg/dL (0.2-1.3) 01/12/18 03:53 AST 65 U/L (17-59) H D 01/12/18 03:53 ALT 65 U/L (7-56) H 01/12/18 03:53 Alkaline Phosphatase 91 U/L (38-126) 01/12/18 03:53 Total Protein 7.0 g/dL (5.8-8.3) 01/12/18 03:53 Albumin 4.3 g/dL (3.0-4.8) 01/12/18 03:53 Globulin 2.7 gm/dL 01/12/18 03:53 Albumin/Globulin Ratio 1.6 (1.1-1.8) 01/12/18 03:53 Urine Color Yellow (YELLOW) 01/12/18 04:00 Urine Appearance Clear (CLEAR) 01/12/18 04:00 Urine pH 6.5 (4.7-8.0) 01/12/18 04:00 Ur Specific [place] <= 1.005 (1.005-1.035) 01/12/18 04:00 Urine Protein Negative mg/dL (<30 mg/dL) 01/12/18 04:00 Urine Glucose (UA) Negative mg/dL (NEGATIVE) 01/12/18 04:00 Urine Ketones Negative mg/dL (NEGATIVE) 01/12/18 04:00 Urine Blood Negative (NEGATIVE) 01/12/18 04:00 Urine Nitrate Negative (NEGATIVE) 01/12/18 04:00 Urine Bilirubin Negative (NEGATIVE) 01/12/18 04:00 Urine Urobilinogen 0.2 E.U./dL (<1 E.U./dL) 01/12/18 04:00 Ur Leukocyte Esterase Negative Kristen/uL (NEGATIVE) 01/12/18 04:00 Salicylates < 1 mg/dL (2.0-20.0) L 01/12/18 03:53 Urine Opiates Screen Negative (NEGATIVE) 01/12/18 04:00 Urine Methadone Screen Negative (NEGATIVE) 01/12/18 04:00 Acetaminophen < 10.0 ug/ml (10.0-20.0) L 01/12/18 03:53 Ur Barbiturates Screen Negative (NEGATIVE) 01/12/18 04:00 Ur Phencyclidine Scrn Negative (NEGATIVE) 01/12/18 04:00 Ur Amphetamines Screen Negative (NEGATIVE) 01/12/18 04:00 U Benzodiazepines Scrn Negative (NEGATIVE) 01/12/18 04:00 U Oth Cocaine Metabols Negative (NEGATIVE) 01/12/18 04:00 U Cannabinoids Screen Negative (NEGATIVE) 01/12/18 04:00 Alcohol, Quantitative < 10 mg/dL (0-10) 01/12/18 03:53 - Hospital Course Hospital Course: 47 y/o M with PMH of chronic alcohol use, bipolar disorder, HTN presented to the ED on 01/12/18 with complaints of "anxiety" and "seeing and hearing people." Pt reported that he is a heavy drinker and drinks about 1/2 pint of vodka daily. His last drink about 2 days ago and noticed symptoms of anxiety with associated diaphoresis and hallucinations since then. Pt was orientated and answered questions appropriately, however reported that "there are people in the TV" and claimed that his "family was murdered today." He denied seeing or hearing people or voices upon interview. He denied pain or discomfort, tremors or seizures. On initial exam, patient was in no acute distress and non-toxic. He was alert and oriented x3 and had a normal affect. Labs revealed transaminitis likely secondary to alcohol abuse. Patient was hypokalemic with potassium of 3.3. Patient received Librium, banana bag, and KCl in ED. AST was 65 and ALT was 65 likely due to cohronic alcohol abuse. He was admitted for alcohol withdrawal. Upon admission, patient was given Ativan 2mg IV Q6H scheduled and Ativan 1mg IV Q2H as needed to treat symptoms of alcohol withdrawal. He also was given multivitamins, thiamine, dextrose, and folate. CIWA score was 7. Psychiatry was consulted. On morning of discharge, patient is alert and oriented to shelf. Patient denied pain or other symptoms. AST and ALT are downtrending. K+ levels increased to 3.4. CIWA score was 4 this morning. Patient was counseled on alcohol cessation. He will be discharged to the psychiatric unit. Discharge Exam - Head Exam Head Exam: NORMAL INSPECTION, NORMOCEPHALIC - Eye Exam Eye Exam: EOMI, Normal appearance - ENT Exam ENT Exam: Mucous Membranes Moist, Normal Exam - Neck Exam Neck exam: Normal Inspection - Respiratory Exam Respiratory Exam: Clear to PA & Lateral, NORMAL BREATHING PATTERN, UNREMARKABLE - Cardiovascular Exam Cardiovascular Exam: REGULAR RHYTHM, +S1, +S2 - GI/Abdominal Exam GI & Abdominal Exam: Normal Bowel Sounds, Soft, Unremarkable - Rectal Exam Rectal Exam: Deferred - Extremities Exam Extremities exam: normal inspection, pedal pulses present - Back Exam Back exam: NORMAL INSPECTION - Neurological Exam Neurological exam: Alert, CN II-XII Intact, Normal Gait, Oriented x3 - Psychiatric Exam Psychiatric exam: Normal Affect, Normal Mood - Skin Skin Exam: Dry, Intact, Normal Color, Warm Discharge Plan - Follow Up Plan Condition: GOOD Disposition: DISCHARGE TO PSYCH HOSPITAL Additional Instructions: You are being discharged from the medical unit of [facility]. You will be admitted to the psychiatric unit. Please follow-up with your primary care physician, Dr. Baez, within 3-5 days of discharge from the psychiatric unit. Please take all medications as instructed by, psychiatrist, Dr. Hussein when discharged. You are highly encouraged to stop drinking alcohol. If symptoms return, please present to the nearest emergency room. Referrals: Bella Hussein MD [Staff Provider] - Patric Baez MD [Primary Care Provider] -
[2018-01-13 07:46] LABS: BLOOD UREA NITROGEN 6 mg/dL (7-21); GFR NON-AFRICAN AMERICAN > 60
[2018-01-13 07:47] LABS: ALB/GLOB RATIO 1.4 (1.1-1.8); ALBUMIN 3.6 g/dL (3.0-4.8); ALT/SGPT 60 U/L (7-56); AST/SGOT 47 U/L (17-59)
[2018-01-13] MEDS ORDERED: Potassium Chloride 20 mEq ER Tab PO ONE (07:52)
[2018-01-13] MEDS ORDERED: Multivitamin With Minerals Tab PO SCH (08:00)
[2018-01-13 12:00] VITALS: BP 132/92; RESP 18; TEMP 97.6
[2018-01-13 16:04] VITALS: PULSE 76
--- NOTE | 2018-01-14 01:35 | CON ---
DATE: 01/13/2018 HISTORY OF PRESENT ILLNESS: In short, the patient is 47-year-old male with reported history of bipolar type 2 disorder. The patient also has alcohol use disorder, noncompliance with the medications and followup appointments. The patient was admitted on the medical site for evaluation of change in mental status, visual hallucinations. The patient was seen by this development writer yesterday. The patient has visual hallucinations. The patient is fighting with devil. The patient also has paranoia, was feeling that people are playing tricks on him. This development writer knows the patient for years and this is not the patient's baseline. As per medical team, the patient is medically cleared for discharge. This development writer offered the patient admission to the Psychiatric Inpatient Unit. Patient accepted that offer. The patient presented to be paranoid during this development writer interview. The patient was upset that people were playing games on him, but at the same time, the patient has reasonably good insight and the patient reported that he feels depressed at the same time, but denied any thoughts of killing himself. The patient's vital signs are stable. Temperature 97.6, pulse is 76, blood pressure 132/92, respirations 18. Medications reviewed. The patient was on Geodon for agitation, multivitamins, Seroquel was started 50 mg at the nighttime, multivitamins, Lopressor 25 mg, folic acid 1 mg and BuSpar 10 mg 4 times daily, which was discontinued. Labs reviewed. Mental status examination as this development writer described above. The patient was alert but has transient psychotic symptoms. The patient was convinced that people are playing tricks on him. Mood described okay. Affect was constricted. Thought process disorganized. Thought content, visual hallucinations, paranoia. Insight and judgment limited. Impulses are unpredictable. IMPRESSION: As per history, the patient has alcohol use disorder, but at present moment, the patient has hallucinations, rule out alcohol withdrawal delirium or rule out bipolar with psychosis. PLAN: The patient was offered psychiatric admission. The patient is willing to be transferred. This development writer will hold BuSpar, Librium will be started scheduled 50 mg three times a day p.r.n. will be given, medication for sleep will be given, Seroquel will be given. The patient will be seen in the Psychiatric Inpatient Unit tomorrow. Thank you very much for letting me participate in the care of your patient. Bella Hussein MD
== END 2018-01-13 16:05 ==
LOC: ED 02:45 → ERH 04:45 → INTOOBSV 04:45 → ERH 06:27 → 2RNO 06:51
PROVIDERS: ADMIT Internal Medicine; ATTEND Hospitalist
DX: F10.231 Alcohol dependence with withdrawal delirium (principal); F31.81 Bipolar II disorder; Z91.14 Patient's other noncompliance with medication regimen
CPT/HCPCS: 36415; 71045; 80053; 80320; 80324; 80329; 80345; 80346; 80349; 80353; 80358; 80361; 81003; 83735; 83992; 84100; 85025; 93005; 96374; 99285; G0378; J2060; J3411; J3475; J7070

== ENCOUNTER 2018-01-13 16:00 | Inpatient (IN) | payer MEDICAID ==
[2018-01-12 12:53] VITALS: BMI 25.1
[2018-01-13] MEDS ORDERED: Alum-Mag Hydrox-Simethicone Susp (30 mL) PO PRN (18:37)
[2018-01-13] MEDS ORDERED: Magnesium Hydroxide Susp 30 ml UD PO PRN (18:37)
[2018-01-13 19:42] VITALS: O2SAT 99
--- NOTE | 2018-01-13 21:28 | PCM.BM ---
<SajanJeremie - Last Filed: 01/13/18 21:24> Treatment Plan Problems - Problems identified on initial assessmt Knowledge Deficit: Alcohol Use Date Initiated: 01/13/18 Time Initiated: 17:00 Assessment reference: NA Status: Active Priority: 1 Hopelessness/Helplessness Date Initiated: 01/13/18 Time Initiated: 17:00 Assessment reference: NA Status: Active Priority: 2 Feelings of Worthlessness Date Initiated: 01/13/18 Time Initiated: 17:00 Assessment reference: NA Status: Active Priority: 3 Medication Nonadherence Date Initiated: 01/13/18 Time Initiated: 17:00 Assessment reference: NA Status: Active Priority: 4 Ineffective Coping Date Initiated: 01/13/18 Time Initiated: 17:00 Assessment reference: NA Status: Active Priority: 5 Treatment assets and liabiliti Patient Assests: cooperative, self-reliant, ADL independent, negotiates basic needs, cognitively intact Patient Liabilities: financial problems, substance abuse (Alcohol) - Milieu Protocol Maintain good personal hygiene: daily Encourage regular showers, every shift Remind patient to perform daily oral care, every shift Assist patient to perform ADL's Maintain personal safety: every shift Educate patient to report safety concerns to staff, every shift Monitor environment for contraband/sharps Medication safety: Monitor for expected outcome, potential side effects: every shift, Assess barriers to learning: every shift, Assess readiness for medication education: every shift Family Contact Family involvement: Famliy/SO not involved Family contact: Patient declines to allow family contact at present - Goals for Treatment Patient goals for treatment: "Day of sobriety- day by day." Discharge/Continuing Care - Education Needs Education Needs: Patient Medication, Patient Diagnosis/Disease Process, Patient Coping Skills, Patient Anger Management skills, Patient Placement options, Patient Community resources, Patient Activities of Daily Living, Patient Pain, P atient Nutrition, Patient Uses of Medical Equipment, Patient Health Practices/Safety, Patient Personal Hygiene/Grooming, Patient Aftercare Safety Plan - Discharge Discharge Criteria: Tolerates medication w/o severe side effects <Bella Hussein - Last Filed: 01/14/18 15:36> - Diagnosis (1) Alcohol use disorder, severe, dependence Status: Chronic Interventions: 01/14/18 15:36 Monitoring withdrawal symptoms Medical detoxification Pharmacotherapy for alcohol/benzos/opioid dependence Maintaining sobriety Relapse prevention Possible rehabilitation Motivational interviewing 12-step programs: AA meetings (2) Bipolar II disorder Status: Chronic Interventions: 01/14/18 15:36 Psychoeducation Psychopharmacology/adjustment of medications as needed/ monitoring possible side effects Monitor blood level of mood stabilizers Evaluate pt on daily basis Compliance with medications and follow up appointments Suicide and homicide risk assessment and prevention, coping strategies, safety plan Relapse prevention Reduction of symptoms Improve functional status Family involvement As outpatient: cognitive behavioral therapy <Cynthia Jackson - Last Filed: 01/17/18 15:59> Family Contact Family involvement: Famliy/SO not involved - Goals for Treatment Patient goals for treatment: Go to rehab.
[2018-01-14 07:00] VITALS: RESP 20
[2018-01-14 08:13] LABS: GLUCOSE,FASTING 94 mg/dL (65-110); HDL CHOLESTEROL 78 mg/dL (29-60)
[2018-01-14 08:24] LABS: LDL CHOLESTEROL 43 mg/dL (0-129)
[2018-01-14 08:30] LABS: FREE T4 0.86 ng/dL (0.78-2.19)
[2018-01-14] MEDS: Multivitamin Therapeutic Tab PO SCH (08:45)
--- NOTE | 2018-01-14 15:36 | PCM.PSYCH ---
Initial Psychiatric Evaluation - Initial Psychiatric Evaluation Type of Admission: Voluntary Legal Status: Capacity (Patient has capacity to sign consent for treatment) Chief Complaint (in patient's own words): ""I am alright, I thought I was killing myself slowly by drinking..." Patient's Reaction to Hospitalization: pt was transferred from the medical site for evaluation of depression, anxiety, possible SI, psychosis. History of Present Illness and Precipitating Events: Patient is a single 48 yo white male with a history of severe and debilitating alcohol use disorder associated with numerous medical admissions for withdrawal DTs, +history of bipolar type II, multiple psychiatric admissions for bipolar and alcohol use disorder, poor adherence with outpatient treatment and medications who was transferred from the medical floor 01/13/18, pt came to the ED for "anxiety and visual hallucinations" "there are people in the TV" and "family was murdered today." it is not true, nobody was murdered, pt required medical admission for severe alcohol withdrawal symptoms and psychosis, pt wa transferred for treatment of depression, anxiety, possible suicidal ideation. pt was seen and examined at the treatment team meeting, presented with improved personal hygiene, presented relatively well, pt was minimizing his symptoms, saying that "I feel okay, I feel just fine". patient was saying that he was not seeing psychiatrist for a really long time and his psychotropic medications were prescribed by his primary care physician. pt said that he was feeling depressed for the past two weeks because of his drinking was "out of control"., pt also said "may be I was trying to kill myself by drinking, this is what I feel". Patient is not suicidal or homicidal at this moment, affect is constricted and pleasant. He is not a management problem in the unit. going back to the medical site, pt was actively hallucinating, pt was trying to climb off the bed, pt also was fighting with "devil". pt willing to go to the inpatient rehab unit. pt denied using drugs, denied smoking. pt was drinking alcohol for the past two weeks heavily1/2 pint of vodka daily, last drink was few days prior to the medical admission. PSYCHIATRIC HISTORY (as per previous record) ~Numerous admissions to [facility] psych unit, most recent was 01/22/17-01/26/17. He was given diagnosis of Severe Alcohol Use Disorder, Alcohol DTs and Bipolar II Disorder. Prescribed Wellbutrin 75 mg po bid, Revia 50 mg po daily and Seroquel XR 150 mg HS. ~As per previous record one suicidal attempt, when pt was holding a knife in his neck. ~Patient reports that he stopped following up with [facility] was not seeing psychiatrist, pt's meds were prescribed by PMD . SOCIAL HISTORY (as per previous record) [place]. Single. Resides with his mother. Denies any drug or tobacco use. Long history of alcohol addiction, +binge drinking, +blackouts, +DTs. Patient has history of detox at [facility] and rehabs. Most recently patient has been drinking about pint of vodka Patient denies any legal issues. h/o blackouts during drunken states before admission including knocking on neighbors doors and run-ins with police. Lab Results 01/14/18 07:30: Free T4 0.86, TSH 3rd Generation 0.53 01/14/18 07:30: Fasting Glucose 94, Triglycerides 53, Cholesterol 138, LDL Cholesterol Direct 43, HDL Cholesterol 78 H Vital Signs Temp Pulse Resp BP Pulse Ox 01/14/18 06:59 97.8 F 68 20 116/58 L 01/13/18 16:00 98.1 F 78 17 142/97 H 99 Current Medications: Active Medications Generic Name Dose Route Start Last Admin Trade Name Freq PRN Reason Stop Dose Admin Acetaminophen 650 mg 01/13/18 18:36 Tylenol 325mg Tab PO Q6H PRN Pain, moderate (4-7) Al Hydrox/Mg Hydrox/Simethicone 30 ml 01/13/18 18:37 Maalox Plus 30 Ml PO DAILY PRN Indigestion / Heartburn Chlordiazepoxide 50 mg 01/13/18 22:00 01/13/18 21:51 Librium PO 50 mg HS LESLY Administration Protocol Chlordiazepoxide 50 mg 01/13/18 18:00 01/13/18 18:10 Librium PO 50 mg TID LESLY Administration Protocol Folic Acid 1 mg 01/14/18 08:00 Folic Acid PO DAILY LESLY Lorazepam 2 mg 01/13/18 17:31 Ativan IM Q6H PRN Agitation Protocol Lorazepam 2 mg 01/13/18 17:38 Ativan PO Q6H PRN Agitation Protocol Magnesium Hydroxide 30 ml 01/13/18 18:37 Milk Of Magnesia PO DAILY PRN Constipation Metoprolol Tartrate 25 mg 01/14/18 08:00 Lopressor PO BID LESLY Multivitamins 1 tab 01/14/18 08:00 Thera Tab PO 0800 LESLY Quetiapine Fumarate 100 mg 01/13/18 22:00 01/13/18 21:51 Seroquel PO 100 mg HS LESLY Administration Protocol Thiamine HCl 100 mg 01/14/18 08:00 Vitamin B1 Tab PO DAILY LESLY Ziprasidone 20 mg 01/13/18 17:27 Geodon Cap PO Q6H PRN Agitation Protocol Ziprasidone 20 mg 01/13/18 17:28 Geodon Inj IM Q6H PRN Agitation Protocol Past Psychiatric History - Past Psychiatric History Previous Treatment History: Inpatient Prior Professional Help: see HPI Prior Psychiatric Treatment: see HPI At what hospital: see HPI Duration: see HPI Nature of Treatment: see HPI Explanation of prior treatment: see HPI History of Abuse: see HPI denied History of ETOH/Drug Use: see HPI History of Family Illness: see HPI Pertinent Medical Hx (Current Medical&Sleep Prob, Allergies): Allergies Allergy/AdvReac Type Severity Reaction Status Date / Time FISH Allergy Mild VOMITING Verified 01/13/18 19:42 Folic Acid 1 mg PO DAILY #30 tab 12/05/17 Multimineral/Multivitamin [Therapeutic-M Tab] 1 tab PO 0800 #30 tab 12/05/17 Thiamine HCl [B-1] 100 mg PO DAILY #30 tablet 12/05/17 Metoprolol Tartrate [Lopressor] 25 mg PO BID 01/12/18 QUEtiapine [Seroquel] 50 mg PO HS tab 01/13/18 Ziprasidone [Geodon Inj] 20 mg IM Q6H PRN vial 01/13/18 Review of Systems - Review of Systems Systems not reviewed;Unavailable: Acuity of Condition - EENT Eyes: As Per HPI Ears: As Per HPI Nose/Mouth/Throat: As Per HPI - Cardiovascular Cardiovascular: As Per HPI - Respiratory Respiratory: As Per HPI - Gastrointestinal Gastrointestinal: As Per HPI - Genitourinary Genitourinary: As Per HPI - Reproductive: Male Reproductive:Male: As Per HPI - Musculoskeletal Musculoskeletal: As Par HPI - Integumentary Integumentary: As Per HPI - Neurological Neurological: As Per HPI - Psychiatric Psychiatric: As Per HPI - Endocrine Endocrine: As Per HPI - Hematologic/Lymphatic Hematologic: As Per HPI Mental Status Examination - Personal Presentation Personal Presentation: Looks stated age - Affect Affect: Constricted - Motor Activity Motor Activity: Calm - Reliability in Providing Information Reliability in Providing Information: Fair - Speech Speech: Organized - Mood Mood: Depressed ("I am alright now"), Anxious - Formal Thought Process Formal Thought Process: Hallucinations (visual) - Hallucinations/Delusions Hallucinations: Visual - Obsessions/Compulsions Obsessions: No Compulsions: No - Cognitive Functions Orientation: Person, Place, Situation Sensorium: Alert Attention/Concentration: Easily distracted Estimate of Intelligence: Average Judgement: Intact, as evidence by: Insight regarding need for hospitalization - Risk Risk: Withdrawal, Diminished functioning, Other (alcohol withdrawals) - Strength & Assets Inventory Strength & Assets Inventory: Cooperative, Other (good physical health) - Limitations Limitations: Other (chronic alcohol use, noncompliance) DSM 5 DX - DSM 5 DSM 5 Diagnosis: bipolar II as per h/o alcohol use disorder alcohol withdrawal delirium (better) - Recommended/Plan of Treatment Treatment Recommendations and Plan of Treatment: Milieu/structure/supportive therapy Medical consult as needed, pt was transferred from the medical floor SW consultation for discharge plan, pt wants to go to the rehab Med management seroquel at night pt is on librium for withdrawals mmultivitamins, thiamine, folic acid Celexa 10 mg daily for depression and anxiety Family involvement Follow up on labs Will monitor closely Pt was educated about risk/benefits and alternatives of medications, coping strategies (safety plan, suicide prevention), relapse prevention, importance of follow up with psychiatrist and therapist, stay away from drugs/alcohol/smoking Projected ELOS: 7 days Prognosis: gguarded Discharge Plan and Discharge Criteria: Pt will be not depressed or manic, will be more hopeful, will be not psychotic or anxious, will be not having thoughts of harming self or others, will be tolerating medications well, will not have major side effects, will be able to function, will not pose threat to self or others. - Smoking Cessation Smoking Cessation Initiated: No Reason for not providing: patient denied smoking
[2018-01-15] MEDS: Multivitamin Therapeutic Tab PO SCH (08:56)
--- NOTE | 2018-01-15 09:19 | PCM.PYCHPN ---
Psychiatric Progress Note - Psychiatric Progress Note Patient seen today, length of contact: 25 min Problems Identified/Issues Discussed: I reviewed assessment and recent notes. I met with patient at bedside. He is communicative, calm and oriented to location, month, year and circumstances. Jared dowling denies any new concerns. Reports that he is "still a little down but feeling better, I had a good nights sleep". He has been compliant with medications and denies s/e, discomfort or pain. Denies recurrence of AH "they slowed down and stopped". Last hallucination was x3 days ago. Nursing notes indicate that patient has been calm and pleasant on the unit. Visible and attending groups. There were no behavioral issues overnight Diagnostic Results: Bipolar II Disorder Alcohol Use Disorder Improving Alcohol withdrawal delirium Medication Change: No Medical Record Reviewed: Yes Mental Status Examination - Cognitive Function Orientation: Person, Place, Situation - Mood Mood: Depressed ("I am alright now"), Anxious - Affect Affect: Constricted - Formal Thought Process Formal Thought Process: Hallucinations (visual) Goal/Treatment Plan - Goal/Treatment Plan Progress Toward Problem(s) and Goals/Treatment Plan: -c/w current tx and plan -No new lab results thus far -Vitals reviewed and noted below: Selected Entries 01/14/18 01/14/18 06:59 15:54 Temperature 97.8 F Pulse Rate 68 72 Respiratory 20 Rate Blood Pressure 116/58 L 127/88
[2018-01-16] MEDS: Multivitamin Therapeutic Tab PO SCH (08:58)
--- NOTE | 2018-01-16 09:30 | PCM.PYCHPN ---
Psychiatric Progress Note - Psychiatric Progress Note Patient seen today, length of contact: 25 min Problems Identified/Issues Discussed: I reviewed recent notes and patient was interviewed at bedside again this morning. He is communicative, calm and oriented to location, month, year and circumstances. Patient denies any new concerns. Reports that he is feeling much better, denies recurrence of tremors or hallucinations. He has been compliant with medications and denies s/e, discomfort or pain. Nursing notes indicate that patient has been calm and pleasant on the unit. Visible and attending groups. There were no behavioral issues over the weekend. Diagnostic Results: Bipolar II Disorder Alcohol Use Disorder Improving Alcohol withdrawal delirium Medication Change: Yes (Librium decreased) Medical Record Reviewed: Yes Mental Status Examination - Cognitive Function Orientation: Person, Place, Situation Attention: WNL Concentration: WNL Association: WNL - Mood Mood: Depressed ("I am alright now"), Anxious - Affect Affect: Constricted - Formal Thought Process Formal Thought Process: Hallucinations (denied all weekend, no hallucinations x4 days per patient) - Suicidal Ideation Suicidal Ideation: No - Homicidal Ideation Homicidal Ideation: No Goal/Treatment Plan - Goal/Treatment Plan Progress Toward Problem(s) and Goals/Treatment Plan: -c/w current tx and plan -Librium decreased to 50 mg po [facility] on 01/16/18, his vital signs have been stable -No new lab results thus far -Vitals reviewed and noted below: Selected Entries 01/15/18 01/15/18 06:59 16:00 Temperature 97.5 F L Pulse Rate 62 63 Respiratory 20 Rate Blood Pressure 109/71 123/87
[2018-01-17] MEDS: Multivitamin Therapeutic Tab PO SCH (08:08)
--- NOTE | 2018-01-17 16:25 | PCM.PYCHPN ---
Psychiatric Progress Note - Psychiatric Progress Note Patient seen today, length of contact: 30 minutes Patient Chief Complaint: ""I am alright, I feel better, thank you " Problems Identified/Issues Discussed: Suicide/ homicide prevention, past psychiatric h/o, current psychiatric symptoms, medical problems, risk/benefits and alternatives of medications, medications compliance, coping strategies, substance abuse h/o, relapse prevention, importance of follow up with psychiatrist and therapist, discharge plan. Medical Problems: see HPI Diagnostic Results: Lab Results 01/14/18 07:30: RPR Nonreactive 01/14/18 07:30: Free T4 0.86, TSH 3rd Generation 0.53 01/14/18 07:30: Fasting Glucose 94, Triglycerides 53, Cholesterol 138, LDL Cholesterol Direct 43, HDL Cholesterol 78 H Vital Signs Temp Pulse Resp BP Pulse Ox 01/17/18 15:48 64 123/79 01/17/18 08:08 50 L 125/61 01/17/18 06:49 98 F 50 L 20 125/71 01/16/18 16:00 54 L 122/75 01/16/18 07:24 97.6 F 53 L 20 125/85 01/15/18 16:00 63 123/87 01/15/18 06:59 97.5 F L 62 20 109/71 01/14/18 15:54 72 127/88 01/14/18 06:59 97.8 F 68 20 116/58 L 01/13/18 16:00 98.1 F 78 17 142/97 H 99 DSM 5 Symptoms Update: Patient is a single 48 yo white male with a history of severe and debilitating alcohol use disorder associated with numerous medical admissions for withdrawal DTs, +history of bipolar type II, multiple psychiatric admissions for bipolar and alcohol use disorder, poor adherence with outpatient treatment and medications who was transferred from the medical floor 01/13/18, pt came to the ED for "anxiety and visual hallucinations" "there are people in the TV" and "family was murdered today." it is not true, nobody was murdered, pt required medical admission for severe alcohol withdrawal symptoms and psychosis, pt wa transferred for treatment of depression, anxiety, possible suicidal ideation. pt was seen and examined next to the nursing station, hygiene is much better, patient denied any withdrawal symptoms, patient is compliant with her medications and unit rules and regulations, no psychosis, depression is improving. Patient met with social service agency director, patient still wants to go to inpatient r ehabilitation. So far patient tolerates medications well, no side effects observed or reported, aims 0, no EPS. As per nursing staff reported patient did not have any agitation or aggression, appetite is good sleep is good patient is calm and corporative. impression: As per history of bipolar disorder2 Alcohol use disorder Alcohol withdrawals, much better, improving Medication Change: Yes (Librium decreased) Medical Record Reviewed: Yes Consults ordered or reviewed: medical team stabilize patient on the medical side, no acute issues. Mental Status Examination - Cognitive Function Orientation: Person, Place, Situation Attention: WNL Concentration: WNL Association: WNL - Mood Mood: Depressed ("I am alright now"), Anxious - Affect Affect: Constricted - Formal Thought Process Formal Thought Process: Hallucinations (denied all weekend, no hallucinations x4 days per patient) - Suicidal Ideation Suicidal Ideation: No - Homicidal Ideation Homicidal Ideation: No Goal/Treatment Plan - Goal/Treatment Plan Need for Continued Stay: Remain at risks for inpatient hospitalization, Severe depression anxiety, Discharge may exacerbated symptoms, Severe functional impairment Progress Toward Problem(s) and Goals/Treatment Plan: Milieu/structure/supportive therapy Medical consult as needed, pt was transferred from the medical floor SW consultation for discharge plan, pt wants to go to the rehab Med management seroquel at night pt is on librium for withdrawals multivitamins, thiamine, folic acid Celexa 10 mg daily for depression and anxiety Family involvement Follow up on labs Will monitor closely Pt was educated about risk/benefits and alternatives of medications, coping strategies (safety plan, suicide prevention), relapse prevention, importance of follow up with psychiatrist and therapist, stay away from drugs/alcohol/smoking Estimated Date of D/C: 01/20/18
[2018-01-18] MEDS: Multivitamin Therapeutic Tab PO SCH (09:00)
--- NOTE | 2018-01-18 16:52 | PCM.PYCHPN ---
Psychiatric Progress Note - Psychiatric Progress Note Patient seen today, length of contact: 30 minutes Patient Chief Complaint: ""I am alright, I feel better, thank you " Problems Identified/Issues Discussed: Suicide/ homicide prevention, past psychiatric h/o, current psychiatric symptoms, medical problems, risk/benefits and alternatives of medications, medications compliance, coping strategies, substance abuse h/o, relapse prevention, importance of follow up with psychiatrist and therapist, discharge plan. Medical Problems: see HPI Diagnostic Results: Lab Results 01/14/18 07:30: RPR Nonreactive 01/14/18 07:30: Free T4 0.86, TSH 3rd Generation 0.53 01/14/18 07:30: Fasting Glucose 94, Triglycerides 53, Cholesterol 138, LDL Cholesterol Direct 43, HDL Cholesterol 78 H Vital Signs Temp Pulse Resp BP Pulse Ox 01/17/18 15:48 64 123/79 01/17/18 08:08 50 L 125/61 01/17/18 06:49 98 F 50 L 20 125/71 01/16/18 16:00 54 L 122/75 01/16/18 07:24 97.6 F 53 L 20 125/85 01/15/18 16:00 63 123/87 01/15/18 06:59 97.5 F L 62 20 109/71 01/14/18 15:54 72 127/88 01/14/18 06:59 97.8 F 68 20 116/58 L 01/13/18 16:00 98.1 F 78 17 142/97 H 99 DSM 5 Symptoms Update: Patient is a single 48 yo white male with a history of severe and debilitating alcohol use disorder associated with numerous medical admissions for withdrawal DTs, +history of bipolar type II, multiple psychiatric admissions for bipolar and alcohol use disorder, poor adherence with outpatient treatment and medications who was transferred from the medical floor 01/13/18, pt came to the ED for "anxiety and visual hallucinations" "there are people in the TV" and "family was murdered today." it is not true, nobody was murdered, pt required medical admission for severe alcohol withdrawal symptoms and psychosis, pt wa transferred for treatment of depression, anxiety, possible suicidal ideation. pt was seen and examined next to the nursing station, hygiene is much better, patient denied any withdrawal symptoms, patient is compliant with her medications and unit rules and regulations, no psychosis, depression is improving. Patient met with social science analyst, patient still wants to go to inpatient rehabilitation, pt will need to call on daily basis about admission to the rehab. So far patient tolerates medications well, no side effects observed or reported, aims 0, no EPS. As per nursing staff reported patient did not have any agitation or aggression, appetite is good sleep is good patient is calm and corporative. impression: As per history of bipolar disorder2 Alcohol use disorder Alcohol withdrawals, much better, improving Medication Change: Yes (Librium decreased) Medical Record Reviewed: Yes Mental Status Examination - Cognitive Function Orientation: Person, Place, Situation Attention: WNL Concentration: WNL Association: WNL - Mood Mood: Depressed ("I am alright now"), Anxious - Affect Affect: Constricted - Formal Thought Process Formal Thought Process: Hallucinations (denied all weekend, no hallucinations x4 days per patient) - Suicidal Ideation Suicidal Ideation: No - Homicidal Ideation Homicidal Ideation: No Goal/Treatment Plan - Goal/Treatment Plan Need for Continued Stay: Remain at risks for inpatient hospitalization, Severe depression anxiety, Discharge may exacerbated symptoms, Severe functional impairment Progress Toward Problem(s) and Goals/Treatment Plan: Milieu/structure/supportive therapy Medical consult as needed, pt was transferred from the medical floor SW consultation for discharge plan, pt wants to go to the rehab Med management seroquel at night pt is on librium for withdrawals, tapering dose multivitamins, thiamine, folic acid Celexa 10 mg daily for depression and anxiety Family involvement Follow up on labs Will monitor closely Pt was educated about risk/benefits and alternatives of medications, coping strategies (safety plan, suicide prevention), relapse prevention, importance of follow up with psychiatrist and therapist, stay away from drugs/alcohol/smoking Estimated Date of D/C: 01/19/18
[2018-01-19 07:26] VITALS: TEMP 98.3
[2018-01-19] MEDS: Multivitamin Therapeutic Tab PO SCH (09:21)
[2018-01-19 09:25] VITALS: BP 134/86; PULSE 63
--- NOTE | 2018-01-19 17:36 | PCM.PYCHDC ---
Mental Status Examination - Mental Status Examination Orientation: Person, Place, Situation, Time Memory: Intact Mood: Neutral Affect: Broad Speech: Appropriate Attention: WNL Concentration: WNL Association: WNL Fund of Knowledge: WNL Formal Thought Process: No Impairment Description of patient's judgement and insight: Pt has improved insight into mental and medical illness, pt was compliant with medications and unit rules and regulations, pt was going to groups, was calm, cooperative, socially appropriate, no behavioral incidents, no agitation, no aggression. Psychotic Thoughts and Behaviors: Pt denied v/a/t hallucinations, denied paranoid ideations, pt does not appear to be psychotic, and thought process is goal directed. Suicidal Ideation: No Current Homicidal Ideation?: No Plan: pt adamantly denied thoughts of harming self or others denied intent or plan. Discharge Summary - Discharge Note Reason for Hospitalization: pt was transferred from the medical site for evaluation of depression, anxiety, possible SI, psychosis. Psychiatric History (includes Medical, Family, Personal Hx): see HPI Laboratory Data: Lab Results 01/14/18 07:30: RPR Nonreactive 01/14/18 07:30: Free T4 0.86, TSH 3rd Generation 0.53 01/14/18 07:30: Fasting Glucose 94, Triglycerides 53, Cholesterol 138, LDL Cholesterol Direct 43, HDL Cholesterol 78 H Vital Signs Temp Pulse Resp BP Pulse Ox 01/19/18 09:21 63 134/86 01/19/18 07:25 98.3 F 58 L 20 131/86 01/18/18 17:38 56 L 115/76 01/18/18 16:00 56 L 115/76 01/18/18 09:00 57 L 114/76 01/18/18 07:20 97.6 F 57 L 20 114/76 01/17/18 17:47 64 123/69 01/17/18 15:48 64 123/79 01/17/18 08:08 50 L 125/61 01/17/18 06:49 98 F 50 L 20 125/71 01/16/18 16:00 54 L 122/75 01/16/18 07:24 97.6 F 53 L 20 125/85 01/15/18 16:00 63 123/87 01/15/18 06:59 97.5 F L 62 20 109/71 01/14/18 15:54 72 127/88 01/14/18 06:59 97.8 F 68 20 116/58 L 01/13/18 16:00 98.1 F 78 17 142/97 H 99 Consultations:: List each consultation separately and include: 1. Reason for request. 2. Findings. 3. Follow-up Consultations: medical team stabilize patient on the medical side, no acute issues. Summary of Hospital Course include:: 1. Description of specific treatment plan utilized for patients during their course of treatmen. 2. Summarize the time- course for resolution of acute symptoms and/or regressed behaviors. 3. Describe issues identified and worked on during hospitalization. 4. Describe medication utilized. 5. Describe medical problems identified and treated. 6. Reassessment of suicide risk Summary of Hospital Course: Patient is a single 48 yo white male with a history of severe and debilitating alcohol use disorder associated with numerous medical admissions for withdrawal DTs, +history of bipolar type II, multiple psychiatric admissions for bipolar and alcohol use disorder, poor adherence with outpatient treatment and medications who was transferred from the medical floor 01/13/18, pt came to the ED for "anxiety and visual hallucinations" "there are people in the TV" and "family was murdered today." it is not true, nobody was murdered, pt required medical admission for severe alcohol withdrawal symptoms and psychosis, pt wa transferred for treatment of depression, anxiety, possible suicidal ideation. initially presented with acceptable hygiene, presented relatively well, pt was minimizing his symptoms, saying that "I feel okay, I feel just fine". patient was saying that he was not seeing psychiatrist for a really long time and his psychotropic medications were prescribed by his primary care physician. pt said that he was feeling depressed for the past two weeks because of his drinking was "out of control"., pt also said "may be I was trying to kill myself by drinking, this is what I feel". Patient is not suicidal or homicidal at this moment, affect is constricted and pleasant. He is not a management problem in the unit. going back to the medical site, pt was actively hallucinating, pt was trying to climb off the bed, pt also was fighting with "devil". pt willing to go to the inpatient rehab unit. pt denied using drugs, denied smoking. pt was drinking alcohol for the past two weeks heavily1/2 pint of vodka daily, last drink was few days prior to the medical admission. PSYCHIATRIC HISTORY (as per previous record) ~Numerous admissions to [facility] [place], most recent was 01/22/17-01/26/17. He was given diagnosis of Severe Alcohol Use Disorder, Alcohol DTs and Bipolar II Disorder. Prescribed Wellbutrin 75 mg po bid, Revia 50 mg po daily and Seroquel XR 150 mg HS. ~As per previous record one suicidal attempt, when pt was holding a knife in his neck. ~Patient reports that he stopped following up with [facility] was not seeing psychiatrist, pt's meds were prescribed by PMD . SOCIAL HISTORY (as per previous record) Born and raised in [place]. Single. Resides with his mother. Denies any drug or tobacco use. Long history of alcohol addiction, +binge drinking, +blackouts, +DTs. Patient has history of detox at [facility] and rehabs. Most recently patient has been drinking about pint of vodka Patient denies any legal issues. h/o blackouts during drunken states before admission including knocking on neighbors doors and run-ins with police. Lab Results 01/14/18 07:30: Free T4 0.86, TSH 3rd Generation 0.53 01/14/18 07:30: Fasting Glucose 94, Triglycerides 53, Cholesterol 138, LDL Cholesterol Direct 43, HDL Cholesterol 78 H Vital Signs Temp Pulse Resp BP Pulse Ox 01/14/18 06:59 97.8 F 68 20 116/58 L 01/13/18 16:00 98.1 F 78 17 142/97 H 99 patient was stabilized on the following medication: seroquel at night pt is on librium for withdrawals, tapering dose multivitamins, thiamine, folic acid At the time of discharge patient was started on naltrexone for alcohol cravings, patient was on this medication before and was advised to follow up with his primary care physician Dr. Baez. Over the course of this hospitalization pt was attending groups, pt also had medication management, had therapeutic milieu. Overall pt improved significantly, pt's affect became brighter, pt was less depressed, has realistic future oriented plans, pt also does not appear to be psychotic, or anxious, pt was socially appropriate, no behavioral issues, pts insight improved as well and soon pt deemed to be ready for discharge. At the time of the discharge pt denied been depressed, denied thoughts of harming self or others, denied psychotic symptoms, and pt does not appeared to be psychotic, denied been anxious, pt is not in imminent danger to self or others, pt was offered inpatient rehab, pt agreed, pt was advised to call daily for intake, information about follow up appointment, time and address provided to the pt, it is patient responsibility to follow up with outpatient clinic, PMD as well as specialists (see note for more detailed information). In case pt will need to obtain results of studies pending at discharge pt was provided with contact information of Psychiatric Inpatient unit [phone] as well as Medical Record Department [phone]. [facility] started Counseling about alcohol cessation provided AA meetings program information was provided by the pt was provided with prescriptions for all of medications (please see medication reconciliation form) Pt was educated about safety plan in case of worsening of symptoms or in case of suicidal or homicidal ideation call 911 or go to the nearest ER, also was educated to take meds as prescribed and stay away from drugs, pt verbalized understanding. - Diagnosis (1) Alcohol use disorder, severe, dependence Status: Chronic Priority: High (2) Bipolar II disorder Status: Chronic Priority: Medium - Final Diagnosis (DSM 5) Condition upon Discharge: IMPROVED Disposition: HOME/ ROUTINE Follow-up Treatment Plan: At the time of the discharge pt denied been depressed, denied thoughts of harming self or others, denied psychotic symptoms, and pt does not appeared to be psychotic, denied been anxious, pt is not in imminent danger to self or others, pt was offered inpatient rehab, pt agreed, pt was advised to call daily for intake, information about follow up appointment, time and address provided to the pt, it is patient responsibility to follow up with outpatient clinic, PMD as well as specialists (see note for more detailed information). In case pt will need to obtain results of studies pending at discharge pt was provided with contact information of Psychiatric Inpatient unit [phone] as well as Medical Record Department [phone]. Naltrexone started Counseling about alcohol cessation provided AA meetings program information was provided by the pt was provided with prescriptions for all of medications (please see medication reconciliation form) Pt was educated about safety plan in case of worsening of symptoms or in case of suicidal or homicidal ideation call 911 or go to the nearest ER, also was educated to take meds as prescribed and stay away from drugs, pt verbalized understanding. Prescriptions/Medication Reconciliation: chlordiazePOXIDE [Librium] 25 mg PO BID #4 cap Folic Acid 1 mg PO DAILY #14 tab Metoprolol Tartrate [Lopressor] 25 mg PO BID #14 tab Multivitamin Therapeutic Tab [Thera Tab] 1 tab PO 0800 #14 tab Naltrexone [Revia] 50 mg PO DAILY #7 tab QUEtiapine [Seroquel] 100 mg PO HS #14 tab Thiamine [Vitamin B1 Tab] 100 mg PO DAILY #14 tab - Smoking Cessation Smoking Cessation Medication prescribed: No Reason for not providing: denied smoking - Antipsychotic Medications Pt discharged on 2 or more routine antipsychotic medications: No
== END 2018-01-19 16:03 | disposition home or self-care (01) | DRG 430 ==
LOC: PSYC 16:00
PROVIDERS: ADMIT Psychiatry & Neurology Psychiatry; ATTEND Psychiatry & Neurology Psychiatry
PROC: GZ3ZZZZ Medication Management (ICD-10-PCS; principal; 2018-01-13)
DX: F31.81 Bipolar II disorder (principal); F41.9 Anxiety disorder, unspecified; F10.20 Alcohol dependence, uncomplicated

== ENCOUNTER 2018-03-26 16:05 | Inpatient (IN) | payer MEDICAID ==
[2018-03-26 16:19] VITALS: BMI 24.3
[2018-03-26] MEDS ORDERED: Multivitamin (MVI) 10 ML, Thiamine 100 MG, Folic Acid 1 MG in Sodium Chloride 0.9% 1,00... IV ONE ×2 (16:36→19:29)
[2018-03-26 16:47] LABS: BASO # 0.01 K/mm3 (0.0-2.0); BASO % 0.1 % (0.0-3.0); EOS % 0.1 % (1.5-5.0); GRAN # 7.69 (1.4-6.5); GRAN % 78.1 % (50.0-68.0); HEMOGLOBIN 15.7 g/dL (14.0-18.0); LYMPH # 1.3 (1.2-3.4); LYMPH % 13.5 % (22.0-35.0); MEAN CELL VOLUME 83.6 fl (80.0-105.0); MEAN CORPUSCULAR HEMOGLOBIN 29.2 pg (25.0-35.0); MEAN PLATELET VOLUME 10.8 fl (7.0-11.0); MONO # 0.8 (0.1-0.6); MONO % 8.2 % (1.0-6.0); RBC 5.37 10^6/uL (3.5-6.1); RED CELL DISTRIBUTION WIDTH 13.5 % (11.5-14.5); WHITE BLOOD COUNT 9.9 10^3/uL (4.5-11.0)
[2018-03-26 16:55] LABS: ALB/GLOB RATIO 1.5 (1.1-1.8); ALBUMIN 5.2 g/dL (3.0-4.8); ALT/SGPT 43 U/L (7-56); AST/SGOT 71 U/L (17-59); BLOOD UREA NITROGEN 21 mg/dL (7-21); GFR NON-AFRICAN AMERICAN > 60
[2018-03-26 16:57] LABS: ACETAMINOPHEN < 10.0 ug/ml (10.0-20.0); INR 0.97; PARTIAL THROMBOPLASTIN TIME 27.3 Seconds (25.1-36.5); SALICYLATE < 1 mg/dL (2.0-20.0)
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
[2018-03-26 17:06] LABS: TROPONIN I 0.02 ng/mL
[2018-03-26 17:11] LABS: CK-MB 5.9 ng/mL (0.0-3.6)
--- NOTE | 2018-03-26 17:14 | RAD ---
Date of service: 03/26/2018 HISTORY: admission COMPARISON: 01/12/2018 FINDINGS: LUNGS: No active pulmonary disease. PLEURA: No significant pleural effusion identified, no pneumothorax apparent. CARDIOVASCULAR: No aortic atherosclerotic calcification present. Normal cardiac size. No pulmonary vascular congestion. OSSEOUS STRUCTURES: No significant abnormalities. VISUALIZED UPPER ABDOMEN: Normal. OTHER FINDINGS: None. IMPRESSION: No active disease.
[2018-03-26 19:47] LABS: BARBITURATES, UR NEGATIVE (NEGATIVE); BENZODIAZEPINES, UR NEGATIVE (NEGATIVE); OPIATES, UR NEGATIVE (NEGATIVE); PHENCYCLIDINE, UR NEGATIVE (NEGATIVE)
[2018-03-26 19:56] LABS: URINE APPEARANCE SL CLOUDY (CLEAR); URINE BILIRUBIN SMALL (NEGATIVE); URINE BLOOD NEGATIVE (NEGATIVE); URINE COLOR DARK YELLOW (YELLOW); URINE GLUCOSE (UA) NEGATIVE (NEGATIVE); URINE LEUKOCYTE ESTERASE NEGATIVE Leu/uL (NEGATIVE); URINE PROTEIN 30 mg/dL (<30 mg/dL); URINE UROBILINOGEN 0.2 E.U./dL (<1 E.U./dL)
[2018-03-26 20:03] LABS: URINE EPITHELIAL CELLS 0 - 2 /hpf (0-5); URINE RBC NEGATIVE /hpf (0-2); URINE WBC NEGATIVE /hpf (0-6)
[2018-03-26 20:04] LABS: URINE BACTERIA NEG (NEG); URINE HYALINE CAST 0 - 2 /hpf
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
[2018-03-26] MEDS ORDERED: Magnesium Sulfate 1 gm in D5W 1 GM/100 ML BAG IVPB ONE (21:52)
[2018-03-27] MEDS ORDERED: DiphenhydrAMINE 50 mg/ml Inj ONE (04:37)
[2018-03-27] MEDS ORDERED: DiphenhydrAMINE 50 mg/ml Inj IVP STA (04:45)
[2018-03-27 06:10] LABS: ALB/GLOB RATIO 1.4 (1.1-1.8); ALBUMIN 3.5 g/dL (3.0-4.8); ALT/SGPT 41 U/L (7-56); AST/SGOT 58 U/L (17-59); BLOOD UREA NITROGEN 12 mg/dL (7-21); CALCIUM 8.5 mg/dL (8.4-10.5); GFR NON-AFRICAN AMERICAN > 60
[2018-03-27 06:23] LABS: EOS # 0.1 (0.0-0.7); EOS % 1.2 % (1.5-5.0); GRAN # 2.3 (1.4-6.5); GRAN % 56.4 % (50.0-68.0); HEMOGLOBIN 12.1 g/dL (14.0-18.0); LYMPH # 1.5 (1.2-3.4); LYMPH % 35.8 % (22.0-35.0); MEAN CELL VOLUME 84.7 fl (80.0-105.0); MEAN CORPUSCULAR HEMOGLOBIN 28.1 pg (25.0-35.0); MEAN CORPUSCULAR HGB CONC 33.2 g/dl (31.0-37.0); MONO # 0.3 (0.1-0.6); MONO % 6.6 % (1.0-6.0); RBC 4.31 10^6/uL (3.5-6.1); RED CELL DISTRIBUTION WIDTH 13.4 % (11.5-14.5); WHITE BLOOD COUNT 4.1 10^3/uL (4.5-11.0)
[2018-03-27] MEDS: Pantoprazole 40 mg EC Tab PO SCH (06:31)
[2018-03-27 06:39] LABS: CK MB% 0.9 % (2.5-3.0); CK-MB 7.6 ng/mL (0.0-3.6)
--- NOTE | 2018-03-27 08:42 | CARD ---
APPROVED REPORT Date of service: 03/26/2018 EKG Measurement Heart [id number] <Conclusion> Sinus tachycardia Otherwise normal ECG
--- NOTE | 2018-03-27 09:26 | CT ---
Date of service: 03/26/2018 PROCEDURE: CT HEAD WITHOUT CONTRAST. HISTORY: possible fall COMPARISON: 12/02/2017 TECHNIQUE: Axial computed tomography images were obtained through the head/brain without intravenous contrast. Radiation dose: Total exam DLP = 1148.47 mGy-cm. This CT exam was performed using one or more of the following dose reduction techniques: Automated exposure control, adjustment of the mA and/or kV according to patient size, and/or use of iterative reconstruction technique. FINDINGS: HEMORRHAGE: No intracranial hemorrhage. BRAIN: No mass effect or edema. No atrophy or chronic microvascular ischemic changes. VENTRICLES: Unremarkable. No hydrocephalus. CALVARIUM: Unremarkable. PARANASAL SINUSES: Unremarkable as visualized. No significant inflammatory changes. MASTOID AIR CELLS: Unremarkable as visualized. No inflammatory changes. OTHER FINDINGS: The report concurs with the preliminary [facility] report IMPRESSION: No acute intracranial findings
[2018-03-27] MEDS: Sodium Chloride 0.9% 1,000 ML IV SCH (17:12)
--- NOTE | 2018-03-27 18:15 | CP.PCM.PN ---
<Clarke Chiang - Last Filed: 03/27/18 18:21> Subjective - Date & Time of Evaluation Date of Evaluation: 03/27/18 Time of Evaluation: 08:00 - Subjective Subjective: Rocco Chiang PGY2 - Progress Note for Hospitalist Service Patient seen and examined this AM in ED. Patient appears to be somnolent but arousable to sternal rub and verbal stimuli. Patient without complaints, denies chest pain, shortness of breath, tremors, auditory, visual hallucinations. Objective - Vital Signs/Intake and Output Vital Signs (last 24 hours): Temp Pulse Resp BP Pulse Ox 97.3 F L 73 18 141/84 96 03/27/18 16:50 03/27/18 17:24 03/27/18 16:50 03/27/18 17:24 03/27/18 16:50 - Medications Medications: Current Medications Chlordiazepoxide (Librium) 25 mg PO Q8 [facility]; Protocol Last Admin: 03/27/18 13:12 Dose: 25 mg Folic Acid (Folic Acid) 1 mg PO DAILY [facility] Last Admin: 03/27/18 10:06 Dose: 1 mg Heparin Sodium (Porcine) (Heparin) 5,000 units SC Q8 [facility]; Protocol Last Admin: 03/27/18 13:12 Dose: 5,000 units Sodium Chloride (Sodium Chloride 0.9%) 1,000 mls @ 100 mls/hr IV .Q10H [facility] Last Admin: 03/27/18 17:12 Dose: 100 mls/hr Lorazepam (Ativan) 1 mg IVP Q2 PRN; Protocol PRN Reason: Agitation Last Admin: 03/27/18 14:12 Dose: 1 mg Metoprolol Tartrate (Lopressor) 25 mg PO BID [facility] Last Admin: 03/27/18 17:24 Dose: 25 mg Naltrexone HCl (Revia) 50 mg PO DAILY [facility] Last Admin: 03/27/18 11:54 Dose: 50 mg Pantoprazole Sodium (Protonix Ec Tab) 40 mg PO 0600 [facility] Last Admin: 03/27/18 06:31 Dose: Not Given Quetiapine Fumarate (Seroquel) 100 mg PO HS [facility]; Protocol Last Admin: 03/26/18 21:54 Dose: 100 mg Thiamine HCl (Vitamin B1 Tab) 100 mg PO DAILY [facility] Last Admin: 03/27/18 11:54 Dose: 100 mg - Labs Labs: 03/27/18 05:30 03/27/18 05:30 PT 11.0 SECONDS (9.4-12.5) 03/26/18 16:38 INR 0.97 03/26/18 16:38 APTT 27.3 Seconds (25.1-36.5) 03/26/18 16:38 - Constitutional Appears: Non-toxic, No Acute Distress - Head Exam Head Exam: ATRAUMATIC, NORMAL INSPECTION, NORMOCEPHALIC - Eye Exam Eye Exam: PERRL - ENT Exam ENT Exam: Mucous Membranes Dry - Respiratory Exam Respiratory Exam: Clear to Ausculation Bilateral, NORMAL BREATHING PATTERN - Cardiovascular Exam Cardiovascular Exam: REGULAR RHYTHM, +S1, +S2 - GI/Abdominal Exam GI & Abdominal Exam: Soft, Normal Bowel Sounds. absent: Guarding, Rigid, Tenderness - Extremities Exam Extremities Exam: absent: Calf Tenderness, Pedal Edema - Neurological Exam Additional comments: patient somnolent, unable to participate in exam motor and sensory grossly intact - Psychiatric Exam Additional comments: somnolent - Skin Skin Exam: Dry, Intact Assessment and Plan - Assessment and Plan (Free Text) Assessment: 48 year old male with past medical history including hypertension, chronic alcohol abuse, bipolar disorder who is admitted for alcohol withdrawal Plan: Alcohol withdrawal - [facility] protocol - Ativan 1mg q2h prn - Librium 25 Q8h lorenzo - continue Multivitamin, Thiamine, Folate - Fall precaution - Seizure precaution Transaminitis - Likely secondary to ETOH abuse, chronic in nature - Previous admission showing negative hepatitis panel - Maintain MAP >65 - continue to monitor Hypokalemia - Potassium of 3.4 on admission - Repleted in ED - Continue to monitor Hypertension - Likely chronic vs. withdrawal symptoms, continue to monitor - Metoprolol 25mg bid GI/DVT ppx - Protonix - Heparin Case and plan be discussed with attending, Dr. Brower <Elif Brower - Last Filed: 03/27/18 18:40> Objective - Vital Signs/Intake and Output Vital Signs (last 24 hours): Temp Pulse Resp BP Pulse Ox 97.3 F L 73 18 141/84 96 03/27/18 16:50 03/27/18 17:24 03/27/18 16:50 03/27/18 17:24 03/27/18 16:50 - Medications Medications: Current Medications Chlordiazepoxide (Librium) 25 mg PO Q8 [facility]; Protocol Last Admin: 03/27/18 13:12 Dose: 25 mg Folic Acid (Folic Acid) 1 mg PO DAILY [facility] Last Admin: 03/27/18 10:06 Dose: 1 mg Heparin Sodium (Porcine) (Heparin) 5,000 units SC Q8 [facility]; Protocol Last Admin: 03/27/18 13:12 Dose: 5,000 units Sodium Chloride (Sodium Chloride 0.9%) 1,000 mls @ 100 mls/hr IV .Q10H [facility] Last Admin: 03/27/18 17:12 Dose: 100 mls/hr Lorazepam (Ativan) 1 mg IVP Q2 PRN; Protocol PRN Reason: Agitation Last Admin: 03/27/18 14:12 Dose: 1 mg Metoprolol Tartrate (Lopressor) 25 mg PO BID [facility] Last Admin: 03/27/18 17:24 Dose: 25 mg Naltrexone HCl (Revia) 50 mg PO DAILY [facility] Last Admin: 03/27/18 11:54 Dose: 50 mg Pantoprazole Sodium (Protonix Ec Tab) 40 mg PO 0600 [facility] Last Admin: 03/27/18 06:31 Dose: Not Given Quetiapine Fumarate (Seroquel) 100 mg PO HS [facility]; Protocol Last Admin: 03/26/18 21:54 Dose: 100 mg Thiamine HCl (Vitamin B1 Tab) 100 mg PO DAILY [facility] Last Admin: 03/27/18 11:54 Dose: 100 mg - Labs Labs: 03/27/18 05:30 03/27/18 05:30 PT 11.0 SECONDS (9.4-12.5) 03/26/18 16:38 INR 0.97 03/26/18 16:38 APTT 27.3 Seconds (25.1-36.5) 03/26/18 16:38 Attending/Attestation - Attestation I have personally seen and examined this patient.: Yes I have fully participated in the care of the patient.: Yes I have reviewed all pertinent clinical information, including history, physical exam and plan: Yes Notes (Text): 03/27/18 18:38 48 year old male with past medical history of alcohol abuse, bipolar and hypertension who presented with alcohol withdrawal. Continue with banana bag, librium and ativan prn. CIWA protocol. Counselled on alcohol cessation. Monitor LFTs which are improving. Will replete and repeat potassium. PT evaluation once his withdrawal symptoms improve. Currently he denies any depressed mood or hallucinations. Elif Brower MD Hospitalist.
[2018-03-28] MEDS: Sodium Chloride 0.9% 1,000 ML IV SCH ×2 (00:37→14:03)
[2018-03-28] MEDS: Pantoprazole 40 mg EC Tab PO SCH (05:10)
[2018-03-28 06:18] VITALS: RESP 20
[2018-03-28 06:29] LABS: BASO # 0.01 K/mm3 (0.0-2.0); BASO % 0.3 % (0.0-3.0); EOS # 0.1 (0.0-0.7); EOS % 1.3 % (1.5-5.0); GRAN # 2.05 (1.4-6.5); GRAN % 54.4 % (50.0-68.0); HEMOGLOBIN 12.2 g/dL (14.0-18.0); LYMPH # 1.4 (1.2-3.4); LYMPH % 37.9 % (22.0-35.0); MEAN CELL VOLUME 84.7 fl (80.0-105.0); MEAN CORPUSCULAR HEMOGLOBIN 28.3 pg (25.0-35.0); MEAN CORPUSCULAR HGB CONC 33.4 g/dl (31.0-37.0); MEAN PLATELET VOLUME 10.9 fl (7.0-11.0); MONO # 0.2 (0.1-0.6); MONO % 6.1 % (1.0-6.0); RBC 4.31 10^6/uL (3.5-6.1); RED CELL DISTRIBUTION WIDTH 13.5 % (11.5-14.5); WHITE BLOOD COUNT 3.8 10^3/uL (4.5-11.0)
[2018-03-28 06:49] LABS: ALB/GLOB RATIO 1.2 (1.1-1.8); ALBUMIN 3.3 g/dL (3.0-4.8); ALT/SGPT 39 U/L (7-56); AST/SGOT 45 U/L (17-59); BLOOD UREA NITROGEN 8 mg/dL (7-21); CALCIUM 8.3 mg/dL (8.4-10.5); GFR NON-AFRICAN AMERICAN > 60
[2018-03-28] MEDS ORDERED: Potassium Chloride 20 mEq ER Tab PO STA (07:24)
--- NOTE | 2018-03-28 16:13 | CP.PCM.PN ---
Subjective - Date & Time of Evaluation Date of Evaluation: 03/28/18 Time of Evaluation: 09:00 - Subjective Subjective: Duy Dean, PGY-1 Progress Note for the Hospitalist Service Patient seen and evaluated at bedside. No acute events overnight. Patient is arousable and AAOx3 answering questions appropriately. Patient denies any withdrawal symptoms. Patient denies chest pain, palpitations, shortness of breath, abdominal pain, tremors and blurry vision. Objective - Vital Signs/Intake and Output Vital Signs (last 24 hours): Temp Pulse Resp BP Pulse Ox 98.2 F 70 20 152/106 H 97 03/28/18 12:00 03/28/18 12:00 03/28/18 12:00 03/28/18 12:00 03/27/18 18:00 Intake and Output: 03/28/18 03/28/18 06:59 18:59 Intake Total 480 Balance 480 - Medications Medications: Current Medications Chlordiazepoxide (Librium) 25 mg PO Q8 [facility]; Protocol Last Admin: 03/28/18 14:01 Dose: 25 mg Folic Acid (Folic Acid) 1 mg PO DAILY [facility] Last Admin: 03/28/18 09:39 Dose: 1 mg Sodium Chloride (Sodium Chloride 0.9%) 1,000 mls @ 100 mls/hr IV .Q10H [facility] Last Admin: 03/28/18 14:03 Dose: 100 mls/hr Lorazepam (Ativan) 1 mg IVP Q2 PRN; Protocol PRN Reason: Agitation Last Admin: 03/27/18 14:12 Dose: 1 mg Metoprolol Tartrate (Lopressor) 25 mg PO BID [facility] Last Admin: 03/28/18 09:40 Dose: 25 mg Naltrexone HCl (Revia) 50 mg PO DAILY [facility] Last Admin: 03/28/18 09:40 Dose: 50 mg Quetiapine Fumarate (Seroquel) 100 mg PO HS [facility]; Protocol Last Admin: 03/27/18 22:03 Dose: 100 mg Thiamine HCl (Vitamin B1 Tab) 100 mg PO DAILY [facility] Last Admin: 03/28/18 09:44 Dose: 100 mg - Labs Labs: 03/28/18 06:00 03/28/18 06:00 PT 11.0 SECONDS (9.4-12.5) 03/26/18 16:38 INR 0.97 03/26/18 16:38 APTT 27.3 Seconds (25.1-36.5) 03/26/18 16:38 - Additional Findings Additional findings: - Constitutional Appears: Non-toxic, No Acute Distress - Head Exam Head Exam: ATRAUMATIC, NORMAL INSPECTION, NORMOCEPHALIC - Eye Exam Eye Exam: PERRL - ENT Exam ENT Exam: Mucous Membranes Dry - Respiratory Exam Respiratory Exam: Clear to Ausculation Bilateral, NORMAL BREATHING PATTERN - Cardiovascular Exam Cardiovascular Exam: REGULAR RHYTHM, +S1, +S2 - GI/Abdominal Exam GI & Abdominal Exam: Soft, Normal Bowel Sounds. absent: Guarding, Rigid, Tenderness - Extremities Exam Extremities Exam: absent: Calf Tenderness, Pedal Edema - Neurological Exam Additional comments: motor and sensory grossly intact - Skin Skin Exam: Dry, Intact Assessment and Plan - Assessment and Plan (Free Text) Assessment: 48 year old male with past medical history including hypertension, chronic alcohol abuse, bipolar disorder who is admitted for alcohol withdrawal. Plan: Alcohol withdrawal - CIWA protocol, scores of 1 three times - Ativan 1mg q2h prn - Librium 25 Q8h [facility]oren[facility] - continue Multivitamin, Thiamine, Folate - Fall precaution - Seizure precaution Thrombocytopenia - PLT 77 - likely 2/2 medications vs ETOH induced - PTX and Hep held Transaminitis - Likely secondary to ETOH abuse, chronic in nature - Previous admission showing negative hepatitis panel - Maintain MAP >65 - continue to monitor Hypokalemia - Potassium of 3.4 on admission - Repleted this AM - Continue to monitor Hypertension - Likely chronic vs. withdrawal symptoms, continue to monitor - Metoprolol 25mg bid GI/DVT ppx - Protonix held due to thrombocytopenia - Heparin held due to thrombocytopenia Patient seen, case reviewed and plan approved by Dr. Louis. Duy Dean, PGY-1
[2018-03-28 16:14] LABS: URINE BILIRUBIN NEGATIVE (NEGATIVE); URINE BLOOD NEGATIVE (NEGATIVE); URINE GLUCOSE (UA) NEGATIVE (NEGATIVE); URINE LEUKOCYTE ESTERASE NEGATIVE Leu/uL (NEGATIVE); URINE PROTEIN NEGATIVE mg/dL (<30 mg/dL); URINE UROBILINOGEN 0.2 E.U./dL (<1 E.U./dL)
[2018-03-28 16:15] LABS: URINE APPEARANCE CLEAR (CLEAR); URINE COLOR YELLOW (YELLOW)
--- NOTE | 2018-03-28 18:10 | CARD ---
APPROVED REPORT Date of service: 03/28/2018 EKG Measurement Heart [id number] <Conclusion> Normal sinus rhythm Prolonged QT Abnormal ECG
[2018-03-29 07:00] LABS: BASO # 0.01 K/mm3 (0.0-2.0); BASO % 0.3 % (0.0-3.0); EOS # 0.1 (0.0-0.7); EOS % 1.8 % (1.5-5.0); GRAN # 2.06 (1.4-6.5); GRAN % 51.4 % (50.0-68.0); HEMOGLOBIN 12.4 g/dL (14.0-18.0); LYMPH # 1.5 (1.2-3.4); LYMPH % 37.5 % (22.0-35.0); MEAN CELL VOLUME 83.6 fl (80.0-105.0); MEAN CORPUSCULAR HEMOGLOBIN 29.1 pg (25.0-35.0); MEAN CORPUSCULAR HGB CONC 34.8 g/dl (31.0-37.0); MEAN PLATELET VOLUME 11.3 fl (7.0-11.0); MONO # 0.4 (0.1-0.6); RBC 4.26 10^6/uL (3.5-6.1); RED CELL DISTRIBUTION WIDTH 13.5 % (11.5-14.5)
[2018-03-29 07:19] LABS: ALB/GLOB RATIO 1.2 (1.1-1.8); ALBUMIN 3.3 g/dL (3.0-4.8); ALT/SGPT 35 U/L (7-56); AST/SGOT 34 U/L (17-59); BLOOD UREA NITROGEN 6 mg/dL (7-21); CALCIUM 8.6 mg/dL (8.4-10.5); GFR NON-AFRICAN AMERICAN > 60
[2018-03-29 08:22] VITALS: TEMP 98.6; O2SAT 97
[2018-03-29] MEDS ORDERED: Potassium Chloride 20 mEq ER Tab PO STA (08:38)
[2018-03-29] MEDS: Sodium Chloride 0.9% 1,000 ML IV SCH ×2 (09:31→09:32)
--- NOTE | 2018-03-29 16:18 | CP.PCM.DIS ---
<Duy Dean - Last Filed: 03/29/18 20:24> Provider - Provider Date of Admission: 03/26/18 17:19 Attending physician: Vane Louis MD Primary care physician: Dr. Baez Consults: none Time Spent in preparation of Discharge (in minutes): 35 Hospital Course - Lab Results Lab Results: Most Recent Lab Values WBC 4.0 10^3/uL (4.5-11.0) L 03/29/18 06:20 RBC 4.26 10^6/uL (3.5-6.1) 03/29/18 06:20 Hgb 12.4 g/dL (14.0-18.0) L 03/29/18 06:20 Hct 35.6 % (42.0-52.0) L 03/29/18 06:20 MCV 83.6 fl (80.0-105.0) 03/29/18 06:20 MCH 29.1 pg (25.0-35.0) 03/29/18 06:20 MCHC 34.8 g/dl (31.0-37.0) 03/29/18 06:20 RDW 13.5 % (11.5-14.5) 03/29/18 06:20 Plt Count 97 10^3/uL (120.0-450.0) L 03/29/18 06:20 MPV 11.3 fl (7.0-11.0) H 03/29/18 06:20 Gran % 51.4 % (50.0-68.0) 03/29/18 06:20 Lymph % (Auto) 37.5 % (22.0-35.0) H 03/29/18 06:20 [place] % (Auto) 9.0 % (1.0-6.0) H 03/29/18 06:20 Eos % (Auto) 1.8 % (1.5-5.0) 03/29/18 06:20 Baso % (Auto) 0.3 % (0.0-3.0) 03/29/18 06:20 Gran # 2.06 (1.4-6.5) 03/29/18 06:20 Lymph # (Auto) 1.5 (1.2-3.4) 03/29/18 06:20 [place] # (Auto) 0.4 (0.1-0.6) 03/29/18 06:20 Eos # (Auto) 0.1 (0.0-0.7) 03/29/18 06:20 Baso # (Auto) 0.01 K/mm3 (0.0-2.0) 03/29/18 06:20 PT 11.0 SECONDS (9.4-12.5) 03/26/18 16:38 INR 0.97 03/26/18 16:38 APTT 27.3 Seconds (25.1-36.5) 03/26/18 16:38 Sodium 137 mmol/L (132-148) 03/29/18 06:20 Potassium 3.4 mmol/L (3.6-5.0) L 03/29/18 06:20 Chloride 106 mmol/L (98-107) 03/29/18 06:20 Carbon Dioxide 25 mmol/L (21-33) 03/29/18 06:20 Anion Gap 10 (10-20) 03/29/18 06:20 BUN 6 mg/dL (7-21) L 03/29/18 06:20 Creatinine 0.7 mg/dl (0.8-1.5) L 03/29/18 06:20 Est GFR ( Amer) > 60 03/29/18 06:20 Est GFR (Non-Af Amer) > 60 03/29/18 06:20 Random Glucose 95 mg/dL (70-110) 03/29/18 06:20 Calcium 8.6 mg/dL (8.4-10.5) 03/29/18 06:20 Phosphorus 4.5 mg/dL (2.5-4.5) 03/29/18 06:20 Magnesium 1.7 mg/dL (1.7-2.2) 03/29/18 06:20 Total Bilirubin 0.5 mg/dL (0.2-1.3) 03/29/18 06:20 AST 34 U/L (17-59) 03/29/18 06:20 ALT 35 U/L (7-56) 03/29/18 06:20 Alkaline Phosphatase 74 U/L (38-126) 03/29/18 06:20 Lactate Dehydrogenase 616 U/L (333-699) 03/26/18 16:38 Total Creatine Kinase 831 U/L (35-230) H 03/27/18 05:30 CK-MB (CK-2) 7.6 ng/mL (0.0-3.6) H 03/27/18 05:30 CK-MB (CK-2) % 0.9 % (2.5-3.0) L 03/27/18 05:30 Troponin I 0.02 ng/mL D 03/26/18 16:38 Total Protein 6.1 g/dL (5.8-8.3) 03/29/18 06:20 Albumin 3.3 g/dL (3.0-4.8) 03/29/18 06:20 Globulin 2.7 gm/dL 03/29/18 06:20 Albumin/Globulin Ratio 1.2 (1.1-1.8) 03/29/18 06:20 TSH 3rd Generation 1.43 mIU/mL (0.46-4.68) 03/27/18 05:30 Urine Color Yellow (YELLOW) 03/28/18 15:50 Urine Appearance Clear (CLEAR) 03/28/18 15:50 Urine pH 6.0 (4.7-8.0) 03/28/18 15:50 Ur Specific [place] 1.010 (1.005-1.035) 03/28/18 15:50 Urine Protein Negative mg/dL (<30 mg/dL) 03/28/18 15:50 Urine Glucose (UA) Negative mg/dL (NEGATIVE) 03/28/18 15:50 Urine Ketones Negative mg/dL (NEGATIVE) 03/28/18 15:50 Urine Blood Negative (NEGATIVE) 03/28/18 15:50 Urine Nitrate Negative (NEGATIVE) 03/28/18 15:50 Urine Bilirubin Negative (NEGATIVE) 03/28/18 15:50 Urine Urobilinogen 0.2 E.U./dL (<1 E.U./dL) 03/28/18 15:50 Ur Leukocyte Esterase Negative Kristen/uL (NEGATIVE) 03/28/18 15:50 Urine RBC Negative /hpf (0-2) 03/26/18 18:36 Urine WBC Negative /hpf (0-6) 03/26/18 18:36 Ur Epithelial Cells 0 - 2 /hpf (0-5) 12/08/18 18:36 Urine Bacteria Neg (NEG) 03/26/18 18:36 Hyaline Casts 0 - 2 /hpf 03/26/18 18:36 Salicylates < 1 mg/dL (2.0-20.0) L 03/26/18 16:38 Urine Opiates Screen Negative (NEGATIVE) 03/26/18 18:36 Urine Methadone Screen Negative (NEGATIVE) 03/26/18 18:36 Acetaminophen < 10.0 ug/ml (10.0-20.0) L 03/26/18 16:38 Ur Barbiturates Screen Negative (NEGATIVE) 03/26/18 18:36 Ur Phencyclidine Scrn Negative (NEGATIVE) 12 18:36 Ur Amphetamines Screen Negative (NEGATIVE) 03/26/18 18:36 U Benzodiazepines Scrn Negative (NEGATIVE) 03/26/18 18:36 U Oth Cocaine Metabols Negative (NEGATIVE) 03/26/18 18:36 U Cannabinoids Screen Negative (NEGATIVE) 03/26/18 18:36 Alcohol, Quantitative < 10 mg/dL (0-10) 03/26/18 16:38 - Hospital Course Hospital Course: Duy Dean, PGY-1 Discharge Summary for Hospitalist Service 48 year old male with past medical history of alcohol abuse, bipolar disease and hypertension who presented with alcohol withdrawal. Initially, patient received a banana bag, Librium 25 mg q8 scheduled and Ativan 1 q 2 prn. CIWA protocol was started, which showed scores ranging from 0-18. On presentation, patient had high scores and felt anxious. Later in course of hospitalization, CIWA scores were 1 three times in a row and then zero three times in a row. Once banana nag was finished, patient received IVF along with Multivitamin, Thiamine, Folate. Fall and seizure precautions were in place. Patient's LFTs were elevated to AST/ALT of 71/43. Levels improved over course of hospitalization. Patient was found to have episodes of hypokalemia, and was repleted with KCl as necessary. Patient was also found to have thrombocytopenia, likely secondary to ETOH abuse, the lowest being PLT of 77. Protonix and Heparin were held to avoid further exacerbation. PLT level improved to 99 on day of discharge. Patient was educated regarding effect of ETOH on platelets. Patient was visualized ambulating around room independently without dizziness, blurry vision or imbalance. Patient was counselled on alcohol cessation. Currently patient denies any depressed mood or hallucinations. Patient was provided KCL tablets for 5 days as well as Librium 4 day taper, 2 days of 10 mg and 2 days of 5 mg. Patient was to continue home meds, including Metoprolol for blood pressure, and follow up with Dr. Baez within one week. Patient was provided ETOH cessation resources, and patient earnestly stated he would try them out. Patient seen, case reviewed and plan approved by Dr. Arias. Discharge Exam - Head Exam Head Exam: ATRAUMATIC, NORMAL INSPECTION, NORMOCEPHALIC - Additional Findings Additional findings: - Constitutional Appears: Non-toxic, No Acute Distress - Head Exam Head Exam: ATRAUMATIC, NORMAL INSPECTION, NORMOCEPHALIC - Eye Exam Eye Exam: PERRL - ENT Exam ENT Exam: Mucous Membranes Dry - Respiratory Exam Respiratory Exam: Clear to Ausculation Bilateral, NORMAL BREATHING PATTERN - Cardiovascular Exam Cardiovascular Exam: REGULAR RHYTHM, +S1, +S2 - GI/Abdominal Exam GI & Abdominal Exam: Soft, Normal Bowel Sounds. absent: Guarding, Rigid, Tenderness - Extremities Exam Extremities Exam: absent: Calf Tenderness, Pedal Edema - Neurological Exam Additional comments: motor and sensory grossly intact - Skin Skin Exam: Dry, Intact Discharge Plan - Discharge Medications Prescriptions: chlordiazePOXIDE [Chlordiazepoxide HCl] See Taper PO Q8 #12 cap RX: Potassium Chloride 20 meq PO DAILY 5 Days #5 tablet.er - Follow Up Plan Condition: FAIR Disposition: HOME/ ROUTINE Patient education suggested?: Yes Instructions: Alcohol Withdrawal (DC), Alcohol Abuse and Alcoholism (DC), Alcohol Use Disorder (DC) Additional Instructions: Please desist from ETOH. You were provided with resources including AA meetings. Please visit your PCP Dr. Baez within one week for chronic medical conditions. Should symptoms worsen or reoccur, please visit nearest emergency department. Referrals: Patric Baez MD [Staff Provider] - <Kirt Arias - Last Filed: 03/30/18 18:42> Provider - Provider Date of Admission: 03/26/18 17:19 Attending physician: Vane Louis MD Primary care physician: NO FAMILY PROVIDER Hospital Course - Lab Results Lab Results: Most Recent Lab Values WBC 4.0 10^3/uL (4.5-11.0) L 03/29/18 06:20 RBC 4.26 10^6/uL (3.5-6.1) 03/29/18 06:20 Hgb 12.4 g/dL (14.0-18.0) L 03/29/18 06:20 Hct 35.6 % (42.0-52.0) L 03/29/18 06:20 MCV 83.6 fl (80.0-105.0) 03/29/18 06:20 MCH 29.1 pg (25.0-35.0) 03/29/18 06:20 MCHC 34.8 g/dl (31.0-37.0) 03/29/18 06:20 RDW 13.5 % (11.5-14.5) 03/29/18 06:20 Plt Count 97 10^3/uL (120.0-450.0) L 03/29/18 06:20 MPV 11.3 fl (7.0-11.0) H 03/29/18 06:20 Gran % 51.4 % (50.0-68.0) 03/29/18 06:20 Lymph % (Auto) 37.5 % (22.0-35.0) H 03/29/18 06:20 [place] % (Auto) 9.0 % (1.0-6.0) H 03/29/18 06:20 Eos % (Auto) 1.8 % (1.5-5.0) 03/29/18 06:20 Baso % (Auto) 0.3 % (0.0-3.0) 03/29/18 06:20 Gran # 2.06 (1.4-6.5) 03/29/18 06:20 Lymph # (Auto) 1.5 (1.2-3.4) 03/29/18 06:20 [place] # (Auto) 0.4 (0.1-0.6) 03/29/18 06:20 Eos # (Auto) 0.1 (0.0-0.7) 03/29/18 06:20 Baso # (Auto) 0.01 K/mm3 (0.0-2.0) 03/29/18 06:20 PT 11.0 SECONDS (9.4-12.5) 03/26/18 16:38 INR 0.97 03/26/18 16:38 APTT 27.3 Seconds (25.1-36.5) 03/26/18 16:38 Sodium 137 mmol/L (132-148) 03/29/18 06:20 Potassium 3.4 mmol/L (3.6-5.0) L 03/29/18 06:20 Chloride 106 mmol/L (98-107) 03/29/18 06:20 Carbon Dioxide 25 mmol/L (21-33) 03/29/18 06:20 Anion Gap 10 (10-20) 03/29/18 06:20 BUN 6 mg/dL (7-21) L 03/29/18 06:20 Creatinine 0.7 mg/dl (0.8-1.5) L 03/29/18 06:20 Est GFR ( Amer) > 60 03/29/18 06:20 Est GFR (Non-Af Amer) > 60 03/29/18 06:20 Random Glucose 95 mg/dL (70-110) 03/29/18 06:20 Calcium 8.6 mg/dL (8.4-10.5) 03/29/18 06:20 Phosphorus 4.5 mg/dL (2.5-4.5) 03/29/18 06:20 Magnesium 1.7 mg/dL (1.7-2.2) 03/29/18 06:20 Total Bilirubin 0.5 mg/dL (0.2-1.3) 03/29/18 06:20 AST 34 U/L (17-59) 03/29/18 06:20 ALT 35 U/L (7-56) 03/29/18 06:20 Alkaline Phosphatase 74 U/L (38-126) 03/29/18 06:20 Lactate Dehydrogenase 616 U/L (333-699) 03/26/18 16:38 Total Creatine Kinase 831 U/L (35-230) H 03/27/18 05:30 CK-MB (CK-2) 7.6 ng/mL (0.0-3.6) H 03/27/18 05:30 CK-MB (CK-2) % 0.9 % (2.5-3.0) L 03/27/18 05:30 Troponin I 0.02 ng/mL D 03/26/18 16:38 Total Protein 6.1 g/dL (5.8-8.3) 03/29/18 06:20 Albumin 3.3 g/dL (3.0-4.8) 03/29/18 06:20 Globulin 2.7 gm/dL 03/29/18 06:20 Albumin/Globulin Ratio 1.2 (1.1-1.8) 03/29/18 06:20 TSH 3rd Generation 1.43 mIU/mL (0.46-4.68) 03/27/18 05:30 Urine Color Yellow (YELLOW) 03/28/18 15:50 Urine Appearance Clear (CLEAR) 03/28/18 15:50 Urine pH 6.0 (4.7-8.0) 03/28/18 15:50 Ur Specific [place] 1.010 (1.005-1.035) 03/28/18 15:50 Urine Protein Negative mg/dL (<30 mg/dL) 03/28/18 15:50 Urine Glucose (UA) Negative mg/dL (NEGATIVE) 03/28/18 15:50 Urine Ketones Negative mg/dL (NEGATIVE) 03/28/18 15:50 Urine Blood Negative (NEGATIVE) 03/28/18 15:50 Urine Nitrate Negative (NEGATIVE) 03/28/18 15:50 Urine Bilirubin Negative (NEGATIVE) 03/28/18 15:50 Urine Urobilinogen 0.2 E.U./dL (<1 E.U./dL) 03/28/18 15:50 Ur Leukocyte Esterase Negative Kristen/uL (NEGATIVE) 03/28/18 15:50 Urine RBC Negative /hpf (0-2) 03/26/18 18:36 Urine WBC Negative /hpf (0-6) 03/26/18 18:36 Ur Epithelial Cells 0 - 2 /hpf (0-5) 03/26/18 18:36 Urine Bacteria Neg (NEG) 03/26/18 18:36 Hyaline Casts 0 - 2 /hpf 03/26/18 18:36 Salicylates < 1 mg/dL (2.0-20.0) L 03/26/18 16:38 Urine Opiates Screen Negative (NEGATIVE) 03/26/18 18:36 Urine Methadone Screen Negative (NEGATIVE) 03/26/18 18:36 Acetaminophen < 10.0 ug/ml (10.0-20.0) L 03/26/18 16:38 Ur Barbiturates Screen Negative (NEGATIVE) 03/26/18 18:36 Ur Phencyclidine Scrn Negative (NEGATIVE) 03/26/18 18:36 Ur Amphetamines Screen Negative (NEGATIVE) 03/26/18 18:36 U Benzodiazepines Scrn Negative (NEGATIVE) 03/26/18 18:36 U Oth Cocaine Metabols Negative (NEGATIVE) 03/26/18 18:36 U Cannabinoids Screen Negative (NEGATIVE) 03/26/18 18:36 Alcohol, Quantitative < 10 mg/dL (0-10) 03/26/18 16:38 Attending/Attestation - Attestation I have personally seen and examined this patient.: Yes I have fully participated in the care of the patient.: Yes I have reviewed all pertinent clinical information, including history, physical exam and plan: Yes
[2018-03-29 17:19] VITALS: BP 154/90; PULSE 76
== END 2018-03-29 18:38 | disposition home or self-care (01) | DRG 750 ==
LOC: ED 16:05 → ERH 17:19 → 2RNO 03-27 18:30 → 5RNO 03-29 00:02
PROVIDERS: ADMIT Hospitalist; ATTEND Internal Medicine
DX: F10.239 Alcohol dependence with withdrawal, unspecified (principal); I11.0 Hypertensive heart disease with heart failure; I50.9 Heart failure, unspecified; E87.6 Hypokalemia; D69.59 Other secondary thrombocytopenia; F31.9 Bipolar disorder, unspecified; Z95.5 Presence of coronary angioplasty implant and graft; Z91.013 Allergy to seafood; Z86.19 Personal history of other infectious and parasitic diseases

== ENCOUNTER 2018-05-26 18:40 | Inpatient (IN) | payer MEDICAID ==
[2018-05-26 18:51] VITALS: BMI 25.8
[2018-05-26 19:24] LABS: HEMOGLOBIN 13.9 g/dL (14.0-18.0); RBC 4.88 10^6/uL (3.5-6.1); WHITE BLOOD COUNT 6.9 10^3/uL (4.5-11.0)
[2018-05-26 19:25] LABS: EOS % 0.1 % (1.5-5.0); LYMPH # 0.9 (1.2-3.4); LYMPH % 13.4 % (22.0-35.0); MEAN CELL VOLUME 81.1 fl (80.0-105.0); MEAN CORPUSCULAR HEMOGLOBIN 28.5 pg (25.0-35.0); MEAN CORPUSCULAR HGB CONC 35.1 g/dl (31.0-37.0); MEAN PLATELET VOLUME 10.9 fl (7.0-11.0); MONO # 0.4 (0.1-0.6); MONO % 5.8 % (1.0-6.0); RED CELL DISTRIBUTION WIDTH 13.9 % (11.5-14.5)
[2018-05-26 19:34] LABS: ACETAMINOPHEN < 10.0 ug/ml (10.0-20.0); ALB/GLOB RATIO 1.6 (1.1-1.8); ALBUMIN 4.5 g/dL (3.0-4.8); ALT/SGPT 29 U/L (7-56); AST/SGOT 54 U/L (17-59); BLOOD UREA NITROGEN 17 mg/dL (7-21); CALCIUM 9.7 mg/dL (8.4-10.5); GFR NON-AFRICAN AMERICAN > 60; SALICYLATE < 1 mg/dL (2.0-20.0)
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
[2018-05-26] MEDS ORDERED: Multivitamin (MVI) 10 ML, Thiamine 100 MG, Folic Acid 1 MG in Sodium Chloride 0.9% 1,00... IV ONE (23:31)
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
[2018-05-27] MEDS ORDERED: Sodium Chloride 0.9% 1,000 ML IV SCH (00:45)
[2018-05-27 01:18] LABS: PH,URINE 6.5 (4.7-8.0); URINE BILIRUBIN SMALL (NEGATIVE); URINE BLOOD NEGATIVE (NEGATIVE); URINE GLUCOSE (UA) NEGATIVE (NEGATIVE); URINE LEUKOCYTE ESTERASE NEGATIVE Leu/uL (NEGATIVE); URINE PROTEIN NEGATIVE mg/dL (<30 mg/dL); URINE UROBILINOGEN 0.2 E.U./dL (<1 E.U./dL)
[2018-05-27 01:19] LABS: URINE APPEARANCE CLEAR (CLEAR); URINE COLOR YELLOW (YELLOW)
[2018-05-27 02:49] LABS: BARBITURATES, UR NEGATIVE (NEGATIVE); BENZODIAZEPINES, UR NEGATIVE (NEGATIVE); OPIATES, UR NEGATIVE (NEGATIVE); PHENCYCLIDINE, UR NEGATIVE (NEGATIVE)
[2018-05-27 07:26] LABS: BASO # 0.01 K/mm3 (0.0-2.0); BASO % 0.1 % (0.0-3.0); EOS # 0.1 (0.0-0.7); EOS % 1.2 % (1.5-5.0); HEMOGLOBIN 13.9 g/dL (14.0-18.0); LYMPH # 1.4 (1.2-3.4); LYMPH % 18.7 % (22.0-35.0); MEAN CELL VOLUME 81.8 fl (80.0-105.0); MEAN CORPUSCULAR HEMOGLOBIN 28.4 pg (25.0-35.0); MEAN CORPUSCULAR HGB CONC 34.7 g/dl (31.0-37.0); MEAN PLATELET VOLUME 10.6 fl (7.0-11.0); MONO # 0.6 (0.1-0.6); MONO % 8.5 % (1.0-6.0); RBC 4.9 10^6/uL (3.5-6.1); RED CELL DISTRIBUTION WIDTH 14.1 % (11.5-14.5); WHITE BLOOD COUNT 7.5 10^3/uL (4.5-11.0)
[2018-05-27 07:35] LABS: ALB/GLOB RATIO 1.5 (1.1-1.8); ALBUMIN 4.2 g/dL (3.0-4.8); ALT/SGPT 27 U/L (7-56); AST/SGOT 58 U/L (17-59); BLOOD UREA NITROGEN 12 mg/dL (7-21); CALCIUM 9.1 mg/dL (8.4-10.5); GFR NON-AFRICAN AMERICAN > 60
[2018-05-27 08:12] LABS: TROPONIN I 0.15 ng/mL
--- NOTE | 2018-05-27 09:44 | RAD ---
Date of service: 05/26/2018 HISTORY: admission COMPARISON: 03/26/2018 FINDINGS: LUNGS: No active pulmonary disease. PLEURA: No significant pleural effusion identified, no pneumothorax apparent. CARDIOVASCULAR: No aortic atherosclerotic calcification present. Normal cardiac size. No pulmonary vascular congestion. OSSEOUS STRUCTURES: No significant abnormalities. VISUALIZED UPPER ABDOMEN: Normal. OTHER FINDINGS: None. IMPRESSION: No active disease.
[2018-05-27] MEDS: Multivitamin Therapeutic Tab PO SCH (10:31)
[2018-05-27] MEDS: Sodium Chloride 0.9% 1,000 ML IV SCH ×2 (13:17→22:33)
--- NOTE | 2018-05-27 15:30 | CARD ---
APPROVED REPORT Date of service: 05/27/2018 EKG Measurement Heart [id number] <Conclusion> Normal sinus rhythm Prolonged QT Abnormal ECG
[2018-05-27] MEDS: Enoxaparin 40 mg Syringe SC SCH (16:19)
--- NOTE | 2018-05-27 17:41 | CARD ---
APPROVED REPORT Date of service: 05/26/2018 EKG Measurement Heart [id number] <Conclusion> Sinus tachycardia Otherwise normal ECG
--- NOTE | 2018-05-27 18:58 | CON ---
DATE OF CONSULTATION: 05/27/2018 HISTORY OF PRESENT ILLNESS: In short, the patient is a 48-year-old male with reported history of alcohol use disorder, which seems to be severe and debilitating. The patient has a history of bipolar type 2. As per report, the patient came to the hospital looking for help for his depression. The patient was found to have troponin levels elevated, and the patient required to be admitted to the medical floor. Psych consult was called because the patient has history of mental illness as well as the patient presented to be in delirium stage. The patient is very familiar to this law writer from previous admissions to the psychiatric inpatient unit, which took place here in [place]. The patient has history of severe alcohol withdrawal delirium with hallucinations and agitation. At this time, the patient presented the same way. The patient's thought process is completely disorganized. The patient was confabulating. The patient was looking for helmet as well as making statements, which are not related to the topic of the conversation, but the patient remembered this law writer by name. The patient reported his last drink was on Wednesday. The patient reported that everything is fine. He eats well and making some weird statements. PHYSICAL EXAMINATION: VITAL SIGNS: Reviewed. Temperature 97.6, pulse 73, blood pressure 109/78, respirations 20, oxygen saturation is 97. MEDICATIONS: Reviewed. The patient is on aspirin, Librium will be increased to 50 mg every 6 hours schedule. The patient is on Lovenox, folic acid, Ativan 2 mg IV push every 4 hours as needed for anxiety. The patient is on Lopressor, multivitamins, Protonix, potassium. Seroquel was started by medical team, but this law writer would suggest to hold on Seroquel because it could give QTC prolongation and cardiac complication. This medication needs to be given only as as-needed, and this order was changed to as-needed. LABORATORY DATA: Labs reviewed. His hemoglobin and hematocrit are mildly decreased. Troponin level was 0.15, but it is trending down. CK-MB elevated. AST and ALT elevated. Toxicology negative for any substance and alcohol level is less than 10. MENTAL STATUS EXAMINATION: As this law writer described above, the patient presented to be disorganized, poor eye contact. Speech was disorganized. Thought process circumstantial, tangential, confabulating. Mood described as "I'm feeling fine, i.e., good." Thought content, the patient is disorganized, psychotic, had visual hallucinations, was looking for his helmet. Insight and judgment seemed to be very limited and impaired. Impulses are not predictable. IMPRESSION: Alcohol withdrawal, delirium. The patient has a history of bipolar disorder type 2, rule out substance-induced mood disorder. PLAN: Multivitamins, thiamine, and folic acid. Seroquel was changed to as-needed. Librium was increased to four times a day. The patient needs to be seen by sheet metal former for troponin elevation. Meanwhile, Dr. Nunn will follow up on this patient over the weekend. Should you have any questions give me a call back. Bella Hussein MD
[2018-05-28] MEDS: Sodium Chloride 0.9% 1,000 ML IV SCH (00:29)
[2018-05-28 08:15] LABS: BASO # 0.02 K/mm3 (0.0-2.0); BASO % 0.4 % (0.0-3.0); EOS # 0.1 (0.0-0.7); EOS % 1.5 % (1.5-5.0); HEMOGLOBIN 12.3 g/dL (14.0-18.0); LYMPH # 1.4 (1.2-3.4); MEAN CELL VOLUME 83.3 fl (80.0-105.0); MEAN CORPUSCULAR HEMOGLOBIN 27.7 pg (25.0-35.0); MEAN CORPUSCULAR HGB CONC 33.2 g/dl (31.0-37.0); MEAN PLATELET VOLUME 10.3 fl (7.0-11.0); MONO # 0.4 (0.1-0.6); MONO % 9.1 % (1.0-6.0); RBC 4.44 10^6/uL (3.5-6.1); RED CELL DISTRIBUTION WIDTH 14.1 % (11.5-14.5); WHITE BLOOD COUNT 4.7 10^3/uL (4.5-11.0)
[2018-05-28 08:29] LABS: ALB/GLOB RATIO 1.4 (1.1-1.8); ALBUMIN 3.3 g/dL (3.0-4.8); ALT/SGPT 42 U/L (7-56); AST/SGOT 180 U/L (17-59); BLOOD UREA NITROGEN 7 mg/dL (7-21); CALCIUM 8.7 mg/dL (8.4-10.5); GFR NON-AFRICAN AMERICAN > 60; HDL CHOLESTEROL 61 mg/dL (29-60)
[2018-05-28 08:32] LABS: LDL CHOLESTEROL 59 mg/dL (0-129)
[2018-05-28] MEDS: Multivitamin Therapeutic Tab PO SCH (09:59)
[2018-05-28] MEDS: Enoxaparin 40 mg Syringe SC SCH (10:01)
--- NOTE | 2018-05-28 12:31 | CP.PCM.PN ---
<Thomas Saha - Last Filed: 05/28/18 15:18> Subjective - Date & Time of Evaluation Date of Evaluation: 05/28/18 Time of Evaluation: 12:27 - Subjective Subjective: Internal Medicine Progress Note: Patient seen and assessed at bedside. Patient remained calm and cooperative overnight and his medical restraints were thus removed. Patient denies any complaints at this time. 12 point ROS reviewed and unremarkable. Objective - Vital Signs/Intake and Output Vital Signs (last 24 hours): Temp Pulse Resp BP Pulse Ox 97.9 F 83 20 140/81 99 05/28/18 06:00 05/28/18 10:01 05/28/18 06:00 05/28/18 10:01 05/28/18 06:00 Intake and Output: 05/28/18 05/28/18 06:59 18:59 Intake Total 600 Balance 600 - Medications Medications: Current Medications Aspirin (Ecotrin) 81 mg PO DAILY [facility] Last Admin: 05/28/18 09:59 Dose: 81 mg Chlordiazepoxide (Librium) 50 mg PO Q6H [facility]; Protocol Last Admin: 05/28/18 09:59 Dose: 50 mg Enoxaparin Sodium (Lovenox) 40 mg SC DAILY [facility]; Protocol Last Admin: 05/28/18 10:01 Dose: 40 mg Folic Acid (Folic Acid) 1 mg PO DAILY [facility] Last Admin: 05/28/18 10:00 Dose: 1 mg Sodium Chloride (Sodium Chloride 0.9%) 1,000 mls @ 150 mls/hr IV .Q6H40M [facility] Last Admin: 05/28/18 00:29 Dose: Not Given Lorazepam (Ativan) 2 mg IVP Q4H PRN; Protocol PRN Reason: Anxiety Last Admin: 05/27/18 10:47 Dose: 2 mg Metoprolol Tartrate (Lopressor) 25 mg PO BID [facility] Last Admin: 05/28/18 10:01 Dose: 25 mg Multivitamins (Thera Tab) 1 tab PO 1000 [facility] Last Admin: 05/28/18 09:59 Dose: 1 tab Pantoprazole Sodium (Protonix Inj) 40 mg IVP DAILY [facility] Last Admin: 05/28/18 10:01 Dose: 40 mg Quetiapine Fumarate (Seroquel) 100 mg PO HS PRN; Protocol PRN Reason: agitation/psychosisi Thiamine HCl (Vitamin B1 Tab) 100 mg PO DAILY [facility] Last Admin: 05/28/18 10:00 Dose: 100 mg - Labs Labs: 05/28/18 07:36 05/28/18 07:36 - Constitutional Appears: Non-toxic, No Acute Distress - Head Exam Head Exam: ATRAUMATIC, NORMOCEPHALIC - Eye Exam Eye Exam: EOMI, Normal appearance, PERRL Pupil Exam: NORMAL ACCOMODATION, PERRL - ENT Exam ENT Exam: Mucous Membranes Moist - Neck Exam Neck Exam: Full ROM - Respiratory Exam Respiratory Exam: Clear to Ausculation Bilateral, NORMAL BREATHING PATTERN - Cardiovascular Exam Cardiovascular Exam: REGULAR RHYTHM - GI/Abdominal Exam GI & Abdominal Exam: Soft, Normal Bowel Sounds. absent: Tenderness - Extremities Exam Extremities Exam: absent: Calf Tenderness - Neurological Exam Neurological Exam: Alert, Awake, Oriented x3 - Psychiatric Exam Psychiatric exam: Normal Affect, Normal Mood - Skin Skin Exam: Dry, Intact, Warm Assessment and Plan - Assessment and Plan (Free Text) Assessment: 48 year old male with a past medical history significant for chronic alcohol abuse, bipolar disease, and HTN who presented with complaints of depression and is currently being managed for alcohol intoxication/withdrawal. Plan: 1. Alcohol Intoxication/Withdrawal -Continue Librium 50mg Q6 -Continue Ativan 2mg IVP Q4 PRN -Continue thiamine, folic acid and multivitamin supplementation -Continue normal saline at 100mls/hr -Continue serial CIWA assessments -Continue aspiration, fall and seizure precautions 2. Elevated Troponins -Currently downtrending -EKG showed NSR with no signs of cardiac ischemia appreciated -No intervention indicated at this time, per Cardiology -Patient will need an outpatient stress test within two weeks of discharge -Cardiology consulted, all recommendations appreciated 3. Thrombocytopenia -Likely secondary to alcohol induced bone marrow suppression -Continue to trend with daily CBC's 4. History of HTN -Continue home Metoprolol 5. History of Bipolar Depression -Continue home Seroquel GI Prophylaxis: Protonix DVT Prophylaxis: Lovenox Diet: Heart Healthy Code Status: Full Code Patient seen and case discussed with attending, Dr. Arias. Thomas Saha PGY2 <Kirt Arias - Last Filed: 05/29/18 15:58> Objective - Vital Signs/Intake and Output Vital Signs (last 24 hours): Temp Pulse Resp BP Pulse Ox 98.4 F 63 20 99/75 L 99 05/29/18 12:00 05/29/18 12:00 05/29/18 12:00 05/29/18 12:00 05/29/18 06:00 Intake and Output: 05/29/18 05/29/18 06:59 18:59 Intake Total 2100 Output Total 4130 Balance -2030 - Medications Medications: Current Medications Aspirin (Ecotrin) 81 mg PO DAILY [facility] Last Admin: 05/29/18 11:19 Dose: 81 mg Chlordiazepoxide (Librium) 50 mg PO Q6H [facility]; Protocol Last Admin: 05/29/18 11:19 Dose: 50 mg Enoxaparin Sodium (Lovenox) 40 mg SC DAILY [facility]; Protocol Last Admin: 05/29/18 11:18 Dose: 40 mg Folic Acid (Folic Acid) 1 mg PO DAILY [facility] Last Admin: 05/29/18 11:20 Dose: 1 mg Lorazepam (Ativan) 2 mg IVP Q4H PRN; Protocol PRN Reason: Anxiety Last Admin: 05/27/18 10:47 Dose: 2 mg Metoprolol Tartrate (Lopressor) 25 mg PO BID [facility] Last Admin: 05/29/18 11:24 Dose: 25 mg Multivitamins (Thera Tab) 1 tab PO 1000 [facility] Last Admin: 05/29/18 11:24 Dose: 1 tab Pantoprazole Sodium (Protonix Ec Tab) 40 mg PO 0600 [facility] Last Admin: 05/29/18 04:59 Dose: 40 mg Quetiapine Fumarate (Seroquel) 25 mg PO HS [facility]; Protocol Thiamine HCl (Vitamin B1 Tab) 100 mg PO DAILY [facility] Last Admin: 05/29/18 11:19 Dose: 100 mg - Labs Labs: 05/29/18 07:30 05/29/18 07:30 Attending/Attestation - Attestation I have personally seen and examined this patient.: Yes I have fully participated in the care of the patient.: Yes I have reviewed all pertinent clinical information, including history, physical exam and plan: Yes Notes (Text): 05/28/18 15:56 EtOH intoxication Elevated trops Thrombocytopenia HTN Depression c/w CIWA Pt evaluated by cardio, recommend outpatient stress test chronic thrombocytopenia most likely 2/2 EtOH abuse c/w BP meds c/w seroquel
--- NOTE | 2018-05-28 14:25 | PN ---
DATE: 05/28/2018 SUBJECTIVE: The patient is a 48-year-old male, long debilitating history of alcohol use disorder. The patient was admitted on the medical side for alcohol withdrawal delirium with hallucinations. Psych consult was called because the patient has history of mental illness and the patient had hallucinations and altered mental status. The patient was seen initially yesterday. This senior technical writer is following up today. Please see initial consultation note for more detailed information. The patient presented to be alert. The patient does not remember talking to this senior technical writer yesterday. The patient is quite aware of the circumstances of his admission to medical side. The patient presented to be paranoid and guarded also the patient reported that he is afraid that his family was murdered. The patient reported that he gave a call to his mother and she is well now and the patient is aware that maybe his mind is playing tricks on him. The patient also reported that at times he feels that people are talking about him, but the patient presented much better to compare with yesterday. Yesterday the patient was looking for imaginary helmet and needed to be in soft upper extremity restraints. OBJECTIVE: VITAL SIGNS: Seems to be stable. Temperature 97.9, pulse 65, blood pressure 140/81, respirations 20, oxygen saturation is 99. MEDICATIONS: Reviewed. The patient is on aspirin, Librium 50 mg every 6 hours schedule, Lovenox, folic acid, Ativan as needed, last dose was on 05/27/2018. The patient is on Lopressor, multivitamins, Protonix, Seroquel only as needed 100 mg as for agitation and psychosis. The patient did not require that. The patient is on sodium chloride and thiamine. Labs reviewed. Most recent was from today. Hemoglobin and hematocrit mildly decreased. Troponin is trending down. Urinalysis reviewed. Toxicology reviewed. MENTAL STATUS EXAM: The patient presented to be alert, intermittent eye contact. Mood described as so-so I am not feeling well. Affect was constricted. Thought process circumstantial, tangential. Thought content, the patient obviously paranoid, guarded. The patient feels that his family was murdered which is not true and people are talking about him which is not true as well. Insight and judgment seems to be limited. Impulses are unpredictable. IMPRESSION: Alcohol withdrawal delirium with psychosis. The patient has history of bipolar II. PLAN: Continue current management. Continue current medications. Seroquel only as-needed because the patient has troponin elevation. Meanwhile, continue Librium, multivitamins, thiamine and folic acid. I will consider to transfer to the psychiatric inpatient unit if psychosis will be persistent. Thank you very much for letting me participate in care of your patient. Should you have any questions give me a call back. Bella Hussein MD MTDJune
--- NOTE | 2018-05-28 23:50 | CON ---
DATE OF CONSULTATION: 05/28/2018 REQUESTING PHYSICIAN: Dr. Corea. REASON FOR CONSULTATION: Elevated cardiac enzymes. HISTORY: This is a 48-year-old man with a long history of alcohol abuse and schizophrenia, who was admitted for possible evaluation for psychiatric admission. He was noted be hypertensive, tachycardic, and was felt to be in possible alcohol withdrawal. He was admitted for further management. His troponin was noted be somewhat elevated and Cardiac evaluation was requested. He denies any chest pain. He denies any prior cardiac history. He states that he has had a difficult time with alcohol abuse for many years. ALLERGIES: HE HAS NO REPORTED DRUG ALLERGIES. MEDICATIONS AT HOME: Reportedly included metoprolol 25 mg b.i.d. ReVia 50 mg daily, Seroquel 100 mg daily, vitamin supplements. PAST MEDICAL HISTORY: Past history includes a history of alcohol-related seizures as well as hepatitis A, B, and C in the past. SOCIAL HISTORY: He does not smoke. He does drink heavily. FAMILY HISTORY: Unremarkable for premature heart disease. REVIEW OF SYSTEMS: Ten-point review of systems notable mainly for the problems mentioned above. PHYSICAL EXAMINATION: GENERAL: He is an anxious-appearing middle-aged man. VITAL SIGNS: Blood pressure is 130/86 with a pulse of 82 and sinus, respirations are 16. He is afebrile. HEENT: Normocephalic, atraumatic. NECK: Supple. No JVD noted. CHEST: Few scattered rhonchi heard. HEART: PMI in normal position. No pathological murmurs or gallops are heard. ABDOMEN: Soft, nontender with normoactive bowel sounds. EXTREMITIES: No clubbing, cyanosis, or edema. SKIN: Warm and dry. PSYCHIATRIC: Normal mood and affect. NEUROLOGICAL: Alert and oriented x3. No gross motor or sensory deficits appreciable. DIAGNOSTIC DATA: Potassium 4.1, BUN and creatinine are 7 and 0.7. White count is 4.7, hemoglobin and hematocrit are 12.3 and 37 with a platelet count of 61,000. Initial troponin 0.15, repeat 0.13, followup is 0.06. CK was 2076 with an MB of 4 and a negative MB percent fraction. Electrocardiogram revealed sinus tachycardia with no acute changes. Chest x-ray reveals normal cardiac silhouette with clear lung dumont. IMPRESSION: 1. Borderline troponin elevation with elevated total CK and negative MB, doubt significant cardiac cause. 2. Longstanding history of alcohol abuse. 3. History of depression and schizophrenia. 4. Thrombocytopenia, possibly due to liver disease. RECOMMENDATIONS: Beta-liam therapy can be continued for now. An eventual outpatient stress test should be considered. Observation for an alcohol withdrawal syndrome is advised and admission to detoxification program or rehabilitation center should be considered. The need for alcohol abstinence was discussed with him. Thank you for this consultation. We will be happy to see you in the future if needed. Roberto Johnson MD
--- NOTE | 2018-05-29 00:06 | CARD ---
APPROVED REPORT Date of service: 05/28/2018 EKG Measurement Heart [id number] <Conclusion> Normal sinus rhythm Prolonged QT Abnormal ECG
[2018-05-29] MEDS: Pantoprazole 40 mg EC Tab PO SCH (04:59)
[2018-05-29 08:14] LABS: BASO # 0.01 K/mm3 (0.0-2.0); BASO % 0.2 % (0.0-3.0); EOS # 0.1 (0.0-0.7); HEMOGLOBIN 12.8 g/dL (14.0-18.0); LYMPH # 1.3 (1.2-3.4); LYMPH % 27.5 % (22.0-35.0); MEAN CELL VOLUME 82.2 fl (80.0-105.0); MEAN CORPUSCULAR HEMOGLOBIN 28.4 pg (25.0-35.0); MEAN CORPUSCULAR HGB CONC 34.6 g/dl (31.0-37.0); MEAN PLATELET VOLUME 11.5 fl (7.0-11.0); MONO # 0.5 (0.1-0.6); MONO % 9.7 % (1.0-6.0); RBC 4.5 10^6/uL (3.5-6.1); WHITE BLOOD COUNT 4.9 10^3/uL (4.5-11.0)
[2018-05-29 08:26] LABS: ALB/GLOB RATIO 1.3 (1.1-1.8); ALBUMIN 3.4 g/dL (3.0-4.8); ALT/SGPT 93 U/L (7-56); AST/SGOT 745 U/L (17-59); BLOOD UREA NITROGEN 5 mg/dL (7-21); CALCIUM 8.7 mg/dL (8.4-10.5); GFR NON-AFRICAN AMERICAN > 60
[2018-05-29] MEDS: Enoxaparin 40 mg Syringe SC SCH (11:18)
[2018-05-29] MEDS: Multivitamin Therapeutic Tab PO SCH (11:24)
--- NOTE | 2018-05-29 13:23 | CP.PCM.PN ---
<Thomas Saha - Last Filed: 05/29/18 13:48> Subjective - Date & Time of Evaluation Date of Evaluation: 05/29/18 Time of Evaluation: 13:23 - Subjective Subjective: Internal Medicine Progress Note: Patient seen and assessed at bedside. No acute events noted overnight. Patient observed sitting in chair comfortably. Patient denies any complaints at this time. 12 point ROS reviewed and unremarkable. Objective - Vital Signs/Intake and Output Vital Signs (last 24 hours): Temp Pulse Resp BP Pulse Ox 98.4 F 63 20 99/75 L 99 05/29/18 12:00 05/29/18 12:00 05/29/18 12:00 05/29/18 12:00 05/29/18 06:00 Intake and Output: 05/29/18 05/29/18 06:59 18:59 Intake Total 2100 Output Total 4130 Balance -2030 - Medications Medications: Current Medications Aspirin (Ecotrin) 81 mg PO DAILY [facility] Last Admin: 05/29/18 11:19 Dose: 81 mg Chlordiazepoxide (Librium) 50 mg PO Q6H [facility]; Protocol Last Admin: 05/29/18 11:19 Dose: 50 mg Enoxaparin Sodium (Lovenox) 40 mg SC DAILY [facility]; Protocol Last Admin: 05/29/18 11:18 Dose: 40 mg Folic Acid (Folic Acid) 1 mg PO DAILY [facility] Last Admin: 05/29/18 11:20 Dose: 1 mg Lorazepam (Ativan) 2 mg IVP Q4H PRN; Protocol PRN Reason: Anxiety Last Admin: 05/27/18 10:47 Dose: 2 mg Metoprolol Tartrate (Lopressor) 25 mg PO BID [facility] Last Admin: 05/29/18 11:24 Dose: 25 mg Multivitamins (Thera Tab) 1 tab PO 1000 [facility] Last Admin: 05/29/18 11:24 Dose: 1 tab Pantoprazole Sodium (Protonix Ec Tab) 40 mg PO 0600 [facility] Last Admin: 05/29/18 04:59 Dose: 40 mg Quetiapine Fumarate (Seroquel) 25 mg PO HS [facility]; Protocol Thiamine HCl (Vitamin B1 Tab) 100 mg PO DAILY [facility] Last Admin: 05/29/18 11:19 Dose: 100 mg - Labs Labs: 05/29/18 07:30 05/29/18 07:30 - Additional Findings Additional findings: - Constitutional Appears: Non-toxic, No Acute Distress - Head Exam Head Exam: ATRAUMATIC, NORMOCEPHALIC - Eye Exam Eye Exam: EOMI, Normal appearance, PERRL Pupil Exam: NORMAL ACCOMODATION, PERRL - ENT Exam ENT Exam: Mucous Membranes Moist - Neck Exam Neck Exam: Full ROM - Respiratory Exam Respiratory Exam: Clear to Ausculation Bilateral, NORMAL BREATHING PATTERN - Cardiovascular Exam Cardiovascular Exam: REGULAR RHYTHM - GI/Abdominal Exam GI & Abdominal Exam: Soft, Normal Bowel Sounds. absent: Tenderness - Extremities Exam Extremities Exam: absent: Calf Tenderness - Neurological Exam Neurological Exam: Alert, Awake, Oriented x3 - Psychiatric Exam Psychiatric exam: Normal Affect, Normal Mood - Skin Skin Exam: Dry, Intact, Warm Assessment and Plan - Assessment and Plan (Free Text) Assessment: 48 year old male with a past medical history significant for chronic alcohol abuse, bipolar disease, and HTN who presented with complaints of depression and is currently being managed for alcohol intoxication/withdrawal. Plan: 1. Alcohol Intoxication/Withdrawal -Continue Librium 50mg Q6 -Continue Ativan 2mg IVP Q4 PRN -Continue thiamine, folic acid and multivitamin supplementation -Continue serial CIWA assessments -Continue aspiration, fall and seizure precautions -Psychiatry consulted, all recommendations appreciated 2. Elevated Troponins -Currently downtrending -EKG showed NSR with no signs of cardiac ischemia appreciated -No intervention indicated at this time, per Cardiology -Patient will need an outpatient stress test upon discharge -Cardiology consulted, all recommendations appreciated 3. Thrombocytopenia -Likely secondary to alcohol induced bone marrow suppression -Continue to trend with daily CBC's 4. History of HTN -Continue home Metoprolol 5. History of Bipolar Depression -Continue home Seroquel GI Prophylaxis: Protonix DVT Prophylaxis: Lovenox Diet: Heart Healthy Code Status: Full Code Disposition: Patient has agreed to and is tentatively planned for discharge to the [facility] at [facility] [place] tomorrow (05/30/18). Patient seen and case discussed with attending, Dr. Arias. Thomas Saha PGY2 <Kirt Arias - Last Filed: 05/29/18 16:07> Objective - Vital Signs/Intake and Output Vital Signs (last 24 hours): Temp Pulse Resp BP Pulse Ox 98.4 F 63 20 99/75 L 99 05/29/18 12:00 05/29/18 12:00 05/29/18 12:00 05/29/18 12:00 05/29/18 06:00 Intake and Output: 05/29/18 05/29/18 06:59 18:59 Intake Total 2100 Output Total 4130 Balance -2030 - Medications Medications: Current Medications Aspirin (Ecotrin) 81 mg PO DAILY [facility] Last Admin: 05/29/18 11:19 Dose: 81 mg Chlordiazepoxide (Librium) 50 mg PO Q6H [facility]; Protocol Last Admin: 05/29/18 11:19 Dose: 50 mg Enoxaparin Sodium (Lovenox) 40 mg SC DAILY [facility]; Protocol Last Admin: 05/29/18 11:18 Dose: 40 mg Folic Acid (Folic Acid) 1 mg PO DAILY [facility] Last Admin: 05/29/18 11:20 Dose: 1 mg Lorazepam (Ativan) 2 mg IVP Q4H PRN; Protocol PRN Reason: Anxiety Last Admin: 05/27/18 10:47 Dose: 2 mg Metoprolol Tartrate (Lopressor) 25 mg PO BID [facility] Last Admin: 05/29/18 11:24 Dose: 25 mg Multivitamins (Thera Tab) 1 tab PO 1000 [facility] Last Admin: 05/29/18 11:24 Dose: 1 tab Pantoprazole Sodium (Protonix Ec Tab) 40 mg PO 0600 [facility] Last Admin: 05/29/18 04:59 Dose: 40 mg Quetiapine Fumarate (Seroquel) 25 mg PO HS [facility]; Protocol Thiamine HCl (Vitamin B1 Tab) 100 mg PO DAILY [facility] Last Admin: 05/29/18 11:19 Dose: 100 mg - Labs Labs: 05/29/18 07:30 05/29/18 07:30 Attending/Attestation - Attestation I have personally seen and examined this patient.: Yes I have fully participated in the care of the patient.: Yes I have reviewed all pertinent clinical information, including history, physical exam and plan: Yes Notes (Text): 05/29/18 15:59 EtOH intoxication Elevated trops Thrombocytopenia HTN Depression Pt significantly improved CIWA score has remained 0 over the last 48hrs Pt evaluated by cardio, recommend outpatient stress test chronic thrombocytopenia most likely 2/2 EtOH abuse c/w BP meds c/w seroquel Pt will be evaluated by PT tomorrow and then transferred to psych unit once medically cleared
--- NOTE | 2018-05-29 16:04 | PN ---
DATE: 05/29/2018 SUBJECTIVE: The patient was seen today for followup. The patient presented with some improvement with his symptoms, but still paranoid. Patient is afraid that his family is still murdered and the patient is afraid that this is true. The patient also said that he is afraid to go outside and feel the same way. Besides that, the patient reported to have depressed mood and the patient made it clear that "I am always hopeless." OBJECTIVE: Vital signs are more stable. The patient does not have any withdrawal symptoms. MEDICATIONS: The patient is on aspirin, Librium 50 mg every 6 hours scheduled, Lovenox, folic acid, Ativan IV push which was given to him last time on May 27, Lopressor, multivitamins, Protonix, Seroquel 100 mg will be discontinued and Seroquel 25 mg will be started and thiamine 100 mg daily. Labs reviewed. Most recent was from today. Chemistry reviewed. Troponin went down. Toxicology reviewed. MENTAL STATUS EXAMINATION: The patient appears to be alert, mildly confused. Mood described as "I am always hopeless". Affect was constricted. Thought process circumstantial, tangential. The patient had difficult to stay focused and concentrate. Thought content: the patient is mildly paranoid. The patient has periods of hallucinations and paranoia that his family was murdered. Insight and judgment seems to be improving. Impulses are better controlled. IMPRESSION: Most likely the patient is in delirium stage, which is improving. The patient has history of bipolar II, rule out mood disorder, rule out substance-induced mood disorder. PLAN: Continue current management. Continue current medications. Seroquel 25 mg at the nighttime started. We will follow up and advise accordingly. Most likely, the patient would require to go to the psychiatric inpatient unit for further stabilization, but this sql report writer also cannot exclude the chance that the patient might be improving and would not require psych admission. Thank you very much for letting me participate in care of your patient. Today, discussed with the medical team. Right now, physical therapy needs to evaluate the patient and have clear the patient to either to go to the psychiatric inpatient unit or back home. Thank you very much for letting me participate in care of your patient. Should you have any questions, give a call back. Bella Hussein MD ABELARDO
[2018-05-30] MEDS: Pantoprazole 40 mg EC Tab PO SCH (05:21)
[2018-05-30 07:14] LABS: BASO # 0.01 K/mm3 (0.0-2.0); BASO % 0.3 % (0.0-3.0); EOS % 1.2 % (1.5-5.0); HEMOGLOBIN 12.2 g/dL (14.0-18.0); LYMPH # 1.4 (1.2-3.4); LYMPH % 42.2 % (22.0-35.0); MEAN CELL VOLUME 82.1 fl (80.0-105.0); MEAN CORPUSCULAR HGB CONC 34.1 g/dl (31.0-37.0); MEAN PLATELET VOLUME 11.4 fl (7.0-11.0); MONO # 0.4 (0.1-0.6); MONO % 12.6 % (1.0-6.0); RBC 4.36 10^6/uL (3.5-6.1); RED CELL DISTRIBUTION WIDTH 14.5 % (11.5-14.5); WHITE BLOOD COUNT 3.4 10^3/uL (4.5-11.0)
[2018-05-30 07:21] LABS: ALB/GLOB RATIO 1.3 (1.1-1.8); ALBUMIN 3.2 g/dL (3.0-4.8); ALT/SGPT 114 U/L (7-56); AST/SGOT 721 U/L (17-59); BLOOD UREA NITROGEN 5 mg/dL (7-21); CALCIUM 8.8 mg/dL (8.4-10.5); GFR NON-AFRICAN AMERICAN > 60
[2018-05-30] MEDS ORDERED: Potassium Chloride 20 mEq ER Tab PO ONE (08:02)
[2018-05-30 08:15] VITALS: O2SAT 98
--- NOTE | 2018-05-30 08:36 | CP.PCM.PN ---
Subjective - Date & Time of Evaluation Date of Evaluation: 05/30/18 Time of Evaluation: 08:36 Objective - Vital Signs/Intake and Output Vital Signs (last 24 hours): Temp Pulse Resp BP Pulse Ox 97.8 F 68 20 125/88 98 05/30/18 06:00 05/30/18 06:00 05/30/18 06:00 05/30/18 06:00 05/30/18 06:00 Intake and Output: 05/30/18 05/30/18 06:59 18:59 Intake Total 600 Output Total 1300 Balance -700 - Medications Medications: Current Medications Aspirin (Ecotrin) 81 mg PO DAILY [facility] Last Admin: 05/29/18 11:19 Dose: 81 mg Enoxaparin Sodium (Lovenox) 40 mg SC DAILY [facility]; Protocol Last Admin: 05/29/18 11:18 Dose: 40 mg Folic Acid (Folic Acid) 1 mg PO DAILY [facility] Last Admin: 05/29/18 11:20 Dose: 1 mg Lorazepam (Ativan) 1 mg PO TID [facility]; Protocol Metoprolol Tartrate (Lopressor) 25 mg PO BID [facility] Last Admin: 05/29/18 18:55 Dose: 25 mg Multivitamins (Thera Tab) 1 tab PO 1000 [facility] Last Admin: 05/29/18 11:24 Dose: 1 tab Pantoprazole Sodium (Protonix Ec Tab) 40 mg PO 0600 [facility] Last Admin: 05/30/18 05:21 Dose: 40 mg Quetiapine Fumarate (Seroquel) 25 mg PO HS [facility]; Protocol Last Admin: 05/29/18 21:35 Dose: 25 mg Thiamine HCl (Vitamin B1 Tab) 100 mg PO DAILY [facility] Last Admin: 05/29/18 11:19 Dose: 100 mg - Labs Labs: 05/30/18 06:45 05/30/18 06:45
[2018-05-30] MEDS: Multivitamin Therapeutic Tab PO SCH (09:18)
[2018-05-30] MEDS: Enoxaparin 40 mg Syringe SC SCH (09:19)
[2018-05-30 12:22] VITALS: RESP 18; TEMP 98.2
--- NOTE | 2018-05-30 13:00 | CP.PCM.DIS ---
<Buster Poe - Last Filed: 05/30/18 15:23> Provider - Provider Date of Admission: 05/26/18 23:33 Attending physician: Elif Brower MD Primary care physician: Dr. Baez Consults: 05/27/18 00:16 Psychiatry Consult Routine Comment: Consulting Provider: Bella Hussein Consulting Physician: Bella Hussein Reason for Consult: Depression, hx bipolar disorder 05/27/18 09:30 Cardiology Consult Routine Comment: Consulting Provider: Andrew Grigsby Consulting Physician: Andrew Grigsby Reason for Consult: +trop Time Spent in preparation of Discharge (in minutes): 45 Diagnosis - Discharge Diagnosis (1) Alcohol withdrawal syndrome Status: Acute Priority: Medium (2) Alcohol intoxication Status: Acute Priority: Medium (3) Depression Status: Chronic Priority: Medium Hospital Course - Lab Results Lab Results: Most Recent Lab Values WBC 3.4 10^3/uL (4.5-11.0) L D 05/30/18 06:45 RBC 4.36 10^6/uL (3.5-6.1) 05/30/18 06:45 Hgb 12.2 g/dL (14.0-18.0) L 05/30/18 06:45 Hct 35.8 % (42.0-52.0) L 05/30/18 06:45 MCV 82.1 fl (80.0-105.0) 05/30/18 06:45 MCH 28.0 pg (25.0-35.0) 05/30/18 06:45 MCHC 34.1 g/dl (31.0-37.0) 05/30/18 06:45 RDW 14.5 % (11.5-14.5) 05/30/18 06:45 Plt Count 78 10^3/uL (120.0-450.0) L 05/30/18 06:45 MPV 11.4 fl (7.0-11.0) H 05/30/18 06:45 Neut % (Auto) 43.7 % (50.0-68.0) L 05/30/18 06:45 Lymph % (Auto) 42.2 % (22.0-35.0) H 05/30/18 06:45 [place] % (Auto) 12.6 % (1.0-6.0) H 05/30/18 06:45 Eos % (Auto) 1.2 % (1.5-5.0) L 05/30/18 06:45 Baso % (Auto) 0.3 % (0.0-3.0) 05/30/18 06:45 Lymph # (Auto) 1.4 (1.2-3.4) 05/30/18 06:45 [place] # (Auto) 0.4 (0.1-0.6) 05/30/18 06:45 Eos # (Auto) 0.0 (0.0-0.7) 05/30/18 06:45 Baso # (Auto) 0.01 K/mm3 (0.0-2.0) 05/30/18 06:45 Absolute Neuts (auto) 1.49 (1.4-6.5) 05/30/18 06:45 Sodium 136 mmol/L (132-148) 05/30/18 06:45 Potassium 3.3 mmol/L (3.6-5.0) L 05/30/18 06:45 Chloride 104 mmol/L (98-107) 05/30/18 06:45 Carbon Dioxide 28 mmol/L (21-33) 05/30/18 06:45 Anion Gap 7 (10-20) L 05/30/18 06:45 BUN 5 mg/dL (7-21) L 05/30/18 06:45 Creatinine 0.7 mg/dl (0.8-1.5) L 05/30/18 06:45 Est GFR ( Amer) > 60 05/30/18 06:45 Est GFR (Non-Af Amer) > 60 05/30/18 06:45 Random Glucose 107 mg/dL (70-110) 05/30/18 06:45 Calcium 8.8 mg/dL (8.4-10.5) 05/30/18 06:45 Phosphorus 3.1 mg/dL (2.5-4.5) 05/27/18 07:20 Magnesium 2.0 mg/dL (1.7-2.2) 05/27/18 07:20 Total Bilirubin 0.3 mg/dL (0.2-1.3) 05/30/18 06:45 AST 721 U/L (17-59) H 05/30/18 06:45 ALT 114 U/L (7-56) H 05/30/18 06:45 Alkaline Phosphatase 67 U/L (38-126) 05/30/18 06:45 Total Creatine Kinase 2076 U/L (35-230) H 05/27/18 07:00 CK-MB (CK-2) 4.0 ng/mL (0.0-3.6) H 05/27/18 07:00 CK-MB (CK-2) % Cancelled 05/27/18 07:00 Troponin I 0.06 ng/mL D 05/27/18 19:10 Total Protein 5.7 g/dL (5.8-8.3) L 05/30/18 06:45 Albumin 3.2 g/dL (3.0-4.8) 05/30/18 06:45 Globulin 2.5 gm/dL 05/30/18 06:45 Albumin/Globulin Ratio 1.3 (1.1-1.8) 05/30/18 06:45 Triglycerides 67 mg/dL (35-160) 05/28/18 07:36 Cholesterol 130 mg/dL (130-200) 05/28/18 07:36 LDL Cholesterol Direct 59 mg/dL (0-129) 05/28/18 07:36 HDL Cholesterol 61 mg/dL (29-60) H 05/28/18 07:36 TSH 3rd Generation 0.35 mIU/mL (0.46-4.68) L 05/28/18 07:36 Urine Color Yellow (YELLOW) 05/27/18 01:10 Urine Appearance Clear (CLEAR) 05/27/18 01:10 Urine pH 6.5 (4.7-8.0) 05/27/18 01:10 Ur Specific [place] 1.010 (1.005-1.035) 05/27/18 01:10 Urine Protein Negative mg/dL (<30 mg/dL) 05/27/18 01:10 Urine Glucose (UA) Negative mg/dL (NEGATIVE) 05/27/18 01:10 Urine Ketones 40 mg/dL (NEGATIVE) H 05/27/18 01:10 Urine Blood Negative (NEGATIVE) 05/27/18 01:10 Urine Nitrate Negative (NEGATIVE) 05/27/18 01:10 Urine Bilirubin Small (NEGATIVE) H 05/27/18 01:10 Urine Urobilinogen 0.2 E.U./dL (<1 E.U./dL) 05/27/18 01:10 Ur Leukocyte Esterase Negative Kristen/uL (NEGATIVE) 05/27/18 01:10 Salicylates < 1 mg/dL (2.0-20.0) L 05/26/18 19:18 Urine Opiates Screen Negative (NEGATIVE) 05/27/18 01:10 Urine Methadone Screen Negative (NEGATIVE) 05/27/18 01:10 Acetaminophen < 10.0 ug/ml (10.0-20.0) L 05/26/18 19:18 Ur Barbiturates Screen Negative (NEGATIVE) 05/27/18 01:10 Ur Phencyclidine Scrn Negative (NEGATIVE) 05/27/18 01:10 Ur Amphetamines Screen Negative (NEGATIVE) 05/27/18 01:10 U Benzodiazepines Scrn Negative (NEGATIVE) 05/27/18 01:10 U Oth Cocaine Metabols Negative (NEGATIVE) 05/27/18 01:10 U Cannabinoids Screen Negative (NEGATIVE) 05/27/18 01:10 Alcohol, Quantitative < 10 mg/dL (0-10) 05/26/18 19:18 - Hospital Course Hospital Course: PGY1 Medicine Discharge Summary and Hospital Course for Dr. Brower This is a 48 year old male with PMhx EtOH abuse, bipolar disease, and HTN who presented to the ED with c/o depression. Denied SI/HI, but stated that he was drinking a lot of alcohol because he felt depressed about what was going on in his family, stated that he does not want to go into further detail. Patient stated he was walking somewhere on the street when a bystander called EMS and he was taken to the ED. Does not recall how he got there. Admitted to drinking 0.5- 1 pint of vodka and 15 beers daily, last drank that amount 4 nights ago, but also admitted to drinking 1-2 additional beers 2 days ago as well. Stated he has not had much PO appetite for the past several days, has not been eating food. Reported several episodes of non-bloody, bilious emesis that happened 3 nights ago, but reported no vomiting episodes for the past 2 days. Patient was recently [place] [facility] [place] of EtOH withdrawal, hx prior psych admissions. For complete detail of Patient's history please see Patient's chart. Patient's EtOH, salicylate and tylenol levels were negative. Patient was subsequently admitted to telemetry for alcohol intoxication/withdrawal. During admission, Patient was monitored with CIWA protocol, aspiration, seizure, and fall precautions. Patient was NPO and was administered banana bag, IVF, Multivitamin, folate, thiamine, and ativan PRN for agitation. Patient was also treated with Librium. Patient also had elevated troponins 0.15. Cardiology was consulted (Dr. Grigsby) who recommended outpatient stress test. Patient otherwise expressed interest in being voluntarily admitted to psychiatry unit for detox. Patient was evaluated by Dr. Blanco, who accepts the Patient. On Day of Discharge, Patient was hemodynamically stable, and medically optimized for discharge to [facility] [place]. Patient had no complaints and was no longer feeling agitated. Patient was provided with discharge instructions that were provided to the Patient both verbally and in writing to the level of the Patient's comprehension. Patient both understands and agrees to all discharge instructions. Please see chart for details. Medications Upon Discharge from Hospital - ASA 81mg PO daily - Librium 10mg PO Q8 #12 - Folic Acid 1mg PO daily - Lopressor 25mg PO BID #14 - Multivitamin 1 tab PO 0800 #14 - Revia 50mg PO daily #7 - Potassium Chloride 20meq PO daily 5 days #5 - Seroquel 100mg PO HS #14 - Thiamine 100mg PO Daily #14 Discharge Instructions provided to Patient: Please continue all medications as ordered now while in [place] [facility] Please follow up with your primary care doctor within one to two weeks of being discharged from the BHU at [facility] Complete alcohol cessation is recommended. Please stop drinking alcohol as discussed Please take all medications as prescribed Should your symptoms return, please seek emergency medical attention immediately at your nearest emergency room Patient seen and case discussed in detail with Dr. Inocente Poe PGY1 Discharge Exam - Head Exam Head Exam: ATRAUMATIC, NORMOCEPHALIC - Eye Exam Eye Exam: EOMI, Normal appearance, PERRL Pupil Exam: NORMAL ACCOMODATION - ENT Exam ENT Exam: Mucous Membranes Moist - Neck Exam Neck exam: Full Rom - Respiratory Exam Respiratory Exam: NORMAL BREATHING PATTERN, UNREMARKABLE. absent: Chest Wall Tenderness, Wheezes, Respiratory Distress - Cardiovascular Exam Cardiovascular Exam: REGULAR RHYTHM, +S1, +S2. absent: Diastolic murmur, Systolic Murmur - GI/Abdominal Exam GI & Abdominal Exam: Normal Bowel Sounds, Soft, Unremarkable. absent: Diminished Bowel Sounds, Distended, Rebound, Rigid, Tenderness - Extremities Exam Extremities exam: full ROM, normal capillary refill - Back Exam Back exam: NORMAL INSPECTION. absent: CVA tenderness (L), CVA tenderness (R) - Neurological Exam Neurological exam: Alert, CN II-XII Intact, Normal Gait, Oriented x3, Reflexes Normal - Psychiatric Exam Psychiatric exam: Depressed - Skin Skin Exam: Dry, Intact, Normal Color, Warm Discharge Plan - Follow Up Plan Condition: FAIR Disposition: HOME/ ROUTINE Instructions: Alcohol Abuse and Alcoholism (DC) Additional Instructions: Please continue all medications as ordered now while in [place] [facility] Please follow up with your primary care doctor within one to two weeks of being discharged from the BHU at [facility] Complete alcohol cessation is recommended. Please stop drinking alcohol as discussed Please take all medications as prescribed Should your symptoms return, please seek emergency medical attention immediately at your nearest emergency room Referrals: Patric Baez MD [Staff Provider] - <Elif Brower - Last Filed: 05/30/18 16:18> Provider - Provider Date of Admission: 05/26/18 23:33 Attending physician: Elif Brower MD Consults: 05/27/18 00:16 Psychiatry Consult Routine Comment: Consulting Provider: Bella Hussein Consulting Physician: Bella Hussein Reason for Consult: Depression, hx bipolar disorder 05/27/18 09:30 Cardiology Consult Routine Comment: Consulting Provider: Andrew Grigsby Consulting Physician: Andrew Grigsby Reason for Consult: +trop Hospital Course - Lab Results Lab Results: Most Recent Lab Values WBC 3.4 10^3/uL (4.5-11.0) L D 05/30/18 06:45 RBC 4.36 10^6/uL (3.5-6.1) 05/30/18 06:45 Hgb 12.2 g/dL (14.0-18.0) L 05/30/18 06:45 Hct 35.8 % (42.0-52.0) L 05/30/18 06:45 MCV 82.1 fl (80.0-105.0) 05/30/18 06:45 MCH 28.0 pg (25.0-35.0) 05/30/18 06:45 MCHC 34.1 g/dl (31.0-37.0) 05/30/18 06:45 RDW 14.5 % (11.5-14.5) 05/30/18 06:45 Plt Count 78 10^3/uL (120.0-450.0) L 05/30/18 06:45 MPV 11.4 fl (7.0-11.0) H 05/30/18 06:45 Neut % (Auto) 43.7 % (50.0-68.0) L 05/30/18 06:45 Lymph % (Auto) 42.2 % (22.0-35.0) H 05/30/18 06:45 [place] % (Auto) 12.6 % (1.0-6.0) H 05/30/18 06:45 Eos % (Auto) 1.2 % (1.5-5.0) L 05/30/18 06:45 Baso % (Auto) 0.3 % (0.0-3.0) 05/30/18 06:45 Lymph # (Auto) 1.4 (1.2-3.4) 05/30/18 06:45 [place] # (Auto) 0.4 (0.1-0.6) 05/30/18 06:45 Eos # (Auto) 0.0 (0.0-0.7) 05/30/18 06:45 Baso # (Auto) 0.01 K/mm3 (0.0-2.0) 05/30/18 06:45 Absolute Neuts (auto) 1.49 (1.4-6.5) 05/30/18 06:45 Sodium 136 mmol/L (132-148) 05/30/18 06:45 Potassium 3.3 mmol/L (3.6-5.0) L 05/30/18 06:45 Chloride 104 mmol/L (98-107) 05/30/18 06:45 Carbon Dioxide 28 mmol/L (21-33) 05/30/18 06:45 Anion Gap 7 (10-20) L 05/30/18 06:45 BUN 5 mg/dL (7-21) L 05/30/18 06:45 Creatinine 0.7 mg/dl (0.8-1.5) L 05/30/18 06:45 Est GFR ( Amer) > 60 05/30/18 06:45 Est GFR (Non-Af Amer) > 60 05/30/18 06:45 Random Glucose 107 mg/dL (70-110) 05/30/18 06:45 Calcium 8.8 mg/dL (8.4-10.5) 05/30/18 06:45 Phosphorus 3.1 mg/dL (2.5-4.5) 05/27/18 07:20 Magnesium 2.0 mg/dL (1.7-2.2) 05/27/18 07:20 Total Bilirubin 0.3 mg/dL (0.2-1.3) 05/30/18 06:45 AST 721 U/L (17-59) H 05/30/18 06:45 ALT 114 U/L (7-56) H 05/30/18 06:45 Alkaline Phosphatase 67 U/L (38-126) 05/30/18 06:45 Total Creatine Kinase 2076 U/L (35-230) H 05/27/18 07:00 CK-MB (CK-2) 4.0 ng/mL (0.0-3.6) H 05/27/18 07:00 CK-MB (CK-2) % Cancelled 05/27/18 07:00 Troponin I 0.06 ng/mL D 05/27/18 19:10 Total Protein 5.7 g/dL (5.8-8.3) L 05/30/18 06:45 Albumin 3.2 g/dL (3.0-4.8) 05/30/18 06:45 Globulin 2.5 gm/dL 05/30/18 06:45 Albumin/Globulin Ratio 1.3 (1.1-1.8) 05/30/18 06:45 Triglycerides 67 mg/dL (35-160) 05/28/18 07:36 Cholesterol 130 mg/dL (130-200) 05/28/18 07:36 LDL Cholesterol Direct 59 mg/dL (0-129) 05/28/18 07:36 HDL Cholesterol 61 mg/dL (29-60) H 05/28/18 07:36 TSH 3rd Generation 0.35 mIU/mL (0.46-4.68) L 05/28/18 07:36 Urine Color Yellow (YELLOW) 05/27/18 01:10 Urine Appearance Clear (CLEAR) 05/27/18 01:10 Urine pH 6.5 (4.7-8.0) 05/27/18 01:10 Ur Specific [place] 1.010 (1.005-1.035) 05/27/18 01:10 Urine Protein Negative mg/dL (<30 mg/dL) 05/27/18 01:10 Urine Glucose (UA) Negative mg/dL (NEGATIVE) 05/27/18 01:10 Urine Ketones 40 mg/dL (NEGATIVE) H 05/27/18 01:10 Urine Blood Negative (NEGATIVE) 05/27/18 01:10 Urine Nitrate Negative (NEGATIVE) 05/27/18 01:10 Urine Bilirubin Small (NEGATIVE) H 05/27/18 01:10 Urine Urobilinogen 0.2 E.U./dL (<1 E.U./dL) 05/27/18 01:10 Ur Leukocyte Esterase Negative Kristen/uL (NEGATIVE) 05/27/18 01:10 Salicylates < 1 mg/dL (2.0-20.0) L 05/26/18 19:18 Urine Opiates Screen Negative (NEGATIVE) 05/27/18 01:10 Urine Methadone Screen Negative (NEGATIVE) 05/27/18 01:10 Acetaminophen < 10.0 ug/ml (10.0-20.0) L 05/26/18 19:18 Ur Barbiturates Screen Negative (NEGATIVE) 05/27/18 01:10 Ur Phencyclidine Scrn Negative (NEGATIVE) 05/27/18 01:10 Ur Amphetamines Screen Negative (NEGATIVE) 05/27/18 01:10 U Benzodiazepines Scrn Negative (NEGATIVE) 05/27/18 01:10 U Oth Cocaine Metabols Negative (NEGATIVE) 05/27/18 01:10 U Cannabinoids Screen Negative (NEGATIVE) 05/27/18 01:10 Alcohol, Quantitative < 10 mg/dL (0-10) 05/26/18 19:18 Attending/Attestation - Attestation I have personally seen and examined this patient.: Yes I have fully participated in the care of the patient.: Yes I have reviewed all pertinent clinical information, including history, physical exam and plan: Yes Notes (Text): 05/30/18 16:13 48 year old male with past medical history of alcohol abuse and bipolar disorder who presented with alcohol intoxication and depression. He was started on librium and ativan prn for alcohol withdrawal symptoms. LFTs are elevated and patient has thrombocytopenia; likely secondary to chronic alcohol abuse. His librium is switched to ativan. Patient was seen by psychiatrist and is agreeable to go to inpatient psychiatry unit. He was counselled on risks of continued alcohol abuse. He was also noted to have elevated troponins which trended down. He was seen by cardiology who recommended outpatient stress test. Elif Brower MD Hospitalist.
--- NOTE | 2018-05-30 17:21 | CP.PCM.PCO ---
Physician Communication Note - Physician Communication Note Physician Communication Note: Buster Poe PGY1
[2018-05-30 17:27] VITALS: BP 131/87; PULSE 62
--- NOTE | 2018-05-30 20:55 | PN ---
DATE: 05/30/2018 SUBJECTIVE: The patient was seen today. The patient reported that he feels hopeless. The patient denied any hallucinations, reported that Seroquel helped him at the nighttime. The patient still has periods of paranoia. The patient is willing to sign himself into the psychiatric inpatient unit for evaluation and stabilization. The patient reported that he will be open to the option to go to the inpatient rehab after this hospitalization. Discussed with the medical team. The patient was cleared from the physical therapy standpoint. Vital signs are stable. The patient's medications will be continued. Labs reviewed, most recent was from today. MENTAL STATUS EXAMINATION: The patient presented with acceptable personal hygiene, but the patient seems to be malodorous. Mood described as depressed and hopeless. Affect was constricted. Thought process seems to be circumstantial, at times paranoia. The patient does not have visual hallucinations. Thought process seems to be more goal directed. Insight and judgment seems to be improving. Impulses are well controlled. The patient denied any thoughts of harming himself or others. IMPRESSION: The patient has history of bipolar disorder, delirium which is clearing. At the present moment, the patient is in depressive mood. PLAN: We will transfer the patient to the psychiatric inpatient unit. Medication adjustments will be done. The patient is on tapering dose of benzodiazepines. Seroquel was started. At the time of admission, troponin and QTC were prolonged, that is why this commercial lines underwriter does not want to be very aggressive in regards of Seroquel. The patient will be transferred today. Should you have any questions, give me a call back. Bella Hussein MD
== END 2018-05-30 20:10 | DRG 750 ==
LOC: ED 18:40 → ERH 23:33 → 2RSO 05-27 00:44
PROVIDERS: ADMIT Internal Medicine; ATTEND Internal Medicine
DX: F10.231 Alcohol dependence with withdrawal delirium (principal); D69.59 Other secondary thrombocytopenia; F31.81 Bipolar II disorder; I10 Essential (primary) hypertension; Z78.1 Physical restraint status

== ENCOUNTER 2018-05-30 20:10 | Inpatient (IN) | payer MEDICAID ==
[2018-05-30] MEDS ORDERED: Alum-Mag Hydrox-Simethicone Susp (30 mL) PO PRN (20:47)
[2018-05-30] MEDS ORDERED: Magnesium Hydroxide Susp 30 ml UD PO PRN (20:47)
[2018-05-30 21:05] VITALS: RESP 20
--- NOTE | 2018-05-30 22:42 | PCM.BM ---
<Juliane Guerra - Last Filed: 05/30/18 22:37> Treatment Plan Problems - Problems identified on initial assessmt INEFFECTIVE COPING Date Initiated: 05/30/18 Time Initiated: 20:00 Assessment reference: NA Status: Active Priority: 1 KNOWLEDGE DEFICIT: ALCOHOL USE Date Initiated: 05/30/18 Time Initiated: 20:00 Assessment reference: NA Status: Active Priority: 2 FEELING OF HOPELESSNESS Date Initiated: 05/30/18 Time Initiated: 20:00 Assessment reference: NA Status: Active Priority: 3 Treatment assets and liabiliti Patient Assests: cooperative, insightful, motivated, self-reliant, ADL independent, negotiates basic needs, cognitively intact, good interpersonal skills Patient Liabilities: live alone, financial problems, substance abuse, medical problems - Milieu Protocol Maintain good personal hygiene: every other day Encourage regular showers, every shift Remind patient to perform daily oral care, every shift Assist patient to perform ADL's Maintain personal safety: every shift Educate patient to report safety concerns to staff, every shift Monitor environment for contraband/sharps Medication safety: Monitor for expected outcome, potential side effects: every shift, Assess barriers to learning: every shift, Assess readiness for medication education: every shift Family Contact Family involvement: Family/SO is involved Family contact: Patient agrees to contact Discharge/Continuing Care - Education Needs Education Needs: Patient Medication, Patient Diagnosis/Disease Process, Patient Coping Skills, Patient Placement options, Patient Community resources, Patient Nutrition, Patient Uses of Medical Equipment, Patient Aftercare Safety Plan - Discharge Discharge Criteria: Tolerates medication w/o severe side effects, Free of Homicidal thoughts, Free of paranoid thoughts, Normal sleep pattern <Bella Hussein - Last Filed: 05/31/18 12:58> - Diagnosis (1) Alcohol use disorder Status: Chronic Interventions: 05/31/18 12:58 Monitoring withdrawal symptoms Medical detoxification Pharmacotherapy for alcohol/benzos/opioid dependence Maintaining sobriety Relapse prevention Possible rehabilitation Motivational interviewing 12-step programs: AA meetings (2) Bipolar II disorder Status: Chronic Interventions: 05/31/18 12:59 Psychoeducation Psychopharmacology/adjustment of medications as needed/ monitoring possible side effects Monitor blood level of mood stabilizers Evaluate pt on daily basis Compliance with medications and follow up appointments Suicide and homicide risk assessment and prevention, coping strategies, safety plan Relapse prevention Reduction of symptoms Improve functional status Family involvement As outpatient: cognitive behavioral therapy <Cynthia Jackson - Last Filed: 06/01/18 16:06> Family Contact Family contact: Patient agrees to contact <Daniella Spivey - Last Filed: 06/01/18 16:09>
[2018-05-31] MEDS: Pantoprazole 40 mg EC Tab PO SCH (06:03)
[2018-05-31] MEDS: Multivitamin Therapeutic Tab PO SCH (08:10)
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
[2018-06-01] MEDS: Pantoprazole 40 mg EC Tab PO SCH (05:49)
[2018-06-01] MEDS: Multivitamin Therapeutic Tab PO SCH (07:56)
--- NOTE | 2018-06-01 15:03 | PCM.PYCHPN ---
Psychiatric Progress Note - Psychiatric Progress Note Patient seen today, length of contact: 30min Patient Chief Complaint: "I am little better" Problems Identified/Issues Discussed: Risk/benefits and alternatives of medications discussed, suicide/ homicide prevention, past psychiatric h/o, current psychiatric symptoms, medical problems, risk/benefits and alternatives of medications, medications compliance, coping strategies, substance abuse h/o, relapse prevention, importance of follow up with psychiatrist and therapist, discharge plan. Medical Problems: see HPI Diagnostic Results: Lab Results 05/31/18 08:00: RPR Nonreactive Vital Signs Temp Pulse Resp BP 06/01/18 07:15 97.8 F 59 L 20 119/74 05/31/18 17:45 60 117/79 05/31/18 16:00 60 117/79 05/31/18 08:10 6 L 114/64 05/31/18 07:00 97.4 F L 65 20 114/64 05/30/18 20:52 20 DSM 5 Symptoms Update: Patient is a single 48 yo white male with a history of severe and debilitating alcohol use disorder associated with numerous medical admissions for withdrawal DTs, +history of bipolar type II, multiple psychiatric admissions for bipolar and alcohol use disorder, poor adherence with outpatient treatment and medications who was transferred from the medical floor 05/30/18, pt came to the ED after being found in the community, ambulance was called for unknown reason, initial complaint in ED was depression, but pt stated to develop alcohol withdrawal delirium and required to be admitted to the medical floor, pt had tr oponin elevation, EKG changes. this technical writer was involved as a portrait consultant, pt was found to be depressed/hopeless, psychotic, required to be transferred to the psychiatric inpatient unit for evaluation and stabilization. pt was seen today at the treatment team meeting, hygiene is better, good ADLs. pt presented with some improvement with his hallucinations, pt still paranoid, as per report from staff, pt presented to be responding to internal stimuli, picking something at the the air. pt's vitals are stable, minimal UE tremor. so far pt tolerated meds well, no side effects observed or reported, AIMS 0, no EPS. pt said that he is more optimistic about his future, started to work with for inpatient rehab transfer. Impression: as per h/o BD r/o substance induced mood disorder alcohol use disorder Medication Change: Yes (seroquel and remeron increased) Medical Record Reviewed: Yes Consults ordered or reviewed: medical team f/u appreciated Mental Status Examination - Cognitive Function Orientation: Person, Place, Situation Memory: Intact Attention: Poor Concentration: Poor Association: WNL Fund of Knowledge: WNL - Mood Mood: Depressed, Anxious - Affect Affect: Constricted, Flat - Formal Thought Process Formal Thought Process: Hallucinations (some visual hallucinations), Paranoia - Suicidal Ideation Suicidal Ideation: No - Homicidal Ideation Homicidal Ideation: No Goal/Treatment Plan - Goal/Treatment Plan Need for Continued Stay: Remain at risks for inpatient hospitalization, Severe depression anxiety, Discharge may exacerbated symptoms, Severe functional impairment Progress Toward Problem(s) and Goals/Treatment Plan: Milieu/structure/supportive therapy SW consultation for discharge plan and social issues seroquel 50mg hs for mood and psychosis, will monitor EKG and troponins [facility] for alcohol withdrawals mutlivitamines, thiamine and folic acid remeron 15mg pohs for depression Med management: Family involvement Follow up on labs Will monitor closely Pt was educated about risk/benefits and alternatives of medications, coping strategies (safety plan, suicide prevention), relapse prevention, importance of follow up with psychiatrist and therapist, stay away from drugs/alcohol/smoking
[2018-06-02] MEDS: Pantoprazole 40 mg EC Tab PO SCH (06:05)
[2018-06-02] MEDS: Multivitamin Therapeutic Tab PO SCH (08:14)
--- NOTE | 2018-06-02 15:01 | PCM.PYCHPN ---
Psychiatric Progress Note - Psychiatric Progress Note Patient seen today, length of contact: 30min Patient Chief Complaint: "I feel alright" Problems Identified/Issues Discussed: Risk/benefits and alternatives of medications discussed, suicide/ homicide prevention, past psychiatric h/o, current psychiatric symptoms, medical problems, risk/benefits and alternatives of medications, medications compliance, coping strategies, substance abuse h/o, relapse prevention, importance of follow up with psychiatrist and therapist, discharge plan. Medical Problems: see HPI Diagnostic Results: Lab Results 05/31/18 08:00: RPR Nonreactive Vital Signs Temp Pulse Resp BP 06/01/18 07:15 97.8 F 59 L 20 119/74 05/31/18 17:45 60 117/79 05/31/18 16:00 60 117/79 05/31/18 08:10 6 L 114/64 05/31/18 07:00 97.4 F L 65 20 114/64 05/30/18 20:52 20 Temp Pulse Resp BP Pulse Ox 98.1 F 81 20 119/82 06/02/18 07:18 06/02/18 07:18 06/02/18 07:18 06/02/18 07:18 DSM 5 Symptoms Update: Patient is a single 48 yo white male with a history of severe and debilitating alcohol use disorder associated with numerous medical admissions for withdrawal DTs, +history of bipolar type II, multiple psychiatric admissions for bipolar and alcohol use disorder, poor adherence with outpatient treatment and medications who was transferred from the medical floor 05/30/18, pt came to the ED after being found in the community, ambulance was called for unknown reason, initial complaint in ED was depression, but pt stated to develop alcohol withdrawal delirium and required to be admitted to the medical floor, pt had troponin elevation, EKG changes. this telegraphic typewriter repairer was involved as a lean consultant, pt was found to be depressed/hopeless, psychotic, required to be transferred to the psychiatric inpatient unit for evaluation and stabilization. pt was seen today next to the nursing station, hygiene is better, good ADLs. pt presented with some improvement with his hallucinations, pt still mildly paranoid, as per report from staff patient did not present to be disorganized, patient started to attend groups, patient is calm, cooperative, no behavioral issues. pt's vitals are stable, minimal UE tremor. so far pt tolerated meds well, no side effects observed or reported, AIMS 0, no EPS. pt said that he is more optimistic about his future, started to work with SW for inpatient rehab transfer. Impression: as per h/o BD r/o substance induced mood disorder alcohol use disorder Medication Change: Yes (seroquel and remeron increased) Medical Record Reviewed: Yes Mental Status Examination - Cognitive Function Orientation: Person, Place, Situation Memory: Intact Attention: Poor (Some improvement) Concentration: Poor Association: WNL Fund of Knowledge: WNL - Mood Mood: Depressed ("I feel little better"), Anxious - Affect Affect: Constricted (but more reactive) - Formal Thought Process Formal Thought Process: Hallucinations (denied today), Paranoia (mild) - Suicidal Ideation Suicidal Ideation: No - Homicidal Ideation Homicidal Ideation: No Goal/Treatment Plan - Goal/Treatment Plan Need for Continued Stay: Remain at risks for inpatient hospitalization, Severe depression anxiety, Discharge may exacerbated symptoms, Severe functional impairment Progress Toward Problem(s) and Goals/Treatment Plan: Milieu/structure/supportive therapy SW consultation for discharge plan and social issues seroquel 50mg hs for mood and psychosis, will monitor EKG and troponins ativan 2mg lorenzo for alcohol withdrawals mutlivitamines, thiamine and folic acid remeron 15mg pohs for depression Med management: Family involvement Follow up on labs Will monitor closely Pt was educated about risk/benefits and alternatives of medications, coping strategies (safety plan, suicide prevention), relapse prevention, importance of follow up with psychiatrist and therapist, stay away from drugs/alcohol/smoking Possible inpatient rehab either tomorrow or Wednesday, June 03, 2018 or Wednesday.
[2018-06-03] MEDS: Multivitamin Therapeutic Tab PO SCH (08:05)
[2018-06-03] MEDS: Pantoprazole 40 mg EC Tab PO SCH (08:10)
--- NOTE | 2018-06-03 12:31 | PCM.PYCHPN ---
Psychiatric Progress Note - Psychiatric Progress Note Patient seen today, length of contact: 30min Patient Chief Complaint: "I feel alright" Problems Identified/Issues Discussed: Risk/benefits and alternatives of medications discussed, suicide/ homicide prevention, past psychiatric h/o, current psychiatric symptoms, medical problems, risk/benefits and alternatives of medications, medications compliance, coping strategies, substance abuse h/o, relapse prevention, importance of follow up with psychiatrist and therapist, discharge plan. Medical Problems: see HPI Diagnostic Results: Lab Results 05/31/18 08:00: RPR Nonreactive Vital Signs Temp Pulse Resp BP 06/01/18 07:15 97.8 F 59 L 20 119/74 05/31/18 17:45 60 117/79 05/31/18 16:00 60 117/79 05/31/18 08:10 6 L 114/64 05/31/18 07:00 97.4 F L 65 20 114/64 05/30/18 20:52 20 Temp Pulse Resp BP Pulse Ox 98.1 F 81 20 119/82 06/02/18 07:18 06/02/18 07:18 06/02/18 07:18 06/02/18 07:18 DSM 5 Symptoms Update: Patient is a single 48 yo white male with a history of severe and debilitating alcohol use disorder associated with numerous medical admissions for withdrawal DTs, +history of bipolar type II, multiple psychiatric admissions for bipolar and alcohol use disorder, poor adherence with outpatient treatment and medications who was transferred from the medical floor 05/30/18, pt came to the ED after being found in the community, ambulance was called for unknown reason, initial complaint in ED was depression, but pt stated to develop alcohol withdrawal delirium and required to be admitted to the medical floor, pt had troponin elevation, EKG changes. this script writer was involved as a [employer] consultant, pt was found to be depressed/hopeless, psychotic, required to be transferred to the psychiatric inpatient unit for evaluation and stabilization. pt was seen today in his room with medical student, hygiene is better, good ADLs. pt presented with some improvement with his hallucinations, pt still mildly paranoid, as per report from staff patient did not present to be disorganized, patient started to attend groups, patient is calm, cooperative, no behavioral issues. pt's vitals are stable, minimal UE tremor. so far pt tolerated meds well, no side effects observed or reported, AIMS 0, no EPS. pt said that he is more optimistic about his future, started to work with for inpatient rehab transfer, made a few phone calls to inpatient rehabs, as per , inpatient rehab might have a bed available on Wednesday or Wednesday, if not, will d/c pt on Wednesday June 06, 2018. Impression: as per h/o BD r/o substance induced mood disorder alcohol use disorder Medication Change: No ( ) Medical Record Reviewed: Yes Mental Status Examination - Cognitive Function Orientation: Person, Place, Situation Memory: Intact Attention: Poor (Some improvement) Concentration: Poor Association: WNL Fund of Knowledge: WNL - Mood Mood: Depressed ("I feel little better"), Anxious - Affect Affect: Constricted (but more reactive) - Formal Thought Process Formal Thought Process: Hallucinations (denied today), Paranoia (mild) - Suicidal Ideation Suicidal Ideation: No - Homicidal Ideation Homicidal Ideation: No Goal/Treatment Plan - Goal/Treatment Plan Need for Continued Stay: Remain at risks for inpatient hospitalization, Severe depression anxiety, Discharge may exacerbated symptoms, Severe functional impairment Progress Toward Problem(s) and Goals/Treatment Plan: Milieu/structure/supportive therapy consultation for discharge plan and social issues seroquel 50mg hs for mood and psychosis, will monitor EKG and troponins ativan 1mg po tid prn for alcohol withdrawals mutlivitamines, thiamine and folic acid remeron 15mg pohs for depression naltrexone 50mg po daily started for alcohol cravings Med management: Family involvement Follow up on labs Will monitor closely Pt was educated about risk/benefits and alternatives of medications, coping strategies (safety plan, suicide prevention), relapse prevention, importance of follow up with psychiatrist and therapist, stay away from drugs/alcohol/smoking Possible inpatient rehab either Wednesday or Wednesday. Estimated Date of D/C: 06/06/18
[2018-06-04] MEDS: Multivitamin Therapeutic Tab PO SCH (08:34)
[2018-06-04] MEDS: Pantoprazole 40 mg EC Tab PO SCH (08:34)
--- NOTE | 2018-06-04 09:18 | PCM.PYCHPN ---
Psychiatric Progress Note - Psychiatric Progress Note Patient seen today, length of contact: 30min Problems Identified/Issues Discussed: I reviewed assessment and recent notes. I met with patient at bedside. He is communicative, calm and oriented to location, month, year and circumstances. Shira weber denies any new concerns. Reports that he is " feeling better since admission, thanks". He has been compliant with medications and denies s/e, discomfort or pain. Denies any AH or VH. Nursing notes indicate that patient has been calm and pleasant on the unit. Visible and attending groups. There were no behavioral issues overnight Diagnostic Results: as per h/o BD r/o substance induced mood disorder alcohol use disorder Medication Change: No ( ) Medical Record Reviewed: Yes Mental Status Examination - Cognitive Function Orientation: Person, Place, Situation Memory: Intact Attention: Poor (Some improvement) Concentration: Poor Association: WNL Fund of Knowledge: WNL - Mood Mood: Depressed ("I feel little better"), Anxious - Affect Affect: Constricted (but more reactive) - Speech Speech: Appropriate - Formal Thought Process Formal Thought Process: Hallucinations (denied today), Paranoia (mild) - Suicidal Ideation Suicidal Ideation: No - Homicidal Ideation Homicidal Ideation: No Goal/Treatment Plan - Goal/Treatment Plan Need for Continued Stay: Remain at risks for inpatient hospitalization, Severe depression anxiety, Discharge may exacerbated symptoms, Severe functional impairment Progress Toward Problem(s) and Goals/Treatment Plan: * c/w current tx and plan * Ativan 1 mg po TID prn: etoh withdrawal, to taper as tolerated * Vitals reviewed and noted below: Selected Entries 06/03/18 07:03 Temperature 97.8 F Pulse Rate 57 L Respiratory 20 Rate Blood Pressure 141/81 * No new weekend lab results thus far Estimated Date of D/C: 06/06/18
[2018-06-05] MEDS: Pantoprazole 40 mg EC Tab PO SCH (06:48)
[2018-06-05] MEDS: Multivitamin Therapeutic Tab PO SCH (08:58)
--- NOTE | 2018-06-05 09:06 | PCM.PYCHPN ---
Psychiatric Progress Note - Psychiatric Progress Note Patient seen today, length of contact: 30min Problems Identified/Issues Discussed: I reviewed recent notes and met with patient at bedside again. He is groomed, communicative, calm and oriented to location, month, year and circumstances. P atient denies any new concerns. Reports that he is " feeling better since admission, thanks". He has been compliant with medications and denies s/e, discomfort or pain. Denies any AH or VH. Nursing notes indicate that patient has been calm and pleasant on the unit. Visible and attending groups. There were no behavioral issues over the weekend Diagnostic Results: as per h/o BD r/o substance induced mood disorder alcohol use disorder Medication Change: Yes (decreased ativan) Medical Record Reviewed: Yes Mental Status Examination - Cognitive Function Orientation: Person, Place, Situation Memory: Intact Attention: Poor (Some improvement) Concentration: Poor Association: WNL Fund of Knowledge: WNL - Mood Mood: Depressed ("I feel little better"), Anxious - Affect Affect: Constricted (but more reactive) - Speech Speech: Appropriate - Formal Thought Process Formal Thought Process: Hallucinations (denied today), Paranoia (mild) - Suicidal Ideation Suicidal Ideation: No - Homicidal Ideation Homicidal Ideation: No Goal/Treatment Plan - Goal/Treatment Plan Need for Continued Stay: Remain at risks for inpatient hospitalization, Severe depression anxiety, Discharge may exacerbated symptoms, Severe functional impairment Progress Toward Problem(s) and Goals/Treatment Plan: * c/w current tx and plan * Ativan 1 mg po TID prn changed to q12 prn on 06/05/18: etoh withdrawal, to taper as tolerated * Vitals reviewed and noted below: Selected Entries 06/04/18 06/04/18 06/04/18 07:00 08:00 16:00 Temperature 97.8 F Pulse Rate 58 L 60 64 Respiratory 20 Rate Blood Pressure 139/91 H 138/90 118/77 06/04/18 16:42 Temperature Pulse Rate 64 Respiratory Rate Blood Pressure 118/77 * No new weekend lab results thus far Estimated Date of D/C: 06/06/18
[2018-06-06] MEDS: Pantoprazole 40 mg EC Tab PO SCH (06:32)
[2018-06-06] MEDS: Multivitamin Therapeutic Tab PO SCH (09:38)
[2018-06-06 10:24] LABS: ALB/GLOB RATIO 1.5 (1.1-1.8); ALT/SGPT 68 U/L (7-56); AST/SGOT 56 U/L (17-59); BLOOD UREA NITROGEN 13 mg/dL (7-21); CALCIUM 9.2 mg/dL (8.4-10.5); GFR NON-AFRICAN AMERICAN > 60
--- NOTE | 2018-06-06 15:24 | PCM.PYCHPN ---
Psychiatric Progress Note - Psychiatric Progress Note Patient seen today, length of contact: 30min Patient Chief Complaint: "I am feeling better, I just hope to get to rehab" Problems Identified/Issues Discussed: Risk/benefits and alternatives of medications discussed, suicide/ homicide prevention, past psychiatric h/o, current psychiatric symptoms, medical problems, risk/benefits and alternatives of medications, medications compliance, coping strategies, substance abuse h/o, relapse prevention, importance of follow up with psychiatrist and therapist, discharge plan. Medical Problems: see HPI Diagnostic Results: Lab Results 05/31/18 08:00: RPR Nonreactive Vital Signs Temp Pulse Resp BP 06/01/18 07:15 97.8 F 59 L 20 119/74 05/31/18 17:45 60 117/79 05/31/18 16:00 60 117/79 05/31/18 08:10 6 L 114/64 05/31/18 07:00 97.4 F L 65 20 114/64 05/30/18 20:52 20 Temp Pulse Resp BP Pulse Ox 98.1 F 81 20 119/82 06/02/18 07:18 06/02/18 07:18 06/02/18 07:18 06/02/18 07:18 06/06/18 10:10 Lab Results 06/06/18 10:10: Sodium 138, Potassium 4.1, Chloride 105, Carbon Dioxide 24, Anion Gap 13, BUN 13, Creatinine 0.7 L, Est GFR ( Amer) > 60, Est GFR (Non-Af Amer) > 60, Random Glucose 154 H, Calcium 9.2, Total Bilirubin 0.3, AST 56, ALT 68 H, Alkaline Phosphatase 62, Total Protein 6.7, Albumin 4.0, Globulin 2.7, Albumin/Globulin Ratio 1.5 05/31/18 08:00: RPR Nonreactive Abnormal Lab Results 06/06/18 10:10 Sodium 138 Potassium 4.1 Chloride 105 Carbon Dioxide 24 Anion Gap 13 BUN 13 Creatinine 0.7 L Est GFR ( Amer) > 60 Est GFR (Non-Af Amer) > 60 Random Glucose 154 H Calcium 9.2 Total Bilirubin 0.3 AST 56 ALT 68 H Alkaline Phosphatase 62 Total Protein 6.7 Albumin 4.0 Globulin 2.7 Albumin/Globulin Ratio 1.5 DSM 5 Symptoms Update: Patient is a single 48 yo white male with a history of severe and debilitating alcohol use disorder associated with numerous medical admissions for withdrawal DTs, +history of bipolar type II, multiple psychiatric admissions for bipolar and alcohol use disorder, poor adherence with outpatient treatment and medications who was transferred from the medical floor 05/30/18, pt came to the ED after being found in the community, ambulance was called for unknown reason, initial complaint in ED was depression, but pt stated to develop alcohol with drawal delirium and required to be admitted to the medical floor, pt had troponin elevation, EKG changes. this senior copywriter was involved as a database reporting consultant, pt was found to be depressed/hopeless, psychotic, required to be transferred to the psychiatric inpatient unit for evaluation and stabilization. pt was seen today in his room with medical student, hygiene is better, good ADLs. pt presented with stable improvement with his hallucinations, per report, over the weekend patient presented to be much better, patient still on tapering dose of Ativan, patient is awaiting for rehab placement. pt's vitals are stable, minimal UE tremor. so far pt tolerated meds well, no side effects observed or reported, AIMS 0, no EPS. pt said that he is more optimistic about his future, started to work with for inpatient rehab transfer, made a few phone calls to inpatient rehabs, as per , inpatient rehab might have a bed available on Wednesday or Wednesday, if not, will d/c pt on Wednesday June 06, 2018. Impression: as per h/o BD r/o substance induced mood disorder alcohol use disorder Medication Change: Yes (decreased ativan) Medical Record Reviewed: Yes Consults ordered or reviewed: medical team f/u appreciated Mental Status Examination - Cognitive Function Orientation: Person, Place, Situation Memory: Intact Attention: Poor (Improvement) Concentration: Poor (Improvement) Association: WNL Fund of Knowledge: WNL - Mood Mood: Depressed (I feel much better), Anxious - Affect Affect: Constricted (but more reactive) - Speech Speech: Appropriate - Formal Thought Process Formal Thought Process: Hallucinations (denied today), Paranoia (Denied) - Suicidal Ideation Suicidal Ideation: No - Homicidal Ideation Homicidal Ideation: No Goal/Treatment Plan - Goal/Treatment Plan Need for Continued Stay: Remain at risks for inpatient hospitalization, Severe depression anxiety, Discharge may exacerbated symptoms, Severe functional impair ment Progress Toward Problem(s) and Goals/Treatment Plan: Milieu/structure/supportive therapy SW consultation for discharge plan and social issues seroquel 50mg hs for mood and psychosis, will monitor EKG and troponins ativan 1mg po tid prn for alcohol withdrawals mutlivitamines, thiamine and folic acid remeron 15mg pohs for depression naltrexone 50mg po daily started for alcohol cravings Med management: Family involvement Follow up on labs Will monitor closely Pt was educated about risk/benefits and alternatives of medications, coping strategies (safety plan, suicide prevention), relapse prevention, importance of follow up with psychiatrist and therapist, stay away from drugs/alcohol/smoking Possible rehab tomorrow Wednesday Estimated Date of D/C: 06/07/18
[2018-06-07] MEDS: Pantoprazole 40 mg EC Tab PO SCH (06:10)
[2018-06-07 07:04] VITALS: BP 124/71; PULSE 57; TEMP 97.5
[2018-06-07] MEDS: Multivitamin Therapeutic Tab PO SCH (09:35)
--- NOTE | 2018-06-07 15:17 | PCM.PYCHDC ---
Mental Status Examination - Mental Status Examination Orientation: Person, Place, Situation Memory: Intact Mood: Neutral Affect: Constricted (But reactive and mood congruent) Speech: Appropriate Attention: WNL Concentration: WNL Association: WNL Fund of Knowledge: WNL Formal Thought Process: No Impairment Description of patient's judgement and insight: Pt has improved insight into mental and medical illness, pt was compliant with medications and unit rules and regulations, pt was going to groups, was calm, cooperative, socially appropriate, no behavioral incidents, no agitation, no aggression. Psychotic Thoughts and Behaviors: Pt denied v/a/t hallucinations, denied paranoid ideations, pt does not appear to be psychotic, and thought process is goal directed. Suicidal Ideation: No Current Homicidal Ideation?: No Plan: pt adamantly denied thoughts of harming self or others denied intent or plan. Discharge Summary - Discharge Note Reason for Hospitalization: pt was transferred from the medical site for evaluation of depressive symptoms, inability to function, hopelessness and psychosis. Psychiatric History (includes Medical, Family, Personal Hx): see HPI Laboratory Data: 06/06/18 10:10 Lab Results 06/06/18 10:10: Sodium 138, Potassium 4.1, Chloride 105, Carbon Dioxide 24, Anion Gap 13, BUN 13, Creatinine 0.7 L, Est GFR ( Amer) > 60, Est GFR (Non-Af Amer) > 60, Random Glucose 154 H, Calcium 9.2, Total Bilirubin 0.3, AST 56, ALT 68 H, Alkaline Phosphatase 62, Total Protein 6.7, Albumin 4.0, Globulin 2.7, Albumin/Globulin Ratio 1.5 05/31/18 08:00: RPR Nonreactive Vital Signs Temp Pulse Resp BP 06/07/18 09:35 57 L 124/71 06/07/18 07:00 97.5 F L 57 L 20 124/71 06/06/18 16:11 70 114/80 06/06/18 15:00 80 114/80 06/06/18 09:38 55 L 126/78 06/06/18 07:00 97.8 F 55 L 20 126/78 06/05/18 17:50 69 136/89 06/05/18 16:00 69 136/89 06/05/18 08:59 64 126/88 06/05/18 07:00 97.7 F 64 20 126/88 06/04/18 16:42 64 118/77 06/04/18 16:00 64 118/77 06/04/18 08:00 60 138/90 06/04/18 07:00 97.8 F 58 L 20 139/91 H 06/03/18 18:25 68 117/70 06/03/18 15:33 68 117/70 06/03/18 08:04 57 L 141/81 06/03/18 07:03 97.8 F 57 L 20 141/81 06/02/18 16:02 55 L 120/81 06/02/18 07:18 98.1 F 81 20 119/82 06/01/18 16:00 72 113/77 06/01/18 07:15 97.8 F 59 L 20 119/74 05/31/18 17:45 60 117/79 05/31/18 16:00 60 117/79 05/31/18 08:10 6 L 114/64 05/31/18 07:00 97.4 F L 65 20 114/64 05/30/18 20:52 20 Consultations:: List each consultation separately and include: 1. Reason for request. 2. Findings. 3. Follow-up Consultations: medical team f/u appreciated Please see notes for more detailed information Summary of Hospital Course include:: 1. Description of specific treatment plan utilized for patients during their course of treatmen. 2. Summarize the time- course for resolution of acute symptoms and/or regressed behaviors. 3. Describe issues identified and worked on during hospitalization. 4. Describe medication utilized. 5. Describe medical problems identified and treated. 6. Reassessment of suicide risk Summary of Hospital Course: Patient is a single 48 yo white male with a history of severe and debilitating alcohol use disorder associated with numerous medical admissions for withdrawal DTs, +history of bipolar type II, multiple psychiatric admissions for bipolar and alcohol use disorder, poor adherence with outpatient treatment and medications who was transferred from the medical floor 05/30/18, pt came to the ED after being found in the community, ambulance was called for unknown reason, initial complaint in ED was depression, but pt stated to develop alcohol withdrawal delirium and required to be admitted to the medical floor, pt had troponin elevation, EKG changes. this real estate underwriter was involved as a professional services consultant, pt was found to be depressed/hopeless, psychotic, required to be transferred to the psychiatric inpatient unit for evaluation and stabilization. Please see admission note for more detailed information Patient was stabilized on the following medications: Seroquel 50 mg at the nighttime for psychosis and mood stabilization ReVia 50 mg daily for alcohol cravings Multivitamins daily Folic acid daily Remeron 15 mg at the nighttime for depression and insomnia thiamine 100 mg daily Aspirin/metoprolol/Protonix Patient tolerated medications well, no side effects observed or reported, aims 0 EPS. Vital Signs Temp Pulse Resp BP 05/31/18 08:10 6 L 114/64 05/31/18 07:00 97.4 F L 65 20 114/64 05/30/18 20:52 20 Over the course of this hospitalization pt was attending groups, pt also had medication management, had therapeutic milieu. Overall pt improved significantly, pt's affect became brighter, mood improved, has realistic future oriented plans, pt also does not appear to be psychotic, or anxious, pt was socially appropriate, no behavioral issues, pts insight improved as well and soon pt deemed to be ready for discharge. tried to arrange inpatient rehab, but pt was not accepted, at this time pt could follow up with as outpatient, as well as dual diagnosis program [facility]. information about follow up appointment, time and address provided to the pt, (see SW note for more detailed information). It is a patient responsibility to follow up with outpatient clinic, PMD as well as specialists At the time of the discharge patient pose no imminent danger to self or others. In case patient will need to obtain results of studies pending at discharge, patient was provided with contact information of Psychiatric Inpatient unit [phone] as well as Medical Record Department [phone], as well as [facility] team [phone]. Patient denied smoking Naltrexone treatment initiated Counseling about alcohol cessation provided AA meetings program information was provided by the pt was provided with prescriptions see medication reconciliation form Pt was educated about safety plan in case of worsening of symptoms or in case of suicidal or homicidal ideation call 911 or go to the nearest ER, also was educated to take meds as prescribed and stay away from drugs, pt verbalized understanding. - Diagnosis (1) Alcohol use disorder Current Visit: Yes Status: Chronic Priority: High (2) Bipolar II disorder Current Visit: Yes Status: Chronic Priority: High - Final Diagnosis (DSM 5) Condition upon Discharge: GOOD Disposition: HOME/ ROUTINE Follow-up Treatment Plan: ALBINO tried to arrange inpatient rehab, but pt was not accepted, at this time pt could follow up with as outpatient, as well as dual diagnosis program [facility]. information about follow up appointment, time and address provided to the pt, (see ALBINO note for more detailed information). It is a patient responsibility to follow up with outpatient clinic, PMD as well as specialists Prescriptions/Medication Reconciliation: Aspirin [Ecotrin] 81 mg PO DAILY #30 tabec Folic Acid 1 mg PO DAILY #30 tab Folic Acid 1 mg PO DAILY #30 tab Metoprolol Tartrate [Lopressor] 25 mg PO BID #30 tab Mirtazapine [Remeron] 15 mg PO HS #30 tab Multivitamin Therapeutic Tab [Thera Tab] 1 tab PO 0800 #30 tab Multivitamin Therapeutic Tab [Thera Tab] 1 tab PO 0800 #14 tab Naltrexone [Revia] 50 mg PO DAILY #30 tab Pantoprazole [Protonix EC Tab] 40 mg PO 0600 #30 ect QUEtiapine [Seroquel] 50 mg PO HS #30 tab Thiamine [Vitamin B1 Tab] 100 mg PO DAILY #30 tab - Smoking Cessation Smoking Cessation Medication prescribed: No Reason for not providing: Patient denied smoking - Antipsychotic Medications Pt discharged on 2 or more routine antipsychotic medications: No
== END 2018-06-07 16:36 | disposition home or self-care (01) | DRG 430 ==
LOC: PSYC 20:10
PROVIDERS: ADMIT Psychiatry & Neurology Psychiatry; ATTEND Psychiatry & Neurology Psychiatry
PROC: GZ3ZZZZ Medication Management (ICD-10-PCS; principal; 2018-05-30)
DX: F31.81 Bipolar II disorder (principal); D69.59 Other secondary thrombocytopenia; F10.231 Alcohol dependence with withdrawal delirium; I10 Essential (primary) hypertension; G47.00 Insomnia, unspecified

== ENCOUNTER 2018-07-01 10:52 | Inpatient (IN) | payer MEDICAID ==
[2018-07-01 10:59] VITALS: BMI 22.8
[2018-07-01] MEDS ORDERED: Multivitamin (MVI) 10 ML, Thiamine 100 MG, Folic Acid 1 MG in Sodium Chloride 0.9% 1,00... IV ONE (11:05)
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
--- NOTE | 2018-07-01 11:35 | RAD ---
Date of service: 07/01/2018 HISTORY: chest pain COMPARISON: Chest x-ray 05/26/2018 TECHNIQUE: Chest one view . FINDINGS: LUNGS: No focal consolidation is seen. PLEURA: No pleural effusion is identified. CARDIOVASCULAR: Heart size is within normal limits. No atherosclerotic calcification present. OSSEOUS STRUCTURES: No acute fracture identified. VISUALIZED UPPER ABDOMEN: Unremarkable. OTHER FINDINGS: None. IMPRESSION: No acute cardiopulmonary process seen.
[2018-07-01 11:49] LABS: BASO # 0.01 K/mm3 (0.0-2.0); BASO % 0.2 % (0.0-3.0); EOS % 0.2 % (1.5-5.0); HEMOGLOBIN 13.7 g/dL (14.0-18.0); LYMPH # 1.1 (1.2-3.4); LYMPH % 19.6 % (22.0-35.0); MEAN CELL VOLUME 84.1 fl (80.0-105.0); MEAN CORPUSCULAR HEMOGLOBIN 28.7 pg (25.0-35.0); MEAN CORPUSCULAR HGB CONC 34.1 g/dl (31.0-37.0); MEAN PLATELET VOLUME 11.7 fl (7.0-11.0); MONO # 0.4 (0.1-0.6); MONO % 6.5 % (1.0-6.0); RBC 4.78 10^6/uL (3.5-6.1); RED CELL DISTRIBUTION WIDTH 14.6 % (11.5-14.5); WHITE BLOOD COUNT 5.8 10^3/uL (4.5-11.0)
[2018-07-01 12:00] LABS: ACETAMINOPHEN < 10.0 ug/ml (10.0-20.0); INR 1.07; PARTIAL THROMBOPLASTIN TIME 26.2 Seconds (26.9-38.3); PROTHROMBIN TIME 12.1 SECONDS (9.4-12.5); SALICYLATE < 1 mg/dL (2.0-20.0)
[2018-07-01 12:01] LABS: ALB/GLOB RATIO 1.5 (1.1-1.8); ALBUMIN 4.2 g/dL (3.0-4.8); ALT/SGPT 113 U/L (7-56); AST/SGOT 65 U/L (17-59); BLOOD UREA NITROGEN 11 mg/dL (7-21); CALCIUM 9.4 mg/dL (8.4-10.5); GFR NON-AFRICAN AMERICAN > 60
[2018-07-01 12:05] LABS: D DIMER < 200 ng/mlDDU (0-243)
[2018-07-01 12:27] LABS: TROPONIN I < 0.01 ng/mL
--- NOTE | 2018-07-01 13:23 | CT ---
Date of service: 07/01/2018 PROCEDURE: CT HEAD WITHOUT CONTRAST HISTORY: altered mentation COMPARISON: CT head 03/26/2018 TECHNIQUE: Axial computed tomography images were obtained through the head/brain without intravenous contrast. Radiation dose: Total exam DLP = 889.56 mGy-cm. FINDINGS: HEMORRHAGE: No intracranial hemorrhage seen. BRAIN: No mass effect or edema. No atrophy or chronic microvascular ischemic changes. VENTRICLES: Unremarkable. No hydrocephalus. CALVARIUM: Intact PARANASAL SINUSES: Visualized paranasal sinuses are clear. MASTOID AIR CELLS: Visualized mastoid air cells are clear. OTHER FINDINGS: None. IMPRESSION: No mass, hemorrhage, or acute infarct identified.
[2018-07-01 14:00] LABS: BARBITURATES, UR NEGATIVE (NEGATIVE); BENZODIAZEPINES, UR POSITIVE (NEGATIVE); OPIATES, UR NEGATIVE (NEGATIVE); PHENCYCLIDINE, UR NEGATIVE (NEGATIVE)
--- NOTE | 2018-07-01 15:13 | CARD ---
APPROVED REPORT Date of service: 07/01/2018 EKG Measurement Heart [id number] DC [id number] [id number] <Conclusion> Sinus tachycardia Prolonged QT interval Abnormal ECG
[2018-07-01] MEDS ORDERED: Pneumococcal 23-Valent Vaccine IM ONE (17:38)
[2018-07-01] MEDS ORDERED: Influenza Vaccine 60 mcg/0.5 mL SYR (4YR UP) IM ONE (17:38)
[2018-07-01] MEDS ORDERED: Potassium Chloride 20 mEq ER Tab PO ONE (22:40)
[2018-07-01] MEDS ORDERED: Magnesium Sulfate 2 gm/50 ml 2 GM/50 ML BAG IVPB ONE (23:18)
--- NOTE | 2018-07-01 23:38 | CP.PCM.PCO ---
<Doug Birmingham - Last Filed: 07/01/18 23:33> Summary - Summary of Event Summary of Event: House Physician Resident Doug Birmingham DO, IM PGY-3 Responded to CODE ZUÑIGA on floor due to agitated patient. Patient well known to hospital, frequent admissions for alcohol withdrawal, current admission for same. Remains agitated despite several doses of ativan, but by time of arrival, more calm with staff on hand to prevent from getting up and continually redirecting him. Would avoid Librium due to elevated LFTs on labs this admission, gave 1x dose of PO Geodon as seems willing to take PO meds, will switch to IM if patient stops being agreeable and refuses meds. Also noted to have some QTc prolongation, and did receive his daily Seroquel already, but is hypokalemic and borderline hypomag at 1.7. Already given PO K by house physician, ordered Mg IV to replete as well, which should held improve the QTc. Discussed and reviewed with House Physician attending, Dr. Serrano. <Júnior Serrano - Last Filed: 07/02/18 01:47> Attending/Attestation - Attestation I have personally seen and examined this patient.: Yes I have fully participated in the care of the patient.: Yes I have reviewed all pertinent clinical information: Yes
--- NOTE | 2018-07-02 00:35 | CP.PCM.PN ---
Subjective - Date & Time of Evaluation Date of Evaluation: 07/02/18 Time of Evaluation: 00:33 - Subjective Subjective: Patient was seen at bedside. He received multiple doses of ativanPerla. Still agitated. [place] [id number] Medical record was reviewed. This 48 year old white male was admitted after he was found wandering around on the street. Has PMH of: HTN. Seizures. Hepatitis A/B/C. Anxiety Depression Substance abuse. Coronary stent placement history. History of thoracostomy. Alcohol withdrawal. Objective - Vital Signs/Intake and Output Vital Signs (last 24 hours): Temp Pulse Resp BP Pulse Ox 98 F 95 H 18 118/81 97 07/01/18 17:46 07/01/18 18:00 07/01/18 17:46 07/01/18 17:46 07/01/18 17:46 - Medications Medications: Current Medications Aspirin (Aspirin Chewable) 81 mg PO DAILY LESLY Folic Acid (Folic Acid) 1 mg PO DAILY LESLY Lorazepam (Ativan) 1 mg IVP Q4H PRN; Protocol PRN Reason: Anxiety Last Admin: 07/01/18 20:17 Dose: 1 mg Lorazepam (Ativan) 3 mg IVP ONCE ONE; Protocol Stop: 07/02/18 00:30 Metoprolol Tartrate (Lopressor) 25 mg PO BID [facility] Multivitamins (Thera Tab) 1 tab PO 0800 [facility] Pantoprazole Sodium (Protonix Inj) 40 mg IVP DAILY [facility] Quetiapine Fumarate (Seroquel) 50 mg PO HS LESLY; Protocol Last Admin: 07/01/18 21:06 Dose: 50 mg Thiamine HCl (Vitamin B1 Inj) 100 mg IM DAILY [facility] Stop: 07/05/18 07:00 - Labs Labs: 07/01/18 11:25 07/01/18 11:25 PT 12.1 SECONDS (9.4-12.5) 07/01/18 11:25 INR 1.07 07/01/18 11:25 APTT 26.2 Seconds (26.9-38.3) L 07/01/18 11:25 - Constitutional Appears: Non-toxic - Head Exam Head Exam: ATRAUMATIC, NORMAL INSPECTION, NORMOCEPHALIC - Eye Exam Eye Exam: Normal appearance - ENT Exam ENT Exam: Normal External Ear Exam - Neck Exam Neck Exam: Normal Inspection - Respiratory Exam Respiratory Exam: NORMAL BREATHING PATTERN - Cardiovascular Exam Cardiovascular Exam: absent: Tachycardia, JVD - GI/Abdominal Exam GI & Abdominal Exam: absent: Distended - Rectal Exam Rectal Exam: Deferred - Exam Additional comments: Deferred. - Extremities Exam Extremities Exam: Normal Inspection - Back Exam Back Exam: NORMAL INSPECTION - Neurological Exam Neurological Exam: Altered, Awake - Psychiatric Exam Psychiatric exam: Agitated - Skin Skin Exam: Normal Color Assessment and Plan - Assessment and Plan (Free Text) Assessment: Agitation. Alcohol withdrawal. HTN. Seizures. Hepatitis A/B/C. Anxiety Depression Substance abuse. Coronary stent placement history. History of thoracostomy. Plan: Ativan 3 mg IV x 1. Continue present management. Transfer to ICU PRN delirium .
[2018-07-02] MEDS: Thiamine 100 mg/ml Inj IM SCH ×2 (11:27→11:40)
[2018-07-02] MEDS: Multivitamin Therapeutic Tab PO SCH ×3 (11:28→15:11)
--- NOTE | 2018-07-02 15:24 | CON ---
DATE OF CONSULTATION: 07/02/2018 HISTORY OF PRESENT ILLNESS: In short, the patient is a 48-year-old male with long and debilitating history of alcohol use disorder. The patient was found on the streets wandering. The patient presented to be confused and the patient was admitted on the medical side for alcohol withdrawal syndrome. Psych consult was called for medication management and the patient has history of bipolar disorder and history of alcohol withdrawal with delirium. The patient was seen and examined based on report from the nursing staff. The patient got Ativan IV push and Geodon 60 mg was given to the patient yesterday at 11:15. During the evaluation, the patient is sleepy, is not arousable, the patient breathing without any abnormalities, seems to be medicated and that is why the patient was not able to wake up. Collaterals from the nursing staff. The patient was medicated because of agitation and aggression and the patient was trying to pull IV line and pose imminent danger to self. VITAL SIGNS: Reviewed. Temperature 97.4, pulse is 59, blood pressure 140/97, respirations 26, and saturation is 98. MEDICATIONS: Reviewed. The patient is on Ativan 2 mg IV push. Altogether the patient got 14 mg of Ativan over nighttime. The patient is on magnesium sulfate, banana bag, multivitamins, thiamine and folic acid. The patient also is on K-Dur and Geodon was given to the patient. Currently the patient is on Ativan only as needed. This procedure writer would recommend scheduled dose of medication. The patient also is on Seroquel 50 mg at the nighttime and we will continue that. LABORATORY DATA: Reviewed. Hematology reviewed. Chemistry reviewed. AST and ALT is elevated. Toxicology positive for benzodiazepines. MENTAL STATUS EXAM: This procedure writer was not able to assess mental status because the patient is deeply sedated, but based on the presentation most likely the patient is delirious and psychotic. IMPRESSION: As per history, the patient has alcohol use disorder, severe. At present moment, the patient most likely in alcohol withdrawal with delirium. The patient also has history of bipolar type 2. PLAN: Continue current management. Continue current medication. Please consider Ativan scheduled dose 2 mg every 4 hours scheduled and we will taper that down by 20-25% a day. Monitor vital signs, CIWA protocol. Multivitamins, thiamine and folic acid should be continued. Should you have any questions, give me a call back. Thank you very much for letting me participate in the care of your patient. We will follow up and advise accordingly. Bella Hussein MD
[2018-07-02] MEDS: Dextrose 5%/0.45% NS 1,000 ML IV SCH (19:06)
[2018-07-02 19:24] LABS: ALB/GLOB RATIO 1.2 (1.1-1.8); ALBUMIN 3.4 g/dL (3.0-4.8); ALT/SGPT 75 U/L (7-56); AST/SGOT 45 U/L (17-59); BLOOD UREA NITROGEN 11 mg/dL (7-21); CALCIUM 8.7 mg/dL (8.4-10.5); GFR NON-AFRICAN AMERICAN > 60
--- NOTE | 2018-07-02 20:39 | CON ---
DATE: 07/02/2018 HISTORY OF PRESENT ILLNESS: This is a 48-year-old white male with a past medical history of depression, alcohol abuse, came to the emergency room because he was found roaming aimlessly around in the street and admit walking up and down the local street, and brought here for checkup. The patient somewhat was confused and little shaky, and last drinks he had 5 days ago. His mother 2 days ago and called to evaluate the patient's past medical history of alcohol abuse. substance abuse. REVIEW OF SYSTEMS: A 10-point review of system was negative. ALLERGIES: FISH ALLERGY. PHYSICAL EXAMINATION VITAL SIGNS: Blood pressure was 141/95. HEENT: Normocephalic, atraumatic. NECK: Supple. NEUROLOGIC: Alert, awake, oriented to self and place. Cranial nerve II through XII were tested. Pupils reactive. EOMs intact. No facial asymmetry. Tongue is midline. Motor examinations, moves all the extremities equally. Tone normal. Deep tendon reflexes 1+. Both plantars downgoing. Sensory; EP's intact. Cerebellar, gait deferred. IMAGING DATA: CAT scan of the head was done, which was reported negative. LABORATORY DATA: WBC 5.8, hemoglobin 13.7 with a hematocrit of 40.2, platelets 83. Sodium 138, potassium 3.3, chloride 101, CO2 of 26, BUN 11, creatinine 1, glucose 102. AST 65, ALT 130. TSH is normal. IMPRESSION: Possibly withdrawal syndrome and in the family. PLAN: Continue present management. We will follow up. Zay Khan MD
[2018-07-02] MEDS: Magnesium Oxide 400 mg Tab UD PO SCH (22:17)
--- NOTE | 2018-07-03 02:13 | HP ---
DATE OF EXAM: 07/02/2018 HISTORY OF PRESENT ILLNESS: The patient came into the hospital because of alcohol withdrawal. The patient is well known to the hospital and through the emergency department for his chronic alcohol use disorders. He is alcoholic. Multiple admissions with alcohol withdrawal symptoms and alcohol intoxications, this time came in seems to be confused, they found him in the streets wondering, confused, they brought him to the emergency room for evaluation. The patient was known to be drinking everyday and seems confused in the hospital, does not know where he is. He is hallucinating. He was tachycardic and was admitted for evaluation. There is not much history gained from the patient, but this is what information got collected. PAST MEDICAL HISTORY: Chronic alcohol use disorder, the patient also has history of gastritis, history of multiple psych admissions for depression, the patient also has history of hematuria, seen urologist . HOME MEDICATIONS: He takes trazodone 50 mg p.o. daily, thiamine 100 mg p.o. daily, Seroquel 50 mg at bedtime, Protonix 40 mg daily, naltrexone 50 mg p.o. daily, multivitamins once daily, metoprolol 25 mg b.i.d., folic acid 1 mg once a day, and aspirin once a day. ALLERGIES: FISH. SOCIAL HISTORY: He lives by himself. He does drink. No smoking. No other drugs except alcohol. FAMILY HISTORY: Noncontributory. REVIEW OF SYSTEMS: Cannot be obtained. PHYSICAL EXAMINATION: GENERAL: The patient came yo the ER. VITAL SIGNS: Temperature 99.6, heart rate 126, blood pressure 141/95, respirations 19, and saturation 96% on room air. HEAD AND NECK: Normal. No JVD. No thyromegaly. CHEST: Clear bilateral. CARDIAC: First sound and second sound normal. No murmur, rub, or gallop. ABDOMEN: Soft and nontender. EXTREMITIES: No edema. NEUROLOGIC: The patient seems lethargic now. He did receive Geodon p.o. plus Ativan p.r.n. while I am examining him. DIAGNOSTIC DATA: Chest x-ray reveal no active disease. The patient also had EKG which showed sinus tachycardia, prolonged QT interval, it is 503. The patient has laboratory study; white count 5.8, hemoglobin 15.7, hematocrit 40.2, and platelet 83. Chemistry shows sodium 138, potassium 3.3, chloride 101, bicarb 26, BUN 11, and creatinine 1. AST 65, ALT 113, and alk phos normal. Troponin less than 0.01. IMPRESSION: 1. This is a 48-year-old male with recurrent drinking problems, alcoholic, came with alcohol withdrawal symptoms including confusion, delusions, visual hallucinations, plus tachycardia. The patient also tremoring and seems to be tachycardic and hypertensive. He has economic instability. above finding is alcohol withdrawal symptoms that is significant enough to be keep the patient in the hospital with CIWA score probably more than 20. We will admit the patient for alcohol withdrawal to telemetry floor. Give him beta liam, metoprolol 25 mg b.i.d., Ativan every 4 hours p.r.n., IV fluid, thiamine as needed, and folic acid. We will monitor his labs. We will get a psychiatric and neurologic consultation and I will follow up with him. 2. Thrombocytopenia, electrolyte abnormalities. We will replace. Repeat labs in the morning. Continue current management. Followup clinically. Patric Baez MD
[2018-07-03 07:44] LABS: HEMOGLOBIN 12.5 g/dL (14.0-18.0); MEAN CELL VOLUME 84.6 fl (80.0-105.0); MEAN CORPUSCULAR HEMOGLOBIN 27.8 pg (25.0-35.0); MEAN CORPUSCULAR HGB CONC 32.9 g/dl (31.0-37.0); MEAN PLATELET VOLUME 11.8 fl (7.0-11.0); RBC 4.49 10^6/uL (3.5-6.1); RED CELL DISTRIBUTION WIDTH 14.5 % (11.5-14.5); WHITE BLOOD COUNT 5.3 10^3/uL (4.5-11.0)
[2018-07-03 08:25] LABS: BLOOD UREA NITROGEN 7 mg/dL (7-21); CALCIUM 8.4 mg/dL (8.4-10.5); GFR NON-AFRICAN AMERICAN > 60
[2018-07-03] MEDS: Dextrose 5%/0.45% NS 1,000 ML IV SCH (08:59)
[2018-07-03] MEDS: Enoxaparin 40 mg Syringe SC SCH (09:01)
[2018-07-03] MEDS: Thiamine 100 mg/ml Inj IM SCH (09:02)
[2018-07-03] MEDS: Multivitamin Therapeutic Tab PO SCH (09:03)
[2018-07-03] MEDS: Potassium Chloride 20 mEq ER Tab PO SCH (09:04)
[2018-07-03] MEDS: Magnesium Oxide 400 mg Tab UD PO SCH ×2 (09:04→17:27)
--- NOTE | 2018-07-03 15:34 | PN ---
DATE: 07/03/2018 FOLLOWUP NOTE SUBJECTIVE: The patient is 48-year-old male with long and debilitating history of alcohol use disorder, multiple medical admissions as well as psychiatric admissions. The patient was found wandering on the streets was brought for evaluation. The patient was admitted to the medical site for altered mental status, possible alcohol withdrawal delirium. The patient also complained of the chest pain. This radio news writer attempted to speak to the patient yesterday, but the patient was status post Geodon 60 mg. The patient had episodes of agitation and restlessness and tried to pull his IV line off. Please see yesterday's note for more detailed information. The patient presented more alert today, was able to participate in interview. The patient said that he was not accepted in inpatient rehab since the last admission. The patient reported that his mother about a week ago. The patient reported that he was not drinking and he found a job and he is working part-time. The patient reported that he does not feel depressed, but reported that he is still adjusting to the fact that his mother . The patient denied any thoughts of harming himself or others. Denied intent or plan. The patient reported that he was compliant with the medications and followup with Dr. Nunn the day before coming to the hospital. The patient denied any hallucinations. Denied paranoid ideation. The patient's thought process seems to be coherent and goal directed. PHYSICAL EXAMINATION VITAL SIGNS: Reviewed. Temperature 97.7, pulse is 86, blood pressure 154/98, respiration 19 and oxygen saturation is 98. MEDICATIONS: Reviewed. The patient is on aspirin, Lovenox, folic acid, Ativan 1 mg IV push every 4 hours as needed, magnesium oxide, Lopressor, multivitamins, Protonix, K-Dur, Seroquel 50 mg at the nighttime, vitamin B1. LABORATORY DATA: Reviewed. Coagulation reviewed. Chemistry reviewed. Toxicology reviewed. MENTAL STATUS EXAM: The patient presented to be alert and oriented. The patient remember the circumstances of his admission to the medical site, but history is inconsistent. Intermittent eye contact. Mood described as okay. Affect was constricted but reactive. Mood congruent. Thought process seems to be coherent and goal directed, but at the same time, the patient had episodes of confusion. Last night, the patient was agitated was trying to pull IV lines. Insight and judgment seems to be improving. Impulses are unpredictable as of now. IMPRESSION: Rule out alcohol withdrawal delirium, alcohol withdrawals are better, history of bipolar type 1, rule-out grieving, the patient's mother about a week ago. PLAN: Continue monitoring. Continue current medications and management. This radio news writer will followup and advise accordingly. As per the patient, he does not feel that he needs to stay in the hospital. We will monitor the patient closely. Thank you very much for letting me participate in care of your patient. Bella Hussein MD MTDD
--- NOTE | 2018-07-04 00:57 | PN ---
DATE: 07/03/2018 SUBJECTIVE: The patient is stable, comfortable, more alert, awake and oriented x3, no distress. PHYSICAL EXAMINATION: VITAL SIGNS: Stable. Temperature 98.5, heart rate 65, blood pressure 146/88, respirations 18, and saturation 98% on room air. HEAD AND NECK: Normal. No JVD. No thyromegaly. CHEST: Clear bilaterally. CARDIAC: First sound and second sound normal. No murmur, rub or gallop. ABDOMEN: Soft and nontender. EXTREMITIES: No edema. NEUROLOGIC: Normal. LABORATORY DATA: White count 5.3, hemoglobin 12.5, hematocrit 38, and platelets 97. Chemistry; sodium 137, potassium 3.5, chloride 102, bicarbonate 27, BUN 7, and creatinine 0.6. IMPRESSION AND PLAN: 1. Alcohol withdrawal syndrome, possible. I spoke with the patient. He denied using alcohol; however, with his symptoms of confusion, disorientation, and the tachycardia, hypertension and sweating, the patient is clinically in withdrawal. We will continue Ativan p.r.n. The patient had Geodon for agitation. We will continue psych evaluation and we will follow up on that. 2. Abnormal liver function test, probably related to alcohol. We will continue to monitor his liver function test. 3. Electrolyte abnormalities and hypokalemia. The patient received potassium 20 mEq p.o. daily. 4. The patient will continue current therapy, will follow up with psychiatry. 5. Continue current medications; Seroquel 30 mg at bedtime, Protonix, magnesium, Lovenox, Lopressor, K-Dur, folic acid, Ativan, aspirin, multivitamin and thiamin. 6. Continue current therapy. We will see how his psychiatric evaluation and if he needs to be admitted to psych floor. Patric Baez MD
[2018-07-04 06:35] VITALS: RESP 18; O2SAT 97
[2018-07-04] MEDS: Multivitamin Therapeutic Tab PO SCH (09:02)
[2018-07-04] MEDS: Thiamine 100 mg/ml Inj IM SCH (09:03)
[2018-07-04] MEDS: Magnesium Oxide 400 mg Tab UD PO SCH (09:04)
[2018-07-04] MEDS: Enoxaparin 40 mg Syringe SC SCH (09:04)
[2018-07-04] MEDS: Potassium Chloride 20 mEq ER Tab PO SCH (09:04)
[2018-07-04 12:37] VITALS: BP 130/84; TEMP 97.7
[2018-07-04 14:27] VITALS: PULSE 76
--- NOTE | 2018-07-04 16:41 | PN ---
DATE: 07/04/2018 SUBJECTIVE: The patient was seen today. The patient presented very well. The patient was not confused, remembered this bid writer and was aware what is the date today. The patient reported that he feels fine. He denied that he is still depressed. He denied that he had any thoughts of harming himself or others. The patient reported that he has part-time job and he is planing to continue working. The patient's mother about a week ago and he still needs to make some arrangements. The patient reported that he does not feel hopeless or helpless, but sad a little bit. The patient denied any hallucinations and as per nursing report, the patient does not appear to be confused or agitated or psychotic. PHYSICAL EXAMINATION VITAL SIGNS: Stable. Temperature 97.7, pulse is 63, blood pressure 130/84, respiration 18 and oxygen saturation is 97%. MEDICATIONS: Reviewed. Aspirin, Lovenox, folic acid, Ativan 1 mg IV push every 4 hours as needed, magnesium oxide, Lopressor 25 mg twice a day, multivitamins, Protonix, K-Dur, Seroquel 50 mg at the nighttime and thiamine. LABORATORY DATA: Labs reviewed. Most recent was from . Chemistry reviewed. Toxicology reviewed, benzodiazepines were positive in the urine. MENTAL STATUS EXAM: The patient presented to be alert and oriented, pleasant, cooperative and good personal hygiene. Good eye contact. Mood described as okay. Affect was constricted, but more reactive and mood congruent. Thought process was coherent and goal directed. Thought content, the patient denied visual, auditory, tactile hallucinations. Denied paranoid ideation. The patient does not present to be psychotic. Insight and judgment seems to be improving. Impulses are well controlled. IMPRESSION: As per history, the patient has alcohol use disorder, rule out substance-induced mood disorder. The patient has history of bipolar II, generalized anxiety disorder. At present moment the patient's delirium is improving. The patient is doing much better. PLAN: The patient presented very well, pose no imminent danger to self or others. The patient has [facility] with Dr. Nunn. The patient needs to continue all of his psychotropic medications. Meanwhile, the patient will continue on all of his medications and it was recommended for the patient to go to AA meeting and NA meeting. This bid writer will sign off. Should you have any questions give me a call back. Bella Hussein MD ABELARDO
[2018-07-05] MEDS ORDERED: Pantoprazole 40 mg EC Tab PO SCH (07:30)
--- NOTE | 2018-07-05 23:23 | DS ---
HISTORY OF PRESENT ILLNESS: The patient is a 48-year-old male who was admitted with past history of alcohol related GERD, although according to the patient he denied any alcohol, he said maybe more than two weeks ago; however, the patient has been a chronic alcoholic, has been on ReVia or naltrexone; has been taking it, and was brought home by the police, found to be hallucinating, tachycardiac, sweating, tremoring, symptoms of withdrawal, could be a little withdrawal symptoms, but according to him he was taking all of his medications. No chest pain. No short of breath. No nausea. No vomiting. The patient was seen by psychiatrist, neurologist and seems stable with Ativan medication and Geodon injections. He did well and we will continue Seroquel every 6 hours as outpatient. The patient is otherwise stable. No chest pain. No short of breath. Psychiatry cleared him and Neurology. PHYSICAL EXAMINATION VITAL SIGNS: On discharge is as follows; temperature 97, heart rate 63, blood pressure 130/84, and respiration 18. HEAD AND NECK: Normal. No JVD. No thyromegaly. CHEST: Clear bilaterally. CARDIAC: First sound and second sound normal. ABDOMEN: Soft and nontender. EXTREMITIES: No edema. NEUROLOGIC: The patient is alert, awake, and oriented x3. He is stable walking with no problem. He will be discharged. LABORATORY DATA: The patient had laboratory studies with noted for hemoglobin of 12.5, hematocrit 38, platelets 97, and white count 5.3. Chemistry; sodium was 137, potassium was 3.5, chloride 104, bicarb 27, BUN 7, and creatinine 0.6. The patient had slight variation in ALT 75, normal. Other liver enzymes are normal. DISCHARGE DIAGNOSES 1. Probably alcohol withdrawal syndrome necessitating admission. We will give the patient p.o. Librium and review all other medications including naltrexone 50 mg daily and Librium tapering course over the next few days and followup with his psychiatrist. He does have a psychiatrist as outpatient. Continue Seroquel and continue B1 and other medications. 2. Hypertension. Continue Lopressor 25 mg b.i.d., multivitamins, and Protonix 40 mg. 3. He had some depression. We will continue trazodone 50 mg; continue Seroquel 50 mg at bedtime, and Remeron 15 mg p.o. at bedtime. Continue current therapy. See mental history . The patient was advised to do colonoscopy as outpatient. The patient is noncompliant. Risks explained to the patient. He is also advised to see urologist as outpatient. He is noncompliant. He will continue with the above therapy. See in outpatient in three days. Patric Baez MD
== END 2018-07-04 20:57 | disposition home or self-care (01) | DRG 750 ==
LOC: ED 10:52 → ERH 14:13 → 2RNO 18:29
PROVIDERS: ADMIT Internal Medicine; ATTEND Internal Medicine
DX: F10.231 Alcohol dependence with withdrawal delirium (principal); B15.9 Hepatitis A without hepatic coma; D69.6 Thrombocytopenia, unspecified; E87.6 Hypokalemia; R56.9 Unspecified convulsions; F22 Delusional disorders; R00.0 Tachycardia, unspecified; E83.42 Hypomagnesemia; F31.81 Bipolar II disorder; F41.1 Generalized anxiety disorder; I10 Essential (primary) hypertension; Z79.899 Other long term (current) drug therapy; Z91.83 Wandering in diseases classified elsewhere; Z95.5 Presence of coronary angioplasty implant and graft; Z91.013 Allergy to seafood; Z79.82 Long term (current) use of aspirin